=== PATIENT | female | born 1945 | race Caucasian/White ===

== ENCOUNTER 2018-07-20 08:00 | Outpatient (RCR) | payer MEDICARE, BC, SELFPAY ==
--- NOTE | 2018-07-05 10:06 | PTTR_ITS ---
DATE: 07/05/18 SUBJECTIVE: Nguyen returns to the clinic today after her vacation. She states that for whatever reason, she's been feeling really good. She's anxious to resume PT. Compliant with HEP: x Yes No OBJECTIVE: * x Neuro Re-education - (60601 x2): Patient is able to transfer scooter to low mat with min A x 1, primarily for stabilization of the scooter. She was instructed in seated and supine exercises, as noted on flowsheet. She requires min A for sit<->stand, and min A to sustain standing with UE support to rollator x 2 minutes. She was able to add standing march, with CG and significant compensatory movement patterns. During supine exercises, she requires continuous cues for breathing. Full program can be found noted on flowsheet. * Direct treatment time: 30 minutes Total treatment time: additional time spent with Aurora Clement PTA
--- NOTE | 2018-07-05 10:10 | PTTR_ITS ---
DATE: 07/05/18 OBJECTIVE: Co-treatment with Nguyen Aragon DPT. Please see her note for specifics. * X Neuro Re-education - (35594 x2): Pt instructed in her neuromuscular re- education program focusing on seated balance and trunk stabilization activities while incorporating LE strengthening. She does requires min/mod A with LE strengthening and cues for appropriate muscle activation and breathing techniques. She requires min A in seated position while performing reaching activities and reverse crunches. See flow sheet for specifics. CGA for transfer back to her motorized wheelchair. Direct treatment time: 30 minutes Total treatment time: 30 minutes Aurora Clement, CARDBOARD CUTTER
--- NOTE | 2018-07-07 09:00 | PTTR_ITS ---
DATE: 07/07/18 SUBJECTIVE: Nguyen states she was not terribly sore after her last session. She feels that her exercises are making a big difference and she is gaining strength. Neuro Re-education - (42463 x2): Session consisted of neuromuscular re-ed program, the patient completed both close chain and open chain strengthening. She was able to perform 8 steps with rollator walking and Min A of 1, although as poorly control return to the low marc with poor safety awareness and very abrupt transfer. Perform transfer training with patient encouraged to improve UE support to the low marc. She demonstrates excellent understanding and carry over with this, with improved control for descent. Also attempted transition into quadruped position, the patient requires Mod A for attempt. She is able to partially complete and is assisted back to supine position. Full program can be found noted on flow sheet. Direct treatment time: 30 mins Total treatment time: 30 mins with additional time spent with PT Aurora Clement (see her note for specifics) SS/dl
--- NOTE | 2018-07-08 07:59 | PTTR_ITS ---
DATE: 07/07/18 OBJECTIVE: This was a co tx with primary therapist Nguyen Aragon please see her note for specifics. * X Neuro Re-education - (64859 x2): Pt instructed in a neuro re-ed program as noted on her flow sheet consisting of core stabilization activities and general strengthening. Pt requiring max (A) in long sit position to avoid falling backwards. She does some reverse crunches in this position again with max (A). She performs some seated balance activities with legs over the edge of the table including reaching and trunk rotation. See flow sheet for all activities performed. Direct treatment time: 25 minutes Total treatment time: 25 minutes
--- NOTE | 2018-07-11 09:00 | PTTR_ITS ---
DATE: 07/11/18 SUBJECTIVE: Nguyen states that she feels as though her mobility is improving. She does think that it is easier to transfer. She has also begun practicing her static standing at home, stating she is able to stand for 50 seconds over the weekend. Neuro Re-education - (27043 x2): Today's session consisted of neuromuscular re-ed, began with transfer training with patient able to complete sit to stand for 5 reps with use of single Airex pad on low mat. She requires continuous cues for hand placement and avoidance of poorly controlled descent. Also requires assistance for stabilizing rollator walker. She is able to stand x2 mins, statically with CG and continuing encouragement. She completes various activities on the low mat with AA completion of SLR and long arc quads, and also received manual stretching to bilateral hamstrings. She is able to progress with her bridging today where she had been requiring significant external support to avoid hip external rotation. She is able to independently stabilize today, although with reduction in excursion. Direct treatment time: 30 mins Total treatment time: 30 mins with additional time spent with Aurora Clement PTA (see her note for specifics) SS/dl
--- NOTE | 2018-07-11 10:55 | PTTR_ITS ---
DATE: 07/11/18 OBJECTIVE: Co-treatment with Nguyen Aragon DPT. Please see her note for specifics. * X Neuro Re-education - (54222 x2): Continuation of her neuromuscular re- education program as note on her flow sheet. Complete core stabilization activities and glut stabilization with minimal support at the LE's. She does requires min A with rolling to the right from supine position. Also perform seated core stabilization including trunk rotation and reaching. She requires mod A with trunk rotation while encourage appropriate posturing. See flow sheet for all activities performed. Pt is quite fatigued after today's session and requires min A to return to her motorized wheel chair. She also asks for assistance into the car although pt and her caregiver are able to do this independently. Direct treatment time: 30 minutes Total treatment time: 30 minutes Aurora Clement, PYTHON ARCHITECT
--- NOTE | 2018-07-14 09:00 | PTTR_ITS ---
DATE: 07/14/18 SUBJECTIVE: Nguyen notes being quite fatigued today. She had a long trip down to [place] yesterday and she feels that this made her quite tired. She notes being a little sore through her arms after last session. X Neuro Re-education - (89392 x3): Patient is instructed in a neuro re-ed program as noted on flow sheet. WE begin with some standing balance activities where patient requires significant UE support to the walker and Min A throughout. She does have difficulty with sit to stand today x4 reps with Min A. She was also instructed in some seated and supine core stabilization exercises. In seated, she requires Min A or one UE to the plinth for stabilization. Patient can independently roll through the L and requires Min A with rolling to the R. She does note feeling quite nauseous when moving from position to position on the table. We defer any ambulation today due to fatigue level. She does also require Mod A to get back to her wheelchair today. (see flow sheet for all exercises performed) Direct treatment time: 45 mins Total treatment time: 45 mins LB/dl
--- NOTE | 2018-07-20 08:57 | PTTR_ITS ---
DATE: 07/20/18 SUBJECTIVE: Nguyen states that she's feeling well today. She has a busy few weeks coming up and will be out of town off and on. States that she is going to try to get into PT as regularly as possible during that time. She's been practicing her standing at home, typically tolerating 50-120 seconds. Compliant with HEP: x Yes No OBJECTIVE: * x Neuro Re-education - (35787 x2): Patient was instructed in an NRE program, with both open and closed chain strengthening. She received manual stretching to bilat LEs to hamstrings and hip adductors, tolerating only 15 degrees of abduction bilaterally. She required mod A with isometric hip exercises, and continues to require mod A to the LEs for bed mobility and transfers. Full program can be found noted on flow sheet. Direct treatment time: 30 mintues Total treatment time: additional time spent with Aurora Clement PTA
--- NOTE | 2018-07-20 10:22 | PTTR_ITS ---
DATE: 07/20/18 OBJECTIVE: Co-treatment with Nguyen Aragon DPT. Please see her note for specifics. * X Neuro Re-education - (15624 x2): Pt completes her neuromuscular re- education program as noted on her flow sheet consisting of supine and sitting trunk stabilization activities and glut strengthening. In hooklying she requires mod A at the LE's to maintain appropriate positioning while performing isometrics at the hips. In seated requires Min A while perform trunk rotation and reverse crunches. See flow sheet for all activities performed. She requires Mod A to transfer back to her motorized scooter. Direct treatment time: 30 minutes Total treatment time: 30 minutes Aurora Clement, ADMINISTRATIVE PERSONAL ASSISTANT
== END 2018-07-22 23:59 | disposition home or self-care (01) ==
LOC: PT 08:00
PROVIDERS: PCP Emergency Medicine; Referring Provider Emergency Medicine; Visit Provider Emergency Medicine
DX: R26.81 Unsteadiness on feet (principal); R29.6 Repeated falls; G35 Multiple sclerosis
CPT/HCPCS: 97112

== ENCOUNTER 2018-07-30 07:50 | Inpatient (IN) | payer MEDICARE, BC, SELFPAY ==
[2018-07-30] VITALS (64 sets, daily range): BP systolic 88–138; BP diastolic 28–101; PULSE 69–117; RESP 16–31; TEMP 37–39; O2SAT 89–98
--- NOTE | 2018-07-30 08:07 | DI.RAD_ITS ---
SYMPTOM/DIAGNOSIS: WEAKNESS, R/O PNEUMONIA PORTABLE CHEST: Comparison is made with 05 May 2016. The heart size is normal. The lungs are suboptimally inflated. There is mild respiratory motion. There are some linear increased densities consistent with atelectasis. IMPRESSION: Limited exam. No gross evidence of an acute abnormality.
[2018-07-30] MEDS: Normal Saline 250 ML IV (08:30)
[2018-07-30 08:57] LABS: Lactate-non-spesis 2.6 mmol/L (0.6-1.4)
--- NOTE | 2018-07-30 08:57 | DI.VRAD_ITS ---
EXAM: XR Chest, 1 View EXAM DATE/TIME: 07/30/2018 8:08 AM CLINICAL HISTORY: 73 years old, female; Signs and symptoms; Other: Weakness; Patient HX: Weakness, R/O pneumonia TECHNIQUE: XR of the chest, 1 view. COMPARISON: CR - CHEST 2 VIEWS PA,LAT 05/05/2016 2:38 PM FINDINGS: Limitations: Overlying EKG wires Lungs: No focal consolidation. Low lung volumes Discoid atelectasis in the right base. Pleural space: Unremarkable. No pleural effusion. No pneumothorax. Heart/Mediastinum: Unremarkable. No cardiomegaly. Bones/joints: Osseous structures are stable IMPRESSION: No focal consolidation. Dictated and Authenticated by: Josh Blandon MD. Ordering:SINDHU BANG MD
[2018-07-30 08:59] LABS: Abs Immature Grans 0.06 k/cumm (0.0-0.09); Absolute Basophil Count 0.02 k/cumm (0.0-0.2); Absolute Lymphocyte Count 0.58 k/cumm (1.2-3.4); Absolute Neutrophil Count 15.72 k/cumm (1.2-6.7); Basophils % 0.1; Eosinophils % 0.6; HCT 39.9 % (36.0-46.0); HGB 13.2 g/dL (12.0-15.5); Immature Grans % 0.4; Lymphocytes % 3.4; Mean Corp. HGB Concentration 33.1 g/dL (32.0-36.0); Mean Corpuscular Hemoglobin 29.7 pg (27.0-33.0); Mean Corpuscular Volume 89.9 fL (80-95); Mean Platelet Volume 9.6 fL (8.0-11.0); Monocytes % 3.3; Neutrophils % 92.2; Platelet Count 304 x1000/uL (130-400); RBC 4.44 m/cumm (4.00-5.20); RBC Distribution Width 14.1 % (11.7-14.6); White Blood Cell Count 17.05 k/cumm (4.4-10.8)
[2018-07-30 09:02] LABS: Bilirubin Negative (Negative); Blood Trace-intact (Negative); Clarity Cloudy; Glucose Negative (Negative); Ketones Trace mg/dL (Negative); Leukocyte Esterase Small (Negative); Nitrite Negative (Negative); Specific Gravity 1.015 (1.005-1.025); Urobilinogen 0.2 EU/dL (Up TO 0.2); pH 7.5 (5-8)
[2018-07-30 09:03] LABS: Absolute Monocyte Count 0.56 k/cumm (0.11-0.7)
[2018-07-30 09:15] LABS: C & S Indicated? Yes
--- NOTE | 2018-07-30 09:26 | ED.GENADUL_ITS ---
Discharge Plan Disposition Patient Disposition: [facility] INPATIENT Condition: Improving Discharge Details Chief Complaint: Fever Clinical Impression: Sepsis, Acute hypokalemia, Acute UTI, Community acquired pneumonia Primary Care Provider: Дмитрий Hyatt ED Provider: Roman Harris Home Meds and New Rx's Prescriptions: No Action cyanocobalamin (vitamin B-12) [Vitamin B-12] 1,000 MCG tablet 1,000 mcg PO DAILY RF: 0 Ca cmb no.1-vit [id number] [Vitamin D3 (calcium cit-phos)] 1 EACH tablet 1 ea PO DAILY RF: 0 nystatin 60 GM powder Topical BID Qty: 60 RF: 12 potassium chloride [K-Tab] 10 MEQ tablet extended release 10 meq PO BID Qty: 10 RF: 4 mirabegron [Myrbetriq] 50 MG tablet extended release 24 hr 50 mg PO DAILY Qty: 90 RF: 4 hydrochlorothiazide 25 MG tablet 0.5 tab PO DAILY Qty: 90 RF: 4 cephalexin 500 MG capsule 500 mg PO TID Qty: 30 RF: 0 nitrofurantoin monohyd/m-cryst [Macrobid] 100 mg capsule 100 mg PO BID Qty: 14 RF: 0 nitrofurantoin monohyd/m-cryst [Macrobid] 100 mg capsule 100 mg PO BID Qty: 14 RF: 0 iodine [Kelp (iodine)] 150 MCG tablet 150 mcg PO DAILY RF: 0 loperamide [Anti-Diarrhea] 2 MG tablet 2 mg PO PRN PRNRF: 0 Medical Decision Making [facility] Narrative Medical decision making narrative: This is a very pleasant 73-year-old female with a past medical history of urosepsis, who presents today for evaluation of weakness, questionable altered mental status at home, but relatively normal baseline here, as well as urinary incontinace. Physical exam demonstrates no significant abdominal or flank tenderness. She is incontinent of urine. No evidence of sacral decubitus ulcer. Patient does appear to be awake alert and oriented to person place and other generalized questions. The patient does demonstrate weakness of her lower extremities however sensation is intact, and she does demonstrate spontaneous movement of these lower extremities no signs of trauma on exam. Laboratory workup demonstrates a notable very elevated white count at 17, a lactate of 2.6, mild left shift. I am concerned for urosepsis. We are still awaiting urinalysis results at this time, however chest x-ray is negative for any signs of focal pneumonia. With a history of urosepsis, notable urinary incontinence, and foul-smelling urine I will start the patient on cefepime. I feel she certainly is suffering from infectious etiology at this point. She shows no signs of nuchal rigidity, neck pain or headache and so I doubt meningitis as this would be inconsistent with her current clinical picture. To me she denies any cough, shortness of breath and she shows no signs of hypoxemia significant tachypnea. With a negative chest x-ray feel that pneumonia is less likely. We will gently rehydrate the patient with 1 L of normal saline, get a repeat lactate, and admit the patient for further IV antibiotics management. X-ray read per virtual radiology no focal consolidation. EKG 8:08 AM Rate 116, WA 132, sinus tachycardia, QRS 90, no ST elevations or depressions. Questionable Q-wave in lead III and aVF. Diffuse low voltage. 10 a.m. The patient does demonstrate notable hypokalemia, we will correct this with 20 mEq IV potassium as well as 40 mEq oral potassium. Upon my review of the chest x-ray and concern for questionable mild focal pneumonia in the right mid lung [place]. I will add azithromycin for potential community-acquired pneumonia. Urinalysis has returned and appears very benign. It may be multifactorial components as to the cause/etiology of her sepsis. 10:17 AM I discussed the case with Dr. perla, he agrees with the assessment and plan. I have extensively reviewed the treatment plan and discharge instructions with the patient. I have addressed all patient concerns at this time. The patient was made aware of what symptoms to monitor for that would warrant a return to the emergency department. Discussed the plan with the patient, they demonstrate verbal understanding and agreement with our assessment and plan at this time. Lab Data Lab Results 07/30/18 07/30/18 07/30/18 Range/Units 08:50 08:50 08:55 WBC 17.05 H (4.4-10.8) k/cumm RBC 4.44 (4.00-5.20) m/cumm Hgb 13.2 (12.0-15.5) g/dL Hct 39.9 (36.0-46.0) % MCV 89.9 (80-95) fL MCH 29.7 (27.0-33.0) pg MCHC 33.1 (32.0-36.0) g/dL RDW 14.1 (11.7-14.6) % Plt Count 304 (130-400) x1000/uL MPV 9.6 (8.0-11.0) fL Immature Gran % 0.4 Neutrophils % 92.2 Lymphocytes % 3.4 Monocytes % 3.3 Eosinophils % 0.6 Basophils % 0.1 Absolute Neutrophils 15.72 H (1.2-6.7) k/cumm Absolute Lymphocytes 0.58 L (1.2-3.4) k/cumm Absolute Monocytes 0.56 (0.11-0.7) k/cumm Absolute Eosinophils 0.10 (0.0-0.7) k/cumm Absolute Basophils 0.02 (0.0-0.2) k/cumm Lactate 2.6 H (0.6-1.4) mmol/L Urine Color Yellow (Yellow) Urine Clarity Cloudy Urine pH 7.5 (5-8) Ur Specific Union 1.015 (1.005-1.025) Urine Protein Negative (Negative) mg/dL Urine Ketones Trace H (Negative) mg/dL Urine Blood Trace-intact H (Negative) Urine Nitrite Negative (Negative) Urine Bilirubin Negative (Negative) Urine Urobilinogen 0.2 (Up TO 0.2) EU/dL Ur Leukocyte Esterase Small H (Negative) Urine RBC Not Applicable Urine WBC Not Applicable Ur Epithelial Cells Not Applicable Urine Crystals Not Applicable Urine Bacteria (Negative) HPF Urine Mucus Not Applicable Ur Culture Indicated? Yes Urine Glucose Negative (Negative) mg/dL HPI - General Adult General Date/Time Provider Initiated Documentation: 07/30/18 07:55 . HPI Narrative: This is a 73-year-old female with past medical history of hypertension, MS, urinary incontinence, tubal ligation, and previous urinary tract infections and urosepsis. She presents today for fatigue, and suspected UTI. The patient has been having symptoms of mild urinary incontinence and fatigue for the last 24-48 hours. Family states that this is usually how she gets whenever she is about to have a UTI. Family called her primary care provider Dr. Hyatt yesterday, who called in nitrofurantoin for the patient. She had one dose yesterday, but none today. Throughout the night the patient became more fatigued, including this morning, has had some weakness in her lower extremities which family states that is classic for her when she becomes sick. The patient denies any vomiting, diarrhea, chest pain, shortness of breath, numbness, tingling, weakness. She has no other complaints at this time. Related Data Home Medications Medication Instructions Recorded Confirmed Ca cmb no.1-vit [id number] 1 ea PO DAILY 04/11/13 03/31/18 [Vitamin D3 (calcium cit-phos)] cyanocobalamin (vitamin B-12) 1,000 mcg PO DAILY 04/11/13 03/31/18 [Vitamin B-12] iodine [Kelp (iodine)] 150 mcg PO DAILY 12/12/15 03/31/18 loperamide [Anti-Diarrhea] 2 mg PO PRN PRN 12/13/15 03/31/18 Previous Rx's Medication Instructions Recorded nitrofurantoin 100 mg PO BID #14 cap 07/29/18 monohydrate/macrocrystals 100 mg capsule nitrofurantoin 100 mg PO BID #14 cap 07/29/18 monohydrate/macrocrystals 100 mg capsule Allergies Allergy/AdvReac Type Severity Reaction Status Date / Time oxybutynin AdvReac Intermediate severe dry Unverified 06/16/18 11:33 mouth AMPRAH AdvReac Intermediate MADE HER Uncoded 03/31/18 06:54 MS WORSE Review of Systems Review of Systems 10 point review of systems was performed, pertinent positives and negatives are noted in the history of present illness. PFSH Family History Mother Neoplasm Father No problems noted. Sister No problems noted. Grandfather Heart disease Grandfather Heart disease Grandmother Heart disease Grandmother Diabetes Son Cerebrovascular accident Daughter Substance abuse Medical History HTN (hypertension) MS (multiple sclerosis) Urinary incontinence with continuous leakage Social History Smoking/Tobacco Use Status: Current-Occasional Surgical History Extraction of cataract (12/17/15) Extraction of cataract (12/31/15) Ligation of fallopian tube Exam Narrative Exam Narrative: 1.Const: Well-nourished, Well-developed, appearing stated age 2.Eyes: PERRL, no conjunctival injection, and symmetrical lids. 3.ENT: Atraumatic external nose and ears. Moist MM. Neck: Symmetric, trachea midline, No thyromegaly. 4.CVS: +S1/S2, No murmurs or gallops. Peripheral pulses 2+ and equal in all extremities. Brisk capillary refill in all extremities. 5.RESP: Unlabored respiratory effort. Clear to auscultation bilaterally. No wheezes rales or rhonchi 6.GI: Soft, Nontender/Nondistended, No hepatosplenomegaly. No guarding or rebound. No significant flank tenderness on percussion. 7.MSK: Normocephalic/Atraumatic, Extremities w/o deformity or ttp No cyanosis or clubbing, normal range of motion all extremities. Upper extremities demonstrate 5 out of 5 strength. Lower extremities demonstrate 3 out of 5 strength. Normal sensation. No pain with movement. No pain on logroll. Dorsalis pedis +2 bilaterally. Capillary refill brisk no midline spinal tenderness for thoracic lumbar sacral spine appear. 8.Skin: Warm, Dry. No rashes or lesions. No evidence of sacral decubitus ulcer. 9.Neuro: sustainable products marketing manager II-XII grossly intact. Sensation grossly intact. 10.Psych: (AAO) x3. Appropriate mood and affect. Patient does know where she is , her name, and birthdate, however she is unsure if it is 2015 or [birth year]. Genitourinary: Exam was performed with female medical staff at bedside. Patient is notably incontinent of urine Course Lab/Test Results Lab/Test Results: Laboratory Tests 07/30/18 07/30/18 07/30/18 08:50 08:50 08:55 WBC 17.05 H RBC 4.44 Hgb 13.2 Hct 39.9 MCV 89.9 MCH 29.7 MCHC 33.1 RDW 14.1 Plt Count 304 MPV 9.6 Immature Gran % 0.4 Neutrophils % 92.2 Lymphocytes % 3.4 Monocytes % 3.3 Eosinophils % 0.6 Basophils % 0.1 Absolute Neutrophils 15.72 H Absolute Lymphocytes 0.58 L Absolute Monocytes 0.56 Absolute Eosinophils 0.10 Absolute Basophils 0.02 Lactate 2.6 H Urine Color Yellow Urine Clarity Cloudy Urine pH 7.5 Ur Specific Union 1.015 Urine Protein Negative Urine Ketones Trace H Urine Blood Trace-intact H Urine Nitrite Negative Urine Bilirubin Negative Urine Urobilinogen 0.2 Ur Leukocyte Esterase Small H Urine RBC Not Applicable Urine WBC Not Applicable Ur Epithelial Cells Not Applicable Urine Crystals Not Applicable Urine Bacteria Urine Mucus Not Applicable Ur Culture Indicated? Yes Urine Glucose Negative
[2018-07-30 09:28] LABS: ALT 35 U/L (12-78); AST 30 U/L (15-37); Albumin 3.5 g/dL (3.4-5.0); Alkaline Phosphatase 121 U/L (46-116); Anion Gap 11.4 mmol/L (3-11); BUN 22 mg/dL (7-18); Bilirubin, Direct 0.18 mg/dL (0.00-0.20); Bilirubin, Total 0.7 mg/dL (0.2-1.0); CO2 24.6 mmol/L (21.0-32.0); CREATININE 1.11 mg/dL (0.55-1.02); Calcium 8.9 mg/dL (8.5-10.1); Chloride 106 mmol/L (98-107); Estimated GFR 48.46 (mL/min/1.73m2); Glucose 141 mg/dL (70-100); Magnesium 1.8 mg/dL (1.8-2.4); Sodium 142 mmol/L (136-145); Total Protein 7.2 g/dL (6.4-8.2)
[2018-07-30 09:30] LABS: Potassium 2.9 mmol/L (3.5-5.1); Troponin I < 0.02 ng/mL (0.00-0.06)
[2018-07-30] MEDS: CEFEPIME 2 GM in Normal Saline 100 ML IVPB (10:01)
[2018-07-30] MEDS: POTASSIUM CHLORIDE 20 MEQ/100 ML BAG 50 MEQ IVPB (10:09)
[2018-07-30 10:10] LABS: Lactate-non-spesis 1.8 mmol/L (0.6-1.4)
[2018-07-30] MEDS: Potassium Chloride 20 MEQ TABCR 40 MEQ PO ×2 (10:10→17:38)
[2018-07-30] MEDS: Normal Saline 1,000 ML 100 ML IV (10:15)
[2018-07-30 11:21] LABS: PTT Activated 23.9 sec (21.0-31.4); Prothrombin Time 9.9 sec (9.3-10.8)
[2018-07-30] MEDS: AZITHROMYCIN 500 MG in Normal Saline 250 ML 250 MG IVPB (11:59)
[2018-07-30] MEDS: Normal Saline Flush 10 ML SYR IVP (12:00)
[2018-07-30] MEDS: Acetaminophen 325 MG TAB 650 MG PO (12:19)
[2018-07-30] MEDS: Enoxaparin 40 MG/0.4 ML SYR SC (14:38)
[2018-07-30] MEDS: IMIPENEM/CILASTATIN 1,000 MG in Normal Saline 250 ML 250 MG IVPB ×2 (14:39→22:00)
--- NOTE | 2018-07-30 14:48 | HPE_ITS ---
Assessment and Plan (1) Sepsis: Current visit: Yes Status: Acute Sepsis based on Fever, Leukocytosis, altered mental status, tachycardia, hypotension, and an elevated Lactate with a suspected urinary source. Also with noted urinary symptoms at home. Initiate broad spectrum antimicrobial therapy that includes ESBL and MRSA coverage - Currently initiating on Imipenem and Vancomycin. Prior culture data reviewed and with pansensitive E.coli in 2018, pansensitive Citrobacter previously, as well as an E.Coli with intermediate sensitivity to Gent, Nitrofurantoi, and tobramycin in 2014. Patient will be admitted into the ICU. IVF resuscitation with low threshold for pressor support. Blood and Urinary cultures obtained and pending. Monitor symptoms closely. (2) UTI (urinary tract infection): Current visit: Yes Status: Acute Treatment as above. Await culture results. (3) Hypokalemia: Current visit: Yes Status: Acute Replete now. Has received 40 PO and 20 IV potassium while in the emergency room - will schedule for additional 40 later this evening. (4) Hypertension: Current visit: Yes Status: Chronic Hold HCTZ in setting of hypotension. (5) DVT prophylaxis: Current visit: Yes Status: Acute SC Lovenox. 73-year-old woman with a PMHx significant for MS with a neurogenic bladder and chronic urinary incontinence, who presented to [facility] emergency room with complaints of fatigue and urinary symptoms over the last 1-2 days. The patient had complained of some mildly worsening urinary incontinence and fatigue for the last 24-48 hours, and family stated that this is typical for when she is about to have a UTI. Mrs. Ricks' family called her primary care provider Dr. Hyatt yesterday, who called in a prescriptio for nitrofurantoin for the patient. She had one dose yesterday, but none today. Throughout the night the patient became more fatigued, including this morning, has had some weakness in her lower extremities which family states that is classic for her when she becomes sick. Of note Mrs. Lemon has a past medical history of urosepsis. Work-up in the emergency department included labs that showed an elevated white count at 17, a lactate of 2.6, mild left shift on differential. Her urinalysis showed small LE, but a microscopic WBC count was not performed as there were too many bacteria in the field for accurate assessment. Her urine was also noted to be malodorous. Her CXR was interpreted as negative for pneumonia. She was also noted to be febrile and tachycardic. Following her admission to [facility] the patient was also noted to have a change in mental status with slight confusion, as well as development of mild hypotension. Review of Systems Review of Systems Unable to obtain accurate ROS due to onset of confusion PFSH Family History Mother Neoplasm Father No problems noted. Sister No problems noted. Grandfather Heart disease Grandfather Heart disease Grandmother Heart disease Grandmother Diabetes Son Cerebrovascular accident Daughter Substance abuse Medical History Chronic fatigue (Acute) Hypokalemia (Acute) Neurogenic bladder (Acute) Recurrent falls (Acute) Tobacco abuse (Acute) HTN (hypertension) MS (multiple sclerosis) Urinary incontinence with continuous leakage Social History Smoking/Tobacco Use Status: Current every day Surgical History Extraction of cataract (12/17/15) Extraction of cataract (12/31/15) Ligation of fallopian tube Meds Home Medications Medication Instructions Recorded Confirmed Type Ca cmb no.1-vit [id number]-CX-B12 1 ea PO DAILY 04/11/13 07/30/18 History [Vitamin D3 (calcium cit-phos)] cyanocobalamin (vitamin B-12) 1,000 mcg PO DAILY 04/11/13 07/30/18 History [Vitamin B-12] iodine [Kelp (iodine)] 150 mcg PO DAILY 12/12/15 07/30/18 History loperamide [Anti-Diarrhea] 2 mg PO PRN PRN 12/13/15 07/30/18 History nystatin 0 TOPICAL BID #60 gm 12/19/15 12/31/15 Clinic potassium chloride [K-Tab] 10 meq PO BID #10 tab-cap 09/08/16 07/30/18 Clinic mirabegron [Myrbetriq] 50 mg PO DAILY #90 tab-cap 08/27/17 07/30/18 Clinic hydrochlorothiazide 0.5 tab PO DAILY #90 tab 06/03/18 07/30/18 Clinic Allergies Allergy/AdvReac Type Severity Reaction Status Date / Time oxybutynin AdvReac Intermediate severe dry Unverified 07/30/18 10:28 mouth AMPRAH AdvReac Intermediate MADE HER Uncoded 07/30/18 10:28 MS WORSE Exam Const General: cooperative and ill appearing Orientation: alert and awake Limitations: altered mental status Neck Neck: supple Resp Effort & Inspection: normal respiratory effort and able to speak in complete sentences Auscultation: clear to auscultation bilaterally Cardio Rate: tachycardic Heart Sounds: S1 normal, S2 normal, no gallops, no murmurs and no rubs GI Palpation: soft, not firm, no guarding and nontender Auscultation: normal bowel sounds Extrem General: no edema Psych Appearance: grossly normal Affect: normal affect Other: Appears confused Results Labs : 07/30/18 08:50 07/30/18 08:50 Abnormal lab results 07/30/18 07/30/18 07/30/18 Range/Units 08:50 08:50 08:50 WBC 17.05 H (4.4-10.8) k/cumm Absolute Neutrophils 15.72 H (1.2-6.7) k/cumm Absolute Lymphocytes 0.58 L (1.2-3.4) k/cumm Potassium 2.9 L* (3.5-5.1) mmol/L Anion Gap 11.4 H (3-11) mmol/L BUN 22 H (7-18) mg/dL Creatinine 1.11 H (0.55-1.02) mg/dL Glucose 141 H (70-100) mg/dL Lactate 2.6 H (0.6-1.4) mmol/L Alkaline Phosphatase 121 H (46-116) U/L Urine Ketones (Negative) mg/dL Urine Blood (Negative) Ur Leukocyte Esterase (Negative) 07/30/18 07/30/18 Range/Units 08:55 10:05 WBC (4.4-10.8) k/cumm Absolute Neutrophils (1.2-6.7) k/cumm Absolute Lymphocytes (1.2-3.4) k/cumm Potassium (3.5-5.1) mmol/L Anion Gap (3-11) mmol/L BUN (7-18) mg/dL Creatinine (0.55-1.02) mg/dL Glucose (70-100) mg/dL Lactate 1.8 H (0.6-1.4) mmol/L Alkaline Phosphatase (46-116) U/L Urine Ketones Trace H (Negative) mg/dL Urine Blood Trace-intact H (Negative) Ur Leukocyte Esterase Small H (Negative) Diabetes panel 07/30/18 Range/Units 08:50 Sodium 142 (136-145) mmol/L Potassium 2.9 L* (3.5-5.1) mmol/L Chloride 106 (98-107) mmol/L Carbon Dioxide 24.6 (21.0-32.0) mmol/L BUN 22 H (7-18) mg/dL Creatinine 1.11 H (0.55-1.02) mg/dL Glucose 141 H (70-100) mg/dL Calcium 8.9 (8.5-10.1) mg/dL AST 30 (15-37) U/L ALT 35 (12-78) U/L Alkaline Phosphatase 121 H (46-116) U/L Total Protein 7.2 (6.4-8.2) g/dL Albumin 3.5 (3.4-5.0) g/dL Calcium panel 07/30/18 Range/Units 08:50 Calcium 8.9 (8.5-10.1) mg/dL Albumin 3.5 (3.4-5.0) g/dL Pituitary panel 07/30/18 Range/Units 08:50 Sodium 142 (136-145) mmol/L Potassium 2.9 L* (3.5-5.1) mmol/L Chloride 106 (98-107) mmol/L Carbon Dioxide 24.6 (21.0-32.0) mmol/L BUN 22 H (7-18) mg/dL Creatinine 1.11 H (0.55-1.02) mg/dL Glucose 141 H (70-100) mg/dL Calcium 8.9 (8.5-10.1) mg/dL Adrenal panel 07/30/18 Range/Units 08:50 Sodium 142 (136-145) mmol/L Potassium 2.9 L* (3.5-5.1) mmol/L Chloride 106 (98-107) mmol/L Carbon Dioxide 24.6 (21.0-32.0) mmol/L BUN 22 H (7-18) mg/dL Creatinine 1.11 H (0.55-1.02) mg/dL Glucose 141 H (70-100) mg/dL Calcium 8.9 (8.5-10.1) mg/dL Total Bilirubin 0.7 (0.2-1.0) mg/dL AST 30 (15-37) U/L ALT 35 (12-78) U/L Alkaline Phosphatase 121 H (46-116) U/L Total Protein 7.2 (6.4-8.2) g/dL Albumin 3.5 (3.4-5.0) g/dL Laboratory Tests 07/30/18 07/30/18 07/30/18 08:50 08:50 08:50 WBC 17.05 H RBC 4.44 Hgb 13.2 Hct 39.9 MCV 89.9 MCH 29.7 MCHC 33.1 RDW 14.1 Plt Count 304 MPV 9.6 Immature Gran % 0.4 Neutrophils % 92.2 Lymphocytes % 3.4 Monocytes % 3.3 Eosinophils % 0.6 Basophils % 0.1 Absolute Neutrophils 15.72 H Absolute Lymphocytes 0.58 L Absolute Monocytes 0.56 Absolute Eosinophils 0.10 Absolute Basophils 0.02 PT INR APTT Sodium 142 Potassium 2.9 L* Chloride 106 Carbon Dioxide 24.6 Anion Gap 11.4 H BUN 22 H Creatinine 1.11 H Estimated GFR/1.73 m2 48.46 Glucose 141 H Lactate 2.6 H Calcium 8.9 Magnesium 1.8 Total Bilirubin 0.7 Conjugated Bilirubin 0.18 AST 30 ALT 35 Alkaline Phosphatase 121 H Troponin I < 0.02 Total Protein 7.2 Albumin 3.5 Urine Color Urine Clarity Urine pH Ur Specific Spring Urine Protein Urine Ketones Urine Blood Urine Nitrite Urine Bilirubin Urine Urobilinogen Ur Leukocyte Esterase Urine RBC Urine WBC Ur Epithelial Cells Urine Crystals Urine Bacteria Urine Mucus Ur Culture Indicated? Urine Glucose 07/30/18 07/30/18 07/30/18 08:50 08:55 10:05 WBC RBC Hgb Hct MCV MCH MCHC RDW Plt Count MPV Immature Gran % Neutrophils % Lymphocytes % Monocytes % Eosinophils % Basophils % Absolute Neutrophils Absolute Lymphocytes Absolute Monocytes Absolute Eosinophils Absolute Basophils PT 9.9 INR 1.0 APTT 23.9 Sodium Potassium Chloride Carbon Dioxide Anion Gap BUN Creatinine Estimated GFR/1.73 m2 Glucose Lactate 1.8 H Calcium Magnesium Total Bilirubin Conjugated Bilirubin AST ALT Alkaline Phosphatase Troponin I Total Protein Albumin Urine Color Yellow Urine Clarity Cloudy Urine pH 7.5 Ur Specific Spring 1.015 Urine Protein Negative Urine Ketones Trace H Urine Blood Trace-intact H Urine Nitrite Negative Urine Bilirubin Negative Urine Urobilinogen 0.2 Ur Leukocyte Esterase Small H Urine RBC Not Applicable Urine WBC Not Applicable Ur Epithelial Cells Not Applicable Urine Crystals Not Applicable Urine Bacteria Urine Mucus Not Applicable Ur Culture Indicated? Yes Urine Glucose Negative
--- NOTE | 2018-07-30 15:51 | DI.US_ITS ---
SYMPTOM/DIAGNOSIS: UROSEPSIS RENAL ULTRASOUND: Comparison is made with 31 Dec 2017. The kidneys are normal in size and show normal parenchymal thickness and echogenicity. There are bilateral scattered echogenic foci which could represent nonobstructing calcifications vs vascular calcifications. There is no evidence of hydronephrosis. No mass is identified. A Jha catheter is seen in the bladder. There is mild bladder wall thickening but no focal abnormality. The left ureteral jet was obscured by the Jha catheter. The right ureteral jet is visualized. IMPRESSION: No evidence of hydronephrosis or perinephric collection. Question of vascular calcification vs artifacts vs nonobstructing parenchymal calcifications.
[2018-07-30] MEDS: VANCOMYCIN 750 MG in Normal Saline 250 ML 250 MG IV (16:08)
[2018-07-30] MEDS: Normal Saline 1,000 ML 125 ML IV (16:24)
--- NOTE | 2018-07-30 16:47 | DI.VRAD_ITS ---
EXAM: US Retroperitoneal Limited, Renal CLINICAL HISTORY: 73 years old, female; Condition or disease; Other: Urosepsis TECHNIQUE: Real-time ultrasound of the retroperitoneum (limited) with image documentation. COMPARISON: US - RENAL ULTRASOUND(P) 12/31/2017 1:25 PM FINDINGS: Right kidney: Small bilateral echogenic foci in the kidneys may represent small nonobstructive calculi versus vascular calcifications. Right kidney 9.7 cm Left kidney: Left kidney 10.1 cm. Small bilateral echogenic foci in the kidneys may represent small nonobstructive calculi versus vascular calcifications Bladder: Right ureteral jet identified. Left ureteral jet is obscured by Jha. Jha catheter in the bladder IMPRESSION: 1. Small bilateral echogenic foci in the kidneys may represent small nonobstructive calculi versus vascular calcifications. 2. Right ureteral jet identified. 3. Left ureteral jet is obscured by Jha. Dictated and Authenticated by: Josh Blandon MD. Ordering:JESUS FUNK MD
[2018-07-30 18:40] LABS: Lactate-non-spesis 2.1 mmol/L (0.6-1.4)
[2018-07-30] MEDS: Acetaminophen 325 MG TAB PO (20:08)
[2018-07-31] VITALS (45 sets, daily range): BP systolic 90–155; BP diastolic 43–101; PULSE 75–100; RESP 14–26; TEMP 36.1–37.6; O2SAT 92–100
[2018-07-31] MEDS: Normal Saline 1,000 ML 125 ML IV (01:59)
[2018-07-31] MEDS: VANCOMYCIN 750 MG in Normal Saline 250 ML 250 MG IV ×2 (04:07→15:54)
[2018-07-31] MEDS: IMIPENEM/CILASTATIN 1,000 MG in Normal Saline 250 ML 250 MG IVPB (06:11)
[2018-07-31 07:08] LABS: Abs Immature Grans 0.03 k/cumm (0.0-0.09); Absolute Basophil Count 0.02 k/cumm (0.0-0.2); Absolute Eosinophil Count 0.51 k/cumm (0.0-0.7); Absolute Lymphocyte Count 1.27 k/cumm (1.2-3.4); Absolute Monocyte Count 0.75 k/cumm (0.11-0.7); Basophils % 0.2; Eosinophils % 4.1; HCT 31.1 % (36.0-46.0); HGB 9.9 g/dL (12.0-15.5); Immature Grans % 0.2; Lymphocytes % 10.2; Mean Corp. HGB Concentration 31.8 g/dL (32.0-36.0); Mean Corpuscular Hemoglobin 28.8 pg (27.0-33.0); Mean Corpuscular Volume 90.4 fL (80-95); Mean Platelet Volume 9.9 fL (8.0-11.0); Neutrophils % 79.3; Platelet Count 246 x1000/uL (130-400); RBC 3.44 m/cumm (4.00-5.20); RBC Distribution Width 14.4 % (11.7-14.6); White Blood Cell Count 12.49 k/cumm (4.4-10.8)
[2018-07-31 07:28] LABS: Anion Gap 11.4 mmol/L (3-11); BUN 14 mg/dL (7-18); CO2 20.6 mmol/L (21.0-32.0); CREATININE 1.03 mg/dL (0.55-1.02); Calcium 6.8 mg/dL (8.5-10.1); Chloride 116 mmol/L (98-107); Estimated GFR 52.82 (mL/min/1.73m2); Glucose 95 mg/dL (70-100); Potassium 3.4 mmol/L (3.5-5.1); Sodium 148 mmol/L (136-145)
[2018-07-31 08:10] LABS: Lactate-non-spesis 1.5 mmol/L (0.6-1.4)
--- NOTE | 2018-07-31 09:32 | PT.INIE ---
PT Notes Date: 2017 Referring Provider: Héctor Beaver MD Diagnosis: Chronic MS with acute illness Precautions: Falls Patient Profile/Admitting Diagnosis: Patient is a 73 year old female admitted due to fatigue and worsening incontinence. S/p diagnosis of sepsis, leukocytosis, tachycardia and hypotension admitted to the ICU via ED. PMHX: Multiple sclerosis, neurogenic bladder, recurrent urinary tract infections, cataracts, hypertension, bilateral lower extremities edema, Vit-B12 deficiency, chronic fatigue, tubal ligation and anxiety. Social History/Home Situation: lives at home, . Baseline mobility: ambulation with a walker household distances occasionally and utilizes an electric/ motorized wheelchair/scooter for main ambulation at this time. She has been working with outpatient PT services on her leg strength and mobility. She notes that she was able to stand for 2 minutes at her last outpatient PT appt. That is the most that she has stood in quite some time. She reports she continues to keep the strength in her arms regularly by lifting weights. She notes that she tends to let the legs go. She however is very happy with the progress she has been making in outpatient PT. Equipment owned/DME: walker, and electric wheelchair, scooter, ramp, walk in shower SUBJECTIVE: Pt. was up seated in bedside chair, alert and oriented noting how much better she was feeling already. She just finished her breakfast. OBJECTIVE General Observation: IV line on right arm, Jha catheter, and telemetry, and O2 via nasal canula 2 liters. Mental Status: A&O to location and situation Pain: none reported ROM: RUE: AROM WNL L UE AROM WNL R LE: AAROM Hip flexion 120*, knee flexion 100*, DF 0* LLE AAROM hip flexion 120*, knee flexion 100*, DF 0* STRENGTH: R UE 5/5 throughout L UE 5/5 throughout R LE 3/5 hip flexion, 3/5 quad, 3/5 DF/PF LLE 3/5 hip flexion, 3/5 quad, 3/5 DF/PF BED MOBILITY/TRANSFERS: Supine-sit: ModAx1 HOB 40*- assist to move legs to edge of bed, assist of bed pad to move hips to edge of bed Sit-stand: MinAx1 - pt unable to fully extend hips and knees in standing, stands with flexed posture. Able to stand for very short period of time before she feels her legs start to give out. Verbal cueing to reach back for chair with hands prior to sitting down. Stand-sit: MinAx1 Bed-chair: ModAx1 stand pivot transfer to bed chair GAIT: MaxAx1 FWW, unable to ambulate, stood for less than 30 seconds prior to her legs giving out. BALANCE: Static sitting: fair Dynamic Sitting: fair Static Standing: poor Dynamic Standing: poor SPECIAL TESTS: [facility] Am-Pac 6 Clicks raw score of 9, standardized score of 30.55 with CMS score of 81.38%. modifier: CM INFORMED CONSENT/EDUCATION: PT is instructed in the purpose of PT consult and plan of care and in agreement with plan. ASSESSMENT: Patient is a 73 year old female admitted due to increasing fatigue and incontinence secondary to acute illness, chronic MS. She presents with strength and range deficits in bilateral lower extremities, and impaired gait. She demonstrated poor balance while standing and fair balance while sitting where she tend to lean forward or backward. Pt. requires skilled physical therapy to address strength deficits, increase range of motion in bilateral lower extremities, balance and gait training with the use of walker, and to address transfers safety. She will be discharged to home after regaining strength in the lower extremities. Patient is assessed as: Moderate 53669 complexity, based on the following: History: decreased mobility in patient with a long history of M.S. with history of extensive Home Health services Examination: See above for functional limitations and impairments. Presentation: Evolving due to the progressive nature of her Neurological disease Decision-Making: Moderate complexity GOALS Goals x1 week 1.Supine-sit MinAx1 HOB 0* 2.Sit-Supine MinAx1 3.Sit-Stand MinAx1 with FWW 4.Stand-sit MinAx1 5.Bed-chair MinAx1 with FWW 6.Chair-bed MinAx1 with FWW 7.Gait MinAx1 with walker, household distances 9.I with home exercise program 10.Balance: good sitting balance, and fair standing balance PLAN OF CARE/TREATMENT PLAN: 1-2x/day, 7 days/ week x1 Plan of care has been reviewed with the [employer] providing the service under Physical therapy direction. Initiate PT services for strengthening, ROM, transfers, gait, balance, and safety training. DISCHARGE RECOMMENDATIONS D/C to home with the use of FWW and electric wheelchair. TREATMENT TIME/MINUTES/CODES 20 min IE 9:10 G-codes: Mobility: walking and moving around: Present status: [id number] CM Projected Goal G8979 CM SYLVESTER Kunz Intake Vital Signs 07/30/18 08:00 07/30/18 08:00 07/30/18 08:09 07/30/18 08:10 07/30/18 08:16 07/30/18 08:20 07/30/18 08:30 07/30/18 08:31 07/30/18 08:40 07/30/18 08:48 07/30/18 08:50 07/30/18 09:00 07/30/18 09:01 07/30/18 09:10 07/30/18 09:16 07/30/18 09:20 07/30/18 09:30 07/30/18 09:31 07/30/18 09:40 07/30/18 09:50 07/30/18 09:54 07/30/18 10:00 07/30/18 10:01 07/30/18 10:10 07/30/18 10:16 07/30/18 10:20 07/30/18 10:30 07/30/18 10:31 07/30/18 10:33 07/30/18 10:40 07/30/18 10:46 Height 5 ft 3 in 5 ft 3 in Weight 61.8 kg 61.8 kg BP 129/67 129/67 107/73 131/66 112/52 L 125/56 L 93/73 L 101/39 L 116/70 114/74 116/82 99/42 L Blood Pressure Location Lt brachial Position Respiration 20 18 16 20 19 16 16 20 27 H 20 17 22 25 H 31 H 29 H 25 H 20 16 24 26 H 24 22 24 22 23 24 26 H 20 19 Pulse 113 H 113 H 112 H 111 H 107 H 106 H 69 99 H 102 H 95 H 107 H 105 H Temp 37.4 C 37 C Temp Source Temporal Artery Scan Temporal Artery Scan Pulse Oximetry (%) 94 L 93 L 93 L 92 L 92 L 93 L 92 L 93 L 92 L 92 L 91 L 89 L 91 L 91 L 93 L 93 L 92 L Oxygen Flow Rate 0 07/30/18 10:50 07/30/18 11:00 07/30/18 11:01 07/30/18 11:20 07/30/18 11:45 07/30/18 11:45 07/30/18 12:06 07/30/18 12:19 07/30/18 13:04 07/30/18 13:14 07/30/18 13:46 07/30/18 14:01 07/30/18 14:09 07/30/18 14:16 07/30/18 14:31 07/30/18 14:45 07/30/18 15:00 07/30/18 15:16 07/30/18 15:19 07/30/18 15:30 07/30/18 15:45 07/30/18 16:00 07/30/18 16:17 07/30/18 16:30 07/30/18 16:43 07/30/18 17:00 07/30/18 18:00 07/30/18 18:30 07/30/18 19:01 07/30/18 20:01 07/30/18 20:40 07/30/18 21:01 5 ft 3 in 61.8 kg 62 kg 118/60 118/60 105/57 L 105/57 L 138/75 94/54 L 93/63 L 113/44 L 93/63 L 100/51 L 102/62 107/46 L 113/51 L 88/67 L 101/70 109/65 119/101 H 116/46 L 108/32 L 99/48 L 94/53 L 96/57 L 112/65 110/93 H 92/28 L Supine 28 H 25 H 27 H 27 H 20 20 20 22 21 22 25 H 19 18 19 19 27 H 19 22 21 20 24 20 22 19 22 24 29 H 20 106 H 106 H 108 H 108 H 110 H 117 H 108 H 105 H 109 H 103 H 102 H 105 H 99 H 98 H 99 H 94 H 108 H 96 H 101 H 97 H 102 H 99 H 115 H 113 H 37 C 38.9 C H 38.9 C H 39 C H 39 C H 39 C H 39 C H 37.4 C 38.8 C H 38 C H Tympanic Tympanic Tympanic Temporal Artery Scan Temporal Artery Scan 92 L 92 L 92 L 94 L 94 L 92 L 93 L 93 L 94 L 95 97 95 97 96 94 L 96 97 98 96 94 L 94 L 93 L 93 L 0 0 0 0 0 07/30/18 21:08 07/30/18 22:39 07/30/18 23:01 07/31/18 00:00 07/31/18 00:25 07/31/18 01:00 07/31/18 02:09 07/31/18 04:00 07/31/18 04:40 07/31/18 04:41 07/31/18 05:00 07/31/18 05:23 07/31/18 06:01 07/31/18 07:01 07/31/18 09:48 56.2 kg 122/46 L 111/66 111/69 115/52 L 95/70 L 100/78 100/78 117/58 L 120/52 L 130/63 111/43 L Supine 20 24 20 15 19 22 16 21 20 17 19 105 H 97 H 92 H 90 95 H 89 86 84 91 H 90 75 38 C H 37.6 C H 37.0 C Temporal Artery Scan Temporal Artery Scan 90 L 94 L 92 L 95 93 L 95 97 97 98 94 L 97 98 2 2
[2018-07-31] MEDS: Cyanocobalamin 500 MCG TAB 1000 MCG PO (09:42)
[2018-07-31] MEDS: Potassium Chloride 20 MEQ TABCR 40 MEQ PO (09:42)
[2018-07-31] MEDS: Mirabegron 50 MG TABCR PO (09:42)
[2018-07-31] MEDS: Magnesium Oxide 400 MG TAB PO (09:42)
--- NOTE | 2018-07-31 09:43 | IN_ITS ---
PT Notes Date: 2017 Referring Provider: Héctor Beaver MD Diagnosis: Chronic MS with acute illness Precautions: Falls Patient Profile/Admitting Diagnosis: Patient is a 73 year old female admitted due to fatigue and worsening incontinence. S/p diagnosis of sepsis, leukocytosis , tachycardia and hypotension admitted to the ICU via ED. PMHX: Multiple sclerosis, neurogenic bladder, recurrent urinary tract infections , cataracts, hypertension, bilateral lower extremities edema, Vit-B12 deficiency , chronic fatigue, tubal ligation and anxiety. Social History/Home Situation: lives at home, . Baseline mobility: ambulation with a walker household distances occasionally and utilizes an electric/ motorized wheelchair/scooter for main ambulation at this time. She has been working with outpatient PT services on her leg strength and mobility. She notes that she was able to stand for 2 minutes at her last outpatient PT appt. That is the most that she has stood in quite some time. She reports she continues to keep the strength in her arms regularly by lifting weights. She notes that she tends to let the legs go. She however is very happy with the progress she has been making in outpatient PT. Equipment owned/DME: walker, and electric wheelchair, scooter, ramp, walk in shower SUBJECTIVE: Pt. was up seated in bedside chair, alert and oriented noting how much better she was feeling already. She just finished her breakfast. OBJECTIVE General Observation: IV line on right arm, Jha catheter, and telemetry, and O2 via nasal canula 2 liters. Mental Status: A&O to location and situation Pain: none reported ROM: RUE: AROM WNL L UE AROM WNL R LE: AAROM Hip flexion 120*, knee flexion 100*, DF 0* LLE AAROM hip flexion 120*, knee flexion 100*, DF 0* STRENGTH: R UE 5/5 throughout L UE 5/5 throughout R LE 3/5 hip flexion, 3/5 quad, 3/5 DF/PF LLE 3/5 hip flexion, 3/5 quad, 3/5 DF/PF BED MOBILITY/TRANSFERS: Supine-sit: ModAx1 HOB 40*- assist to move legs to edge of bed, assist of bed pad to move hips to edge of bed Sit-stand: MinAx1 - pt unable to fully extend hips and knees in standing, stands with flexed posture. Able to stand for very short period of time before she feels her legs start to give out. Verbal cueing to reach back for chair with hands prior to sitting down. Stand-sit: MinAx1 Bed-chair: ModAx1 stand pivot transfer to bed chair GAIT: MaxAx1 FWW, unable to ambulate, stood for less than 30 seconds prior to her legs giving out. BALANCE: Static sitting: fair Dynamic Sitting: fair Static Standing: poor Dynamic Standing: poor SPECIAL TESTS: [facility] Am-Pac 6 Clicks raw score of 9, standardized score of 30.55 with CMS score of 81.38%. modifier: CM INFORMED CONSENT/EDUCATION: PT is instructed in the purpose of PT consult and plan of care and in agreement with plan. ASSESSMENT: Patient is a 73 year old female admitted due to increasing fatigue and incontinence secondary to acute illness, chronic MS. She presents with strength and range deficits in bilateral lower extremities, and impaired gait. She demonstrated poor balance while standing and fair balance while sitting where she tend to lean forward or backward. Pt. requires skilled physical therapy to address strength deficits, increase range of motion in bilateral lower extremities, balance and gait training with the use of walker, and to address transfers safety. She will be discharged to home after regaining strength in the lower extremities. Patient is assessed as: Moderate 12297 complexity, based on the following: History: decreased mobility in patient with a long history of M.S. with history of extensive Home Health services Examination: See above for functional limitations and impairments. Presentation: Evolving due to the progressive nature of her Neurological disease Decision-Making: Moderate complexity GOALS Goals x1 week 1.Supine-sit MinAx1 HOB 0* 2.Sit-Supine MinAx1 3.Sit-Stand MinAx1 with FWW 4.Stand-sit MinAx1 5.Bed-chair MinAx1 with FWW 6.Chair-bed MinAx1 with FWW 7.Gait MinAx1 with walker, household distances 9.I with home exercise program 10.Balance: good sitting balance, and fair standing balance PLAN OF CARE/TREATMENT PLAN: 1-2x/day, 7 days/ week x1 Plan of care has been reviewed with the MONOTYPIST providing the service under Physical therapy direction. Initiate PT services for strengthening, ROM, transfers, gait, balance, and safety training. DISCHARGE RECOMMENDATIONS D/C to home with the use of FWW and electric wheelchair. TREATMENT TIME/MINUTES/CODES 20 min IE 9:10 G-codes: Mobility: walking and moving around: Present status: [id number] CM Projected Goal G8979 CM SYLVESTER Kunz Intake Vital Signs 3 l l l l 07/30/18 08:00 l l 07/30/18 08:00 l l 07/30/18 08:09 l l 07/30/18 08:10 l l 07/30/18 08:16 l l 07/30/18 08:20 l l 07/30/18 08:30 l l 07/30/18 08:31 l l 07/30/18 08:40 l l 07/30/18 08:48 l l 07/30/18 08:50 l l 07/30/18 09:00 l l 07/30/18 09:01 l l 07/30/18 09:10 l l 07/30/18 09:16 l l 07/30/18 09:20 l l 07/30/18 09:30 l l 07/30/18 09:31 l l 07/30/18 09:40 l l 07/30/18 09:50 l l 07/30/18 09:54 l l 07/30/18 10:00 l l 07/30/18 10:01 l l 07/30/18 10:10 l l 07/30/18 10:16 l l 07/30/18 10:20 l l 07/30/18 10:30 l l 07/30/18 10:31 l l 07/30/18 10:33 l l 07/30/18 10:40 l l 07/30/18 10:46 l l 07/30/18 10:50 l l 07/30/18 11:00 l l 07/30/18 11:01 l l 07/30/18 11:20 l l 07/30/18 11:45 l l 07/30/18 11:45 l l 07/30/18 12:06 l l 07/30/18 12:19 l l 07/30/18 13:04 l l 07/30/18 13:14 l l 07/30/18 13:46 l l 07/30/18 14:01 l l 07/30/18 14:09 l l 07/30/18 14:16 l l 07/30/18 14:31 l l 07/30/18 14:45 l l 07/30/18 15:00 l l 07/30/18 15:16 l l 07/30/18 15:19 l l 07/30/18 15:30 l l 07/30/18 15:45 l l 07/30/18 16:00 l l 07/30/18 16:17 l l 07/30/18 16:30 l l 07/30/18 16:43 l l 07/30/18 17:00 l l 07/30/18 18:00 l l 07/30/18 18:30 l l 07/30/18 19:01 l l 07/30/18 20:01 l l 07/30/18 20:40 l l 07/30/18 21:01 l l 07/30/18 21:08 l l 07/30/18 22:39 l l 07/30/18 23:01 l l 07/31/18 00:00 l l 07/31/18 00:25 l l 07/31/18 01:00 l l 07/31/18 02:09 l l 07/31/18 04:00 l l 07/31/18 04:40 l l 07/31/18 04:41 l l 07/31/18 05:00 l l 07/31/18 05:23 l l 07/31/18 06:01 l l 07/31/18 07:01 l l 07/31/18 09:48 l l Height 5 ft 3 in 5 ft 3 in 5 ft 3 in l l Weight 61.8 kg 61.8 kg 61.8 kg 62 kg 56.2 kg l l BP 129/67 129/67 107/73 131/66 112/52 L 125/56 L 93/73 L 101/39 L 116/70 114/74 116/ 82 99/42 L 118/60 118/60 105/57 L 105/57 L 138/75 94/54 L 93/63 L 113/44 L 93/63 L 100/51 L 102/62 107/46 L 113/ 51 L 88/67 L 101/70 109/65 119/101 H 116/46 L 108/32 L 99/48 L 94/53 L 96/57 L 112/65 110/93 H 92/28 L 122/46 L 111/66 111/69 115/52 L 95/70 L 100/78 100/78 117/58 L 120/52 L 130/63 111/43 L l l Blood Pressure Location Lt brachial l l Position Supine Supine l l Respiration 20 18 16 20 19 16 16 20 27 H 20 17 22 25 H 31 H 29 H 25 H 20 16 24 26 H 24 22 24 22 23 24 26 H 20 19 28 H 25 H 27 H 27 H 20 20 20 22 21 22 25 H 19 18 19 19 27 H 19 22 21 20 24 20 22 19 22 24 29 H 20 20 24 20 15 19 22 16 21 20 17 19 l l Pulse 113 H 113 H 112 H 111 H 107 H 106 H 69 99 H 102 H 95 H 107 H 105 H 106 H 106 H 108 H 108 H 110 H 117 H 108 H 105 H 109 H 103 H 102 H 105 H 99 H 98 H 99 H 94 H 108 H 96 H 101 H 97 H 102 H 99 H 115 H 113 H 105 H 97 H 92 H 90 95 H 89 86 84 91 H 90 75 l l Temp 37.4 C 37 C 37 C 38.9 C H 38.9 C H 39 C H 39 C H 39 C H 39 C H 37.4 C 38.8 C H 38 C H 38 C H 37.6 C H 37.0 C l l Temp Source Temporal Artery Scan Temporal Artery Scan Tympanic Tympanic Tympanic Temporal Artery Scan Temporal Artery Scan Temporal Artery Scan Temporal Artery Scan l l Pulse Oximetry (%) 94 L 93 L 93 L 92 L 92 L 93 L 92 L 93 L 92 L 92 L 91 L 89 L 91 L 91 L 93 L 93 L 92 L 92 L 92 L 92 L 94 L 94 L 92 L 93 L 93 L 94 L 95 97 95 97 96 94 L 96 97 98 96 94 L 94 L 93 L 93 L 90 L 94 L 92 L 95 93 L 95 97 97 98 94 L 97 98 l l Oxygen Flow Rate 0 0 0 0 0 0 2 2
--- NOTE | 2018-07-31 10:25 | PHARADMIT ---
Addendum entered by Sharri White 08/01/18 16:15: Pharmacy Note Subjective improving per morning report Objective HR-98 other VS okay weight-64.8(up) Cl-112(down) Assessment vanco and Primaxin changed to ceftriaxone urine culture sensitivities came back one time doses of furosemide, potassium and magnesium given Plan continue to watch VS, labs and for med changes Original Note: Admission Pharmacy Clinical Review Sepsis (UTI) Code Status Full Code Current Weight Wgt- 56.2 kg Renally Cleared and Narrow Therapeutic Index Meds CrCl~ 41.4mL/min Meds-OK QTc Value / Action Taken Program na BP Control, Fever BP- 111/43 Tmax- 38C Electrolytes reviewed Na- 148 K+3.4 Mag-1.8 DVT Prophylaxis Lovenox-40mg Opiate Usage / Scheduled Bowel Regimen Ordered No Yes Plt/SCr for Heparin / Enoxaparin Plts- 246 SCr-1.03 INR for Warfarin inr-1.1 H/H stable, WBC/Bands H&H- 9.9/31.1 WBC- 12.49 Antibiotic appropriateness VANCOMYCIN, Primaxin (adjusted dose) Cultures and Sensitivities Urine-e.coli, Blood-pending Surgical ABX d/c within 24 hr na DM control / Insulin Dosing BG-95 Heart Failure (Check EF%) (CORRY's, B-Block, Diuretics) NONE IV to PO Switch no Home Meds Reviewed Yes Home Meds Not Ordered HCTZ, MacroBID, Calcium/Vit-d, Comments Nicky (Kelp-Iodine)
--- NOTE | 2018-07-31 10:42 | PDOC.CMIN ---
- If Service Date Differs Date of service: 07/31/18 Time of Service: 10:42 Care Management Initial Assess REASON FOR HOSPITALIZATION:: UroSepsis PAST MEDICAL HISTORY/PAST SURGICAL HISTORY:: Multiple sclerosis, Cataracts, Tobacco addiction, Hypertension, Chronic bilateral lower extremity edema, B12 deficiency, H/O bilateral tubal ligation, Chronic fatique, chronic uti and incontinance PREVIOUS FUNCTIONAL STATUS/SOCIAL/FAMILY SUPPORTS:: Pt resides with her Mukesh in [place], [place] in her own home. 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 She had two adopted children both have . She has several grandchildren. She states she has two women that help her at home when her spouse is out of the house. Pt states that her transports her to all appointments as she no longer drives. Pt still does the cooking at home, and states that she enjoys it. She enjoys making cactus gardens which she gives to people when they are ill. CURRENT FUNCTIONAL STATUS:: Nguyen is up to the bedside chair during CM assessment. She is slightly confused at times however is able to answer questions. throughout the conversation she states she wants to go home and be with her dog. She states I am much better. CM reviewed the reason for admission and expectaions including treatement while she is inpatient. She states she started to become symptomatic of bladder infection last . She did try to contact who she states is her urologist. She was unable to contact she states sometimes it is difficult to get in touch with him through the office. We did talk about MS and neurogenic bladder she states that she often leaks urine when she moves and that she knows she is not emptying her bladder most of the time. ADVANCE DIRECTIVES:: None on file Has patient been provided with information about the portal?: Yes Did the patient sign up for the portal?: No (Refused) CODE STATUS:: Full Code INSURANCE COVERAGE / FINANCIAL ISSUES:: Medicare, Blue Cross Blue Shield CURRENT HOME/COMMUNITY SERVICES/EQUIPMENT:: Currently Pt has no services, she does state that she has a scooter, a walker, and a cane at home. PRIMARY CARE PHYSICIAN:: Dr. Hyatt POTENTIAL DISCHARGE NEEDS:: F/U appointment with PCP PATIENT/FAMILY EDUCATION NEEDS:: Discharge education, limitations, medications and follow up plan of care. ANTICIPATED BARRIERS TO DISCHARGE:: none identified TRANSPORTATION:: Via private car with spouse PLAN:: Nguyen is being cared for in the ICU she is receiving IV antibiotics. She will have a PT consult. She will be discharged home with no addtional services when medically ready per provider. CM to continue to provide support to Pt, family and care team ongoing discharge planning.
--- NOTE | 2018-07-31 11:19 | INITIAL_ITS ---
- If Service Date Differs Date of service: 07/31/18 Time of Service: 10:42 Care Management Initial Assess REASON FOR HOSPITALIZATION:: UroSepsis PAST MEDICAL HISTORY/PAST SURGICAL HISTORY:: Multiple sclerosis, Cataracts, Tobacco addiction, Hypertension, Chronic bilateral lower extremity edema, B12 deficiency, H/O bilateral tubal ligation, Chronic fatique, chronic uti and incontinance PREVIOUS FUNCTIONAL STATUS/SOCIAL/FAMILY SUPPORTS:: Pt resides with her Mukesh in [place], [place] in her own home. 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 She had two adopted children both have . She has several grandchildren. She states she has two women that help her at home when her spouse is out of the house. Pt states that her transports her to all appointments as she no longer drives. Pt still does the cooking at home, and states that she enjoys it. She enjoys making cactus gardens which she gives to people when they are ill. CURRENT FUNCTIONAL STATUS:: Nguyen is up to the bedside chair during CM assessment. She is slightly confused at times however is able to answer questions. throughout the conversation she states she wants to go home and be with her dog. She states I am much better. CM reviewed the reason for admission and expectaions including treatement while she is inpatient. She states she started to become symptomatic of bladder infection last . She did try to contact who she states is her urologist. She was unable to contact she states sometimes it is difficult to get in touch with him through the office. We did talk about MS and neurogenic bladder she states that she often leaks urine when she moves and that she knows she is not emptying her bladder most of the time. ADVANCE DIRECTIVES:: None on file Has patient been provided with information about the portal?: Yes Did the patient sign up for the portal?: No (Refused) CODE STATUS:: Full Code INSURANCE COVERAGE / FINANCIAL ISSUES:: Medicare, Blue Cross Blue Shield CURRENT HOME/COMMUNITY SERVICES/EQUIPMENT:: Currently Pt has no services, she does state that she has a scooter, a walker, and a cane at home. PRIMARY CARE PHYSICIAN:: Dr. Hyatt POTENTIAL DISCHARGE NEEDS:: F/U appointment with PCP PATIENT/FAMILY EDUCATION NEEDS:: Discharge education, limitations, medications and follow up plan of care. ANTICIPATED BARRIERS TO DISCHARGE:: none identified TRANSPORTATION:: Via private car with spouse PLAN:: Nguyen is being cared for in the ICU she is receiving IV antibiotics. She will have a PT consult. She will be discharged home with no addtional services when medically ready per provider. CM to continue to provide support to Pt, family and care team ongoing discharge planning.
[2018-07-31] MEDS: Normal Saline 1,000 ML 75 ML IV (11:45)
--- NOTE | 2018-07-31 12:29 | W.PM.PROGNOT ---
Date of service: 07/31/18 Time of Service: 12:31 Assessment and Plan (1) Sepsis: Current visit: Yes Status: Acute Sepsis based on Fever, Leukocytosis, altered mental status, tachycardia, hypotension, and an elevated Lactate with a suspected urinary source. Also with noted urinary symptoms at home. Initiate broad spectrum antimicrobial therapy that includes ESBL and MRSA coverage - Currently initiating on Imipenem and Vancomycin. Prior culture data reviewed and with pansensitive E.coli in 2018, pansensitive Citrobacter previously, as well as an E.Coli with intermediate sensitivity to Gent, Nitrofurantoi, and tobramycin in 2014. Patient will be admitted into the ICU. IVF resuscitation with low threshold for pressor support. Blood and Urinary cultures obtained and pending. Monitor symptoms closely. (2) UTI (urinary tract infection): Current visit: Yes Status: Acute Treatment as above. Await culture results. (3) Hypokalemia: Current visit: Yes Status: Acute Replete now. Has received 40 PO and 20 IV potassium while in the emergency room - will schedule for additional 40 later this evening. (4) Hypertension: Current visit: Yes Status: Chronic Hold HCTZ in setting of hypotension. (5) DVT prophylaxis: Current visit: Yes Status: Acute SC Lovenox. Subjective Interval history since last seen: 73-year-old woman with a PMHx significant for MS with a neurogenic bladder and chronic urinary incontinence, as well as a history of recurrent UTI's, admitted from [facility] emergency room with a diagnosis of sepsis with likely urinary source. Mrs. Ricks had complained of fatigue and urinary symptoms over 1-2 days preceding her admission. She noted mildly worsening urinary incontinence and fatigue, and family stated that this is typical for when she is about to have a UTI. Mrs. Ricks' family called her primary care provider Dr. Hyatt the day prior to her visit to the ED, and was called in a prescription for nitrofurantoin. She had one dose yesterday, but none on the day of presentation. Throughout the night the patient became more fatigued, including this morning, and had some weakness in her lower extremities which family states that is classic for her when she becomes sick. She was also noted to be confused Of note Mrs. Lemon has a past medical history of urosepsis. Work-up in the emergency department included labs that showed an elevated white count at 17, a lactate of 2.6, mild left shift on differential. Her urinalysis showed small LE, but a microscopic WBC count was not performed as there were too many bacteria in the field for accurate assessment. Her urine was also noted to be malodorous. Her CXR was interpreted as negative for pneumonia. She was also noted to be febrile and tachycardic. Following her admission to [facility] the patient was also noted to have a change in mental status with slight confusion, as well as development of mild hypotension. Exam Const General: cooperative and ill appearing Orientation: alert and awake Limitations: altered mental status Neck Neck: supple Resp Effort & Inspection: normal respiratory effort and able to speak in complete sentences Auscultation: clear to auscultation bilaterally Cardio Rate: tachycardic Heart Sounds: S1 normal, S2 normal, no gallops, no murmurs and no rubs GI Palpation: soft, not firm, no guarding and nontender Auscultation: normal bowel sounds Extrem General: no edema Psych Appearance: grossly normal Affect: normal affect Objective Objective Clinical Data: Abnormal lab results 07/30/18 07/31/18 07/31/18 Range/Units 18:25 06:25 06:25 WBC 12.49 H (4.4-10.8) k/cumm RBC 3.44 L (4.00-5.20) m/cumm Hgb 9.9 L D (12.0-15.5) g/dL Hct 31.1 L D (36.0-46.0) % MCHC 31.8 L (32.0-36.0) g/dL Absolute Neutrophils 9.90 H (1.2-6.7) k/cumm Absolute Monocytes 0.75 H (0.11-0.7) k/cumm Sodium 148 H (136-145) mmol/L Potassium 3.4 L (3.5-5.1) mmol/L Chloride 116 H (98-107) mmol/L Carbon Dioxide 20.6 L (21.0-32.0) mmol/L Anion Gap 11.4 H (3-11) mmol/L Creatinine 1.03 H (0.55-1.02) mg/dL Lactate 2.1 H (0.6-1.4) mmol/L Calcium 6.8 L (8.5-10.1) mg/dL 07/31/18 Range/Units 08:00 WBC (4.4-10.8) k/cumm RBC (4.00-5.20) m/cumm Hgb (12.0-15.5) g/dL Hct (36.0-46.0) % MCHC (32.0-36.0) g/dL Absolute Neutrophils (1.2-6.7) k/cumm Absolute Monocytes (0.11-0.7) k/cumm Sodium (136-145) mmol/L Potassium (3.5-5.1) mmol/L Chloride (98-107) mmol/L Carbon Dioxide (21.0-32.0) mmol/L Anion Gap (3-11) mmol/L Creatinine (0.55-1.02) mg/dL Lactate 1.5 H (0.6-1.4) mmol/L Calcium (8.5-10.1) mg/dL Vital Signs Temp 36.1 C L 07/31/18 12:04 Pulse 81 07/31/18 11:01 Resp 18 07/31/18 11:01 BP 111/43 L 07/31/18 11:01 Pulse Ox 95 07/31/18 12:04 Intake & Output 07/30/18 07/31/18 07/31/18 23:59 11:59 23:59 Intake Total 1440 / 1440 5243.667 / 5243.667 Output Total 550 / 550 200 / 200 Balance 890 / 890 5043.667 / 5043.667 Weight 62 kg 56.2 kg Intake: IV 1440 / 1440 4713.667 / 4713.667 Oral 530 / 530 Output: Urine 550 / 550 200 / 200 Other: Urine Color Light Alysia Dark Alysia Urine Appearance Sediment Sediment Urine Odor Foul Comment Jha placed at change of shift, draining yellow urine with sediment present. Jha with strong odor. Jha with strong odor. Stool Occult Blood Negative Stool Size Moderate Stool Characteristics Hard Mucoid Brown Voiding Methods Diaper Incontinent Laboratory Results WBC 12.49 k/cumm (4.4-10.8) H 07/31/18 06:25 RBC 3.44 m/cumm (4.00-5.20) L 07/31/18 06:25 Hgb 9.9 g/dL (12.0-15.5) L D 07/31/18 06:25 Hct 31.1 % (36.0-46.0) L D 07/31/18 06:25 MCV 90.4 fL (80-95) 07/31/18 06:25 MCH 28.8 pg (27.0-33.0) 07/31/18 06:25 MCHC 31.8 g/dL (32.0-36.0) L 07/31/18 06:25 RDW 14.4 % (11.7-14.6) 07/31/18 06:25 Plt Count 246 x1000/uL (130-400) 07/31/18 06:25 MPV 9.9 fL (8.0-11.0) 07/31/18 06:25 Immature Gran % 0.2 07/31/18 06:25 Neutrophils % 79.3 07/31/18 06:25 Lymphocytes % 10.2 07/31/18 06:25 Monocytes % 6.0 07/31/18 06:25 Eosinophils % 4.1 07/31/18 06:25 Basophils % 0.2 07/31/18 06:25 Absolute Neutrophils 9.90 k/cumm (1.2-6.7) H 07/31/18 06:25 Absolute Lymphocytes 1.27 k/cumm (1.2-3.4) 07/31/18 06:25 Absolute Monocytes 0.75 k/cumm (0.11-0.7) H 07/31/18 06:25 Absolute Eosinophils 0.51 k/cumm (0.0-0.7) 07/31/18 06:25 Absolute Basophils 0.02 k/cumm (0.0-0.2) 07/31/18 06:25 PT 9.9 sec (9.3-10.8) 07/30/18 08:50 INR 1.0 (1.0-3.5) 07/30/18 08:50 APTT 23.9 sec (21.0-31.4) 07/30/18 08:50 Sodium 148 mmol/L (136-145) H 07/31/18 06:25 Potassium 3.4 mmol/L (3.5-5.1) L 07/31/18 06:25 Chloride 116 mmol/L (98-107) H 07/31/18 06:25 Carbon Dioxide 20.6 mmol/L (21.0-32.0) L 07/31/18 06:25 Anion Gap 11.4 mmol/L (3-11) H 07/31/18 06:25 BUN 14 mg/dL (7-18) D 07/31/18 06:25 Creatinine 1.03 mg/dL (0.55-1.02) H 07/31/18 06:25 Estimated GFR/1.73 m2 52.82 (mL/min/1.73m2) 07/31/18 06:25 Glucose 95 mg/dL (70-100) 07/31/18 06:25 Lactate 1.5 mmol/L (0.6-1.4) H 07/31/18 08:00 Calcium 6.8 mg/dL (8.5-10.1) L 07/31/18 06:25 Magnesium 1.8 mg/dL (1.8-2.4) 07/30/18 08:50 Total Bilirubin 0.7 mg/dL (0.2-1.0) 07/30/18 08:50 Conjugated Bilirubin 0.18 mg/dL (0.00-0.20) 07/30/18 08:50 AST 30 U/L (15-37) 07/30/18 08:50 ALT 35 U/L (12-78) 07/30/18 08:50 Alkaline Phosphatase 121 U/L (46-116) H 07/30/18 08:50 Troponin I < 0.02 ng/mL (0.00-0.06) 07/30/18 08:50 Total Protein 7.2 g/dL (6.4-8.2) 07/30/18 08:50 Albumin 3.5 g/dL (3.4-5.0) 07/30/18 08:50 Urine Color Yellow (Yellow) 07/30/18 08:55 Urine Clarity Cloudy 07/30/18 08:55 Urine pH 7.5 (5-8) 07/30/18 08:55 Ur Specific [place] 1.015 (1.005-1.025) 07/30/18 08:55 Urine Protein Negative mg/dL (Negative) 07/30/18 08:55 Urine Ketones Trace mg/dL (Negative) H 07/30/18 08:55 Urine Blood Trace-intact (Negative) H 07/30/18 08:55 Urine Nitrite Negative (Negative) 07/30/18 08:55 Urine Bilirubin Negative (Negative) 07/30/18 08:55 Urine Urobilinogen 0.2 EU/dL (Up TO 0.2) 07/30/18 08:55 Ur Leukocyte Esterase Small (Negative) H 07/30/18 08:55 Urine RBC Not Applicable 07/30/18 08:55 Urine WBC Not Applicable 07/30/18 08:55 Ur Epithelial Cells Not Applicable 07/30/18 08:55 Urine Crystals Not Applicable 07/30/18 08:55 Urine Bacteria HPF (Negative) 07/30/18 08:55 Urine Mucus Not Applicable 07/30/18 08:55 Ur Culture Indicated? Yes 07/30/18 08:55 Urine Glucose Negative mg/dL (Negative) 07/30/18 08:55
--- NOTE | 2018-07-31 13:23 | W.PM.PROGNOT ---
Date of service: 07/31/18 Time of Service: 13:23 Assessment and Plan (1) Sepsis: Current visit: Yes Status: Acute Sepsis based on Fever, Leukocytosis, altered mental status, tachycardia, hypotension, and an elevated Lactate with a suspected urinary source. Also with noted urinary symptoms at home. Continue broad spectrum antimicrobial therapy that includes ESBL and MRSA coverage - Currently on day #2 of Imipenem and Vancomycin. Prior culture data reviewed and with pansensitive E.coli in 2018, pansensitive Citrobacter previously, as well as an E.Coli with intermediate sensitivity to Gent, Nitrofurantoi, and tobramycin in 2014. Current blood cultures with no growth X24 hours. Urine Culture with >100,000 of E. Coli. (2) UTI (urinary tract infection): Current visit: Yes Status: Acute Treatment as above. Await culture results. (3) Hypokalemia: Current visit: Yes Status: Acute Replete now. Continue to monitor (4) Hypertension: Current visit: Yes Status: Chronic Hold HCTZ in setting of hypotension. May be a candidate for other antihypertensive regimen in the future given hypokalemia. (5) DVT prophylaxis: Current visit: Yes Status: Acute SC Lovenox. Subjective Interval history since last seen: 73-year-old woman with a PMHx significant for MS with a neurogenic bladder and chronic urinary incontinence, as well as a history of recurrent UTI's, admitted from [facility] emergency room with a diagnosis of sepsis with likely urinary source. Mrs. Ricks had complained of fatigue and urinary symptoms over 1-2 days preceding her admission. She noted mildly worsening urinary incontinence and fatigue, and family stated that this is typical for when she is about to have a UTI. Mrs. Ricks' family called her primary care provider Dr. Hyatt the day prior to her visit to the ED, and was called in a prescription for nitrofurantoin. She had one dose yesterday, but none on the day of presentation. Throughout the night the patient became more fatigued, including this morning, and had some weakness in her lower extremities which family states that is classic for her when she becomes sick. She was also noted to be confused Of note Mrs. Lemon has a past medical history of urosepsis. Work-up in the emergency department included labs that showed an elevated white count at 17, a lactate of 2.6, mild left shift on differential. Her urinalysis showed small LE, but a microscopic WBC count was not performed as there were too many bacteria in the field for accurate assessment. Her urine was also noted to be malodorous. Her CXR was interpreted as negative for pneumonia. She was also noted to be febrile and tachycardic. [facility] the patient was also noted to have a change in mental status with slight confusion, as well as development of mild hypotension. This morning the patient appears less confused. Although febrile last night her fever curve appears improved. Her blood pressure, elevated lactate, and leukocytosis have also improved. No overnight events reported. Exam Const General: cooperative Orientation: alert and awake Limitations: altered mental status (Vastly improved but not yet at baseline) Neck Neck: supple Resp Effort & Inspection: normal respiratory effort and able to speak in complete sentences Auscultation: clear to auscultation bilaterally Cardio Rate: tachycardic Heart Sounds: S1 normal, S2 normal, no gallops, no murmurs and no rubs GI Palpation: soft, not firm, no guarding and nontender Auscultation: normal bowel sounds Extrem General: no edema Psych Appearance: grossly normal Affect: normal affect Objective Objective Clinical Data: Abnormal lab results 07/30/18 07/31/18 07/31/18 Range/Units 18:25 06:25 06:25 WBC 12.49 H (4.4-10.8) k/cumm RBC 3.44 L (4.00-5.20) m/cumm Hgb 9.9 L D (12.0-15.5) g/dL Hct 31.1 L D (36.0-46.0) % MCHC 31.8 L (32.0-36.0) g/dL Absolute Neutrophils 9.90 H (1.2-6.7) k/cumm Absolute Monocytes 0.75 H (0.11-0.7) k/cumm Sodium 148 H (136-145) mmol/L Potassium 3.4 L (3.5-5.1) mmol/L Chloride 116 H (98-107) mmol/L Carbon Dioxide 20.6 L (21.0-32.0) mmol/L Anion Gap 11.4 H (3-11) mmol/L Creatinine 1.03 H (0.55-1.02) mg/dL Lactate 2.1 H (0.6-1.4) mmol/L Calcium 6.8 L (8.5-10.1) mg/dL 07/31/18 Range/Units 08:00 WBC (4.4-10.8) k/cumm RBC (4.00-5.20) m/cumm Hgb (12.0-15.5) g/dL Hct (36.0-46.0) % MCHC (32.0-36.0) g/dL Absolute Neutrophils (1.2-6.7) k/cumm Absolute Monocytes (0.11-0.7) k/cumm Sodium (136-145) mmol/L Potassium (3.5-5.1) mmol/L Chloride (98-107) mmol/L Carbon Dioxide (21.0-32.0) mmol/L Anion Gap (3-11) mmol/L Creatinine (0.55-1.02) mg/dL Lactate 1.5 H (0.6-1.4) mmol/L Calcium (8.5-10.1) mg/dL Vital Signs Temp 36.1 C L 07/31/18 12:04 Pulse 88 07/31/18 13:08 Resp 17 07/31/18 13:08 BP 122/54 L 07/31/18 13:08 Pulse Ox 95 07/31/18 12:04 Intake & Output 07/30/18 07/31/18 07/31/18 23:59 11:59 23:59 Intake Total 1440 / 1440 5243.667 / 5243.667 Output Total 550 / 550 200 / 200 Balance 890 / 890 5043.667 / 5043.667 Weight 62 kg 56.2 kg Intake: IV 1440 / 1440 4713.667 / 4713.667 Oral 530 / 530 Output: Urine 550 / 550 200 / 200 Other: Urine Color Light Alysia Dark Alysia Urine Appearance Sediment Sediment Urine Odor Foul Comment Jha placed at change of shift, draining yellow urine with sediment present. Jha with strong odor. Jha with strong odor. Stool Occult Blood Negative Negative Stool Size Moderate Moderate Stool Characteristics Hard Hard Mucoid Brown Brown Voiding Methods Diaper Incontinent Laboratory Results WBC 12.49 k/cumm (4.4-10.8) H 07/31/18 06:25 RBC 3.44 m/cumm (4.00-5.20) L 07/31/18 06:25 Hgb 9.9 g/dL (12.0-15.5) L D 07/31/18 06:25 Hct 31.1 % (36.0-46.0) L D 07/31/18 06:25 MCV 90.4 fL (80-95) 07/31/18 06:25 MCH 28.8 pg (27.0-33.0) 07/31/18 06:25 MCHC 31.8 g/dL (32.0-36.0) L 07/31/18 06:25 RDW 14.4 % (11.7-14.6) 07/31/18 06:25 Plt Count 246 x1000/uL (130-400) 07/31/18 06:25 MPV 9.9 fL (8.0-11.0) 07/31/18 06:25 Immature Gran % 0.2 07/31/18 06:25 Neutrophils % 79.3 07/31/18 06:25 Lymphocytes % 10.2 07/31/18 06:25 Monocytes % 6.0 07/31/18 06:25 Eosinophils % 4.1 07/31/18 06:25 Basophils % 0.2 07/31/18 06:25 Absolute Neutrophils 9.90 k/cumm (1.2-6.7) H 07/31/18 06:25 Absolute Lymphocytes 1.27 k/cumm (1.2-3.4) 07/31/18 06:25 Absolute Monocytes 0.75 k/cumm (0.11-0.7) H 07/31/18 06:25 Absolute Eosinophils 0.51 k/cumm (0.0-0.7) 07/31/18 06:25 Absolute Basophils 0.02 k/cumm (0.0-0.2) 07/31/18 06:25 PT 9.9 sec (9.3-10.8) 07/30/18 08:50 INR 1.0 (1.0-3.5) 07/30/18 08:50 APTT 23.9 sec (21.0-31.4) 07/30/18 08:50 Sodium 148 mmol/L (136-145) H 07/31/18 06:25 Potassium 3.4 mmol/L (3.5-5.1) L 07/31/18 06:25 Chloride 116 mmol/L (98-107) H 07/31/18 06:25 Carbon Dioxide 20.6 mmol/L (21.0-32.0) L 07/31/18 06:25 Anion Gap 11.4 mmol/L (3-11) H 07/31/18 06:25 BUN 14 mg/dL (7-18) D 07/31/18 06:25 Creatinine 1.03 mg/dL (0.55-1.02) H 07/31/18 06:25 Estimated GFR/1.73 m2 52.82 (mL/min/1.73m2) 07/31/18 06:25 Glucose 95 mg/dL (70-100) 07/31/18 06:25 Lactate 1.5 mmol/L (0.6-1.4) H 07/31/18 08:00 Calcium 6.8 mg/dL (8.5-10.1) L 07/31/18 06:25 Magnesium 1.8 mg/dL (1.8-2.4) 07/30/18 08:50 Total Bilirubin 0.7 mg/dL (0.2-1.0) 07/30/18 08:50 Conjugated Bilirubin 0.18 mg/dL (0.00-0.20) 07/30/18 08:50 AST 30 U/L (15-37) 07/30/18 08:50 ALT 35 U/L (12-78) 07/30/18 08:50 Alkaline Phosphatase 121 U/L (46-116) H 07/30/18 08:50 Troponin I < 0.02 ng/mL (0.00-0.06) 07/30/18 08:50 Total Protein 7.2 g/dL (6.4-8.2) 07/30/18 08:50 Albumin 3.5 g/dL (3.4-5.0) 07/30/18 08:50 Urine Color Yellow (Yellow) 07/30/18 08:55 Urine Clarity Cloudy 07/30/18 08:55 Urine pH 7.5 (5-8) 07/30/18 08:55 Ur Specific [place] 1.015 (1.005-1.025) 07/30/18 08:55 Urine Protein Negative mg/dL (Negative) 07/30/18 08:55 Urine Ketones Trace mg/dL (Negative) H 07/30/18 08:55 Urine Blood Trace-intact (Negative) H 07/30/18 08:55 Urine Nitrite Negative (Negative) 07/30/18 08:55 Urine Bilirubin Negative (Negative) 07/30/18 08:55 Urine Urobilinogen 0.2 EU/dL (Up TO 0.2) 07/30/18 08:55 Ur Leukocyte Esterase Small (Negative) H 07/30/18 08:55 Urine RBC Not Applicable 07/30/18 08:55 Urine WBC Not Applicable 07/30/18 08:55 Ur Epithelial Cells Not Applicable 07/30/18 08:55 Urine Crystals Not Applicable 07/30/18 08:55 Urine Bacteria HPF (Negative) 07/30/18 08:55 Urine Mucus Not Applicable 07/30/18 08:55 Ur Culture Indicated? Yes 07/30/18 08:55 Urine Glucose Negative mg/dL (Negative) 07/30/18 08:55
[2018-07-31] MEDS: IMIPENEM/CILASTATIN 500 MG in Normal Saline 100 ML 200 MG IVPB ×2 (14:35→21:42)
[2018-07-31] MEDS: Enoxaparin 40 MG/0.4 ML SYR SC (14:35)
[2018-07-31] MEDS: Potassium Chloride 20 MEQ TABCR PO (15:54)
[2018-08-01] VITALS (38 sets, daily range): BP systolic 109–139; BP diastolic 44–90; PULSE 77–98; RESP 12–30; TEMP 36.4–37; O2SAT 91–100
[2018-08-01] MEDS: VANCOMYCIN 750 MG in Normal Saline 250 ML 250 MG IV (04:47)
[2018-08-01] MEDS: IMIPENEM/CILASTATIN 500 MG in Normal Saline 100 ML 200 MG IVPB (06:16)
[2018-08-01 07:31] LABS: Anion Gap 11.4 mmol/L (3-11); BUN 12 mg/dL (7-18); CO2 19.6 mmol/L (21.0-32.0); CREATININE 0.78 mg/dL (0.55-1.02); Calcium 7.1 mg/dL (8.5-10.1); Chloride 112 mmol/L (98-107); Glucose 85 mg/dL (70-100); Potassium 3.6 mmol/L (3.5-5.1); Sodium 143 mmol/L (136-145)
[2018-08-01 07:39] LABS: Abs Immature Grans 0.02 k/cumm (0.0-0.09); Absolute Basophil Count 0.02 k/cumm (0.0-0.2); Absolute Eosinophil Count 0.55 k/cumm (0.0-0.7); Absolute Monocyte Count 0.52 k/cumm (0.11-0.7); Absolute Neutrophil Count 5.43 k/cumm (1.2-6.7); Basophils % 0.3; HCT 32.8 % (36.0-46.0); HGB 10.4 g/dL (12.0-15.5); Immature Grans % 0.3; Lymphocytes % 16.6; Mean Corp. HGB Concentration 31.7 g/dL (32.0-36.0); Mean Corpuscular Hemoglobin 28.7 pg (27.0-33.0); Mean Corpuscular Volume 90.4 fL (80-95); Mean Platelet Volume 10.3 fL (8.0-11.0); Monocytes % 6.6; Neutrophils % 69.2; Platelet Count 250 x1000/uL (130-400); RBC 3.63 m/cumm (4.00-5.20); RBC Distribution Width 14.4 % (11.7-14.6); White Blood Cell Count 7.84 k/cumm (4.4-10.8)
[2018-08-01] MEDS: Magnesium Oxide 400 MG TAB PO ×2 (09:10→09:18)
[2018-08-01] MEDS: Potassium Chloride 20 MEQ TABCR 40 MEQ PO ×2 (09:11→09:19)
[2018-08-01] MEDS: Mirabegron 50 MG TABCR PO (09:11)
[2018-08-01] MEDS: Cyanocobalamin 500 MCG TAB 1000 MCG PO (09:11)
[2018-08-01] MEDS: Nystatin POWDER 60 GM JAR TP ×2 (10:30→20:17)
--- NOTE | 2018-08-01 11:06 | PT.INTREAT ---
PT Notes Inpatient Physical Therapy Treatment Note PRECAUTIONS: Fall Precuations SUBJECTIVE: Pt lying in bed, states at home she usually stands with a walker and transfers to her electric scooter. She states she doesn't walk any distance at home and mostly performs transfers only with her husbands assistance. States she usually wears sandals for shoes but she doesn't have them here now. States she has been told she should get a right foot brace but she doesn't want to get one. OBJECTIVE: General observation: telemetry, 3 liters 02 NC, jacobs catheter PAIN: no c/o pain BED MOBILITY/TRANSFERS Supine-sit: HOB 35 degrees, Khanh to assist hips to edge of bed, pt able to assist with bed rail and get upper body to sitting position Sit-stand: MaxAx1 with FWW. Pt unable to get to full standing position with FWW, left LE with tremors, unable to get left foot flat on the floor or heel to the ground, Pt with flexed hips and knees, flexed posture, unable to get to full standing position. STEDY lift brought into room, pt able to pull on bar to standing position with use of STEDY with CGA Stand-sit: SBA Bed-wheelchair: max A via STEDY lift GAIT Assistive Device: unable to stand with FWW, able to stand with STEDY lift Weight bearing: as tolerated. Pt with difficulty getting right heel to floor Assist: CGA with use of STEDY Distance: Bed-wheelchair in STEDY. Pt performed standing duration in STEDY lift for 2min focusing on posture, improving knee and hip extension, loading R LE for gastroc stretch R heel. Pt positioned up in wheelchair at end of session THEREX: seated bilateral long arc quad, hip flexion ASSESSMENT: Pt with increased weakness compared to baseline mobiity, not yet able to perform transfers with FWW, requiring STEDY lift. Pt would benefit from continued strengthening and transfer training. PLAN: Progress transfers Progress strengthening TREATMENT CODE/TIME: 24min TAx1 TP x1 11:05 Aminah Sanchez PT Intake Vital Signs 07/30/18 08:00 07/30/18 08:00 07/30/18 08:09 07/30/18 08:10 07/30/18 08:16 07/30/18 08:20 07/30/18 08:30 07/30/18 08:31 07/30/18 08:40 07/30/18 08:48 07/30/18 08:50 07/30/18 09:00 07/30/18 09:01 07/30/18 09:10 07/30/18 09:16 07/30/18 09:20 07/30/18 09:30 07/30/18 09:31 07/30/18 09:40 07/30/18 09:50 07/30/18 09:54 07/30/18 10:00 07/30/18 10:01 07/30/18 10:10 07/30/18 10:16 07/30/18 10:20 07/30/18 10:30 07/30/18 10:31 07/30/18 10:33 07/30/18 10:40 07/30/18 10:46 Height 5 ft 3 in 5 ft 3 in Weight 61.8 kg 61.8 kg BP 129/67 129/67 107/73 131/66 112/52 L 125/56 L 93/73 L 101/39 L 116/70 114/74 116/82 99/42 L Blood Pressure Location Lt brachial Position Respiration 20 18 16 20 19 16 16 20 27 H 20 17 22 25 H 31 H 29 H 25 H 20 16 24 26 H 24 22 24 22 23 24 26 H 20 19 Pulse 113 H 113 H 112 H 111 H 107 H 106 H 69 99 H 102 H 95 H 107 H 105 H Temp 37.4 C 37 C Temp Source Temporal Artery Scan Temporal Artery Scan Pulse Oximetry (%) 94 L 93 L 93 L 92 L 92 L 93 L 92 L 93 L 92 L 92 L 91 L 89 L 91 L 91 L 93 L 93 L 92 L Oxygen Flow Rate 0 07/30/18 10:50 07/30/18 11:00 07/30/18 11:01 07/30/18 11:20 07/30/18 11:45 07/30/18 11:45 07/30/18 12:06 07/30/18 12:19 07/30/18 13:04 07/30/18 13:14 07/30/18 13:46 07/30/18 14:01 07/30/18 14:09 07/30/18 14:16 07/30/18 14:31 07/30/18 14:45 07/30/18 15:00 07/30/18 15:16 07/30/18 15:19 07/30/18 15:30 07/30/18 15:45 07/30/18 16:00 07/30/18 16:17 07/30/18 16:30 07/30/18 16:43 07/30/18 17:00 07/30/18 18:00 07/30/18 18:30 07/30/18 19:01 07/30/18 20:01 07/30/18 20:40 07/30/18 21:01 5 ft 3 in 61.8 kg 62 kg 118/60 118/60 105/57 L 105/57 L 138/75 94/54 L 93/63 L 113/44 L 93/63 L 100/51 L 102/62 107/46 L 113/51 L 88/67 L 101/70 109/65 119/101 H 116/46 L 108/32 L 99/48 L 94/53 L 96/57 L 112/65 110/93 H 92/28 L Supine 28 H 25 H 27 H 27 H 20 20 20 22 21 22 25 H 19 18 19 19 27 H 19 22 21 20 24 20 22 19 22 24 29 H 20 106 H 106 H 108 H 108 H 110 H 117 H 108 H 105 H 109 H 103 H 102 H 105 H 99 H 98 H 99 H 94 H 108 H 96 H 101 H 97 H 102 H 99 H 115 H 113 H 37 C 38.9 C H 38.9 C H 39 C H 39 C H 39 C H 39 C H 37.4 C 38.8 C H 38 C H Tympanic Tympanic Tympanic Temporal Artery Scan Temporal Artery Scan 92 L 92 L 92 L 94 L 94 L 92 L 93 L 93 L 94 L 95 97 95 97 96 94 L 96 97 98 96 94 L 94 L 93 L 93 L 0 0 0 0 0 07/30/18 21:08 07/30/18 22:39 07/30/18 23:01 07/31/18 00:00 07/31/18 00:25 07/31/18 01:00 07/31/18 02:09 07/31/18 04:00 07/31/18 04:40 07/31/18 04:41 07/31/18 05:00 07/31/18 05:23 07/31/18 06:01 07/31/18 07:01 07/31/18 08:15 07/31/18 09:45 07/31/18 09:48 07/31/18 10:00 07/31/18 11:01 07/31/18 12:04 07/31/18 13:08 07/31/18 14:01 07/31/18 14:02 07/31/18 14:30 07/31/18 15:00 07/31/18 15:01 07/31/18 15:30 07/31/18 15:30 07/31/18 16:00 07/31/18 16:01 07/31/18 16:30 07/31/18 17:00 56.2 kg 122/46 L 111/66 111/69 115/52 L 95/70 L 100/78 100/78 117/58 L 120/52 L 130/63 111/43 L 110/59 L 111/43 L 122/54 L 131/62 117/56 L 117/56 L 117/97 H Supine Supine 20 24 20 15 19 22 16 21 20 17 19 24 18 17 21 17 24 18 16 21 16 20 19 14 18 105 H 97 H 92 H 90 95 H 89 86 84 91 H 90 75 90 81 88 85 84 89 91 H 38 C H 37.6 C H 37.0 C 37.0 C 36.1 C L 36.3 C L Temporal Artery Scan Temporal Artery Scan Temporal Artery Scan Temporal Artery Scan Tympanic 90 L 94 L 92 L 95 93 L 95 97 97 98 94 L 97 95 96 98 99 95 100 99 99 100 2 2 2 2 2 2.5 07/31/18 17:30 07/31/18 18:00 07/31/18 18:30 07/31/18 18:47 07/31/18 19:00 07/31/18 19:01 07/31/18 19:30 07/31/18 20:00 07/31/18 20:00 07/31/18 20:30 07/31/18 21:00 07/31/18 21:01 07/31/18 21:30 07/31/18 22:00 07/31/18 22:03 07/31/18 22:30 07/31/18 23:00 07/31/18 23:03 07/31/18 23:30 08/01/18 00:00 08/01/18 00:00 08/01/18 00:01 08/01/18 00:30 08/01/18 01:00 08/01/18 01:01 08/01/18 01:30 08/01/18 02:00 08/01/18 02:01 08/01/18 02:30 08/01/18 03:00 08/01/18 03:01 08/01/18 03:30 155/67 H 143/64 H 143/64 H 123/101 H 90/74 L 116/50 L 116/50 L 120/48 L 109/90 130/64 122/57 L Sitting Supine 18 21 25 H 21 20 17 16 15 19 21 16 21 15 17 15 26 H 25 H 20 22 15 17 13 18 24 18 15 16 16 14 15 12 16 90 89 91 H 90 89 92 H 90 79 88 87 83 36.8 C 36.4 C L Tympanic Tympanic 97 100 2.5 2.5 08/01/18 04:00 08/01/18 04:01 08/01/18 04:30 08/01/18 04:56 08/01/18 04:56 08/01/18 05:00 08/01/18 05:00 08/01/18 05:30 08/01/18 06:00 08/01/18 06:01 08/01/18 06:30 08/01/18 07:00 08/01/18 07:01 08/01/18 07:30 08/01/18 08:00 08/01/18 08:01 08/01/18 08:30 08/01/18 08:55 08/01/18 08:55 08/01/18 09:00 08/01/18 09:30 64.8 kg 125/58 L 129/46 L 129/46 L 116/44 L 114/55 L 124/60 119/52 L 119/52 L Supine Supine 13 12 16 16 21 18 30 H 25 H 26 H 23 17 22 14 14 15 18 18 19 18 16 79 90 87 86 89 78 89 88 37 C 36.8 C Temporal Artery Scan Temporal Artery Scan 97 96 96 97 2 2
--- NOTE | 2018-08-01 11:17 | PTTR_ITS ---
PT Notes Inpatient Physical Therapy Treatment Note PRECAUTIONS: Fall Precuations SUBJECTIVE: Pt lying in bed, states at home she usually stands with a walker and transfers to her electric scooter. She states she doesn't walk any distance at home and mostly performs transfers only with her husbands assistance. States she usually wears sandals for shoes but she doesn't have them here now. States she has been told she should get a right foot brace but she doesn't want to get one. OBJECTIVE: General observation: telemetry, 3 liters 02 NC, jacobs catheter PAIN: no c/o pain BED MOBILITY/TRANSFERS Supine-sit: HOB 35 degrees, Khanh to assist hips to edge of bed, pt able to assist with bed rail and get upper body to sitting position Sit-stand: MaxAx1 with FWW. Pt unable to get to full standing position with FWW , left LE with tremors, unable to get left foot flat on the floor or heel to the ground, Pt with flexed hips and knees, flexed posture, unable to get to full standing position. STEDY lift brought into room, pt able to pull on bar to standing position with use of STEDY with CGA Stand-sit: SBA Bed-wheelchair: max A via STEDY lift GAIT Assistive Device: unable to stand with FWW, able to stand with STEDY lift Weight bearing: as tolerated. Pt with difficulty getting right heel to floor Assist: CGA with use of STEDY Distance: Bed-wheelchair in STEDY. Pt performed standing duration in STEDY lift for 2min focusing on posture, improving knee and hip extension, loading R LE for gastroc stretch R heel. Pt positioned up in wheelchair at end of session THEREX: seated bilateral long arc quad, hip flexion ASSESSMENT: Pt with increased weakness compared to baseline mobiity, not yet able to perform transfers with FWW, requiring STEDY lift. Pt would benefit from continued strengthening and transfer training. PLAN: Progress transfers Progress strengthening TREATMENT CODE/TIME: 24min TAx1 TP x1 11:05 Aminah Sanchez PT Intake Vital Signs 3 l l l l 07/30/18 08:00 l l 07/30/18 08:00 l l 07/30/18 08:09 l l 07/30/18 08:10 l l 07/30/18 08:16 l l 07/30/18 08:20 l l 07/30/18 08:30 l l 07/30/18 08:31 l l 07/30/18 08:40 l l 07/30/18 08:48 l l 07/30/18 08:50 l l 07/30/18 09:00 l l 07/30/18 09:01 l l 07/30/18 09:10 l l 07/30/18 09:16 l l 07/30/18 09:20 l l 07/30/18 09:30 l l 07/30/18 09:31 l l 07/30/18 09:40 l l 07/30/18 09:50 l l 07/30/18 09:54 l l 07/30/18 10:00 l l 07/30/18 10:01 l l 07/30/18 10:10 l l 07/30/18 10:16 l l 07/30/18 10:20 l l 07/30/18 10:30 l l 07/30/18 10:31 l l 07/30/18 10:33 l l 07/30/18 10:40 l l 07/30/18 10:46 l l 07/30/18 10:50 l l 07/30/18 11:00 l l 07/30/18 11:01 l l 07/30/18 11:20 l l 07/30/18 11:45 l l 07/30/18 11:45 l l 07/30/18 12:06 l l 07/30/18 12:19 l l 07/30/18 13:04 l l 07/30/18 13:14 l l 07/30/18 13:46 l l 07/30/18 14:01 l l 07/30/18 14:09 l l 07/30/18 14:16 l l 07/30/18 14:31 l l 07/30/18 14:45 l l 07/30/18 15:00 l l 07/30/18 15:16 l l 07/30/18 15:19 l l 07/30/18 15:30 l l 07/30/18 15:45 l l 07/30/18 16:00 l l 07/30/18 16:17 l l 07/30/18 16:30 l l 07/30/18 16:43 l l 07/30/18 17:00 l l 07/30/18 18:00 l l 07/30/18 18:30 l l 07/30/18 19:01 l l 07/30/18 20:01 l l 07/30/18 20:40 l l 07/30/18 21:01 l l 07/30/18 21:08 l l 07/30/18 22:39 l l 07/30/18 23:01 l l 07/31/18 00:00 l l 07/31/18 00:25 l l 07/31/18 01:00 l l 07/31/18 02:09 l l 07/31/18 04:00 l l 07/31/18 04:40 l l 07/31/18 04:41 l l 07/31/18 05:00 l l 07/31/18 05:23 l l 07/31/18 06:01 l l 07/31/18 07:01 l l 07/31/18 08:15 l l 07/31/18 09:45 l l 07/31/18 09:48 l l 07/31/18 10:00 l l 07/31/18 11:01 l l 07/31/18 12:04 l l 07/31/18 13:08 l l 07/31/18 14:01 l l 07/31/18 14:02 l l 07/31/18 14:30 l l 07/31/18 15:00 l l 07/31/18 15:01 l l 07/31/18 15:30 l l 07/31/18 15:30 l l 07/31/18 16:00 l l 07/31/18 16:01 l l 07/31/18 16:30 l l 07/31/18 17:00 l l 07/31/18 17:30 l l 07/31/18 18:00 l l 07/31/18 18:30 l l 07/31/18 18:47 l l 07/31/18 19:00 l l 07/31/18 19:01 l l 07/31/18 19:30 l l 07/31/18 20:00 l l 07/31/18 20:00 l l 07/31/18 20:30 l l 07/31/18 21:00 l l 07/31/18 21:01 l l 07/31/18 21:30 l l 07/31/18 22:00 l l 07/31/18 22:03 l l 07/31/18 22:30 l l 07/31/18 23:00 l l 07/31/18 23:03 l l 07/31/18 23:30 l l 08/01/18 00:00 l l 08/01/18 00:00 l l 08/01/18 00:01 l l 08/01/18 00:30 l l 08/01/18 01:00 l l 08/01/18 01:01 l l 08/01/18 01:30 l l 08/01/18 02:00 l l 08/01/18 02:01 l l 08/01/18 02:30 l l 08/01/18 03:00 l l 08/01/18 03:01 l l 08/01/18 03:30 l l 08/01/18 04:00 l l 08/01/18 04:01 l l 08/01/18 04:30 l l 08/01/18 04:56 l l 08/01/18 04:56 l l 08/01/18 05:00 l l 08/01/18 05:00 l l 08/01/18 05:30 l l 08/01/18 06:00 l l 08/01/18 06:01 l l 08/01/18 06:30 l l 08/01/18 07:00 l l 08/01/18 07:01 l l 08/01/18 07:30 l l 08/01/18 08:00 l l 08/01/18 08:01 l l 08/01/18 08:30 l l 08/01/18 08:55 l l 08/01/18 08:55 l l 08/01/18 09:00 l l 08/01/18 09:30 l l Height 5 ft 3 in 5 ft 3 in 5 ft 3 in l l Weight 61.8 kg 61.8 kg 61.8 kg 62 kg 56.2 kg 64.8 kg l l BP 129/67 129/67 107/73 131/66 112/52 L 125/56 L 93/73 L 101/39 L 116/70 114/74 116/ 82 99/42 L 118/60 118/60 105/57 L 105/57 L 138/75 94/54 L 93/63 L 113/44 L 93/63 L 100/51 L 102/62 107/46 L 113/ 51 L 88/67 L 101/70 109/65 119/101 H 116/46 L 108/32 L 99/48 L 94/53 L 96/57 L 112/65 110/93 H 92/28 L 122/46 L 111/66 111/69 115/52 L 95/70 L 100/78 100/78 117/58 L 120/52 L 130/63 111/43 L 110/59 L 111/43 L 122/54 L 131/62 117/56 L 117/56 L 117/97 H 155/67 H 143/64 H 143/64 H 123/101 H 90/74 L 116/50 L 116/50 L 120/48 L 109/90 130/64 122/57 L 125/58 L 129/46 L 129/46 L 116/44 L 114/55 L 124/60 119/52 L 119/52 L l l Blood Pressure Location Lt brachial l l Position Supine Supine Supine Sitting Supine Supine Supine l l Respiration 20 18 16 20 19 16 16 20 27 H 20 17 22 25 H 31 H 29 H 25 H 20 16 24 26 H 24 22 24 22 23 24 26 H 20 19 28 H 25 H 27 H 27 H 20 20 20 22 21 22 25 H 19 18 19 19 27 H 19 22 21 20 24 20 22 19 22 24 29 H 20 20 24 20 15 19 22 16 21 20 17 19 24 18 17 21 17 24 18 16 21 16 20 19 14 18 18 21 25 H 21 20 17 16 15 19 21 16 21 15 17 15 26 H 25 H 20 22 15 17 13 18 24 18 15 16 16 14 15 12 16 13 12 16 16 21 18 30 H 25 H 26 H 23 17 22 14 14 15 18 18 19 18 16 l l Pulse 113 H 113 H 112 H 111 H 107 H 106 H 69 99 H 102 H 95 H 107 H 105 H 106 H 106 H 108 H 108 H 110 H 117 H 108 H 105 H 109 H 103 H 102 H 105 H 99 H 98 H 99 H 94 H 108 H 96 H 101 H 97 H 102 H 99 H 115 H 113 H 105 H 97 H 92 H 90 95 H 89 86 84 91 H 90 75 90 81 88 85 84 89 91 H 90 89 91 H 90 89 92 H 90 79 88 87 83 79 90 87 86 89 78 89 88 l l Temp 37.4 C 37 C 37 C 38.9 C H 38.9 C H 39 C H 39 C H 39 C H 39 C H 37.4 C 38.8 C H 38 C H 38 C H 37.6 C H 37.0 C 37.0 C 36.1 C L 36.3 C L 36.8 C 36.4 C L 37 C 36.8 C l l Temp Source Temporal Artery Scan Temporal Artery Scan Tympanic Tympanic Tympanic Temporal Artery Scan Temporal Artery Scan Temporal Artery Scan Temporal Artery Scan Temporal Artery Scan Temporal Artery Scan Tympanic Tympanic Tympanic Temporal Artery Scan Temporal Artery Scan l l Pulse Oximetry (%) 94 L 93 L 93 L 92 L 92 L 93 L 92 L 93 L 92 L 92 L 91 L 89 L 91 L 91 L 93 L 93 L 92 L 92 L 92 L 92 L 94 L 94 L 92 L 93 L 93 L 94 L 95 97 95 97 96 94 L 96 97 98 96 94 L 94 L 93 L 93 L 90 L 94 L 92 L 95 93 L 95 97 97 98 94 L 97 95 96 98 99 95 100 99 99 100 97 100 97 96 96 97 l l Oxygen Flow Rate 0 0 0 0 0 0 2 2 2 2 2 2.5 2.5 2.5 2 2
--- NOTE | 2018-08-01 11:24 | PGE_ITS ---
Assessment and Plan (1) Sepsis: Current visit: Yes Status: Acute Sepsis based on Fever, Leukocytosis, altered mental status, tachycardia, hypotension, and an elevated Lactate with a suspected urinary source. Also with noted urinary symptoms at home. Initially maintained on broad spectrum antimicrobial therapy for ESBL and MRSA coverage with Imipenem and Vancomycin, now changed to Ceftriaxone with cultures showing pansensitive E.Coli. Total Antibiotic day #3 today. Current blood cultures with no growth X48 hours. Patient's condition has stabilized. Transfer to [facility] today. (2) UTI (urinary tract infection): Current visit: Yes Status: Acute Pansensitive E.Coli. Treatment as above. (3) Hypokalemia: Current visit: Yes Status: Acute Replete now. Continue to monitor (4) Hypertension: Current visit: Yes Status: Chronic Hold HCTZ in setting of hypotension. May be a candidate for other antihypertensive regimen in the future given hypokalemia. (5) DVT prophylaxis: Current visit: Yes Status: Acute SC Lovenox. Subjective Interval history since last seen: 73-year-old woman with a PMHx significant for MS with a neurogenic bladder and chronic urinary incontinence, as well as a history of recurrent UTI's, admitted from [facility] emergency room with a diagnosis of sepsis with a likely urinary source. Mrs. Ricks had complained of fatigue and urinary symptoms over 1-2 days preceding her admission. She noted mildly worsening urinary incontinence and fatigue, and family stated that this is typical for when she is about to have a UTI. Mrs. Ricks' family called her primary care provider Dr. Hyatt the day prior to her visit to the ED, and was called in a prescription for nitrofurantoin. She had one dose yesterday, but none on the day of presentation. Throughout the night the patient became more fatigued, including this morning, and had some weakness in her lower extremities which family states that is classic for her when she becomes sick. She was also noted to be confused Of note Mrs. Lemon has a past medical history of urosepsis. Work-up in the emergency department included labs that showed an elevated white count at 17, a lactate of 2.6, and mild left shift on differential. Her urinalysis showed small LE, but a microscopic WBC count was not performed as there were too many bacteria in the field for accurate assessment. Her urine was also noted to be malodorous. Her CXR was interpreted as negative for pneumonia. She was also noted to be febrile and tachycardic. Following her admission to [facility] the patient was also noted to have a change in mental status with slight confusion, as well as development of mild hypotension. This morning the patient appears less confused and likely back to her normal mental status. She is also now afebrile. Her urine culture shows a che- sensitive E.Coli. Her blood pressure has normalized, elevated lactate improved, and leukocytosis resolved. No overnight events reported. Exam Const General: cooperative and ill appearing Orientation: alert, awake and oriented x3 Neck Neck: supple Resp Effort & Inspection: normal respiratory effort and able to speak in complete sentences Auscultation: crackles (Bibasilar crackles continued) Cardio Rate: tachycardic Heart Sounds: S1 normal, S2 normal, no gallops, no murmurs and no rubs GI Palpation: soft, not firm, no guarding and nontender Auscultation: normal bowel sounds Extrem General: edema (2+ b/l LE edema, reportedly chronic) Psych Appearance: grossly normal Affect: normal affect Objective Objective Clinical Data: Abnormal lab results 08/01/18 08/01/18 Range/Units 06:15 06:15 RBC 3.63 L (4.00-5.20) m/cumm Hgb 10.4 L (12.0-15.5) g/dL Hct 32.8 L (36.0-46.0) % MCHC 31.7 L (32.0-36.0) g/dL Chloride 112 H (98-107) mmol/L Carbon Dioxide 19.6 L (21.0-32.0) mmol/L Anion Gap 11.4 H (3-11) mmol/L Calcium 7.1 L (8.5-10.1) mg/dL Vital Signs Temp 36.8 C 08/01/18 08:55 Pulse 89 08/01/18 08:55 Resp 16 08/01/18 09:30 BP 119/52 L 08/01/18 08:55 Pulse Ox 97 08/01/18 08:55 Intake & Output 07/31/18 07/31/18 08/01/18 11:59 23:59 11:59 Intake Total 5243.667 / 5243.667 802.5 / 802.5 670 / 670 Output Total 200 / 200 900 / 900 650 / 650 Balance 5043.667 / 5043.667 -97.5 / -97.5 Weight 56.2 kg 64.8 kg Intake: IV 4713.667 / 4713.667 562.5 / 562.5 430 / 430 Oral 530 / 530 240 / 240 240 / 240 Output: Urine 200 / 200 900 / 900 650 / 650 Other: Urine Color Dark April Light April Pale Urine Appearance Sediment Sediment Cloudy Comment Jacobs with strong odor. jacobs to gravity with medium april urine with sediment in it. no odor Jacobs present and urine is Very malodorous. Stool Occult Blood Negative Negative Stool Size Moderate Moderate Stool Characteristics Hard Hard Mucoid Brown Brown Laboratory Results WBC 7.84 k/cumm (4.4-10.8) D 08/01/18 06:15 RBC 3.63 m/cumm (4.00-5.20) L 08/01/18 06:15 Hgb 10.4 g/dL (12.0-15.5) L 08/01/18 06:15 Hct 32.8 % (36.0-46.0) L 08/01/18 06:15 MCV 90.4 fL (80-95) 08/01/18 06:15 MCH 28.7 pg (27.0-33.0) 08/01/18 06:15 MCHC 31.7 g/dL (32.0-36.0) L 08/01/18 06:15 RDW 14.4 % (11.7-14.6) 08/01/18 06:15 Plt Count 250 x1000/uL (130-400) 08/01/18 06:15 MPV 10.3 fL (8.0-11.0) 08/01/18 06:15 Immature Gran % 0.3 08/01/18 06:15 Neutrophils % 69.2 08/01/18 06:15 Lymphocytes % 16.6 08/01/18 06:15 Monocytes % 6.6 08/01/18 06:15 Eosinophils % 7.0 08/01/18 06:15 Basophils % 0.3 08/01/18 06:15 Absolute Neutrophils 5.43 k/cumm (1.2-6.7) 08/01/18 06:15 Absolute Lymphocytes 1.30 k/cumm (1.2-3.4) 08/01/18 06:15 Absolute Monocytes 0.52 k/cumm (0.11-0.7) 08/01/18 06:15 Absolute Eosinophils 0.55 k/cumm (0.0-0.7) 08/01/18 06:15 Absolute Basophils 0.02 k/cumm (0.0-0.2) 08/01/18 06:15 PT 9.9 sec (9.3-10.8) 07/30/18 08:50 INR 1.0 (1.0-3.5) 07/30/18 08:50 APTT 23.9 sec (21.0-31.4) 07/30/18 08:50 Sodium 143 mmol/L (136-145) 08/01/18 06:15 Potassium 3.6 mmol/L (3.5-5.1) 08/01/18 06:15 Chloride 112 mmol/L (98-107) H 08/01/18 06:15 Carbon Dioxide 19.6 mmol/L (21.0-32.0) L 08/01/18 06:15 Anion Gap 11.4 mmol/L (3-11) H 08/01/18 06:15 BUN 12 mg/dL (7-18) 08/01/18 06:15 Creatinine 0.78 mg/dL (0.55-1.02) 08/01/18 06:15 Estimated GFR/1.73 m2 >= 60.00 (mL/min/1.73m2) 08/01/18 06:15 Glucose 85 mg/dL (70-100) 08/01/18 06:15 Lactate 1.5 mmol/L (0.6-1.4) H 07/31/18 08:00 Calcium 7.1 mg/dL (8.5-10.1) L 08/01/18 06:15 Magnesium 1.8 mg/dL (1.8-2.4) 07/30/18 08:50 Total Bilirubin 0.7 mg/dL (0.2-1.0) 07/30/18 08:50 Conjugated Bilirubin 0.18 mg/dL (0.00-0.20) 07/30/18 08:50 AST 30 U/L (15-37) 07/30/18 08:50 ALT 35 U/L (12-78) 07/30/18 08:50 Alkaline Phosphatase 121 U/L (46-116) H 07/30/18 08:50 Troponin I < 0.02 ng/mL (0.00-0.06) 07/30/18 08:50 Total Protein 7.2 g/dL (6.4-8.2) 07/30/18 08:50 Albumin 3.5 g/dL (3.4-5.0) 07/30/18 08:50 Urine Color Yellow (Yellow) 07/30/18 08:55 Urine Clarity Cloudy 07/30/18 08:55 Urine pH 7.5 (5-8) 07/30/18 08:55 Ur Specific [place] 1.015 (1.005-1.025) 07/30/18 08:55 Urine Protein Negative mg/dL (Negative) 07/30/18 08:55 Urine Ketones Trace mg/dL (Negative) H 07/30/18 08:55 Urine Blood Trace-intact (Negative) H 07/30/18 08:55 Urine Nitrite Negative (Negative) 07/30/18 08:55 Urine Bilirubin Negative (Negative) 07/30/18 08:55 Urine Urobilinogen 0.2 EU/dL (Up TO 0.2) 07/30/18 08:55 Ur Leukocyte Esterase Small (Negative) H 07/30/18 08:55 Urine RBC Not Applicable 07/30/18 08:55 Urine WBC Not Applicable 07/30/18 08:55 Ur Epithelial Cells Not Applicable 07/30/18 08:55 Urine Crystals Not Applicable 07/30/18 08:55 Urine Bacteria HPF (Negative) 07/30/18 08:55 Urine Mucus Not Applicable 07/30/18 08:55 Ur Culture Indicated? Yes 07/30/18 08:55 Urine Glucose Negative mg/dL (Negative) 07/30/18 08:55
[2018-08-01] MEDS: Furosemide 20 MG/2 ML VIAL IVP (12:04)
[2018-08-01] MEDS: Normal Saline 500 ML 30 ML IV (12:05)
[2018-08-01] MEDS: Normal Saline Flush 10 ML SYR IVP (12:05)
--- NOTE | 2018-08-01 12:27 | NUR.NOTE ---
Nursing Note: 1145 Pt transferred via wheelchair from ICU room 219 to MS room 210. Stedy lift used per PT recommendation to transfer Pt to recliner.
--- NOTE | 2018-08-01 12:48 | PDOC.CMPRO ---
- If Service Date Differs Date of service: 08/01/18 Time of Service: 12:48 Care Management Progress Note S/O: Pt presented at interdisciplinary rounds. Nguyen has recently moved from the ICU to the MS floor where she is continuing to receive IV antibiotics. Nguyen is engaged in conversation and reports that she enjoys having visitors and talking. Nguyen reports that she has no pain and is feeling much better than when she arrived at the hospital. A: 73 year old female admitted with sepsis. P: Nguyen will discharge home when medically ready per MD. Anticipate pt will discharge with no services and follow up with her PCP. Nguyen will transport via private vehicle with her , Mukesh. CM will continue to provide support to patient, family and care team regarding discharge planning and disposition.
[2018-08-01] MEDS: Enoxaparin 40 MG/0.4 ML SYR SC (13:09)
--- NOTE | 2018-08-01 14:26 | PT.INTREAT ---
PT Notes Inpatient Physical Therapy Treatment Note PRECAUTIONS: Fall SUBJECTIVE: Viviana states that she has been working on lower extremity strengthening, including standing and weight shifting at home. She feels her participation in outpatient PT has helped her significantly since she started. OBJECTIVE: PAIN: No complaints of pain BED MOBILITY/TRANSFERS Sit-stand: Mod A with STEDY (performed ?2) Stand-sit: Mod A with STEDY (performed ?2) GAIT: Unable THEREX: Patient completed static standing 2x2 minutes with SBA. Patient also completed weight-shifting to left and right ?1 minute as well as LAQ and mini squats ?5 each. ASSESSMENT: Patient tolerated session with complaints of increased fatigue. Patient was able to tolerate an increased time with static standing in STEDY lift. Patient would benefit from continued lower extremity strengthening as well as transfer training for improved mobility and endurance. PLAN: Continue with PT's POC TREATMENT CODE/TIME: 25 minutes; TA?2 Intake Vital Signs 07/30/18 08:00 07/30/18 08:00 07/30/18 08:09 07/30/18 08:10 07/30/18 08:16 07/30/18 08:20 07/30/18 08:30 07/30/18 08:31 07/30/18 08:40 07/30/18 08:48 07/30/18 08:50 07/30/18 09:00 07/30/18 09:01 07/30/18 09:10 07/30/18 09:16 07/30/18 09:20 07/30/18 09:30 07/30/18 09:31 07/30/18 09:40 07/30/18 09:50 07/30/18 09:54 07/30/18 10:00 07/30/18 10:01 07/30/18 10:10 07/30/18 10:16 07/30/18 10:20 07/30/18 10:30 07/30/18 10:31 07/30/18 10:33 07/30/18 10:40 07/30/18 10:46 Height 5 ft 3 in 5 ft 3 in Weight 61.8 kg 61.8 kg BP 129/67 129/67 107/73 131/66 112/52 L 125/56 L 93/73 L 101/39 L 116/70 114/74 116/82 99/42 L Blood Pressure Location Lt brachial Position Respiration 20 18 16 20 19 16 16 20 27 H 20 17 22 25 H 31 H 29 H 25 H 20 16 24 26 H 24 22 24 22 23 24 26 H 20 19 Pulse 113 H 113 H 112 H 111 H 107 H 106 H 69 99 H 102 H 95 H 107 H 105 H Temp 37.4 C 37 C Temp Source Temporal Artery Scan Temporal Artery Scan Pulse Oximetry (%) 94 L 93 L 93 L 92 L 92 L 93 L 92 L 93 L 92 L 92 L 91 L 89 L 91 L 91 L 93 L 93 L 92 L Oxygen Flow Rate 0 07/30/18 10:50 07/30/18 11:00 07/30/18 11:01 07/30/18 11:20 07/30/18 11:45 07/30/18 11:45 07/30/18 12:06 07/30/18 12:19 07/30/18 13:04 07/30/18 13:14 07/30/18 13:46 07/30/18 14:01 07/30/18 14:09 07/30/18 14:16 07/30/18 14:31 07/30/18 14:45 07/30/18 15:00 07/30/18 15:16 07/30/18 15:19 07/30/18 15:30 07/30/18 15:45 07/30/18 16:00 07/30/18 16:17 07/30/18 16:30 07/30/18 16:43 07/30/18 17:00 07/30/18 18:00 07/30/18 18:30 07/30/18 19:01 07/30/18 20:01 07/30/18 20:40 07/30/18 21:01 5 ft 3 in 61.8 kg 62 kg 118/60 118/60 105/57 L 105/57 L 138/75 94/54 L 93/63 L 113/44 L 93/63 L 100/51 L 102/62 107/46 L 113/51 L 88/67 L 101/70 109/65 119/101 H 116/46 L 108/32 L 99/48 L 94/53 L 96/57 L 112/65 110/93 H 92/28 L Supine 28 H 25 H 27 H 27 H 20 20 20 22 21 22 25 H 19 18 19 19 27 H 19 22 21 20 24 20 22 19 22 24 29 H 20 106 H 106 H 108 H 108 H 110 H 117 H 108 H 105 H 109 H 103 H 102 H 105 H 99 H 98 H 99 H 94 H 108 H 96 H 101 H 97 H 102 H 99 H 115 H 113 H 37 C 38.9 C H 38.9 C H 39 C H 39 C H 39 C H 39 C H 37.4 C 38.8 C H 38 C H Tympanic Tympanic Tympanic Temporal Artery Scan Temporal Artery Scan 92 L 92 L 92 L 94 L 94 L 92 L 93 L 93 L 94 L 95 97 95 97 96 94 L 96 97 98 96 94 L 94 L 93 L 93 L 0 0 0 0 0 07/30/18 21:08 07/30/18 22:39 07/30/18 23:01 07/31/18 00:00 07/31/18 00:25 07/31/18 01:00 07/31/18 02:09 07/31/18 04:00 07/31/18 04:40 07/31/18 04:41 07/31/18 05:00 07/31/18 05:23 07/31/18 06:01 07/31/18 07:01 07/31/18 08:15 07/31/18 09:45 07/31/18 09:48 07/31/18 10:00 07/31/18 11:01 07/31/18 12:04 07/31/18 13:08 07/31/18 14:01 07/31/18 14:02 07/31/18 14:30 07/31/18 15:00 07/31/18 15:01 07/31/18 15:30 07/31/18 15:30 07/31/18 16:00 07/31/18 16:01 07/31/18 16:30 07/31/18 17:00 56.2 kg 122/46 L 111/66 111/69 115/52 L 95/70 L 100/78 100/78 117/58 L 120/52 L 130/63 111/43 L 110/59 L 111/43 L 122/54 L 131/62 117/56 L 117/56 L 117/97 H Supine Supine 20 24 20 15 19 22 16 21 20 17 19 24 18 17 21 17 24 18 16 21 16 20 19 14 18 105 H 97 H 92 H 90 95 H 89 86 84 91 H 90 75 90 81 88 85 84 89 91 H 38 C H 37.6 C H 37.0 C 37.0 C 36.1 C L 36.3 C L Temporal Artery Scan Temporal Artery Scan Temporal Artery Scan Temporal Artery Scan Tympanic 90 L 94 L 92 L 95 93 L 95 97 97 98 94 L 97 95 96 98 99 95 100 99 99 100 2 2 2 2 2 2.5 07/31/18 17:30 07/31/18 18:00 07/31/18 18:30 07/31/18 18:47 07/31/18 19:00 07/31/18 19:01 07/31/18 19:30 07/31/18 20:00 07/31/18 20:00 07/31/18 20:30 07/31/18 21:00 07/31/18 21:01 07/31/18 21:30 07/31/18 22:00 07/31/18 22:03 07/31/18 22:30 07/31/18 23:00 07/31/18 23:03 07/31/18 23:30 08/01/18 00:00 08/01/18 00:00 08/01/18 00:01 08/01/18 00:30 08/01/18 01:00 08/01/18 01:01 08/01/18 01:30 08/01/18 02:00 08/01/18 02:01 08/01/18 02:30 08/01/18 03:00 08/01/18 03:01 08/01/18 03:30 155/67 H 143/64 H 143/64 H 123/101 H 90/74 L 116/50 L 116/50 L 120/48 L 109/90 130/64 122/57 L Sitting Supine 18 21 25 H 21 20 17 16 15 19 21 16 21 15 17 15 26 H 25 H 20 22 15 17 13 18 24 18 15 16 16 14 15 12 16 90 89 91 H 90 89 92 H 90 79 88 87 83 36.8 C 36.4 C L Tympanic Tympanic 97 100 2.5 2.5 08/01/18 04:00 08/01/18 04:01 08/01/18 04:30 08/01/18 04:56 08/01/18 04:56 08/01/18 05:00 08/01/18 05:00 08/01/18 05:30 08/01/18 06:00 08/01/18 06:01 08/01/18 06:30 08/01/18 07:00 08/01/18 07:00 08/01/18 07:01 08/01/18 07:30 08/01/18 08:00 08/01/18 08:01 08/01/18 08:30 08/01/18 08:55 08/01/18 08:55 08/01/18 09:00 08/01/18 09:30 08/01/18 10:00 08/01/18 10:30 08/01/18 11:00 08/01/18 12:05 64.8 kg 125/58 L 129/46 L 129/46 L 116/44 L 114/55 L 124/60 119/52 L 119/52 L 139/81 Supine Supine 13 12 16 16 21 18 30 H 25 H 26 H 23 17 22 14 14 15 18 18 19 18 16 22 20 19 18 79 90 87 86 89 78 89 88 98 H 37 C 36.8 C 36.6 C Temporal Artery Scan Temporal Artery Scan Temporal Artery Scan 97 96 96 96 97 99 2 2 2 2
--- NOTE | 2018-08-01 14:34 | PTTR_ITS ---
PT Notes Inpatient Physical Therapy Treatment Note PRECAUTIONS: Fall SUBJECTIVE: Viviana states that she has been working on lower extremity strengthening, including standing and weight shifting at home. She feels her participation in outpatient PT has helped her significantly since she started. OBJECTIVE: PAIN: No complaints of pain BED MOBILITY/TRANSFERS Sit-stand: Mod A with STEDY (performed ?2) Stand-sit: Mod A with STEDY (performed ?2) GAIT: Unable THEREX: Patient completed static standing 2x2 minutes with SBA. Patient also completed weight-shifting to left and right ?1 minute as well as LAQ and mini squats ?5 each. ASSESSMENT: Patient tolerated session with complaints of increased fatigue. Patient was able to tolerate an increased time with static standing in STEDY lift. Patient would benefit from continued lower extremity strengthening as well as transfer training for improved mobility and endurance. PLAN: Continue with PT's POC TREATMENT CODE/TIME: 25 minutes; TA?2 Intake Vital Signs 3 l l l l 07/30/18 08:00 l l 07/30/18 08:00 l l 07/30/18 08:09 l l 07/30/18 08:10 l l 07/30/18 08:16 l l 07/30/18 08:20 l l 07/30/18 08:30 l l 07/30/18 08:31 l l 07/30/18 08:40 l l 07/30/18 08:48 l l 07/30/18 08:50 l l 07/30/18 09:00 l l 07/30/18 09:01 l l 07/30/18 09:10 l l 07/30/18 09:16 l l 07/30/18 09:20 l l 07/30/18 09:30 l l 07/30/18 09:31 l l 07/30/18 09:40 l l 07/30/18 09:50 l l 07/30/18 09:54 l l 07/30/18 10:00 l l 07/30/18 10:01 l l 07/30/18 10:10 l l 07/30/18 10:16 l l 07/30/18 10:20 l l 07/30/18 10:30 l l 07/30/18 10:31 l l 07/30/18 10:33 l l 07/30/18 10:40 l l 07/30/18 10:46 l l 07/30/18 10:50 l l 07/30/18 11:00 l l 07/30/18 11:01 l l 07/30/18 11:20 l l 07/30/18 11:45 l l 07/30/18 11:45 l l 07/30/18 12:06 l l 07/30/18 12:19 l l 07/30/18 13:04 l l 07/30/18 13:14 l l 07/30/18 13:46 l l 07/30/18 14:01 l l 07/30/18 14:09 l l 07/30/18 14:16 l l 07/30/18 14:31 l l 07/30/18 14:45 l l 07/30/18 15:00 l l 07/30/18 15:16 l l 07/30/18 15:19 l l 07/30/18 15:30 l l 07/30/18 15:45 l l 07/30/18 16:00 l l 07/30/18 16:17 l l 07/30/18 16:30 l l 07/30/18 16:43 l l 07/30/18 17:00 l l 07/30/18 18:00 l l 07/30/18 18:30 l l 07/30/18 19:01 l l 07/30/18 20:01 l l 07/30/18 20:40 l l 07/30/18 21:01 l l 07/30/18 21:08 l l 07/30/18 22:39 l l 07/30/18 23:01 l l 07/31/18 00:00 l l 07/31/18 00:25 l l 07/31/18 01:00 l l 07/31/18 02:09 l l 07/31/18 04:00 l l 07/31/18 04:40 l l 07/31/18 04:41 l l 07/31/18 05:00 l l 07/31/18 05:23 l l 07/31/18 06:01 l l 07/31/18 07:01 l l 07/31/18 08:15 l l 07/31/18 09:45 l l 07/31/18 09:48 l l 07/31/18 10:00 l l 07/31/18 11:01 l l 07/31/18 12:04 l l 07/31/18 13:08 l l 07/31/18 14:01 l l 07/31/18 14:02 l l 07/31/18 14:30 l l 07/31/18 15:00 l l 07/31/18 15:01 l l 07/31/18 15:30 l l 07/31/18 15:30 l l 07/31/18 16:00 l l 07/31/18 16:01 l l 07/31/18 16:30 l l 07/31/18 17:00 l l 07/31/18 17:30 l l 07/31/18 18:00 l l 07/31/18 18:30 l l 07/31/18 18:47 l l 07/31/18 19:00 l l 07/31/18 19:01 l l 07/31/18 19:30 l l 07/31/18 20:00 l l 07/31/18 20:00 l l 07/31/18 20:30 l l 07/31/18 21:00 l l 07/31/18 21:01 l l 07/31/18 21:30 l l 07/31/18 22:00 l l 07/31/18 22:03 l l 07/31/18 22:30 l l 07/31/18 23:00 l l 07/31/18 23:03 l l 07/31/18 23:30 l l 08/01/18 00:00 l l 08/01/18 00:00 l l 08/01/18 00:01 l l 08/01/18 00:30 l l 08/01/18 01:00 l l 08/01/18 01:01 l l 08/01/18 01:30 l l 08/01/18 02:00 l l 08/01/18 02:01 l l 08/01/18 02:30 l l 08/01/18 03:00 l l 08/01/18 03:01 l l 08/01/18 03:30 l l 08/01/18 04:00 l l 08/01/18 04:01 l l 08/01/18 04:30 l l 08/01/18 04:56 l l 08/01/18 04:56 l l 08/01/18 05:00 l l 08/01/18 05:00 l l 08/01/18 05:30 l l 08/01/18 06:00 l l 08/01/18 06:01 l l 08/01/18 06:30 l l 08/01/18 07:00 l l 08/01/18 07:00 l l 08/01/18 07:01 l l 08/01/18 07:30 l l 08/01/18 08:00 l l 08/01/18 08:01 l l 08/01/18 08:30 l l 08/01/18 08:55 l l 08/01/18 08:55 l l 08/01/18 09:00 l l 08/01/18 09:30 l l 08/01/18 10:00 l l 08/01/18 10:30 l l 08/01/18 11:00 l l 08/01/18 12:05 l l Height 5 ft 3 in 5 ft 3 in 5 ft 3 in l l Weight 61.8 kg 61.8 kg 61.8 kg 62 kg 56.2 kg 64.8 kg l l BP 129/67 129/67 107/73 131/66 112/52 L 125/56 L 93/73 L 101/39 L 116/70 114/74 116/ 82 99/42 L 118/60 118/60 105/57 L 105/57 L 138/75 94/54 L 93/63 L 113/44 L 93/63 L 100/51 L 102/62 107/46 L 113/ 51 L 88/67 L 101/70 109/65 119/101 H 116/46 L 108/32 L 99/48 L 94/53 L 96/57 L 112/65 110/93 H 92/28 L 122/46 L 111/66 111/69 115/52 L 95/70 L 100/78 100/78 117/58 L 120/52 L 130/63 111/43 L 110/59 L 111/43 L 122/54 L 131/62 117/56 L 117/56 L 117/97 H 155/67 H 143/64 H 143/64 H 123/101 H 90/74 L 116/50 L 116/50 L 120/48 L 109/90 130/64 122/57 L 125/58 L 129/46 L 129/46 L 116/44 L 114/55 L 124/60 119/52 L 119/52 L 139/81 l l Blood Pressure Location Lt brachial l l Position Supine Supine Supine Sitting Supine Supine Supine l l Respiration 20 18 16 20 19 16 16 20 27 H 20 17 22 25 H 31 H 29 H 25 H 20 16 24 26 H 24 22 24 22 23 24 26 H 20 19 28 H 25 H 27 H 27 H 20 20 20 22 21 22 25 H 19 18 19 19 27 H 19 22 21 20 24 20 22 19 22 24 29 H 20 20 24 20 15 19 22 16 21 20 17 19 24 18 17 21 17 24 18 16 21 16 20 19 14 18 18 21 25 H 21 20 17 16 15 19 21 16 21 15 17 15 26 H 25 H 20 22 15 17 13 18 24 18 15 16 16 14 15 12 16 13 12 16 16 21 18 30 H 25 H 26 H 23 17 22 14 14 15 18 18 19 18 16 22 20 19 18 l l Pulse 113 H 113 H 112 H 111 H 107 H 106 H 69 99 H 102 H 95 H 107 H 105 H 106 H 106 H 108 H 108 H 110 H 117 H 108 H 105 H 109 H 103 H 102 H 105 H 99 H 98 H 99 H 94 H 108 H 96 H 101 H 97 H 102 H 99 H 115 H 113 H 105 H 97 H 92 H 90 95 H 89 86 84 91 H 90 75 90 81 88 85 84 89 91 H 90 89 91 H 90 89 92 H 90 79 88 87 83 79 90 87 86 89 78 89 88 98 H l l Temp 37.4 C 37 C 37 C 38.9 C H 38.9 C H 39 C H 39 C H 39 C H 39 C H 37.4 C 38.8 C H 38 C H 38 C H 37.6 C H 37.0 C 37.0 C 36.1 C L 36.3 C L 36.8 C 36.4 C L 37 C 36.8 C 36.6 C l l Temp Source Temporal Artery Scan Temporal Artery Scan Tympanic Tympanic Tympanic Temporal Artery Scan Temporal Artery Scan Temporal Artery Scan Temporal Artery Scan Temporal Artery Scan Temporal Artery Scan Tympanic Tympanic Tympanic Temporal Artery Scan Temporal Artery Scan Temporal Artery Scan l l Pulse Oximetry (%) 94 L 93 L 93 L 92 L 92 L 93 L 92 L 93 L 92 L 92 L 91 L 89 L 91 L 91 L 93 L 93 L 92 L 92 L 92 L 92 L 94 L 94 L 92 L 93 L 93 L 94 L 95 97 95 97 96 94 L 96 97 98 96 94 L 94 L 93 L 93 L 90 L 94 L 92 L 95 93 L 95 97 97 98 94 L 97 95 96 98 99 95 100 99 99 100 97 100 97 96 96 96 97 99 l l Oxygen Flow Rate 0 0 0 0 0 0 2 2 2 2 2 2.5 2.5 2.5 2 2 2 2
--- NOTE | 2018-08-01 15:15 | CHAPLAIN ---
I was visiting Nguyen just prior to her moving from the ICU to Med/Surg. 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 Her MS symptoms limit some of what she can do physically. Nguyen considers her time outside in nature, like going to sikh.
[2018-08-02 00:32] VITALS: BP 126/74; PULSE 96; RESP 16; TEMP 37.2; O2SAT 95
[2018-08-02 07:32] LABS: Abs Immature Grans 0.02 k/cumm (0.0-0.09); Absolute Basophil Count 0.03 k/cumm (0.0-0.2); Absolute Eosinophil Count 0.59 k/cumm (0.0-0.7); Absolute Lymphocyte Count 1.87 k/cumm (1.2-3.4); Absolute Monocyte Count 0.64 k/cumm (0.11-0.7); Absolute Neutrophil Count 3.91 k/cumm (1.2-6.7); Basophils % 0.4; Eosinophils % 8.4; HCT 33.9 % (36.0-46.0); HGB 11.1 g/dL (12.0-15.5); Immature Grans % 0.3; Lymphocytes % 26.5; Mean Corp. HGB Concentration 32.7 g/dL (32.0-36.0); Mean Corpuscular Hemoglobin 29.1 pg (27.0-33.0); Mean Platelet Volume 9.4 fL (8.0-11.0); Monocytes % 9.1; Neutrophils % 55.3; Platelet Count 304 x1000/uL (130-400); RBC 3.81 m/cumm (4.00-5.20); RBC Distribution Width 14.3 % (11.7-14.6); White Blood Cell Count 7.06 k/cumm (4.4-10.8)
[2018-08-02 07:48] LABS: Anion Gap 7.2 mmol/L (3-11); BUN 15 mg/dL (7-18); CO2 23.8 mmol/L (21.0-32.0); CREATININE 0.88 mg/dL (0.55-1.02); Calcium 8.1 mg/dL (8.5-10.1); Chloride 111 mmol/L (98-107); Glucose 105 mg/dL (70-100); Potassium 4.1 mmol/L (3.5-5.1); Sodium 142 mmol/L (136-145)
[2018-08-02 08:10] VITALS: BP 146/77; PULSE 85; RESP 20; TEMP 36.3; O2SAT 94
[2018-08-02] MEDS: Normal Saline Flush 10 ML SYR IVP ×2 (08:36→12:01)
--- NOTE | 2018-08-02 08:36 | PT.INTREAT ---
PT Notes Inpatient Physical Therapy Treatment Note PRECAUTIONS: Fall SUBJECTIVE: Viviana reports that she did not sleep well last night. She is excited to participate in PT, and is hopeful that she will be discharged home today. OBJECTIVE: PAIN: No complaints of pain. BED MOBILITY/TRANSFERS Sit-stand: Mod A, Min A with STEDY (performed 1x each) Stand-sit: Mod A with STEDY (performed x2) GAIT: Unable THEREX: Patient completed a lower extremity strengthening program in both seated and standing positions, as per flow sheet. Patient tolerated the addition of hip abduction in the seated position well, without complaint of fatigue. Patient tolerated a slight progression in her program today, modifications made to reps are noted on flow sheet. ASSESSMENT: Patient tolerated session well without complaints of fatigue or pain. Patient was able to tolerate a slight progression in her ther ex program today. Patient would benefit from continued strengthening and transfer training to improve duration with standing activities. PLAN: Continue with PT's POC TREATMENT CODE/TIME: 25 minutes; TA/TP Intake Vital Signs 07/30/18 08:00 07/30/18 08:00 07/30/18 08:09 07/30/18 08:10 07/30/18 08:16 07/30/18 08:20 07/30/18 08:30 07/30/18 08:31 07/30/18 08:40 07/30/18 08:48 07/30/18 08:50 07/30/18 09:00 07/30/18 09:01 07/30/18 09:10 07/30/18 09:16 07/30/18 09:20 07/30/18 09:30 07/30/18 09:31 07/30/18 09:40 07/30/18 09:50 07/30/18 09:54 07/30/18 10:00 07/30/18 10:01 07/30/18 10:10 07/30/18 10:16 07/30/18 10:20 07/30/18 10:30 07/30/18 10:31 07/30/18 10:33 07/30/18 10:40 07/30/18 10:46 Height 5 ft 3 in 5 ft 3 in Weight 61.8 kg 61.8 kg BP 129/67 129/67 107/73 131/66 112/52 L 125/56 L 93/73 L 101/39 L 116/70 114/74 116/82 99/42 L Blood Pressure Location Lt brachial Position Respiration 20 18 16 20 19 16 16 20 27 H 20 17 22 25 H 31 H 29 H 25 H 20 16 24 26 H 24 22 24 22 23 24 26 H 20 19 Pulse 113 H 113 H 112 H 111 H 107 H 106 H 69 99 H 102 H 95 H 107 H 105 H Temp 37.4 C 37 C Temp Source Temporal Artery Scan Temporal Artery Scan Pulse Oximetry (%) 94 L 93 L 93 L 92 L 92 L 93 L 92 L 93 L 92 L 92 L 91 L 89 L 91 L 91 L 93 L 93 L 92 L Oxygen Flow Rate 0 07/30/18 10:50 07/30/18 11:00 07/30/18 11:01 07/30/18 11:20 07/30/18 11:45 07/30/18 11:45 07/30/18 12:06 07/30/18 12:19 07/30/18 13:04 07/30/18 13:14 07/30/18 13:46 07/30/18 14:01 07/30/18 14:09 07/30/18 14:16 07/30/18 14:31 07/30/18 14:45 07/30/18 15:00 07/30/18 15:16 07/30/18 15:19 07/30/18 15:30 07/30/18 15:45 07/30/18 16:00 07/30/18 16:17 07/30/18 16:30 07/30/18 16:43 07/30/18 17:00 07/30/18 18:00 07/30/18 18:30 07/30/18 19:01 07/30/18 20:01 07/30/18 20:40 07/30/18 21:01 5 ft 3 in 61.8 kg 62 kg 118/60 118/60 105/57 L 105/57 L 138/75 94/54 L 93/63 L 113/44 L 93/63 L 100/51 L 102/62 107/46 L 113/51 L 88/67 L 101/70 109/65 119/101 H 116/46 L 108/32 L 99/48 L 94/53 L 96/57 L 112/65 110/93 H 92/28 L Supine 28 H 25 H 27 H 27 H 20 20 20 22 21 22 25 H 19 18 19 19 27 H 19 22 21 20 24 20 22 19 22 24 29 H 20 106 H 106 H 108 H 108 H 110 H 117 H 108 H 105 H 109 H 103 H 102 H 105 H 99 H 98 H 99 H 94 H 108 H 96 H 101 H 97 H 102 H 99 H 115 H 113 H 37 C 38.9 C H 38.9 C H 39 C H 39 C H 39 C H 39 C H 37.4 C 38.8 C H 38 C H Tympanic Tympanic Tympanic Temporal Artery Scan Temporal Artery Scan 92 L 92 L 92 L 94 L 94 L 92 L 93 L 93 L 94 L 95 97 95 97 96 94 L 96 97 98 96 94 L 94 L 93 L 93 L 0 0 0 0 0 07/30/18 21:08 07/30/18 22:39 07/30/18 23:01 07/31/18 00:00 07/31/18 00:25 07/31/18 01:00 07/31/18 02:09 07/31/18 04:00 07/31/18 04:40 07/31/18 04:41 07/31/18 05:00 07/31/18 05:23 07/31/18 06:01 07/31/18 07:01 07/31/18 08:15 07/31/18 09:45 07/31/18 09:48 07/31/18 10:00 07/31/18 11:01 07/31/18 12:04 07/31/18 13:08 07/31/18 14:01 07/31/18 14:02 07/31/18 14:30 07/31/18 15:00 07/31/18 15:01 07/31/18 15:30 07/31/18 15:30 07/31/18 16:00 07/31/18 16:01 07/31/18 16:30 07/31/18 17:00 56.2 kg 122/46 L 111/66 111/69 115/52 L 95/70 L 100/78 100/78 117/58 L 120/52 L 130/63 111/43 L 110/59 L 111/43 L 122/54 L 131/62 117/56 L 117/56 L 117/97 H Supine Supine 20 24 20 15 19 22 16 21 20 17 19 24 18 17 21 17 24 18 16 21 16 20 19 14 18 105 H 97 H 92 H 90 95 H 89 86 84 91 H 90 75 90 81 88 85 84 89 91 H 38 C H 37.6 C H 37.0 C 37.0 C 36.1 C L 36.3 C L Temporal Artery Scan Temporal Artery Scan Temporal Artery Scan Temporal Artery Scan Tympanic 90 L 94 L 92 L 95 93 L 95 97 97 98 94 L 97 95 96 98 99 95 100 99 99 100 2 2 2 2 2 2.5 07/31/18 17:30 07/31/18 18:00 07/31/18 18:30 07/31/18 18:47 07/31/18 19:00 07/31/18 19:01 07/31/18 19:30 07/31/18 20:00 07/31/18 20:00 07/31/18 20:30 07/31/18 21:00 07/31/18 21:01 07/31/18 21:30 07/31/18 22:00 07/31/18 22:03 07/31/18 22:30 07/31/18 23:00 07/31/18 23:03 07/31/18 23:30 08/01/18 00:00 08/01/18 00:00 08/01/18 00:01 08/01/18 00:30 08/01/18 01:00 08/01/18 01:01 08/01/18 01:30 08/01/18 02:00 08/01/18 02:01 08/01/18 02:30 08/01/18 03:00 08/01/18 03:01 08/01/18 03:30 155/67 H 143/64 H 143/64 H 123/101 H 90/74 L 116/50 L 116/50 L 120/48 L 109/90 130/64 122/57 L Sitting Supine 18 21 25 H 21 20 17 16 15 19 21 16 21 15 17 15 26 H 25 H 20 22 15 17 13 18 24 18 15 16 16 14 15 12 16 90 89 91 H 90 89 92 H 90 79 88 87 83 36.8 C 36.4 C L Tympanic Tympanic 97 100 2.5 2.5 08/01/18 04:00 08/01/18 04:01 08/01/18 04:30 08/01/18 04:56 08/01/18 04:56 08/01/18 05:00 08/01/18 05:00 08/01/18 05:30 08/01/18 06:00 08/01/18 06:01 08/01/18 06:30 08/01/18 07:00 08/01/18 07:00 08/01/18 07:01 08/01/18 07:30 08/01/18 08:00 08/01/18 08:01 08/01/18 08:30 08/01/18 08:55 08/01/18 08:55 08/01/18 09:00 08/01/18 09:30 08/01/18 10:00 08/01/18 10:30 08/01/18 11:00 08/01/18 12:05 08/01/18 16:28 08/01/18 16:30 08/01/18 16:37 08/01/18 17:36 08/02/18 00:32 08/02/18 08:09 64.8 kg 62.9 kg 125/58 L 129/46 L 129/46 L 116/44 L 114/55 L 124/60 119/52 L 119/52 L 139/81 111/58 L 126/74 Supine Supine 13 12 16 16 21 18 30 H 25 H 26 H 23 17 22 14 14 15 18 18 19 18 16 22 20 19 18 18 16 79 90 87 86 89 78 89 88 98 H 77 96 H 37 C 36.8 C 36.6 C 36.9 C 37.2 C Temporal Artery Scan Temporal Artery Scan Temporal Artery Scan Tympanic Tympanic 97 96 96 96 97 99 91 L 99 94 L 96 95 2 2 2 2 2 2 1 0 0 08/02/18 08:10 146/77 H 20 85 36.3 C L Skin 94 L 0
[2018-08-02] MEDS: Cyanocobalamin 500 MCG TAB 1000 MCG PO (08:37)
[2018-08-02] MEDS: Mirabegron 50 MG TABCR PO (08:37)
--- NOTE | 2018-08-02 08:43 | PTTR_ITS ---
PT Notes Inpatient Physical Therapy Treatment Note PRECAUTIONS: Fall SUBJECTIVE: Viviana reports that she did not sleep well last night. She is excited to participate in PT, and is hopeful that she will be discharged home today. OBJECTIVE: PAIN: No complaints of pain. BED MOBILITY/TRANSFERS Sit-stand: Mod A, Min A with STEDY (performed 1x each) Stand-sit: Mod A with STEDY (performed x2) GAIT: Unable THEREX: Patient completed a lower extremity strengthening program in both seated and standing positions, as per flow sheet. Patient tolerated the addition of hip abduction in the seated position well, without complaint of fatigue. Patient tolerated a slight progression in her program today, modifications made to reps are noted on flow sheet. ASSESSMENT: Patient tolerated session well without complaints of fatigue or pain. Patient was able to tolerate a slight progression in her ther ex program today. Patient would benefit from continued strengthening and transfer training to improve duration with standing activities. PLAN: Continue with PT's POC TREATMENT CODE/TIME: 25 minutes; TA/TP Intake Vital Signs 3 l l l l 07/30/18 08:00 l l 07/30/18 08:00 l l 07/30/18 08:09 l l 07/30/18 08:10 l l 07/30/18 08:16 l l 07/30/18 08:20 l l 07/30/18 08:30 l l 07/30/18 08:31 l l 07/30/18 08:40 l l 07/30/18 08:48 l l 07/30/18 08:50 l l 07/30/18 09:00 l l 07/30/18 09:01 l l 07/30/18 09:10 l l 07/30/18 09:16 l l 07/30/18 09:20 l l 07/30/18 09:30 l l 07/30/18 09:31 l l 07/30/18 09:40 l l 07/30/18 09:50 l l 07/30/18 09:54 l l 07/30/18 10:00 l l 07/30/18 10:01 l l 07/30/18 10:10 l l 07/30/18 10:16 l l 07/30/18 10:20 l l 07/30/18 10:30 l l 07/30/18 10:31 l l 07/30/18 10:33 l l 07/30/18 10:40 l l 07/30/18 10:46 l l 07/30/18 10:50 l l 07/30/18 11:00 l l 07/30/18 11:01 l l 07/30/18 11:20 l l 07/30/18 11:45 l l 07/30/18 11:45 l l 07/30/18 12:06 l l 07/30/18 12:19 l l 07/30/18 13:04 l l 07/30/18 13:14 l l 07/30/18 13:46 l l 07/30/18 14:01 l l 07/30/18 14:09 l l 07/30/18 14:16 l l 07/30/18 14:31 l l 07/30/18 14:45 l l 07/30/18 15:00 l l 07/30/18 15:16 l l 07/30/18 15:19 l l 07/30/18 15:30 l l 07/30/18 15:45 l l 07/30/18 16:00 l l 07/30/18 16:17 l l 07/30/18 16:30 l l 07/30/18 16:43 l l 07/30/18 17:00 l l 07/30/18 18:00 l l 07/30/18 18:30 l l 07/30/18 19:01 l l 07/30/18 20:01 l l 07/30/18 20:40 l l 07/30/18 21:01 l l 07/30/18 21:08 l l 07/30/18 22:39 l l 07/30/18 23:01 l l 07/31/18 00:00 l l 07/31/18 00:25 l l 07/31/18 01:00 l l 07/31/18 02:09 l l 07/31/18 04:00 l l 07/31/18 04:40 l l 07/31/18 04:41 l l 07/31/18 05:00 l l 07/31/18 05:23 l l 07/31/18 06:01 l l 07/31/18 07:01 l l 07/31/18 08:15 l l 07/31/18 09:45 l l 07/31/18 09:48 l l 07/31/18 10:00 l l 07/31/18 11:01 l l 07/31/18 12:04 l l 07/31/18 13:08 l l 07/31/18 14:01 l l 07/31/18 14:02 l l 07/31/18 14:30 l l 07/31/18 15:00 l l 07/31/18 15:01 l l 07/31/18 15:30 l l 07/31/18 15:30 l l 07/31/18 16:00 l l 07/31/18 16:01 l l 07/31/18 16:30 l l 07/31/18 17:00 l l 07/31/18 17:30 l l 07/31/18 18:00 l l 07/31/18 18:30 l l 07/31/18 18:47 l l 07/31/18 19:00 l l 07/31/18 19:01 l l 07/31/18 19:30 l l 07/31/18 20:00 l l 07/31/18 20:00 l l 07/31/18 20:30 l l 07/31/18 21:00 l l 07/31/18 21:01 l l 07/31/18 21:30 l l 07/31/18 22:00 l l 07/31/18 22:03 l l 07/31/18 22:30 l l 07/31/18 23:00 l l 07/31/18 23:03 l l 07/31/18 23:30 l l 08/01/18 00:00 l l 08/01/18 00:00 l l 08/01/18 00:01 l l 08/01/18 00:30 l l 08/01/18 01:00 l l 08/01/18 01:01 l l 08/01/18 01:30 l l 08/01/18 02:00 l l 08/01/18 02:01 l l 08/01/18 02:30 l l 08/01/18 03:00 l l 08/01/18 03:01 l l 08/01/18 03:30 l l 08/01/18 04:00 l l 08/01/18 04:01 l l 08/01/18 04:30 l l 08/01/18 04:56 l l 08/01/18 04:56 l l 08/01/18 05:00 l l 08/01/18 05:00 l l 08/01/18 05:30 l l 08/01/18 06:00 l l 08/01/18 06:01 l l 08/01/18 06:30 l l 08/01/18 07:00 l l 08/01/18 07:00 l l 08/01/18 07:01 l l 08/01/18 07:30 l l 08/01/18 08:00 l l 08/01/18 08:01 l l 08/01/18 08:30 l l 08/01/18 08:55 l l 08/01/18 08:55 l l 08/01/18 09:00 l l 08/01/18 09:30 l l 08/01/18 10:00 l l 08/01/18 10:30 l l 08/01/18 11:00 l l 08/01/18 12:05 l l 08/01/18 16:28 l l 08/01/18 16:30 l l 08/01/18 16:37 l l 08/01/18 17:36 l l 08/02/18 00:32 l l 08/02/18 08:09 l l 08/02/18 08:10 l l Height 5 ft 3 in 5 ft 3 in 5 ft 3 in l l Weight 61.8 kg 61.8 kg 61.8 kg 62 kg 56.2 kg 64.8 kg 62.9 kg l l BP 129/67 129/67 107/73 131/66 112/52 L 125/56 L 93/73 L 101/39 L 116/70 114/74 116/ 82 99/42 L 118/60 118/60 105/57 L 105/57 L 138/75 94/54 L 93/63 L 113/44 L 93/63 L 100/51 L 102/62 107/46 L 113/ 51 L 88/67 L 101/70 109/65 119/101 H 116/46 L 108/32 L 99/48 L 94/53 L 96/57 L 112/65 110/93 H 92/28 L 122/46 L 111/66 111/69 115/52 L 95/70 L 100/78 100/78 117/58 L 120/52 L 130/63 111/43 L 110/59 L 111/43 L 122/54 L 131/62 117/56 L 117/56 L 117/97 H 155/67 H 143/64 H 143/64 H 123/101 H 90/74 L 116/50 L 116/50 L 120/48 L 109/90 130/64 122/57 L 125/58 L 129/46 L 129/46 L 116/44 L 114/55 L 124/60 119/52 L 119/52 L 139/81 111/58 L 126/74 146/77 H l l Blood Pressure Location Lt brachial l l Position Supine Supine Supine Sitting Supine Supine Supine l l Respiration 20 18 16 20 19 16 16 20 27 H 20 17 22 25 H 31 H 29 H 25 H 20 16 24 26 H 24 22 24 22 23 24 26 H 20 19 28 H 25 H 27 H 27 H 20 20 20 22 21 22 25 H 19 18 19 19 27 H 19 22 21 20 24 20 22 19 22 24 29 H 20 20 24 20 15 19 22 16 21 20 17 19 24 18 17 21 17 24 18 16 21 16 20 19 14 18 18 21 25 H 21 20 17 16 15 19 21 16 21 15 17 15 26 H 25 H 20 22 15 17 13 18 24 18 15 16 16 14 15 12 16 13 12 16 16 21 18 30 H 25 H 26 H 23 17 22 14 14 15 18 18 19 18 16 22 20 19 18 18 16 20 l l Pulse 113 H 113 H 112 H 111 H 107 H 106 H 69 99 H 102 H 95 H 107 H 105 H 106 H 106 H 108 H 108 H 110 H 117 H 108 H 105 H 109 H 103 H 102 H 105 H 99 H 98 H 99 H 94 H 108 H 96 H 101 H 97 H 102 H 99 H 115 H 113 H 105 H 97 H 92 H 90 95 H 89 86 84 91 H 90 75 90 81 88 85 84 89 91 H 90 89 91 H 90 89 92 H 90 79 88 87 83 79 90 87 86 89 78 89 88 98 H 77 96 H 85 l l Temp 37.4 C 37 C 37 C 38.9 C H 38.9 C H 39 C H 39 C H 39 C H 39 C H 37.4 C 38.8 C H 38 C H 38 C H 37.6 C H 37.0 C 37.0 C 36.1 C L 36.3 C L 36.8 C 36.4 C L 37 C 36.8 C 36.6 C 36.9 C 37.2 C 36.3 C L l l Temp Source Temporal Artery Scan Temporal Artery Scan Tympanic Tympanic Tympanic Temporal Artery Scan Temporal Artery Scan Temporal Artery Scan Temporal Artery Scan Temporal Artery Scan Temporal Artery Scan Tympanic Tympanic Tympanic Temporal Artery Scan Temporal Artery Scan Temporal Artery Scan Tympanic Tympanic Skin l l Pulse Oximetry (%) 94 L 93 L 93 L 92 L 92 L 93 L 92 L 93 L 92 L 92 L 91 L 89 L 91 L 91 L 93 L 93 L 92 L 92 L 92 L 92 L 94 L 94 L 92 L 93 L 93 L 94 L 95 97 95 97 96 94 L 96 97 98 96 94 L 94 L 93 L 93 L 90 L 94 L 92 L 95 93 L 95 97 97 98 94 L 97 95 96 98 99 95 100 99 99 100 97 100 97 96 96 96 97 99 91 L 99 94 L 96 95 94 L l l Oxygen Flow Rate 0 0 0 0 0 0 2 2 2 2 2 2.5 2.5 2.5 2 2 2 2 2 2 1 0 0 0
[2018-08-02 08:55] VITALS: O2SAT 96
[2018-08-02] MEDS: Nystatin POWDER 60 GM JAR TP (10:26)
--- NOTE | 2018-08-02 12:16 | DSE_ITS ---
Date of service: 08/02/18 Time of Service: 12:15 DS: Diagnosis Discharge Diagnosis (1) Sepsis: Status: Acute (2) UTI (urinary tract infection): Status: Acute (3) Hypokalemia: Status: Acute (4) Hypertension: Status: Chronic (5) DVT prophylaxis: Status: Acute Discharge Plan Disposition Patient Disposition: HOME W/HOME HEALTH SERVICE Condition: Improving Discharge Details Chief Complaint: Fever Clinical Impression: Sepsis, Acute hypokalemia, Acute UTI, Community acquired pneumonia Reason For Visit: SEPSIS Admit Date/Time: 07/30/18 17:26 Admit Provider: Héctor Beaver Attending Provider: Дмитрий Hyatt Primary Care Provider: Дмитрий Hyatt ED Provider: [facility] Course Hospital Course: Mrs. Ricks is a 73-year-old woman with a PMHx significant for MS with a neurogenic bladder and chronic urinary incontinence, who presented to [facility] emergency room on 07/30/18 with complaints of fatigue and urinary symptoms over the prior 1-2 days. The patient had complained of some mildly worsening urinary incontinence and fatigue for 24-48 hours prior to her presentation, and family stated that this is typical for when she has a UTI. Mrs. Ricks' family her provider the day prior to her presentation, who called in a prescription for nitrofurantoin for the patient. She had one dose that day, but none on the day of admission. The following night the patient became more fatigued and was experiencing some weakness in her lower extremities which family stated is classic for her when she becomes sick. Of note, she has a history of urosepsis. Work-up in the emergency department included labs that showed an elevated white count at 17, a lactate of 2.6, mild left shift on differential. Her urinalysis showed small Leukocyte Esterase, but a microscopic WBC count was not performed as there were too many bacteria in the field for accurate assessment. Her urine was also noted to be malodorous. Her CXR was interpreted as negative for pneumonia. She was also noted to be febrile and tachycardic. Following her admission to [facility] the patient was also noted to have a change in mental status with slight confusion, as well as development of mild hypotension. She was given the diagnosis of sepsis based on fever, Leukocytosis, altered mental status, tachycardia, hypotension, and an elevated Lactate with a suspected urinary source. She was admitted initially to the ICU. She was started on broad spectrum antibiotics including Imipenem and Vancomycin to ensure coverage for ESBL and MRSA. She was noted to have hypokalemia and was given potassium supplementation with correction. Her condition stabilized and she was moved to the med/surg floor. Her urine cultures grew Escherichia Coli and Enterococcus species. Blood cultures yielded no growth at 72 hours. She was transitioned to IV Ceftriaxone. By the day of discharge, she reports feeling much better, she admits that she is mildly weak and functioning mildly below her baseline. She reports that this is what happens when she is hospitalized. Physical Therapy recommended a short rehab stay prior to returning home, however , she and her both refuse rehab placement. However, she does agree to home PT/OT until she is strong enough to return to her usual out patient physical therapy. She continues to have a jacobs catheter in place at discharge. There was a discussion with Dr. Mei, who follows her as an outpatient, about keeping the jacobs in place versus intermittent straight catheterizations at home. Dr. Mei recommends leaving the jacobs in place until the UTI is cleared. She will go home with the jacobs catheter in place and continue oral antibiotics based on culture sensitivities. She will follow up in Dr. Mei's office in one week. The office will call the patient at home if this is not scheduled at the time of discharge. She was noted to be hypertensive and with hypokalemia on admission. Her HCTZ will remain on hold until she follows up with her PCP as her current blood pressures are reasonable without it. We will have home health nursing follow her blood pressures and assist with jacobs catheter care upon discharge home. She will have BMP drawn in 3 days to reassess her potassium. Home Meds and New Rx's Prescriptions: New cyanocobalamin (vitamin B-12) [Vitamin B-12] 500 mcg Tablet 1,000 mcg PO DAILY Qty: 0 RF: 0 loperamide 2 mg Capsule 2 mg PO PRN PRN (Reason: DIARRHEA) Qty: 0 RF: 0 mirabegron [Myrbetriq] 50 mg Tablet Extended Release 24 Hr 50 mg PO DAILY Qty: 0 RF: 0 nystatin 100,000 unit/gram Powder Topical BID Qty: 0 RF: 0 amoxicillin 875 mg tablet 875 mg PO BID Qty: 14 RF: 0 No Action cyanocobalamin (vitamin B-12) [Vitamin B-12] 1,000 MCG tablet 1,000 mcg PO DAILY RF: 0 Ca cmb no.1-vit [id number] [Vitamin D3 (calcium cit-phos)] 1 EACH tablet 1 ea PO DAILY RF: 0 nystatin 60 GM powder Topical BID Qty: 60 RF: 12 potassium chloride [K-Tab] 10 MEQ tablet extended release 10 meq PO BID Qty: 10 RF: 4 mirabegron [Myrbetriq] 50 MG tablet extended release 24 hr 50 mg PO DAILY Qty: 90 RF: 4 hydrochlorothiazide 25 MG tablet 0.5 tab PO DAILY Qty: 90 RF: 4 nitrofurantoin monohyd/m-cryst [Macrobid] 100 mg capsule 100 mg PO BID Qty: 14 RF: 0 nitrofurantoin monohyd/m-cryst [Macrobid] 100 mg capsule 100 mg PO BID Qty: 14 RF: 0 iodine [Kelp (iodine)] 150 MCG tablet 150 mcg PO DAILY RF: 0 loperamide [Anti-Diarrhea] 2 MG tablet 2 mg PO PRN PRNRF: 0 Discharge Instructions Instructions: Sepsis (GEN), Jacobs Catheter Placement and Care (DC) Additional Instructions: Take your antibiotics until they are gone. Home health will draw your blood in 3 days to reassess your potassium level. If you do not hear from Dr. Mei' office by tomorrow, please call [phone] to set up a follow up appointment for next week. Stand Alone Forms: Nursing Discharge Form Referrals: Дмитрий Hyatt DO [Primary Care Provider] - 08/09/18 11:20 am Activity:: Activity as Tolerated Equipment/Supplies:: No Equipment Needed Diet:: as tolerated Discharge Orders Discharge Orders: Discharge Order (Routine); Ordered 08/02/18 Ordered By: Padma Guillaume Other Ambulatory Orders: Basic Metabolic Panel (Routine) Timeframe: 3 Days Facility: [facility] - Location: Laboratory Ordered By: Padma Guillaume DS: Data Vitals/I&O Vitals and I&O: Vital Signs Temp 36.3 C L 08/02/18 08:10 Pulse 85 08/02/18 08:10 Resp 20 08/02/18 08:10 BP 146/77 H 08/02/18 08:10 Pulse Ox 96 08/02/18 08:55 Intake & Output 08/01/18 08/02/18 08/02/18 23:59 11:59 23:59 Intake Total 295 / 295 130 / 130 0 / 0 Output Total 1979 500 / 500 Balance -1685 / -1685 -370 / -370 0 / 0 Weight 62.9 kg Intake: IV 75 / 75 10 / 10 0 / 0 Oral 220 / 220 120 / 120 Output: Urine 1979 500 / 500 Other: Urine Color Yellow Urine Appearance Clear Sediment Stool Size Moderate Stool Characteristics Hard Labs on day of discharge: Labs from last 24 hours 08/02/18 08/02/18 07:20 07:20 WBC 7.06 RBC 3.81 L Hgb 11.1 L Hct 33.9 L MCV 89.0 MCH 29.1 MCHC 32.7 RDW 14.3 Plt Count 304 MPV 9.4 Immature Gran % 0.3 Neutrophils % 55.3 Lymphocytes % 26.5 Monocytes % 9.1 Eosinophils % 8.4 Basophils % 0.4 Absolute Neutrophils 3.91 Absolute Lymphocytes 1.87 Absolute Monocytes 0.64 Absolute Eosinophils 0.59 Absolute Basophils 0.03 Sodium 142 Potassium 4.1 Chloride 111 H Carbon Dioxide 23.8 Anion Gap 7.2 BUN 15 Creatinine 0.88 Estimated GFR/1.73 m2 >= 60.00 Glucose 105 H Calcium 8.1 L Preliminary micro results at discharge 07/30/18 08:50 Blood Culture - Preliminary Blood NO GROWTH 72 HOURS 07/30/18 08:20 Blood Culture - Preliminary Blood NO GROWTH 72 HOURS
--- NOTE | 2018-08-02 12:48 | PDOC.CMDIS ---
- If Service Date Differs Date of service: 08/02/18 Time of Service: 12:48 LACE Index Scoring Tool - Questions: Length of Stay (in days): 4 - 6 Acuity (Admit via E.D.?): Yes E.D. Visits: 2 - Answers: Total Score: 9 Risk of Readmission: Low Risk Care Management Discharge Reason for Hospitalization: UroSepsis Discharge Plan: Nguyen will discharge home when medically ready per MD. Anticipate pt will discharge with new home health nursing, PT and OT services and follow up with her PCP. Nguyen will transport via private vehicle with her , James. Patient/Family Education Needs: Discharge education, any limitations, and follow up plan of care. Ask Me Three discussion. Services Needed at Discharge: Home Health Care Services, Occupational Therapy, Physical Therapy
--- NOTE | 2018-08-02 13:06 | HHF2F_ITS ---
<Padma Guillaume NP - Last Filed: 08/02/18 13:06> 1. Encounter Date and Reason I certify that NORMAN CAMERON was seen by Padma Guillaume on 08/02/18 and that I had a [id number] encounter with this patient that meets the physician face to face encounter requirements. 2. Clinical Findings Supporting Skilled Need and Homebound Status I certify that home health services are medically necessary, include either intermittent senior living and/or physical/speech therapy, and that this patient is homebound in that absences from the home require considerable and taxing effort and are infrequent or of short duration, or are attributable to the need to receive medical care. [X] (a) Attached documentation from encounter provides clinical findings supporting skilled need and homebound status (including what assistance patient requires to leave the home). The encounter with the patient was in whole, or in part, for the following medical condition, which is the primary reason for home health care: SEPSIS, UTI, MS Assisted: Needed to monitor medical conditions, ensure medication compliance, assist with jacobs care. Physical Therapy: Needed to restore strength and endurance after acute hospitalization. OT: Needed to assess ability to preform ADL/IADLs and make recommendations as needed. Speech Therapy: Homebound: Unable to leave home without assistance. 3. Certification and Authentication I certify that I composed the above information based on my clinical judgement relating to this patient's medical condition and, if applicable, clinical findings communicated to me by the NPP or inpatient physician who performed the Home Health Referral. All further orders will be obtained through ____Dr. Hyatt ( Community Based Physician - PCP)
--- NOTE | 2018-08-03 08:11 | PT.INDS ---
PT Notes Inpatient Physical Therapy Discharge Summary Date: 08/03/18 for 08/02/18 Dates of Service: 07/31/18-08/02/18 SUBJECTIVE:NT OBJECTIVE: 07/31/18-08/02/18 BED MOBILITY/TRANSFERS: Supine-sit minAx1 Sit-supine minAx1 Sit-stand modAx1 with STEDY lift Stand-sit modAx1-2 Bed-Chair maxA with STEDY lift Chair-bed maxA with STEDY lift GAIT: unable BALANCE: Static sitting: normal Dynamic sitting: normal Static standing: poor Dynamic standing: poor ASSESSMENT: Pt was seen for 4 PT visits. Pt made little progress with therapy intervention during time of treatment due to weakness, she required a STEDY lift for safe transfer to/from chair and min-modA of one person for bed mobility. PT recommended senior care care facility for rehab to improve strength and function prior to return to home setting, pt was discharged to home in 's care. As a result home PT/OT were recommended. Pt is not at her baseline level of functional mobility and would still benefit from skilled care. GOALS Goals x1 week 1.Supine-sit MinAx1 HOB 0* 2.Sit-Supine MinAx1 3.Sit-Stand MinAx1 with FWW 4.Stand-sit MinAx1 5.Bed-chair MinAx1 with FWW 6.Chair-bed MinAx1 with FWW 7.Gait MinAx1 with walker, household distances 9.I with home exercise program 10.Balance: good sitting balance, and fair standing balance Pt did not meet therapy goals due to weakness, continued PT recommended DISCHARGE PLAN/RECOMMENDATIONS: Pt was discharged to home setting, home PT/OT recommended in that case G Codes in the area mobility of walking and moving around: projected status GP [id number]. Discharge status (if discharging) GP [id number] Aminah Sanchez PT.
--- NOTE | 2018-08-03 08:17 | INDS_ITS ---
PT Notes Inpatient Physical Therapy Discharge Summary Date: 08/03/18 for 08/02/18 Dates of Service: 07/31/18-08/02/18 SUBJECTIVE:NT OBJECTIVE: 07/31/18-08/02/18 BED MOBILITY/TRANSFERS: Supine-sit minAx1 Sit-supine minAx1 Sit-stand modAx1 with STEDY lift Stand-sit modAx1-2 Bed-Chair maxA with STEDY lift Chair-bed maxA with STEDY lift GAIT: unable BALANCE: Static sitting: normal Dynamic sitting: normal Static standing: poor Dynamic standing: poor ASSESSMENT: Pt was seen for 4 PT visits. Pt made little progress with therapy intervention during time of treatment due to weakness, she required a STEDY lift for safe transfer to/from chair and min-modA of one person for bed mobility. PT recommended intermediate care facility for rehab to improve strength and function prior to return to home setting, pt was discharged to home in 's care. As a result home PT/OT were recommended. Pt is not at her baseline level of functional mobility and would still benefit from skilled care. GOALS Goals x1 week 1.Supine-sit MinAx1 HOB 0* 2.Sit-Supine MinAx1 3.Sit-Stand MinAx1 with FWW 4.Stand-sit MinAx1 5.Bed-chair MinAx1 with FWW 6.Chair-bed MinAx1 with FWW 7.Gait MinAx1 with walker, household distances 9.I with home exercise program 10.Balance: good sitting balance, and fair standing balance Pt did not meet therapy goals due to weakness, continued PT recommended DISCHARGE PLAN/RECOMMENDATIONS: Pt was discharged to home setting, home PT/OT recommended in that case G Codes in the area mobility of walking and moving around: projected status GP [id number]. Discharge status (if discharging) GP [id number] Aminah Sanchez PT.
--- NOTE | 2018-08-04 10:03 | PTTR_ITS ---
Date of service: 08/01/18 Time of Service: 11:05 PT Notes Inpatient Physical Therapy Treatment Note PRECAUTIONS: Fall Precuations SUBJECTIVE: Pt lying in bed, states at home she usually stands with a walker and transfers to her electric scooter. She states she doesn't walk any distance at home and mostly performs transfers only with her husbands assistance. States she usually wears sandals for shoes but she doesn't have them here now. States she has been told she should get a right foot brace but she doesn't want to get one. OBJECTIVE: General observation: telemetry, 3 liters 02 NC, jacobs catheter PAIN: no c/o pain BED MOBILITY/TRANSFERS Supine-sit: HOB 35 degrees, Khanh to assist hips to edge of bed, pt able to assist with bed rail and get upper body to sitting position Sit-stand: MaxAx1 with FWW. Pt unable to get to full standing position with FWW , left LE with tremors, unable to get left foot flat on the floor or heel to the ground, Pt with flexed hips and knees, flexed posture, unable to get to full standing position. STEDY lift brought into room, pt able to pull on bar to standing position with use of STEDY with CGA Stand-sit: SBA Bed-wheelchair: max A via STEDY lift GAIT Assistive Device: unable to stand with FWW, able to stand with STEDY lift Weight bearing: as tolerated. Pt with difficulty getting right heel to floor Assist: CGA with use of STEDY Distance: Bed-wheelchair in STEDY. Pt performed standing duration in STEDY lift for 2min focusing on posture, improving knee and hip extension, loading R LE for gastroc stretch R heel. Pt positioned up in wheelchair at end of session THEREX: seated bilateral long arc quad, hip flexion ASSESSMENT: Pt with increased weakness compared to baseline mobiity, not yet able to perform transfers with FWW, requiring STEDY lift. Pt would benefit from continued strengthening and transfer training. PLAN: Progress transfers Progress strengthening TREATMENT CODE/TIME: 24min TAx1 TP x1 11:05 Aminah Sanchez PT
--- NOTE | 2018-08-04 10:14 | PT.INTREAT ---
Date of service: 08/01/18 Time of Service: 14:26 PT Notes Inpatient Physical Therapy Treatment Note PRECAUTIONS: Fall SUBJECTIVE: Viviana states that she has been working on lower extremity strengthening, including standing and weight shifting at home. She feels her participation in outpatient PT has helped her significantly since she started. OBJECTIVE: PAIN: No complaints of pain BED MOBILITY/TRANSFERS Sit-stand: Mod A with STEDY (performed ?2) Stand-sit: Mod A with STEDY (performed ?2) GAIT: Unable THEREX: Patient completed static standing 2x2 minutes with SBA. Patient also completed weight-shifting to left and right ?1 minute as well as LAQ and mini squats ?5 each. ASSESSMENT: Patient tolerated session with complaints of increased fatigue. Patient was able to tolerate an increased time with static standing in STEDY lift. Patient would benefit from continued lower extremity strengthening as well as transfer training for improved mobility and endurance. PLAN: Continue with PT's POC TREATMENT CODE/TIME: 25 minutes; TA?2
--- NOTE | 2018-08-04 10:26 | PT.INTREAT ---
Date of service: 08/02/18 PT Notes Inpatient Physical Therapy Treatment Note PRECAUTIONS: Fall SUBJECTIVE: Viviana reports that she did not sleep well last night. She is excited to participate in PT, and is hopeful that she will be discharged home today. OBJECTIVE: PAIN: No complaints of pain. BED MOBILITY/TRANSFERS Sit-stand: Mod A, Min A with STEDY (performed 1x each) Stand-sit: Mod A with STEDY (performed x2) GAIT: Unable THEREX: Patient completed a lower extremity strengthening program in both seated and standing positions, as per flow sheet. Patient tolerated the addition of hip abduction in the seated position well, without complaint of fatigue. Patient tolerated a slight progression in her program today, modifications made to reps are noted on flow sheet. ASSESSMENT: Patient tolerated session well without complaints of fatigue or pain. Patient was able to tolerate a slight progression in her ther ex program today. Patient would benefit from continued strengthening and transfer training to improve duration with standing activities. PLAN: Continue with PT's POC TREATMENT CODE/TIME: 25 minutes; TA/TP
--- NOTE | 2018-08-04 13:49 | PT.INIE ---
Date of service: 07/31/18 Time of Service: 09:30 PT Notes Date: 2017 Referring Provider: Héctor Beaver MD Diagnosis: Chronic MS with acute illness Precautions: Falls Patient Profile/Admitting Diagnosis: Patient is a 73 year old female admitted due to fatigue and worsening incontinence. S/p diagnosis of sepsis, leukocytosis, tachycardia and hypotension admitted to the ICU via ED. PMHX: Multiple sclerosis, neurogenic bladder, recurrent urinary tract infections, cataracts, hypertension, bilateral lower extremities edema, Vit-B12 deficiency, chronic fatigue, tubal ligation and anxiety. Social History/Home Situation: lives at home, . Baseline mobility: ambulation with a walker household distances occasionally and utilizes an electric/ motorized wheelchair/scooter for main ambulation at this time. She has been working with outpatient PT services on her leg strength and mobility. She notes that she was able to stand for 2 minutes at her last outpatient PT appt. That is the most that she has stood in quite some time. She reports she continues to keep the strength in her arms regularly by lifting weights. She notes that she tends to let the legs go. She however is very happy with the progress she has been making in outpatient PT. Equipment owned/DME: walker, and electric wheelchair, scooter, ramp, walk in shower SUBJECTIVE: Pt. was up seated in bedside chair, alert and oriented noting how much better she was feeling already. She just finished her breakfast. OBJECTIVE General Observation: IV line on right arm, Jha catheter, and telemetry, and O2 via nasal canula 2 liters. Mental Status: A&O to location and situation Pain: none reported ROM: RUE: AROM WNL L UE AROM WNL R LE: AAROM Hip flexion 120*, knee flexion 100*, DF 0* LLE AAROM hip flexion 120*, knee flexion 100*, DF 0* STRENGTH: R UE 5/5 throughout L UE 5/5 throughout R LE 3/5 hip flexion, 3/5 quad, 3/5 DF/PF LLE 3/5 hip flexion, 3/5 quad, 3/5 DF/PF BED MOBILITY/TRANSFERS: Supine-sit: ModAx1 HOB 40*- assist to move legs to edge of bed, assist of bed pad to move hips to edge of bed Sit-stand: MinAx1 - pt unable to fully extend hips and knees in standing, stands with flexed posture. Able to stand for very short period of time before she feels her legs start to give out. Verbal cueing to reach back for chair with hands prior to sitting down. Stand-sit: MinAx1 Bed-chair: ModAx1 stand pivot transfer to bed chair GAIT: MaxAx1 FWW, unable to ambulate, stood for less than 30 seconds prior to her legs giving out. BALANCE: Static sitting: fair Dynamic Sitting: fair Static Standing: poor Dynamic Standing: poor SPECIAL TESTS: [facility] Am-Pac 6 Clicks raw score of 9, standardized score of 30.55 with CMS score of 81.38%. modifier: CM INFORMED CONSENT/EDUCATION: PT is instructed in the purpose of PT consult and plan of care and in agreement with plan. ASSESSMENT: Patient is a 73 year old female admitted due to increasing fatigue and incontinence secondary to acute illness, chronic MS. She presents with strength and range deficits in bilateral lower extremities, and impaired gait. She demonstrated poor balance while standing and fair balance while sitting where she tend to lean forward or backward. Pt. requires skilled physical therapy to address strength deficits, increase range of motion in bilateral lower extremities, balance and gait training with the use of walker, and to address transfers safety. She will be discharged to home after regaining strength in the lower extremities. Patient is assessed as: Moderate 80684 complexity, based on the following: History: decreased mobility in patient with a long history of M.S. with history of extensive Home Health services Examination: See above for functional limitations and impairments. Presentation: Evolving due to the progressive nature of her Neurological disease Decision-Making: Moderate complexity GOALS Goals x1 week 1.Supine-sit MinAx1 HOB 0* 2.Sit-Supine MinAx1 3.Sit-Stand MinAx1 with FWW 4.Stand-sit MinAx1 5.Bed-chair MinAx1 with FWW 6.Chair-bed MinAx1 with FWW 7.Gait MinAx1 with walker, household distances 9.I with home exercise program 10.Balance: good sitting balance, and fair standing balance PLAN OF CARE/TREATMENT PLAN: 1-2x/day, 7 days/ week x1 Plan of care has been reviewed with the OCCUPATIONAL THERAPIST AIDE providing the service under Physical therapy direction. Initiate PT services for strengthening, ROM, transfers, gait, balance, and safety training. DISCHARGE RECOMMENDATIONS D/C to home with the use of FWW and electric wheelchair. TREATMENT TIME/MINUTES/CODES 20 min IE 9:10 G-codes: Mobility: walking and moving around: Present status: [id number] CM Projected Goal [id number] CM Padma Owen, MPT
== END 2018-08-02 16:05 | disposition home health service (06) | DRG 872 ==
LOC: ER 10:55 → LBO 11:14 → MS 13:33 → ICU 13:38 → MS 08-01 09:50 → LBO 08-04 18:00 → ER 08-04 18:00 → ICU 08-11 14:34 → MS 08-11 14:34
PROVIDERS: Physician Assistant; Admitting Provider Internal Medicine; Emergency Provider Student in an Organized Health Care Education/Training Program; PCP Emergency Medicine; Visit Provider Family Medicine
DX: A41.9 Sepsis, unspecified organism (principal); N39.0 Urinary tract infection, site not specified; E87.6 Hypokalemia; I10 Essential (primary) hypertension; G35 Multiple sclerosis; B96.20 Unspecified Escherichia coli [E. coli] as the cause of diseases classified elsewhere; B95.2 Enterococcus as the cause of diseases classified elsewhere; R53.1 Weakness; N31.9 Neuromuscular dysfunction of bladder, unspecified; N39.498 Other specified urinary incontinence; Z91.81 History of falling
CPT/HCPCS: 36410; 36415; 51701; 76770; 80048; 80053; 80076; 87040; 87077; 93005; 96361; 96365; 96368; 97110; 97162; 97530; 99223; 99232; 99239; 99285; J1650; 71045; 80202; 81003; 81015; 83605; 83735; 84484; 85025; 85610; 85730; 87086; 87186; 93010; G0378; J0456; J0696; J0743; J1941; J3480; J3490

== ENCOUNTER 2018-08-05 11:37 | Outpatient (REF) | payer MEDICARE, BC, SELFPAY ==
[2018-08-05 12:15] LABS: Potassium 4.6 mmol/L (3.5-5.1)
== END 2018-08-05 11:57 ==
LOC: LBN 11:37
PROVIDERS: PCP Emergency Medicine; Visit Provider Emergency Medicine
DX: E87.6 Hypokalemia (principal)
CPT/HCPCS: 84132

== ENCOUNTER → 2018-08-12 10:19 | Outpatient (BNVA) | payer MEDICARE, BC, SELFPAY | PROVIDERS: PCP Emergency Medicine; Visit Provider Urology | DX: N31.9 Neuromuscular dysfunction of bladder, unspecified (principal); Z87.440 Personal history of urinary (tract) infections; I10 Essential (primary) hypertension | CPT/HCPCS: 99213 ==

== ENCOUNTER 2018-08-25 20:00 | Outpatient (REF) | payer MEDICARE, BC, SELFPAY | END 2018-08-25 20:20 | LOC: LBN 20:00 | PROVIDERS: PCP Emergency Medicine; Visit Provider Urology | DX: N39.0 Urinary tract infection, site not specified (principal); Z87.440 Personal history of urinary (tract) infections | CPT/HCPCS: 87077; 87086 ==

== ENCOUNTER 2018-08-26 14:16 | Observation (INO) | payer MEDICARE, BC, SELFPAY ==
[2018-08-26] VITALS (36 sets, daily range): BP systolic 96–123; BP diastolic 38–70; PULSE 97–117; RESP 14–30; TEMP 36.6–38.3; O2SAT 92–98
[2018-08-26] MEDS: Normal Saline 500 ML 1000 ML IV (14:30)
--- NOTE | 2018-08-26 14:30 | DI.CT_ITS ---
SYMPTOMS/DIAGNOSIS: DIZZY CT BRAIN: Noncontrast. Comparison 10/10/15. There is cerebral atrophy and small vessel ischemic disease consistent with the patient's age. The ventricles are intact. The basilar cisterns are patent. No acute intracranial infarct, hemorrhage, midline shift or mass effect is identified. There is mild mucosal thickening and small mucous retention cyst in the maxillary sinuses bilaterally. The remaining visualized paranasal sinuses are clear. The mastoid air cells are well pneumatized. The calvarium is intact. IMPRESSION: No acute intracranial process. The findings were discussed with the emergency department on the date of the examination.
--- NOTE | 2018-08-26 14:44 | DI.RAD_ITS ---
SYMPTOMS/DIAGNOSIS: RT CRACKLES PORTABLE AP CHEST: Comparison 07/30/18. The heart size and pulmonary vasculature are stable and within normal limits. There are increased lung markings in the right base. This may represent atelectasis or pneumonia. The lungs are otherwise clear. No gross effusions or pneumothoraces are identified. There is unchanged elevation of the right hemidiaphragm. IMPRESSION: Right basilar infiltrate. This may represent atelectasis or pneumonia.
[2018-08-26 14:53] LABS: Abs Immature Grans 0.06 k/cumm (0.0-0.09); Absolute Basophil Count 0.03 k/cumm (0.0-0.2); Absolute Eosinophil Count 0.24 k/cumm (0.0-0.7); Absolute Lymphocyte Count 0.42 k/cumm (1.2-3.4); Absolute Monocyte Count 0.59 k/cumm (0.11-0.7); Basophils % 0.2; Eosinophils % 1.4; HGB 12.6 g/dL (12.0-15.5); Immature Grans % 0.4; Lymphocytes % 2.5; Mean Corp. HGB Concentration 32.3 g/dL (32.0-36.0); Mean Corpuscular Volume 89.9 fL (80-95); Mean Platelet Volume 10.2 fL (8.0-11.0); Monocytes % 3.5; Platelet Count 311 x1000/uL (130-400); RBC 4.34 m/cumm (4.00-5.20); RBC Distribution Width 14.4 % (11.7-14.6); White Blood Cell Count 16.99 k/cumm (4.4-10.8)
[2018-08-26 14:55] LABS: Absolute Neutrophil Count 15.63 k/cumm (1.2-6.7)
[2018-08-26 14:59] LABS: Bilirubin Negative (Negative); Blood Small (Negative); Clarity Sl Cloudy; Glucose Negative (Negative); Ketones 40 mg/dL (Negative); Leukocyte Esterase Moderate (Negative); Nitrite Positive (Negative); Urobilinogen 0.2 EU/dL (Up TO 0.2); pH 7.5 (5-8)
[2018-08-26 15:07] LABS: ALT 146 U/L (12-78); AST 115 U/L (15-37); Albumin 3.4 g/dL (3.4-5.0); Alkaline Phosphatase 138 U/L (46-116); BUN 25 mg/dL (7-18); Bilirubin, Total 1.1 mg/dL (0.2-1.0); Calcium 8.7 mg/dL (8.5-10.1); Chloride 105 mmol/L (98-107); Estimated GFR 40.38 (mL/min/1.73m2); Glucose 152 mg/dL (70-100); Potassium 3.4 mmol/L (3.5-5.1); Sodium 141 mmol/L (136-145)
[2018-08-26 15:09] LABS: Troponin I < 0.02 ng/mL (0.00-0.06)
[2018-08-26 15:12] LABS: Bacteria Many HPF (Negative); C & S Indicated? Yes; Casts Negative LPF (Negative); Crystals Negative HPF (Negative); Epithelial Cells Rare HPF (Negative); Mucus Negative (Negative); RBC >50 (0-2); WBC >50 HPF (0-5)
--- NOTE | 2018-08-26 17:45 | W.ED.GENAD ---
Discharge Plan Disposition Patient Disposition: [facility] INPATIENT Condition: Stable Discharge Details Chief Complaint: Urinary Clinical Impression: UTI (urinary tract infection), Recurrent urinary tract infection, Weakness, Acute dehydration Reason For Visit: UTI Admit Date/Time: 08/26/18 19:17 Admit Provider: Mukesh Hightower Attending Provider: Mukesh Hightower Primary Care Provider: Дмитрий Hyatt ED Provider: Roman Harris Discharge Data Discharge Date/Time-TO BE ENTERED AT DEPARTURE: 08/26/18 19:28 Medical Decision Making This is a 73-year-old female with a past medical history of MS, recurrent urinary tract infections, chronic weakness of her lower extremities who presented today for evaluation of UTI. She was recently admitted here at the hospital for urinary tract infection. Upon discharge Dr. Mei gave her a prescription for Macrobid to take if she again developed symptoms of UTI. Relatively 36 hours ago the patient began developing symptoms of a urinary tract infection, they took her urine to the lab, it was noted to be positive, and they started taking the Macrobid. The patient is taking 1-2 doses, however since then she has noticed some increased weakness, mild nausea, and fatigue. She also noticed some mild back pain, however she states that she did do a physical therapy event yesterday, and all that activity often causes her some back pain and soreness. Physical exam demonstrates mild crackles in the right lung upton, as well as notable chronic weakness in the left lower extremity secondary to her MS, as well as right lower extremity weakness. The patient states that this is secondary to her MS but slightly worse than normal. No other significant abnormalities on exam. Upper extremity neurologic exam demonstrates no significant deficits. Family who is at bedside states that she appears to be at her neurologic baseline with her MS. Laboratory workup was performed and demonstrated an elevated white count at 17, mild left shift, electrolytes are normal, creatinine is slightly elevated at 1.3. Troponin, EKG is normal. Urinalysis demonstrates evidence of a moderate urinary tract infection, CT scan of the head was performed and per radiology demonstrates no acute intracranial process. Patient did appear clinically dry on initial exam with mild tachycardia, she was rehydrated with 1-2 L of normal saline. Chest x-ray did show evidence of: IMPRESSION: Right basilar infiltrate. This may represent atelectasis or pneumonia. I do feel that the patient's laboratory abnormalities significant for signs of infection are most consistent with her moderate urinary tract infection. Chest x-ray does show questionable infiltrate versus atelectasis in the right lung upton. Patient is not hypoxic, and shows no signs of tachypnea. I feel this is less likely to be the cause of her infectious etiologies. We did attempt to get the patient up immobilizer to her wheelchair, however the patient had severe fatigue, who is at bedside did not feel that he would be able to take care of her at home. With the patient's evidence of moderate UTI, questionable pneumonia, and notable weakness most likely secondary to her MS in conjunction with the infection dehydration I feel that she would be best suited for inpatient admission. Patient has been started on Rocephin. Azithromycin has been given for potential atypical source for low likelihood chest x-ray findings of potential pneumonia, however with no tachypnea, or hypoxemia I do not feel that the patient necessarily needs or would benefit from vancomycin or Zosyn at this time. I discussed the x-ray findings, and the patient's clinical scenario with Dr. Hightower, and he agrees to hold off on additional respiratory antibiotics and treat the UTI at this time. Patient will be admitted to the floor for further medical management. I have extensively reviewed the treatment plan with the patient. I have addressed all patient concerns at this time. I have also discussed the plan with the admitting physician and they agree with the current assessment and plan and have agreed to assume responsibility for the patient. All parties demonstrate verbal understanding and agreement with our assessment and plan at this time. HPI General Date/Time Provider Initiated Documentation: 08/26/18 14:30. HPI Narrative: This is a 73-year-old female with a past medical history of MS, hypertension, neurogenic bladder, urinary incontinence, as well as recent hospital admission for urinary tract infect. She presents today with her for complaint of fatigue, questionable confusion, and recurrent UTI. Patient states that last night she had some nausea, and uneasiness with ambulation. She had sent urine yesterday to Dr. Mei's office, there was certainly concern for urinary tract infection on the urinalysis, and she was started on a bed which had been given to them previously if she ever developed return of symptoms suggestive of a urinary tract infection. She has only taken her first dose of Macrobid at this time. In addition to this patient does admit to a mild cough, however she denies any chest pain, productivity of her cough, fever or chills. She does state that she had rehab workout within the last 48 hours and has not done that for quite some time. After this she noted significant back pain and feelings of fatigue. She does have chronic severe weakness of her left lower extremity secondary to her MS, as well as some right lower extremity weakness, but currently she states that her right lower extremity slightly weaker than normal but has no pain numbness or tingling. She denies any falls or traumas. She denies any significant abdominal, flank, or chest pain. She denies any other complaints at this time. At the patient's normal baseline she is able to move it from her walker or bedside to her scooter, however both EMS the patient and he has been states that she has been unable to do this secondary to worsening weakness and fatigue over the last 12 hours. Denies any other complaints at this time. Related Data Home Medications Medication Instructions Recorded Confirmed Ca cmb no.1-vit [id number] 1 ea PO DAILY 04/11/13 08/09/18 [Vitamin D3 (calcium cit-phos)] cyanocobalamin (vitamin B-12) 1,000 mcg PO DAILY 04/11/13 08/09/18 [Vitamin B-12] iodine [Kelp (iodine)] 150 mcg PO DAILY 12/12/15 08/09/18 hydrochlorothiazide 0.5 tab PO DAILY #90 tab 06/03/18 08/26/18 amoxicillin 875 mg PO BID #14 tab 08/02/18 08/09/18 loperamide 2 mg PO PRN PRN #0 cap 08/02/18 08/09/18 mirabegron [Myrbetriq] 50 mg PO DAILY #0 tab 08/02/18 08/26/18 nystatin 0 g TOPICAL BID #0 g 08/02/18 08/26/18 nitrofurantoin 100 mg PO BID #14 cap 08/12/18 08/26/18 monohydrate/macrocrystals 100 mg capsule potassium chloride ER 10 mEq 10 meq PO DAILY #90 tab-cap 08/12/18 08/26/18 tablet,extended release Previous Rx's Medication Instructions Recorded hydrochlorothiazide 0.5 tab PO DAILY #90 tab 06/03/18 amoxicillin 875 mg PO BID #14 tab 08/02/18 loperamide 2 mg PO PRN PRN #0 cap 08/02/18 mirabegron [Myrbetriq] 50 mg PO DAILY #0 tab 08/02/18 nystatin 0 g TOPICAL BID #0 g 08/02/18 nitrofurantoin 100 mg PO BID #14 cap 08/12/18 monohydrate/macrocrystals 100 mg capsule potassium chloride ER 10 mEq 10 meq PO DAILY #90 tab-cap 08/12/18 tablet,extended release Allergies Allergy/AdvReac Type Severity Reaction Status Date / Time oxybutynin AdvReac Intermediate severe dry Verified 08/09/18 11:30 mouth AMPRAH AdvReac Intermediate MADE HER Uncoded 07/30/18 10:28 MS WORSE General Stated Complaint: Urinary JAVIER: 3 Review of Systems Review of Systems All systems reviewed & are unremarkable except as noted in HPI and below PFSH Family History Mother Neoplasm Father No problems noted. Sister No problems noted. 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 3.ENT: Atraumatic external nose and ears. Notably dry MM. Neck: Symmetric, trachea midline, No thyromegaly. There is no evidence of raccoon eyes, ghotra sign, CSF rhinorrhea, mastoid tenderness, cranial crepitus, hemotympanum, exophthalmos, or hyphema. Patient demonstrates intact dentition with no signs of tooth avulsion or fracture, no signs of jaw deformity, no evidence of a LeFort's fracture, with an intact palate, nose and orbital region. There is no evidence of a nasal septal hematoma. No proptosis. Jaw closes symmetrically. Airway is clear. 4.CVS: +S1/S2, No murmurs or gallops. Peripheral pulses 2+ and equal in all extremities. Brisk capillary refill in all extremities. 5.RESP: Unlabored respiratory effort. Mild crackles in right lower lung field, no wheezes or rhonchi 6.GI: Soft, Nontender/Nondistended, No hepatosplenomegaly. No guarding or rebound. 7.MSK: Normocephalic/Atraumatic, Extremities w/o deformity or ttp No cyanosis or clubbing, patient demonstrates normal movements of her upper extremities with no signs of dysdiadochokinesia or dysmetria. Normal sensation and normal strength patient's lower extremities demonstrate +1 strength bilaterally. She is able to flex and extend of her feet, with relatively normal plantar and dorsiflexion strength. Patient states that the weakness is normal for her left lower extremity, slightly worse than normal for her right lower extremity. Sensation does appear intact no tenderness over the cervical thoracic or lumbar spine. No signs of significant trauma to the back or chest. 8.Skin: Warm, Dry. No rashes or lesions. 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 Sensation grossly intact, please see musculoskeletal for remainder of neurologic exam. 10.Psych: (AAO) x3. Appropriate mood and affect Course Vital Signs Temperature 36.6 C 08/26/18 14:11 Pulse 100 H 08/26/18 14:11 Respiratory Rate 16 08/26/18 14:11 Blood Pressure 117/59 L 08/26/18 14:11 Pulse Oximetry 96 08/26/18 14:11 Temperature 36.6 C 08/26/18 14:11 Temperature Source Skin 08/26/18 14:11 Pulse 100 H 08/26/18 14:11 Respiratory Rate 16 08/26/18 14:11 Respiratory Effort 08/26/18 14:16 Blood Pressure 117/59 L 08/26/18 14:11 Blood Pressure Position Sitting 08/26/18 14:11 Pulse Oximetry 96 08/26/18 14:11 Oxygen Delivery Method Room Air 08/26/18 14:11 Oxygen Flow Rate 0 08/26/18 14:11 Lab/Test Results Lab/Test Results: 08/26/18 14:39 Urine - Reflex from Ua Urine Culture - Pending Laboratory Tests Range/Units 08/26/18 08/26/18 08/26/18 14:15 14:15 14:39 WBC (4.4-10.8) k/cumm 16.99 H RBC (4.00-5.20) m/cumm 4.34 Hgb (12.0-15.5) g/dL 12.6 Hct (36.0-46.0) % 39.0 MCV (80-95) fL 89.9 MCH (27.0-33.0) pg 29.0 MCHC (32.0-36.0) g/dL 32.3 RDW (11.7-14.6) % 14.4 Plt Count (130-400) x1000/uL 311 MPV (8.0-11.0) fL 10.2 Immature Gran % 0.4 Neutrophils % 92.0 Lymphocytes % 2.5 Monocytes % 3.5 Eosinophils % 1.4 Basophils % 0.2 Absolute Neutrophils (1.2-6.7) k/cumm 15.63 H Absolute Lymphocytes (1.2-3.4) k/cumm 0.42 L Absolute Monocytes (0.11-0.7) k/cumm 0.59 Absolute Eosinophils (0.0-0.7) k/cumm 0.24 Absolute Basophils (0.0-0.2) k/cumm 0.03 Sodium (136-145) mmol/L 141 Potassium (3.5-5.1) mmol/L 3.4 L Chloride (98-107) mmol/L 105 Carbon Dioxide (21.0-32.0) mmol/L 23.0 Anion Gap (3-11) mmol/L 13.0 H BUN (7-18) mg/dL 25 H Creatinine (0.55-1.02) mg/dL 1.30 H Estimated GFR/1.73 m2 (mL/min/1.73m2) 40.38 Glucose (70-100) mg/dL 152 H Calcium (8.5-10.1) mg/dL 8.7 Total Bilirubin (0.2-1.0) mg/dL 1.1 H AST (15-37) U/L 115 H ALT (12-78) U/L 146 H Alkaline Phosphatase (46-116) U/L 138 H Troponin I (0.00-0.06) ng/mL < 0.02 Total Protein (6.4-8.2) g/dL 7.0 Albumin (3.4-5.0) g/dL 3.4 Urine Color (Yellow) Yellow Urine Clarity Sl cloudy Urine pH (5-8) 7.5 Ur Specific Pimento (1.005-1.025) 1.020 Urine Protein (Negative) mg/dL 100 H Urine Ketones (Negative) mg/dL 40 H Urine Blood (Negative) Small H Urine Nitrite (Negative) Positive H Urine Bilirubin (Negative) Negative Urine Urobilinogen (Up TO 0.2) EU/dL 0.2 Ur Leukocyte Esterase (Negative) Moderate H Urine RBC (0-2) >50 H Urine WBC (0-5) HPF >50 Ur Epithelial Cells (Negative) HPF Rare Urine Crystals (Negative) HPF Negative Urine Bacteria (Negative) HPF Many Urine Casts (Negative) LPF Negative Urine Mucus (Negative) Negative Ur Culture Indicated? Yes Urine Glucose (Negative) mg/dL Negative
--- NOTE | 2018-08-26 17:49 | ED.GENADUL_ITS ---
Discharge Plan Disposition Patient Disposition: [facility] INPATIENT Condition: Stable Discharge Details Chief Complaint: Urinary Clinical Impression: UTI (urinary tract infection), Recurrent urinary tract infection, Weakness, Acute dehydration Reason For Visit: UTI Admit Date/Time: 08/26/18 19:17 Admit Provider: Mukesh Hightower Attending Provider: Mukesh Hightower Primary Care Provider: Дмитрий Hyatt ED Provider: Roman Harris Discharge Data Discharge Date/Time-TO BE ENTERED AT DEPARTURE: 08/26/18 19:28 Medical Decision Making This is a 73-year-old female with a past medical history of MS, recurrent urinary tract infections, chronic weakness of her lower extremities who presented today for evaluation of UTI. She was recently admitted here at the hospital for urinary tract infection. Upon discharge Dr. Mei gave her a prescription for Macrobid to take if she again developed symptoms of UTI. Relatively 36 hours ago the patient began developing symptoms of a urinary tract infection, they took her urine to the lab, it was noted to be positive, and they started taking the Macrobid. The patient is taking 1-2 doses, however since then she has noticed some increased weakness, mild nausea, and fatigue. She also noticed some mild back pain, however she states that she did do a physical therapy event yesterday, and all that activity often causes her some back pain and soreness. Physical exam demonstrates mild crackles in the right lung [place], as well as notable chronic weakness in the left lower extremity secondary to her MS, as well as right lower extremity weakness. The patient states that this is secondary to her MS but slightly worse than normal. No other significant abnormalities on exam. Upper extremity neurologic exam demonstrates no significant deficits. Family who is at bedside states that she appears to be at her neurologic baseline with her MS. Laboratory workup was performed and demonstrated an elevated white count at 17, mild left shift, electrolytes are normal, creatinine is slightly elevated at 1.3. Troponin, EKG is normal. Urinalysis demonstrates evidence of a moderate urinary tract infection, CT scan of the head was performed and per radiology demonstrates no acute intracranial process. Patient did appear clinically dry on initial exam with mild tachycardia, she was rehydrated with 1-2 L of normal saline. Chest x- ray did show evidence of: IMPRESSION: Right basilar infiltrate. This may represent atelectasis or pneumonia. I do feel that the patient's laboratory abnormalities significant for signs of infection are most consistent with her moderate urinary tract infection. Chest x-ray does show questionable infiltrate versus atelectasis in the right lung [place]. Patient is not hypoxic , and shows no signs of tachypnea. I feel this is less likely to be the cause of her infectious etiologies. We did attempt to get the patient up immobilizer to her wheelchair, however the patient had severe fatigue, who is at bedside did not feel that he would be able to take care of her at home. With the patient's evidence of moderate UTI, questionable pneumonia, and notable weakness most likely secondary to her MS in conjunction with the infection dehydration I feel that she would be best suited for inpatient admission. Patient has been started on Rocephin. Azithromycin has been given for potential atypical source for low likelihood chest x-ray findings of potential pneumonia, however with no tachypnea, or hypoxemia I do not feel that the patient necessarily needs or would benefit from vancomycin or Zosyn at this time. I discussed the x-ray findings, and the patient's clinical scenario with Dr. Hightower, and he agrees to hold off on additional respiratory antibiotics and treat the UTI at this time. Patient will be admitted to the floor for further medical management. I have extensively reviewed the treatment plan with the patient. I have addressed all patient concerns at this time. I have also discussed the plan with the admitting physician and they agree with the current assessment and plan and have agreed to assume responsibility for the patient. All parties demonstrate verbal understanding and agreement with our assessment and plan at this time. HPI General Date/Time Provider Initiated Documentation: 08/26/18 14:30 . HPI Narrative: This is a 73-year-old female with a past medical history of MS, hypertension, neurogenic bladder, urinary incontinence, as well as recent hospital admission for urinary tract infect. She presents today with her for complaint of fatigue, questionable confusion, and recurrent UTI. Patient states that last night she had some nausea, and uneasiness with ambulation. She had sent urine yesterday to Dr. Mei's office, there was certainly concern for urinary tract infection on the urinalysis, and she was started on a bed which had been given to them previously if she ever developed return of symptoms suggestive of a urinary tract infection. She has only taken her first dose of Macrobid at this time. In addition to this patient does admit to a mild cough, however she denies any chest pain, productivity of her cough, fever or chills. She does state that she had rehab workout within the last 48 hours and has not done that for quite some time. After this she noted significant back pain and feelings of fatigue. She does have chronic severe weakness of her left lower extremity secondary to her MS, as well as some right lower extremity weakness, but currently she states that her right lower extremity slightly weaker than normal but has no pain numbness or tingling. She denies any falls or traumas. She denies any significant abdominal, flank, or chest pain. She denies any other complaints at this time. At the patient's normal baseline she is able to move it from her walker or bedside to her scooter , however both EMS the patient and he has been states that she has been unable to do this secondary to worsening weakness and fatigue over the last 12 hours. Denies any other complaints at this time. Related Data Home Medications Medication Instructions Recorded Confirmed Ca cmb no.1-vit T0-G2-AC-B12 1 ea PO DAILY 04/11/13 08/09/18 [Vitamin D3 (calcium cit-phos)] cyanocobalamin (vitamin B-12) 1,000 mcg PO DAILY 04/11/13 08/09/18 [Vitamin B-12] iodine [Kelp (iodine)] 150 mcg PO DAILY 12/12/15 08/09/18 hydrochlorothiazide 0.5 tab PO DAILY #90 tab 06/03/18 08/26/18 amoxicillin 875 mg PO BID #14 tab 08/02/18 08/09/18 loperamide 2 mg PO PRN PRN #0 cap 08/02/18 08/09/18 mirabegron [Myrbetriq] 50 mg PO DAILY #0 tab 08/02/18 08/26/18 nystatin 0 g TOPICAL BID #0 g 08/02/18 08/26/18 nitrofurantoin 100 mg PO BID #14 cap 08/12/18 08/26/18 monohydrate/macrocrystals 100 mg capsule potassium chloride ER 10 mEq 10 meq PO DAILY #90 tab-cap 08/12/18 08/26/18 tablet,extended release Previous Rx's Medication Instructions Recorded hydrochlorothiazide 0.5 tab PO DAILY #90 tab 06/03/18 amoxicillin 875 mg PO BID #14 tab 08/02/18 loperamide 2 mg PO PRN PRN #0 cap 08/02/18 mirabegron [Myrbetriq] 50 mg PO DAILY #0 tab 08/02/18 nystatin 0 g TOPICAL BID #0 g 08/02/18 nitrofurantoin 100 mg PO BID #14 cap 08/12/18 monohydrate/macrocrystals 100 mg capsule potassium chloride ER 10 mEq 10 meq PO DAILY #90 tab-cap 08/12/18 tablet,extended release Allergies Allergy/AdvReac Type Severity Reaction Status Date / Time oxybutynin AdvReac Intermediate severe dry Verified 08/09/18 11:30 mouth AMPRAH AdvReac Intermediate MADE HER Uncoded 07/30/18 10:28 MS WORSE General Stated Complaint: Urinary JAVIER: 3 Review of Systems Review of Systems All systems reviewed & are unremarkable except as noted in HPI and below PFSH Family History Mother Neoplasm Father No problems noted. Sister No problems noted. 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 3.ENT: Atraumatic external nose and ears. Notably dry MM. Neck: Symmetric, trachea midline, No thyromegaly. There is no evidence of raccoon eyes, ghotra sign, CSF rhinorrhea, mastoid tenderness, cranial crepitus, hemotympanum, exophthalmos, or hyphema. Patient demonstrates intact dentition with no signs of tooth avulsion or fracture, no signs of jaw deformity, no evidence of a LeFort's fracture, with an intact palate, nose and orbital region. There is no evidence of a nasal septal hematoma. No proptosis. Jaw closes symmetrically. Airway is clear. 4.CVS: +S1/S2, No murmurs or gallops. Peripheral pulses 2+ and equal in all extremities. Brisk capillary refill in all extremities. 5.RESP: Unlabored respiratory effort. Mild crackles in right lower lung field, no wheezes or rhonchi 6.GI: Soft, Nontender/Nondistended, No hepatosplenomegaly. No guarding or rebound. 7.MSK: Normocephalic/Atraumatic, Extremities w/o deformity or ttp No cyanosis or clubbing, patient demonstrates normal movements of her upper extremities with no signs of dysdiadochokinesia or dysmetria. Normal sensation and normal strength patient's lower extremities demonstrate +1 strength bilaterally. She is able to flex and extend of her feet, with relatively normal plantar and dorsiflexion strength. Patient states that the weakness is normal for her left lower extremity, slightly worse than normal for her right lower extremity. Sensation does appear intact no tenderness over the cervical thoracic or lumbar spine. No signs of significant trauma to the back or chest. 8.Skin: Warm, Dry. No rashes or lesions. 9.Neuro: traffic rate clerk II-XII grossly intact. Sensation grossly intact, please see musculoskeletal for remainder of neurologic exam. 10.Psych: (AAO) x3. Appropriate mood and affect Course Vital Signs Temperature 36.6 C 08/26/18 14:11 Pulse 100 H 08/26/18 14:11 Respiratory Rate 16 08/26/18 14:11 Blood Pressure 117/59 L 08/26/18 14:11 Pulse Oximetry 96 08/26/18 14:11 Temperature 36.6 C 08/26/18 14:11 Temperature Source Skin 08/26/18 14:11 Pulse 100 H 08/26/18 14:11 Respiratory Rate 16 08/26/18 14:11 Respiratory Effort 08/26/18 14:16 Blood Pressure 117/59 L 08/26/18 14:11 Blood Pressure Position Sitting 08/26/18 14:11 Pulse Oximetry 96 08/26/18 14:11 Oxygen Delivery Method Room Air 08/26/18 14:11 Oxygen Flow Rate 0 08/26/18 14:11 Lab/Test Results Lab/Test Results: 08/26/18 14:39 Urine - Reflex from Ua Urine Culture - Pending Laboratory Tests Range/Units 08/26/18 08/26/18 08/26/18 14:15 14:15 14:39 WBC (4.4-10.8) k/cumm 16.99 H RBC (4.00-5.20) m/cumm 4.34 Hgb (12.0-15.5) g/dL 12.6 Hct (36.0-46.0) % 39.0 MCV (80-95) fL 89.9 MCH (27.0-33.0) pg 29.0 MCHC (32.0-36.0) g/dL 32.3 RDW (11.7-14.6) % 14.4 Plt Count (130-400) x1000/uL 311 MPV (8.0-11.0) fL 10.2 Immature Gran % 0.4 Neutrophils % 92.0 Lymphocytes % 2.5 Monocytes % 3.5 Eosinophils % 1.4 Basophils % 0.2 Absolute Neutrophils (1.2-6.7) k/cumm 15.63 H Absolute Lymphocytes (1.2-3.4) k/cumm 0.42 L Absolute Monocytes (0.11-0.7) k/cumm 0.59 Absolute Eosinophils (0.0-0.7) k/cumm 0.24 Absolute Basophils (0.0-0.2) k/cumm 0.03 Sodium (136-145) mmol/L 141 Potassium (3.5-5.1) mmol/L 3.4 L Chloride (98-107) mmol/L 105 Carbon Dioxide (21.0-32.0) mmol/L 23.0 Anion Gap (3-11) mmol/L 13.0 H BUN (7-18) mg/dL 25 H Creatinine (0.55-1.02) mg/dL 1.30 H Estimated GFR/1.73 m2 (mL/min/1.73m2) 40.38 Glucose (70-100) mg/dL 152 H Calcium (8.5-10.1) mg/dL 8.7 Total Bilirubin (0.2-1.0) mg/dL 1.1 H AST (15-37) U/L 115 H ALT (12-78) U/L 146 H Alkaline Phosphatase (46-116) U/L 138 H Troponin I (0.00-0.06) ng/mL < 0.02 Total Protein (6.4-8.2) g/dL 7.0 Albumin (3.4-5.0) g/dL 3.4 Urine Color (Yellow) Yellow Urine Clarity Sl cloudy Urine pH (5-8) 7.5 Ur Specific [place] (1.005-1.025) 1.020 Urine Protein (Negative) mg/dL 100 H Urine Ketones (Negative) mg/dL 40 H Urine Blood (Negative) Small H Urine Nitrite (Negative) Positive H Urine Bilirubin (Negative) Negative Urine Urobilinogen (Up TO 0.2) EU/dL 0.2 Ur Leukocyte Esterase (Negative) Moderate H Urine RBC (0-2) >50 H Urine WBC (0-5) HPF >50 Ur Epithelial Cells (Negative) HPF Rare Urine Crystals (Negative) HPF Negative Urine Bacteria (Negative) HPF Many Urine Casts (Negative) LPF Negative Urine Mucus (Negative) Negative Ur Culture Indicated? Yes Urine Glucose (Negative) mg/dL Negative
[2018-08-26] MEDS: Normal Saline 1,000 ML 1000 ML IV (17:54)
[2018-08-26] MEDS: AZITHROMYCIN 500 MG in Normal Saline 250 ML 250 MG IVPB (18:32)
--- NOTE | 2018-08-26 18:38 | W.PM.HP.N ---
Date of service: 08/26/18 Time of Service: 18:38 Assessment and Plan (1) UTI (urinary tract infection): Current visit: Yes Status: Acute UTI, with attendant weakness and confusion. The chest x-ray report is noted but clinically this does not at all look like a respiratory issue but in any case the Rocephin will cover both sites. We will continue Rocephin and IV fluids pending urine culture. Note that today's culture was obtained after it sounds like 1 or 2 doses of Macrobid but will wait await results regardless. The culture from yesterday may give us further information Otherwise will hold off on any home medications until can clarify what she is in fact on at present.. Minimal hypokalemia noted, will add some potassium to her IV History of Present Illness Chief Complaint: Weakness Narrative: Patient is a 73-year-old female with history of MS and frequent UTIs.. She has had, per emergency room several days of increasing urinary incontinence and dysuria. She submitted a urine sample and started taking Macrobid per prior instructions from her urologist. She came to the emergency room tonight with increasing weakness. In the emergency room leukocytosis and pyuria were noted. Urine culture was submitted and she was given a dose of Rocephin note that there was also a question on chest x-ray of atelectasis versus pneumonitis and she was additionally given a dose of Rocephin strike last Zithromax she was admitted for further evaluation and management. Past medical history MS hypertension recurrent UTIs DVT prophylaxis. Allergies to oxybutynin [place] and a and PRAH. Medication: All unconfirmed at present Review of Systems Review of Systems All systems reviewed & are unremarkable except as noted in HPI and below PFSH Family History Mother Neoplasm Father No problems noted. Sister No problems noted. 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[facility] [employer] [employer] [place] pets and animals: Yes pets and animals: dog(s) Smoking/Tobacco Use Status: Current-Occasional second hand exposure: No substance use type: does not use joseline/muslim: Scientologist special joseline needs: No Surgical History Extraction of cataract (12/17/15) Extraction of cataract (12/31/15) Ligation of fallopian tube Meds Home Medications Medication Instructions Recorded Confirmed Type Ca cmb no.1-vit Y2-R8-WP-B12 1 ea PO DAILY 04/11/13 08/09/18 History [Vitamin D3 (calcium cit-phos)] cyanocobalamin (vitamin B-12) 1,000 mcg PO DAILY 04/11/13 08/09/18 History [Vitamin B-12] iodine [Kelp (iodine)] 150 mcg PO DAILY 12/12/15 08/09/18 History hydrochlorothiazide 0.5 tab PO DAILY #90 tab 06/03/18 08/26/18 Rx amoxicillin 875 mg PO BID #14 tab 08/02/18 08/09/18 Rx loperamide 2 mg PO PRN PRN #0 cap 08/02/18 08/09/18 Rx mirabegron [Myrbetriq] 50 mg PO DAILY #0 tab 08/02/18 08/26/18 Rx nystatin 0 g TOPICAL BID #0 g 08/02/18 08/26/18 Rx nitrofurantoin 100 mg PO BID #14 cap 08/12/18 08/26/18 Rx monohydrate/macrocrystals 100 mg capsule potassium chloride ER 10 mEq 10 meq PO DAILY #90 tab-cap 08/12/18 08/26/18 Rx tablet,extended release Allergies Allergy/AdvReac Type Severity Reaction Status Date / Time oxybutynin AdvReac Intermediate severe dry Verified 08/09/18 11:30 mouth AMPRAH AdvReac Intermediate MADE HER Uncoded 07/30/18 10:28 MS WORSE Exam Narrative Exam Narrative: Temp 36.8 blood pressure 113/63 pulse 110 and regular respirations 25. HEENT shows no signs of head trauma neck supple lungs fine bibasilar rales. Heart is distant but regular rate and there is no CVA tenderness abdomen is soft and nontender pelvic and rectal exams are deferred. Extremities 1+ pedal edema neurological patient is oriented x2. Upper extremities are 4/5 lower extremities 2/5 Results Labs : 08/26/18 14:15 08/26/18 14:15 Laboratory Results - last 24 hr 08/26/18 08/26/18 08/26/18 14:15 14:15 14:39 WBC 16.99 H RBC 4.34 Hgb 12.6 Hct 39.0 MCV 89.9 MCH 29.0 MCHC 32.3 RDW 14.4 Plt Count 311 MPV 10.2 Immature Gran % 0.4 Neutrophils % 92.0 Lymphocytes % 2.5 Monocytes % 3.5 Eosinophils % 1.4 Basophils % 0.2 Absolute Neutrophils 15.63 H Absolute Lymphocytes 0.42 L Absolute Monocytes 0.59 Absolute Eosinophils 0.24 Absolute Basophils 0.03 Sodium 141 Potassium 3.4 L Chloride 105 Carbon Dioxide 23.0 Anion Gap 13.0 H BUN 25 H Creatinine 1.30 H Estimated GFR/1.73 m2 40.38 Glucose 152 H Calcium 8.7 Total Bilirubin 1.1 H AST 115 H ALT 146 H Alkaline Phosphatase 138 H Troponin I < 0.02 Total Protein 7.0 Albumin 3.4 Urine Color Yellow Urine Clarity Sl cloudy Urine pH 7.5 Ur Specific [place] 1.020 Urine Protein 100 H Urine Ketones 40 H Urine Blood Small H Urine Nitrite Positive H Urine Bilirubin Negative Urine Urobilinogen 0.2 Ur Leukocyte Esterase Moderate H Urine RBC >50 H Urine WBC >50 Ur Epithelial Cells Rare Urine Crystals Negative Urine Bacteria Many Urine Casts Negative Urine Mucus Negative Ur Culture Indicated? Yes Urine Glucose Negative
--- NOTE | 2018-08-26 19:06 | PGE_ITS ---
Subjective Interval history since last seen: Addendum: Spoke with . Confirms present meds as Myrbetriq, HCTZ and KCL. Will resume Myrbetriq, hold HCTZ and KCL while getting IVF. Also reviewed advanced directives, confirms Full Code. Objective Objective Clinical Data: Abnormal lab results 08/26/18 08/26/18 08/26/18 Range/Units 14:15 14:15 14:39 WBC 16.99 H (4.4-10.8) k/cumm Absolute Neutrophils 15.63 H (1.2-6.7) k/cumm Absolute Lymphocytes 0.42 L (1.2-3.4) k/cumm Potassium 3.4 L (3.5-5.1) mmol/L Anion Gap 13.0 H (3-11) mmol/L BUN 25 H (7-18) mg/dL Creatinine 1.30 H (0.55-1.02) mg/dL Glucose 152 H (70-100) mg/dL Total Bilirubin 1.1 H (0.2-1.0) mg/dL AST 115 H (15-37) U/L ALT 146 H (12-78) U/L Alkaline Phosphatase 138 H (46-116) U/L Urine Protein 100 H (Negative) mg/dL Urine Ketones 40 H (Negative) mg/dL Urine Blood Small H (Negative) Urine Nitrite Positive H (Negative) Ur Leukocyte Esterase Moderate H (Negative) Urine RBC >50 H (0-2) Vital Signs Temperature 36.8 C 08/26/18 17:58 Temperature Source Skin 08/26/18 17:58 Pulse 117 H 08/26/18 18:46 Pulse 115 H 08/26/18 18:50 Respiratory Rate 21 08/26/18 18:50 Respiratory Effort 08/26/18 14:16 Blood Pressure 96/57 L 08/26/18 18:46 Blood Pressure Mean 64 08/26/18 18:46 Blood Pressure Position Sitting 08/26/18 14:11 Pulse Oximetry 94 L 08/26/18 18:50 Oxygen Delivery Method Room Air 08/26/18 14:11 Oxygen Flow Rate 0 08/26/18 14:11 Intake & Output 08/25/18 08/26/18 08/26/18 23:59 11:59 23:59 Intake Total 550 / 550 Balance 550 / 550 Weight 66.7 kg Intake: IV 550 / 550 Laboratory Results WBC 16.99 k/cumm (4.4-10.8) H 08/26/18 14:15 RBC 4.34 m/cumm (4.00-5.20) 08/26/18 14:15 Hgb 12.6 g/dL (12.0-15.5) 08/26/18 14:15 Hct 39.0 % (36.0-46.0) 08/26/18 14:15 MCV 89.9 fL (80-95) 08/26/18 14:15 MCH 29.0 pg (27.0-33.0) 08/26/18 14:15 MCHC 32.3 g/dL (32.0-36.0) 08/26/18 14:15 RDW 14.4 % (11.7-14.6) 08/26/18 14:15 Plt Count 311 x1000/uL (130-400) 08/26/18 14:15 MPV 10.2 fL (8.0-11.0) 08/26/18 14:15 Immature Gran % 0.4 08/26/18 14:15 Neutrophils % 92.0 08/26/18 14:15 Lymphocytes % 2.5 08/26/18 14:15 Monocytes % 3.5 08/26/18 14:15 Eosinophils % 1.4 08/26/18 14:15 Basophils % 0.2 08/26/18 14:15 Absolute Neutrophils 15.63 k/cumm (1.2-6.7) H 08/26/18 14:15 Absolute Lymphocytes 0.42 k/cumm (1.2-3.4) L 08/26/18 14:15 Absolute Monocytes 0.59 k/cumm (0.11-0.7) 08/26/18 14:15 Absolute Eosinophils 0.24 k/cumm (0.0-0.7) 08/26/18 14:15 Absolute Basophils 0.03 k/cumm (0.0-0.2) 08/26/18 14:15 Sodium 141 mmol/L (136-145) 08/26/18 14:15 Potassium 3.4 mmol/L (3.5-5.1) L 08/26/18 14:15 Chloride 105 mmol/L (98-107) 08/26/18 14:15 Carbon Dioxide 23.0 mmol/L (21.0-32.0) 08/26/18 14:15 Anion Gap 13.0 mmol/L (3-11) H 08/26/18 14:15 BUN 25 mg/dL (7-18) H 08/26/18 14:15 Creatinine 1.30 mg/dL (0.55-1.02) H 08/26/18 14:15 Estimated GFR/1.73 m2 40.38 (mL/min/1.73m2) 08/26/18 14:15 Glucose 152 mg/dL (70-100) H 08/26/18 14:15 Calcium 8.7 mg/dL (8.5-10.1) 08/26/18 14:15 Total Bilirubin 1.1 mg/dL (0.2-1.0) H 08/26/18 14:15 AST 115 U/L (15-37) H 08/26/18 14:15 ALT 146 U/L (12-78) H 08/26/18 14:15 Alkaline Phosphatase 138 U/L (46-116) H 08/26/18 14:15 Troponin I < 0.02 ng/mL (0.00-0.06) 08/26/18 14:15 Total Protein 7.0 g/dL (6.4-8.2) 08/26/18 14:15 Albumin 3.4 g/dL (3.4-5.0) 08/26/18 14:15 Urine Color Yellow (Yellow) 08/26/18 14:39 Urine Clarity Sl cloudy 08/26/18 14:39 Urine pH 7.5 (5-8) 08/26/18 14:39 Ur Specific [place] 1.020 (1.005-1.025) 08/26/18 14:39 Urine Protein 100 mg/dL (Negative) H 08/26/18 14:39 Urine Ketones 40 mg/dL (Negative) H 08/26/18 14:39 Urine Blood Small (Negative) H 08/26/18 14:39 Urine Nitrite Positive (Negative) H 08/26/18 14:39 Urine Bilirubin Negative (Negative) 08/26/18 14:39 Urine Urobilinogen 0.2 EU/dL (Up TO 0.2) 08/26/18 14:39 Ur Leukocyte Esterase Moderate (Negative) H 08/26/18 14:39 Urine RBC >50 (0-2) H 08/26/18 14:39 Urine WBC >50 HPF (0-5) 08/26/18 14:39 Ur Epithelial Cells Rare HPF (Negative) 08/26/18 14:39 Urine Crystals Negative HPF (Negative) 08/26/18 14:39 Urine Bacteria Many HPF (Negative) 08/26/18 14:39 Urine Casts Negative LPF (Negative) 08/26/18 14:39 Urine Mucus Negative (Negative) 08/26/18 14:39 Ur Culture Indicated? Yes 08/26/18 14:39 Urine Glucose Negative mg/dL (Negative) 08/26/18 14:39
[2018-08-26] MEDS: POTASSIUM CHLORIDE/0.9% NACL 1,000 ML 75 MEQ IV (22:08)
[2018-08-26] MEDS: Acetaminophen 325 MG TAB 650 MG PO (23:46)
--- NOTE | 2018-08-27 00:25 | NUR.NOTE ---
Nursing Note: Pt received via stretcher from ER, fully awake but confused.Unable to give info or answer on admission questionnaires. Assessment performed, skin intact but with small red abrasion on right knee, no discharge noted. Both groins and abdominal folds with reddened and excoriated areas. , Wears brief, incontinent of urine. Needs maximum assist on the care, unable to stand. Has +2 pitting edema on lower extremities, pedal pulses present. Oral fluids offered, needs more motivation.Call lights within reach.
[2018-08-27 02:27] VITALS: TEMP 36.4
[2018-08-27 03:45] VITALS: BP 108/58; PULSE 99; RESP 18; TEMP 36.6; O2SAT 95
[2018-08-27 08:21] VITALS: BP 100/65; PULSE 89; RESP 20; TEMP 36; O2SAT 97
[2018-08-27] MEDS: Mirabegron 50 MG TABCR PO (09:00)
--- NOTE | 2018-08-27 10:24 | PT.INIE ---
Date of service: 08/27/18 Time of Service: 09:30 PT Notes Inpatient Physical Therapy Evaluation Date: 08/27/18 Referring Doctor: Carla Nicole PT Orders: PT CONSULT: strenthening Precautions: Fall precautions Patient Profile/Admitting Diagnosis: Pt is a 73yr old female admitted with urinary tract infection, weakness and confusion PMHX: type II multiple sclerosis at age 15yrs, frequent falls, neurogenic bladder, urinary incontinence and urgency, cataracts, hypertension, bilateral lower extremity edema, B12 deficiency, bilateral tubal ligation, chronic fatigue Social History/Home Situation: Lives with in house. Baseline mobility is CGA-Khanh transfers with 4WW to electric scooter, uses scooter as primary mode of transportation, assists with ADLS Equipment owned/DME: 4WW, commode, grab bars in shower with hand held wand SUBJECTIVE: Pt lying in bed, agreeable to PT consult. States she is having weakness and diffuculty standing and is wanting to use the STEDY lift to transfer back to chair. OBJECTIVE General Observation: IV L UE Mental Status: A& O x3 Pain: no c/o pain BED MOBILITY/TRANSFERS: Supine-sit: HOB 40 degrees, minAx1 Sit-stand: modAx1 with STEDY lift Bed-chair: maxAx1 with STEDY lift Stand-sit: MinAx1 GAIT: Unable to gait train with FWW or 4WW due to LE weakness and decreased standing balance. Able to director labor standards STEDY lift for 2 -2min duration sessions focusing on trunk and postural control. Pt transferred to chair and left up in chair in room. BALANCE: Static sitting: normal Dynamic Sitting: normal Static Standing: fair Dynamic Standing: poor SPECIAL TESTS: [facility] AM-PAC 6 clicks raw score 11, standardized score 33.86, CMS 72.57% and modifier CL INFORMED CONSENT/EDUCATION: Pt instructed in purpose of PT Consult and plan of care and in agreement with plan. ASSESSMENT: Pt is a 73 yr old female admitted with weakness and urinary tract infection in setting of type II multiple sclerosis at age 15yrs, frequent falls, neurogenic bladder, urinary incontinence and urgency. Pt presents with the following impairment level findings: decreased strength in bilateral upper and lower extremities, decreased strength and mobility with bed transfers, standing transfers, decreased static and dynamic standing balance putting her at risk for falls, inability to perform gait or transfers with 4WW this morning requriing STEDY lift for transfers to chair and commode. Pt will benefit from skilled therapy intervention for strengthening and progressive mobility training. GOALS Goals x1 week 1.Supine-sit: HOB 30 degrees, CGA 2.Sit-Supine: HOB flat, MinAx1 3.Sit-Stand: maxAx1 with 4WW 4.Stand-sit: modAx1 5.Bed-chair: max Ax1 with 4WW 6.Chair-bed: max Ax1 with 4WW 7.Gait: maxAx1 with 4WW 3 ft to chair PLAN OF CARE/TREATMENT PLAN: 1-2x/day, 7 days/ week x 1week Plan of care has been reviewed with the CLASSIFICATIONS OFFICER CC/CM providing the service under Physical therapy direction. Initiate physical therapy for strengthening, bed mobility, transfers, gait, sitting and standing balance training, range of motion, use of assistive devices DISCHARGE RECOMMENDATIONS home with hsuband, has all DME, recommend resume outpatient phyiscal therapy at [facility] in [facility] TREATMENT TIME/MINUTES/CODES 25 IE 0930 G Codes in the area mobility of walking and moving around: current status [id number] CL; projected status GP [id number]. Discharge status (if discharging) GP [id number] CL based on [facility] Scores Aminah Sanchez PT
--- NOTE | 2018-08-27 10:42 | IN_ITS ---
Date of service: 08/27/18 Time of Service: 09:30 PT Notes Inpatient Physical Therapy Evaluation Date: 08/27/18 Referring Doctor: Carla Nicole PT Orders: PT CONSULT: strenthening Precautions: Fall precautions Patient Profile/Admitting Diagnosis: Pt is a 73yr old female admitted with urinary tract infection, weakness and confusion PMHX: type II multiple sclerosis at age 15yrs, frequent falls, neurogenic bladder, urinary incontinence and urgency, cataracts, hypertension, bilateral lower extremity edema, B12 deficiency, bilateral tubal ligation, chronic fatigue Social History/Home Situation: Lives with in house. Baseline mobility is CGA-Khanh transfers with 4WW to electric scooter, uses scooter as primary mode of transportation, assists with ADLS Equipment owned/DME: 4WW, commode, grab bars in shower with hand held wand SUBJECTIVE: Pt lying in bed, agreeable to PT consult. States she is having weakness and diffuculty standing and is wanting to use the STEDY lift to transfer back to chair. OBJECTIVE General Observation: IV L UE Mental Status: A& O x3 Pain: no c/o pain BED MOBILITY/TRANSFERS: Supine-sit: HOB 40 degrees, minAx1 Sit-stand: modAx1 with STEDY lift Bed-chair: maxAx1 with STEDY lift Stand-sit: MinAx1 GAIT: Unable to gait train with FWW or 4WW due to LE weakness and decreased standing balance. Able to filler shredder machine STEDY lift for 2 -2min duration sessions focusing on trunk and postural control. Pt transferred to chair and left up in chair in room. BALANCE: Static sitting: normal Dynamic Sitting: normal Static Standing: fair Dynamic Standing: poor SPECIAL TESTS: [facility] AM-PAC 6 clicks raw score 11, standardized score 33.86, CMS 72.57% and modifier CL INFORMED CONSENT/EDUCATION: Pt instructed in purpose of PT Consult and plan of care and in agreement with plan. ASSESSMENT: Pt is a 73 yr old female admitted with weakness and urinary tract infection in setting of type II multiple sclerosis at age 15yrs, frequent falls , neurogenic bladder, urinary incontinence and urgency. Pt presents with the following impairment level findings: decreased strength in bilateral upper and lower extremities, decreased strength and mobility with bed transfers, standing transfers, decreased static and dynamic standing balance putting her at risk for falls, inability to perform gait or transfers with 4WW this morning requriing STEDY lift for transfers to chair and commode. Pt will benefit from skilled therapy intervention for strengthening and progressive mobility training. GOALS Goals x1 week 1.Supine-sit: HOB 30 degrees, CGA 2.Sit-Supine: HOB flat, MinAx1 3.Sit-Stand: maxAx1 with 4WW 4.Stand-sit: modAx1 5.Bed-chair: max Ax1 with 4WW 6.Chair-bed: max Ax1 with 4WW 7.Gait: maxAx1 with 4WW 3 ft to chair PLAN OF CARE/TREATMENT PLAN: 1-2x/day, 7 days/ week x 1week Plan of care has been reviewed with the CHAIRMAN & CHIEF EXECUTIVE OFFICER providing the service under Physical therapy direction. Initiate physical therapy for strengthening, bed mobility, transfers, gait, sitting and standing balance training, range of motion, use of assistive devices DISCHARGE RECOMMENDATIONS home with hsuband, has all DME, recommend resume outpatient phyiscal therapy at [facility] in [facility] TREATMENT TIME/MINUTES/CODES 25 IE 0930 G Codes in the area mobility of walking and moving around: current status [id number] CL; projected status GP [id number]. Discharge status (if discharging) GP [id number] CL based on [facility] Scores Aminah Sanchez PT
[2018-08-27] MEDS: POTASSIUM CHLORIDE/0.9% NACL 1,000 ML 75 MEQ IV (11:06)
--- NOTE | 2018-08-27 11:09 | PHARADMIT ---
Admission Pharmacy Clinical Review UTI Code Status Full Code Current Weight Wgt- 61.8 kg Renally Cleared and Narrow Therapeutic Index Meds CrCl~ 32.8 mL/min Meds-OK QTc Value / Action Taken NA BP Control, Fever BP-100/65 Tmax-38.3C Electrolytes reviewed Na-141 K+3.4 DVT Prophylaxis None Opiate Usage / Scheduled Bowel Regimen Ordered NONE Plt/SCr for Heparin / Enoxaparin Plys-311 SCr-1.30 INR for Warfarin NA H/H stable, WBC/Bands H&H- 12.6/39.0 WBC-16.99 Antibiotic appropriateness Rocephin Cultures and Sensitivities Urine-Proteus Mirabilis Surgical ABX d/c within 24 hr na DM control / Insulin Dosing BG-152 Heart Failure (Check EF%) (CORRY's, B-Block, Diuretics) none IV to PO Switch No Home Meds Reviewed Yes Home Meds Not Ordered HCTZ, Calcium+, Loperamide, B-12, Kelp MacroBid Comments
[2018-08-27 12:00] VITALS: BP 102/75; PULSE 87; RESP 20; TEMP 36.2; O2SAT 98
[2018-08-27 15:25] VITALS: BP 144/79; PULSE 92; RESP 20; TEMP 36.8; O2SAT 96
--- NOTE | 2018-08-27 15:26 | W.PM.PROGNOT ---
Assessment and Plan (1) UTI (urinary tract infection): Current visit: Yes Status: Acute Urine C&S w/ proteus mirabilis. Read discussion above. Will ensure the patient is not retaining urine - obtaining bladder scans/PVR's today. (2) Proteus mirabilis infection: Current visit: Yes Status: Acute Continue empiric rocephin. Await sensitivities. Suspect the patient will be safe to go home tomorrow on oral antibiotics. (3) Neurogenic bladder: Current visit: Yes Status: Acute Voiding trial overnight. Continue myrbetrique. (4) Edema of both lower extremities: Current visit: Yes Status: Chronic Obtain venous dopplers of BLE's. (5) Multiple sclerosis: Current visit: Yes Status: Chronic PT consulted. Will need to follow up as outpatient. Subjective Interval history since last seen: The patient states she would really like to go home because she cannot sleep at the hospital. Melatonin does help her sleep. She is feeling a lot better. She knows that she has a problem with urinary retention and has had a catheter in her bladder in the past. She denies any dizziness, chest pain, shortness of breath, nausea, vomiting. She states that her legs are always swollen and she does not recall ever having a venous doppler done. Exam Narrative Exam Narrative: General: Very pleasant elderly female, comfortable in the HEENT: Movements intact, moist mucous membranes, no JVD Cardiovascular: Regularly regular rhythm, no murmurs, rubs, or gallops Lungs: Clear to auscultation bowel Gastrointestinal: Abdomen soft, nontender, nondistended Extremities: 2+ bilateral lower extremity pitting edema, no clubbing or cyanosis Objective Objective Clinical Data: Vital Signs Temperature 36.2 C L 08/27/18 12:00 Temperature Source Tympanic 08/27/18 12:00 Pulse 87 08/27/18 12:00 Pulse Rhythm Regular 08/27/18 09:00 Pulse 115 H 08/26/18 18:50 Respiratory Rate 20 08/27/18 12:00 Respiratory Effort Non-Labored 08/27/18 09:00 Respiratory Depth Normal 08/27/18 09:00 Respiratory Pattern Normal 08/27/18 09:00 Blood Pressure 102/75 08/27/18 12:00 Blood Pressure Mean 64 08/26/18 18:46 Blood Pressure Position Sitting 08/26/18 14:11 Pulse Oximetry 98 08/27/18 12:00 Oxygen Delivery Method Room Air 08/27/18 12:00 Oxygen Flow Rate 0 08/27/18 12:00 Pain Level 0 08/27/18 03:45 Comment 08/27/18 08:21 Intake & Output 08/26/18 08/27/18 08/27/18 23:59 11:59 23:59 Intake Total 1550 / 1550 1582.5 / 1582.5 240 / 240 Balance 1550 / 1550 1582.5 / 1582.5 240 / 240 Weight 61.3 kg 61.8 kg Intake: IV 1550 / 1550 972.5 / 972.5 Oral 610 / 610 240 / 240 Other: Urine Color Yellow Straw Urine Appearance Clear Clear Urine Odor Strong Comment pt has been continent and incontinent to urine this shift Voiding Methods Diaper Bedside Commode Incontinent Laboratory Results WBC 16.99 k/cumm (4.4-10.8) H 08/26/18 14:15 RBC 4.34 m/cumm (4.00-5.20) 08/26/18 14:15 Hgb 12.6 g/dL (12.0-15.5) 08/26/18 14:15 Hct 39.0 % (36.0-46.0) 08/26/18 14:15 MCV 89.9 fL (80-95) 08/26/18 14:15 MCH 29.0 pg (27.0-33.0) 08/26/18 14:15 MCHC 32.3 g/dL (32.0-36.0) 08/26/18 14:15 RDW 14.4 % (11.7-14.6) 08/26/18 14:15 Plt Count 311 x1000/uL (130-400) 08/26/18 14:15 MPV 10.2 fL (8.0-11.0) 08/26/18 14:15 Immature Gran % 0.4 08/26/18 14:15 Neutrophils % 92.0 08/26/18 14:15 Lymphocytes % 2.5 08/26/18 14:15 Monocytes % 3.5 08/26/18 14:15 Eosinophils % 1.4 08/26/18 14:15 Basophils % 0.2 08/26/18 14:15 Absolute Neutrophils 15.63 k/cumm (1.2-6.7) H 08/26/18 14:15 Absolute Lymphocytes 0.42 k/cumm (1.2-3.4) L 08/26/18 14:15 Absolute Monocytes 0.59 k/cumm (0.11-0.7) 08/26/18 14:15 Absolute Eosinophils 0.24 k/cumm (0.0-0.7) 08/26/18 14:15 Absolute Basophils 0.03 k/cumm (0.0-0.2) 08/26/18 14:15 Sodium 141 mmol/L (136-145) 08/26/18 14:15 Potassium 3.4 mmol/L (3.5-5.1) L 08/26/18 14:15 Chloride 105 mmol/L (98-107) 08/26/18 14:15 Carbon Dioxide 23.0 mmol/L (21.0-32.0) 08/26/18 14:15 Anion Gap 13.0 mmol/L (3-11) H 08/26/18 14:15 BUN 25 mg/dL (7-18) H 08/26/18 14:15 Creatinine 1.30 mg/dL (0.55-1.02) H 08/26/18 14:15 Estimated GFR/1.73 m2 40.38 (mL/min/1.73m2) 08/26/18 14:15 Glucose 152 mg/dL (70-100) H 08/26/18 14:15 Calcium 8.7 mg/dL (8.5-10.1) 08/26/18 14:15 Total Bilirubin 1.1 mg/dL (0.2-1.0) H 08/26/18 14:15 AST 115 U/L (15-37) H 08/26/18 14:15 ALT 146 U/L (12-78) H 08/26/18 14:15 Alkaline Phosphatase 138 U/L (46-116) H 08/26/18 14:15 Troponin I < 0.02 ng/mL (0.00-0.06) 08/26/18 14:15 Total Protein 7.0 g/dL (6.4-8.2) 08/26/18 14:15 Albumin 3.4 g/dL (3.4-5.0) 08/26/18 14:15 Urine Color Yellow (Yellow) 08/26/18 14:39 Urine Clarity Sl cloudy 08/26/18 14:39 Urine pH 7.5 (5-8) 08/26/18 14:39 Ur Specific [place] 1.020 (1.005-1.025) 08/26/18 14:39 Urine Protein 100 mg/dL (Negative) H 08/26/18 14:39 Urine Ketones 40 mg/dL (Negative) H 08/26/18 14:39 Urine Blood Small (Negative) H 08/26/18 14:39 Urine Nitrite Positive (Negative) H 08/26/18 14:39 Urine Bilirubin Negative (Negative) 08/26/18 14:39 Urine Urobilinogen 0.2 EU/dL (Up TO 0.2) 08/26/18 14:39 Ur Leukocyte Esterase Moderate (Negative) H 08/26/18 14:39 Urine RBC >50 (0-2) H 08/26/18 14:39 Urine WBC >50 HPF (0-5) 08/26/18 14:39 Ur Epithelial Cells Rare HPF (Negative) 08/26/18 14:39 Urine Crystals Negative HPF (Negative) 08/26/18 14:39 Urine Bacteria Many HPF (Negative) 08/26/18 14:39 Urine Casts Negative LPF (Negative) 08/26/18 14:39 Urine Mucus Negative (Negative) 08/26/18 14:39 Ur Culture Indicated? Yes 08/26/18 14:39 Urine Glucose Negative mg/dL (Negative) 08/26/18 14:39 Urine C&S: proteus mirabilis (sensitivities pending)
--- NOTE | 2018-08-27 16:17 | DI.US_ITS ---
SYMPTOM/DIAGNOSIS: BILAT LOWER EXTREMITY EDEMA, ? DVT BILATERAL LOWER EXTREMITY ULTRASOUND: The deep veins of the lower extremities were evaluated sonographically. The deep veins of the right lower extremity show normal compression, augmentation and color flow. No evidence of a deep venous thrombus is seen. The visualized portions of the greater saphenous vein on the right are unremarkable. They show normal compression and blood flow. There is mild edema seen in the soft tissues of the right calf. No popliteal cyst is seen. In the left lower extremity, the deep veins show normal compression, augmentation and color flow. No evidence of a deep venous thrombus is identified. The greater saphenous vein on the left shows normal compression and blood flow. There is mild edema seen in the subcutaneous tissues of the left lower extremity. No popliteal cyst is seen. IMPRESSION: No evidence of a deep venous thrombus in either lower extremity.
--- NOTE | 2018-08-27 17:28 | DI.VRAD_ITS ---
EXAM: US Duplex Bilateral Lower Extremity Veins CLINICAL HISTORY: 73 years old, female; Signs and symptoms; Swelling of limb; Lower extremity, bilateral TECHNIQUE: Real-time duplex ultrasound scan of the bilateral lower extremity veins integrating B-mode two-dimensional vascular structure, Doppler spectral analysis, color flow Doppler imaging and compression. COMPARISON: No relevant prior studies available. FINDINGS: Right deep veins: Unremarkable. No DVT in the right common femoral, femoral, proximal deep femoral or popliteal veins. The veins demonstrate normal color flow, are normally compressible, with normal phasic flow and/or augmentation response. Right superficial veins: Unremarkable. No thrombus in the visualized right great saphenous vein. Left deep veins: Unremarkable. No DVT in the left common femoral, femoral, proximal deep femoral or popliteal veins. The veins demonstrate normal color flow, are normally compressible, with normal phasic flow and/or augmentation response. Left superficial veins: Unremarkable. No thrombus in the visualized left great saphenous vein. Soft tissues: Mild subcutaneous edema within the right proximal calf. Subcutaneous edema within the left proximal calf. No popliteal cyst. IMPRESSION: No deep venous thrombosis. Dictated and Authenticated by: Galo Mcgee MD. Ordering:AUGUSTO JOHN MD
--- NOTE | 2018-08-27 18:11 | PDOC.CMIN ---
Care Management Initial Assess REASON FOR HOSPITALIZATION:: UTI PAST MEDICAL HISTORY/PAST SURGICAL HISTORY:: Medical: Chronic Fatigue, hypokalemia, neurogenic bladder, recurrent falls, tobacco abuse, HTN, MS, Urinary incontinence. Surgical: Cataract extraction bilateral, ligation of fallopian tubes. 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 Lives with her , Mukesh, at their home in [place]. CURRENT FUNCTIONAL STATUS:: Sitting up in bed watching TV ADVANCE DIRECTIVES:: None on file Has patient been provided with information about the portal?: No Did the patient sign up for the portal?: No CODE STATUS:: Full Code INSURANCE COVERAGE / FINANCIAL ISSUES:: /BS. Medicare CURRENT HOME/COMMUNITY SERVICES/EQUIPMENT:: None PRIMARY CARE PHYSICIAN:: Sharita medical: Abel Hyatt MD POTENTIAL DISCHARGE NEEDS:: None PATIENT/FAMILY EDUCATION NEEDS:: Discharge insructions ANTICIPATED BARRIERS TO DISCHARGE:: None TRANSPORTATION:: PLAN:: Return home when medically clared for discharge.
[2018-08-27 19:30] VITALS: BP 112/73; PULSE 105; RESP 19; TEMP 37; O2SAT 98
[2018-08-27] MEDS: Melatonin 3 MG TAB 6 MG PO (22:31)
--- NOTE | 2018-08-27 23:20 | NUR.NOTE ---
Addendum entered by Giovanni Thomas 08/28/18 15:35: 3200 was a typing error, actual amount was 300 cc of urine removed Original Note: The patient has requested that all bedrails be up, to her she feels safer this wasy, I verbally confirmed this with her. Patient was bladder scanned after she was foyun d to be grossly incontinent of urine. PVR was 421. It was explained to the patient that with this much of a residual she would be straight cathed. Supplies were gathered, and a peer nurse helped, procedure was explained to the patient, and she agreed to have this done. When patient was being readied, it was noted that she had another moderate incident of incontinence patient was prepped, and procedure was done using sterile technique we were successful on first attempt, removing 3200 cc of dark april strong smelling urine. Patient was cleaned and a dry brief applied, she was made comfortable, and was left with call moralez in reach. Nursing Note:
[2018-08-28 03:25] VITALS: BP 107/65; PULSE 97; RESP 18; TEMP 36.9; O2SAT 94
[2018-08-28 07:10] LABS: Abs Immature Grans 0.02 k/cumm (0.0-0.09); Absolute Basophil Count 0.03 k/cumm (0.0-0.2); Absolute Eosinophil Count 1.07 k/cumm (0.0-0.7); Absolute Lymphocyte Count 1.65 k/cumm (1.2-3.4); Absolute Monocyte Count 0.57 k/cumm (0.11-0.7); Absolute Neutrophil Count 5.86 k/cumm (1.2-6.7); Basophils % 0.3; Eosinophils % 11.6; HGB 10.3 g/dL (12.0-15.5); Immature Grans % 0.2; Lymphocytes % 17.9; Mean Corp. HGB Concentration 32.2 g/dL (32.0-36.0); Mean Corpuscular Volume 90.1 fL (80-95); Mean Platelet Volume 9.9 fL (8.0-11.0); Monocytes % 6.2; Neutrophils % 63.8; Platelet Count 267 x1000/uL (130-400); RBC 3.55 m/cumm (4.00-5.20); RBC Distribution Width 14.7 % (11.7-14.6)
[2018-08-28 07:14] LABS: BUN 19 mg/dL (7-18); CREATININE 0.84 mg/dL (0.55-1.02); Calcium 8.1 mg/dL (8.5-10.1); Chloride 112 mmol/L (98-107); Glucose 99 mg/dL (70-100); Potassium 3.3 mmol/L (3.5-5.1); Sodium 143 mmol/L (136-145)
[2018-08-28] MEDS: Mirabegron 50 MG TABCR PO (07:33)
[2018-08-28 07:45] VITALS: BP 110/54; PULSE 90; RESP 17; TEMP 36.8; O2SAT 94
--- NOTE | 2018-08-28 11:21 | PT.INNT ---
Date of service: 08/28/18 Time of Service: 11:21 PT Notes PHYSICAL THERAPY NOTE 08/28/18 Several attempts to see patient for therapy this morning, pt busy with nursing. Up in chair via STEDY lift. Pt may discharge to home today, recommend resume outpatient PT services. Aminah Sanchez PT
[2018-08-28 11:25] VITALS: BP 139/77; PULSE 83; RESP 18; TEMP 36.7; O2SAT 99
--- NOTE | 2018-08-28 12:28 | DSE_ITS ---
Date of service: 08/28/18 Time of Service: 12:23 DS: Diagnosis Discharge Diagnosis (1) UTI (urinary tract infection): Status: Acute (2) Proteus mirabilis infection: Status: Acute (3) Neurogenic bladder: Status: Acute (4) Edema of both lower extremities: Status: Chronic (5) Multiple sclerosis: Status: Chronic Discharge Plan Disposition Patient Disposition: HOME Condition: Stable Discharge Details Chief Complaint: Urinary Reason For Visit: UTI Admit Date/Time: 08/26/18 19:17 Admit Provider: Mukesh Hightower Attending Provider: Mukesh Hightower Primary Care Provider: Дмитрий Hyatt ED Provider: Roman Harris Hospital Course Hospital Course: Ms Ricks was admitted to [facility] for a UTI that had failed outpatient therapy with nitrofurantoin. Here, she was initiated on rocephin. Her urine culture grew Proteus (resistant to nitrofurantoin, otherwise pansensitive). She is symptomatically much improved with rocephin therapy, but will require 5 more days of oral antibiotics (ceftin). She was found to be retaining urine - an old problem, due to known neurogenic bladder in setting of MS. A jacobs catheter was placed prior to discharge, teaching provided. It is expected that she will follow up with her urologist within 1-2 weeks to have a voiding trial and/or self-catheterization teaching. Finally, patient's bilateral lower extremity edema was investigated with a venous doppler to rule out DVT - the study was negative. On day of discharge, patient's vital signs were stable. On exam, she was back to her baseline, had a benign cardiac and pulmonary exam. Her edema was at her baseline. She had exercised with physical therapy and was found to be stable to return home. Home Meds and New Rx's Prescriptions: New cefuroxime axetil 250 mg tablet 250 mg PO Q12H 10 Days Qty: 10 RF: 0 Continue cyanocobalamin (vitamin B-12) [Vitamin B-12] 1,000 MCG tablet 1,000 mcg PO DAILY RF: 0 Ca cmb no.1-vit Y1-G4-HP-B12 [Vitamin D3 (calcium cit-phos)] 1 EACH tablet 1 ea PO DAILY RF: 0 hydrochlorothiazide 25 MG tablet 0.5 tab PO DAILY Qty: 90 RF: 4 potassium chloride [K-Tab] 10 mEq tablet extended release 10 meq PO DAILY Qty: 90 RF: 3 iodine [Kelp (iodine)] 150 MCG tablet 150 mcg PO DAILY RF: 0 loperamide 2 mg Capsule 2 mg PO PRN PRN (Reason: DIARRHEA) Qty: 0 RF: 0 mirabegron [Myrbetriq] 50 mg Tablet Extended Release 24 Hr 50 mg PO DAILY Qty: 0 RF: 0 nystatin 100,000 unit/gram Powder Topical BID Qty: 0 RF: 0 Discontinued nitrofurantoin monohyd/m-cryst [Macrobid] 100 mg capsule 100 mg PO BID Qty: 14 RF: 0 amoxicillin 875 mg tablet 875 mg PO BID Qty: 14 RF: 0 Discharge Instructions Instructions: Cefuroxime (By mouth), Urinary Tract Infection in Women (DC), Jacobs Catheter Placement and Care (DC), Chronic Urinary Retention in Women (GEN) Additional Instructions: Eat yogurt twice a day while on antibiotics. Finish your antibiotics as prescribed. Return to the hospital with any fever, bleeding, chest pain, or shortness of breath. Follow up with Dr Mei within 1-2 weeks. Referrals: Дмитрий Hyatt DO [Primary Care Provider] - (1-2 weeks) Meño Mei MD [ [facility] STAFF PHYSICIAN] - (1-2 weeks) Activity:: Activity as Tolerated Equipment/Supplies:: Jacobs Catheter and supplies Diet:: Normal Diet Discharge Orders Discharge Orders: Discharge Order (Routine); Ordered 08/28/18 Ordered By: Carla Nicole DS: Summary Status at Discharge Overall status at discharge: patient is back to baseline Time Spent with Patient Greater than 30 minutes DS: Data Vitals/I&O Vitals and I&O: Vital Signs Temperature 36.8 C 08/28/18 07:45 Temperature Source Tympanic 08/28/18 07:45 Pulse 90 08/28/18 07:45 Pulse Rhythm Regular 08/28/18 03:25 Pulse 115 H 08/26/18 18:50 Respiratory Rate 17 08/28/18 07:45 Respiratory Effort 08/28/18 03:25 Respiratory Depth Normal 08/28/18 03:25 Respiratory Pattern Normal 08/28/18 03:25 Blood Pressure 110/54 L 08/28/18 07:45 Blood Pressure Mean 64 08/26/18 18:46 Blood Pressure Position Sitting 08/26/18 14:11 Pulse Oximetry 94 L 08/28/18 07:45 Oxygen Delivery Method Room Air 08/28/18 07:45 Oxygen Flow Rate 0 08/28/18 07:45 Pain Level 0 08/28/18 07:45 Comment 08/27/18 08:21 Intake & Output 08/27/18 08/28/18 08/28/18 23:59 11:59 23:59 Intake Total 250 / 250 100 / 100 Output Total 421 / 421 100 / 100 Balance -171 / -171 0 / 0 Weight 61.1 kg Intake: IV Oral 240 / 240 100 / 100 Output: Urine 421 / 421 100 / 100 Other: Urine Color Yellow Yellow Straw Urine Appearance Clear Urine Odor Strong Comment pt has been continent and incontinent to urine this shift Pre void scan 318, Post void scan 323 Voiding Methods Bedside Commode Bedside Commode Completed studies during hospitalization [Text1]: Urine C&S: Proteus mirabilis ANTIBIOTIC ORG 1 Ampicillin S Ampicillin/Sulbactam S Cefazolin S Ceftazidime S Ceftriaxone S Ciprofloxacin S Gentamicin S Nitrofurantoin R Piperacillin/Tazobactam S Tobramycin S Trimethoprim/Sulfamethoxazole S US venous doppler BLE's: No deep venous thrombosis. Labs on day of discharge: Labs from last 24 hours 08/28/18 08/28/18 06:45 06:45 WBC 9.20 RBC 3.55 L Hgb 10.3 L D Hct 32.0 L MCV 90.1 MCH 29.0 MCHC 32.2 RDW 14.7 H Plt Count 267 MPV 9.9 Immature Gran % 0.2 Neutrophils % 63.8 Lymphocytes % 17.9 Monocytes % 6.2 Eosinophils % 11.6 Basophils % 0.3 Absolute Neutrophils 5.86 Absolute Lymphocytes 1.65 Absolute Monocytes 0.57 Absolute Eosinophils 1.07 H Absolute Basophils 0.03 Sodium 143 Potassium 3.3 L Chloride 112 H Carbon Dioxide 23.0 Anion Gap 8.0 BUN 19 H D Creatinine 0.84 Estimated GFR/1.73 m2 >= 60.00 Glucose 99 D Calcium 8.1 L
--- NOTE | 2018-08-28 19:20 | PDOC.CMDIS ---
LACE Index Scoring Tool - Questions: Length of Stay (in days): 2 Acuity (Admit via E.D.?): Yes E.D. Visits: 2 - Answers: Total Score: 7 Risk of Readmission: Low Risk Care Management Discharge Reason for Hospitalization: UTI Discharge Plan: Return home with jacobs catheter in place. to transport by car. Follow up with PCP and Dr. Mei.
--- NOTE | 2018-08-29 08:53 | PT.DS ---
Date of service: 08/29/18 Time of Service: 08:54 PT Notes Inpatient Physical Therapy Discharge Summary Date: 08/29/18 for 08/28/18 Dates of Service: 08/27/18 Pt was seen for PT eval only then discharged to home. See eval for recommendations. G Codes in the area mobility of walking and moving around; projected status GP [id number]. Discharge status (if discharging) GP [id number] Aminah Sanchez PT.
--- NOTE | 2018-08-29 08:56 | PTDS_ITS ---
Date of service: 08/29/18 Time of Service: 08:54 PT Notes Inpatient Physical Therapy Discharge Summary Date: 08/29/18 for 08/28/18 Dates of Service: 08/27/18 Pt was seen for PT eval only then discharged to home. See eval for recommendations. G Codes in the area mobility of walking and moving around; projected status GP [id number]. Discharge status (if discharging) GP [id number] Aminah Sanchez PT.
== END 2018-08-28 15:00 | disposition home or self-care (01) ==
LOC: ER 18:43 → MS 19:28
PROVIDERS: Admitting Provider General Practice; Emergency Provider Student in an Organized Health Care Education/Training Program; PCP Emergency Medicine; Visit Provider Internal Medicine
DX: N39.0 Urinary tract infection, site not specified (principal); B96.4 Proteus (mirabilis) (morganii) as the cause of diseases classified elsewhere; Z16.29 Resistance to other single specified antibiotic; N31.9 Neuromuscular dysfunction of bladder, unspecified; N39.498 Other specified urinary incontinence; R33.8 Other retention of urine; R60.0 Localized edema; G35 Multiple sclerosis; Z87.440 Personal history of urinary (tract) infections; I10 Essential (primary) hypertension; Z72.0 Tobacco use
CPT/HCPCS: 36415; 80048; 80053; 87077; 93005; 96361; 96365; 96367; 97163; 99222; 99232; 99239; 99285; NC; 70450; 71045; 81003; 81015; 84484; 85025; 87086; 87186; 93010; 93970; 99217; 99219; 99225; G0378; G8978; J0456; J0696

== ENCOUNTER 2018-08-31 08:30 | Outpatient (CLI) | payer MEDICARE, BC, SELFPAY | END 2018-08-31 08:50 | PROVIDERS: PCP Emergency Medicine; Visit Provider Nurse Practitioner Gerontology | DX: N39.0 Urinary tract infection, site not specified (principal); I10 Essential (primary) hypertension; G35 Multiple sclerosis; N31.9 Neuromuscular dysfunction of bladder, unspecified | CPT/HCPCS: 99213 ==

== ENCOUNTER 2018-09-26 18:00 | Outpatient (REF) | payer MEDICARE, BC, SELFPAY | END 2018-09-26 18:20 | LOC: LBN 18:00 | PROVIDERS: PCP Emergency Medicine; Visit Provider Urology | DX: N39.0 Urinary tract infection, site not specified (principal) | CPT/HCPCS: 87077; 87086; 87186 ==

== ENCOUNTER 2018-09-28 10:57 | Inpatient (IN) | payer MEDICARE, BC, SELFPAY ==
[2018-09-28] VITALS (7 sets, daily range): BP systolic 101–133; BP diastolic 43–80; PULSE 80–108; RESP 16–22; TEMP 36.7–37.7; O2SAT 93–100
--- NOTE | 2018-09-28 11:26 | DI.RAD_ITS ---
SYMPTOMS/DIAGNOSIS: WEAKNESS, FATIGUE, ? PNEUMONIA AP AND LATERAL CHEST: The lungs are suboptimally expanded. There is an ill-defined density likely lying in the right lower lobe posteriorly which would be consistent with an acute pneumonitis. The remainder of the lung is clear. No definite pleural effusion is seen. The heart is not enlarged. The hilar structures, mediastinum and tracheal air column are intact. SUMMARY: Findings consistent with a right lower lobe pneumonitis.
--- NOTE | 2018-09-28 11:28 | W.ED.GENAD ---
Discharge Plan Disposition Patient Disposition: [facility] INPATIENT Condition: Stable Discharge Details Chief Complaint: Urinary Clinical Impression: UTI (urinary tract infection), HCAP (healthcare-associated pneumonia), Generalized weakness, History of multiple sclerosis Reason For Visit: UTI AND HCAP Admit Date/Time: 09/28/18 16:12 Admit Provider: Carla Nicole Attending Provider: Carla Nicole Primary Care Provider: Дмитрий Hyatt ED Provider: Radha Ponce Discharge Data Discharge Date/Time-TO BE ENTERED AT DEPARTURE: 09/28/18 16:50 Medical Decision Making 73yo F w/ a h/o MS, neurogenic bladder and frequent UTIs who presents with profound weakness, fatigue and urinary incontinence for the past 3 days. Symptom presentation consistent with 2 previous episodes in the last 2 months with UTIs associated with her MS. Last treated with Macrobid, Rocephin and Ceftin 1 month ago when admitted for UTI. 3 doses of Macrobid since yesterday. Heart rate 108, BP 106/57. Temp 99. Patient appears lethargic but pleasant. Abdomen soft and nontender. Lungs clear to auscultation. She does have chronic upper and lower extremity weakness due to her MS but no obvious focal deficits. Will place an IV, labs, urinalysis, chest x-ray, EKG. Patient and expressed that they would rather patient be discharged home if possible. Discussed that if patient is profoundly weak and unable to walk, we can reassess after fluids. EKG notes a rate of 97, sinus, no acute ST elevation or depression. QRS 90. Urinalysis notes positive nitrite, large leukocyte esterase, 20-50 WBCs. As patient would like to go home, will treat with Rocephin with possible cephalosporins on home. Will discuss with Dr. Mei. [id number] --radiologist noted a right lower lobe pneumonia on chest x-ray. Patient admits to a chronic cough for the past few weeks. states she has been complaining of shortness of breath and productive for the past 2 nights. He states on last admission she had a noted pneumonia. Discussed that admission would likely be recommended if concerned about hospital-acquired pneumonia and/or UTI for IV antibiotics but she would rather go home. We will give a dose of Zosyn here. 0814 --discussed with Terri from urology -recommend Augmentin for urine upon discharge if pt still refusing to stay. 1550 --Terri came to see patient at bedside and convinced patient to stay. Patient still weak and she is now agreeable to stay for admission. Will admit for IV antibiotics, fluids and PT evaluation. 1605 --d/w Dr. Nicole - accepts pt for admission. Notified of antibiotics given. HPI General Mode of arrival: wheelchair. Date/Time Provider Initiated Documentation: 09/28/18 11:24. Limitations to Documentation: no limitations. Information obtained by: patient and family. HPI Narrative: Patient is a 73-year-old female who presents to the ED with a complaint of profound weakness and fatigue, urinary incontinence for the past 3 days. Patient has a history of MS, neurogenic bladder and frequent UTIs and states that when patient developed a urinary tract infection, it wipes her out and she is like a ragdoll. Patient was unable to get out of car on arrival to ED and required 3 people to get her into a wheelchair. Patient was admitted here 1 month ago for UTI and treated with Macrobid, which was then switched to a different antibiotic upon admission to the hospital but does not recall the name. states that Dr. Mei started patient on Macrobid yesterday which she took 2 doses yesterday and 1 dose today. Past medical history: Multiple sclerosis Related Data Home Medications Medication Instructions Recorded Confirmed Ca cmb no.1-vit [id number] 1 ea PO DAILY 04/11/13 08/31/18 [Vitamin D3 (calcium cit-phos)] cyanocobalamin (vitamin B-12) 1,000 mcg PO DAILY 04/11/13 08/31/18 [Vitamin B-12] iodine [Kelp (iodine)] 150 mcg PO DAILY 12/12/15 08/31/18 hydrochlorothiazide 0.5 tab PO DAILY #90 tab 06/03/18 09/28/18 loperamide 2 mg PO PRN PRN #0 cap 08/02/18 08/31/18 nystatin 0 g TOPICAL BID #0 g 08/02/18 08/31/18 potassium chloride ER 10 mEq 10 meq PO DAILY #90 tab-cap 08/12/18 09/28/18 tablet,extended release mirabegron ER 50 mg 50 mg PO DAILY #90 tab 09/23/18 09/28/18 tablet,extended release 24 hr cefuroxime axetil 250 mg PO BID #26 tab 09/29/18 potassium chloride [Klor-Con M20] 40 meq PO BID #4 tab 09/29/18 Previous Rx's Medication Instructions Recorded hydrochlorothiazide 0.5 tab PO DAILY #90 tab 06/03/18 loperamide 2 mg PO PRN PRN #0 cap 08/02/18 nystatin 0 g TOPICAL BID #0 g 08/02/18 potassium chloride ER 10 mEq 10 meq PO DAILY #90 tab-cap 08/12/18 tablet,extended release mirabegron ER 50 mg 50 mg PO DAILY #90 tab 09/23/18 tablet,extended release 24 hr cefuroxime axetil 250 mg PO BID #26 tab 09/29/18 potassium chloride [Klor-Con M20] 40 meq PO BID #4 tab 09/29/18 Allergies Allergy/AdvReac Type Severity Reaction Status Date / Time oxybutynin AdvReac Intermediate severe dry Verified 08/31/18 08:35 mouth AMPRAH AdvReac Intermediate MADE HER Uncoded 07/30/18 10:28 MS WORSE General Stated Complaint: Urinary JAVIER: 3 Review of Systems Review of Systems All systems reviewed & are unremarkable except as noted in HPI and below Constitutional Denies chills, Denies excessive sweating, Reports fatigue, Denies fever(s), Reports weakness and Denies weight loss Eyes Reports system reviewed and no additional complaints, except as docu and Denies blurry vision ENT Denies vertigo, Denies dizziness, Denies otalgia, Denies nasal congestion, Denies sore throat and Denies throat swelling Cardiovascular Denies chest pain, Denies syncope, Denies rapid heart rate and Denies dyspnea Respiratory Denies dyspnea Gastrointestinal Denies abdominal pain, Denies diarrhea and Denies vomiting Genitourinary Denies hematuria, Denies dysuria, Denies flank pain and Reports urinary incontinence Musculoskeletal Denies back pain and Denies joint swelling Integumentary/Breasts Denies lesions and Denies rash Neurologic Denies behavioral changes, Denies confusion, Denies vertigo, Denies dizziness, Denies syncope and Reports weakness Psychiatric Denies behavioral changes, Denies confusion and Denies depression Endocrine Denies excessive sweating and Reports fatigue Hematologic/Lymphatic Denies easy bruising and Denies lymphadenopathy Allergic/Immunologic Denies throat swelling [facility] Family History Mother Neoplasm Father No problems noted. Sister No problems noted. 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 [place] pets and animals: Yes pets and animals: dog(s) Smoking/Tobacco Use Status: Current-Occasional second hand exposure: No substance use type: does not use joseline/christian: Spiritism special joseline needs: No Surgical History Extraction of cataract (12/17/15) Extraction of cataract (12/31/15) Ligation of fallopian tube Exam Const General: cooperative, no acute distress and lethargic Orientation: alert, awake and oriented x3 HENMT Head: normal to inspection Ears: hearing grossly normal bilaterally and external ears normal General nose exam: external nose normal Face and sinus: normal facial exam Mouth: oral mucosae normal Throat: posterior oropharynx normal Eyes General: appearance normal, both eyes and all related structures Eyelids: eyelids normal Pupils: PERRL EOM: EOM intact bilaterally Neck Neck: normal visual inspection Lymphatic: no lymphadenopathy noted Chest Chest: normal inspection of the chest Resp Effort & Inspection: normal respiratory effort and able to speak in complete sentences Auscultation: clear to auscultation bilaterally Cardio Rate: regular rate Rhythm: regular rhythm GI Inspection: normal to inspection Palpation: soft, not firm, no guarding, no hepatosplenomegaly, no masses and nontender Auscultation: normal bowel sounds External Female Exam: external appearance normal Skin General skin exam: no rashes or lesions noted Neuro General: alert, awake, oriented x3 and moves all extremities (brace R leg) Cranial Nerves: CN's II-XI intact bilaterally Cognition: normal cognition Speech: speech normal Gait: normal gait Motor: muscle tone normal throughout and strength 5/5 throughout Sensory Exam: no sensory deficits noted Extrem Left lower extremity: lower leg (brace) Other: B/L DP/PT pulses intact Psych Appearance: grossly normal Mental Status: mental status grossly normal Speech and Movement: speech and movement normal Affect: normal affect Thought Process: normal Course 09/28/18 14:58 Blood Blood Culture - Pending 09/28/18 14:47 Blood Blood Culture - Pending 09/28/18 12:00 Urine - Cath Straight Urine Culture - Pending Laboratory Tests Range/Units 09/28/18 09/28/18 09/28/18 12:00 13:10 13:10 WBC (4.4-10.8) k/cumm 19.35 H RBC (4.00-5.20) m/cumm 4.56 Hgb (12.0-15.5) g/dL 13.5 Hct (36.0-46.0) % 40.9 MCV (80-95) fL 89.7 MCH (27.0-33.0) pg 29.6 MCHC (32.0-36.0) g/dL 33.0 RDW (11.7-14.6) % 14.8 H Plt Count (130-400) x1000/uL 352 MPV (8.0-11.0) fL 9.6 Immature Gran % 0.4 Neutrophils % 88.4 Lymphocytes % 6.6 Monocytes % 3.8 Eosinophils % 0.6 Basophils % 0.2 Absolute Neutrophils (1.2-6.7) k/cumm 17.11 H Absolute Lymphocytes (1.2-3.4) k/cumm 1.28 Absolute Monocytes (0.11-0.7) k/cumm 0.74 H Absolute Eosinophils (0.0-0.7) k/cumm 0.12 Absolute Basophils (0.0-0.2) k/cumm 0.04 Sodium (136-145) mmol/L 143 Potassium (3.5-5.1) mmol/L 4.2 Chloride (98-107) mmol/L 105 Carbon Dioxide (21.0-32.0) mmol/L 26.4 Anion Gap (3-11) mmol/L 11.6 H BUN (7-18) mg/dL 27 H Creatinine (0.55-1.02) mg/dL 1.35 H Estimated GFR/1.73 m2 (mL/min/1.73m2) 38.66 Glucose (70-100) mg/dL 143 H Lactate (0.6-1.4) mmol/L Calcium (8.5-10.1) mg/dL 9.6 Magnesium (1.8-2.4) mg/dL 2.2 Total Bilirubin (0.2-1.0) mg/dL 1.1 H AST (15-37) U/L 36 ALT (12-78) U/L 54 Alkaline Phosphatase (46-116) U/L 112 Troponin I (0.00-0.06) ng/mL < 0.02 Total Protein (6.4-8.2) g/dL 7.5 Albumin (3.4-5.0) g/dL 3.5 Urine Color (Yellow) Yellow Urine Clarity Cloudy Urine pH (5-8) 8.5 H Ur Specific [place] (1.005-1.025) 1.015 Urine Protein (Negative) mg/dL 100 H Urine Ketones (Negative) mg/dL 15 H Urine Blood (Negative) Trace-intact H Urine Nitrite (Negative) Positive H Urine Bilirubin (Negative) Negative Urine Urobilinogen (Up TO 0.2) EU/dL 0.2 Ur Leukocyte Esterase (Negative) Large H Urine RBC (0-2) 0-2 Urine WBC (0-5) HPF 20-50 Ur Epithelial Cells (Negative) HPF Negative Urine Crystals (Negative) HPF Negative Urine Bacteria (Negative) HPF Many Urine Casts (Negative) LPF Negative Urine Mucus (Negative) Negative Ur Culture Indicated? Yes Urine Glucose (Negative) mg/dL Negative Range/Units 09/28/18 14:47 WBC (4.4-10.8) k/cumm RBC (4.00-5.20) m/cumm Hgb (12.0-15.5) g/dL Hct (36.0-46.0) % MCV (80-95) fL MCH (27.0-33.0) pg MCHC (32.0-36.0) g/dL RDW (11.7-14.6) % Plt Count (130-400) x1000/uL MPV (8.0-11.0) fL Immature Gran % Neutrophils % Lymphocytes % Monocytes % Eosinophils % Basophils % Absolute Neutrophils (1.2-6.7) k/cumm Absolute Lymphocytes (1.2-3.4) k/cumm Absolute Monocytes (0.11-0.7) k/cumm Absolute Eosinophils (0.0-0.7) k/cumm Absolute Basophils (0.0-0.2) k/cumm Sodium (136-145) mmol/L Potassium (3.5-5.1) mmol/L Chloride (98-107) mmol/L Carbon Dioxide (21.0-32.0) mmol/L Anion Gap (3-11) mmol/L BUN (7-18) mg/dL Creatinine (0.55-1.02) mg/dL Estimated GFR/1.73 m2 (mL/min/1.73m2) Glucose (70-100) mg/dL Lactate (0.6-1.4) mmol/L 2.2 H Calcium (8.5-10.1) mg/dL Magnesium (1.8-2.4) mg/dL Total Bilirubin (0.2-1.0) mg/dL AST (15-37) U/L ALT (12-78) U/L Alkaline Phosphatase (46-116) U/L Troponin I (0.00-0.06) ng/mL Total Protein (6.4-8.2) g/dL Albumin (3.4-5.0) g/dL Urine Color (Yellow) Urine Clarity Urine pH (5-8) Ur Specific [place] (1.005-1.025) Urine Protein (Negative) mg/dL Urine Ketones (Negative) mg/dL Urine Blood (Negative) Urine Nitrite (Negative) Urine Bilirubin (Negative) Urine Urobilinogen (Up TO 0.2) EU/dL Ur Leukocyte Esterase (Negative) Urine RBC (0-2) Urine WBC (0-5) HPF Ur Epithelial Cells (Negative) HPF Urine Crystals (Negative) HPF Urine Bacteria (Negative) HPF Urine Casts (Negative) LPF Urine Mucus (Negative) Ur Culture Indicated? Urine Glucose (Negative) mg/dL Vital Signs Temperature 99.1 F 09/28/18 11:02 Pulse 108 H 09/28/18 11:02 Respiratory Rate 18 09/28/18 11:02 Blood Pressure 106/57 L 09/28/18 11:02 Pulse Oximetry 95 09/28/18 11:02 Temperature 99.1 F 09/28/18 11:02 Temperature Source Temporal Artery Scan 09/28/18 11:02 Pulse 108 H 09/28/18 11:02 Respiratory Rate 18 09/28/18 11:02 Respiratory Effort 09/28/18 11:06 Blood Pressure 106/57 L 09/28/18 11:02 Blood Pressure Position Sitting 09/28/18 11:02 Pulse Oximetry 95 09/28/18 11:02 Oxygen Delivery Method Room Air 09/28/18 11:02 Oxygen Flow Rate 0 09/28/18 11:02 Pain Level 0 09/28/18 11:02
[2018-09-28 12:14] LABS: Bilirubin Negative (Negative); Blood Trace-intact (Negative); Clarity Cloudy; Glucose Negative (Negative); Ketones 15 mg/dL (Negative); Leukocyte Esterase Large (Negative); Nitrite Positive (Negative); Specific Gravity 1.015 (1.005-1.025); Urobilinogen 0.2 EU/dL (Up TO 0.2); pH 8.5 (5-8)
[2018-09-28 12:23] LABS: Bacteria Many HPF (Negative); C & S Indicated? Yes; Casts Negative LPF (Negative); Crystals Negative HPF (Negative); Epithelial Cells Negative HPF (Negative); Mucus Negative (Negative); RBC 0-2 (0-2); WBC 20-50 HPF (0-5)
[2018-09-28 13:20] LABS: Abs Immature Grans 0.08 k/cumm (0.0-0.09); Absolute Basophil Count 0.04 k/cumm (0.0-0.2); Absolute Lymphocyte Count 1.28 k/cumm (1.2-3.4); Absolute Monocyte Count 0.74 k/cumm (0.11-0.7); Basophils % 0.2; Eosinophils % 0.6; HCT 40.9 % (36.0-46.0); HGB 13.5 g/dL (12.0-15.5); Immature Grans % 0.4; Lymphocytes % 6.6; Mean Corpuscular Hemoglobin 29.6 pg (27.0-33.0); Mean Corpuscular Volume 89.7 fL (80-95); Mean Platelet Volume 9.6 fL (8.0-11.0); Monocytes % 3.8; Neutrophils % 88.4; Platelet Count 352 x1000/uL (130-400); RBC 4.56 m/cumm (4.00-5.20); RBC Distribution Width 14.8 % (11.7-14.6); White Blood Cell Count 19.35 k/cumm (4.4-10.8)
[2018-09-28 13:22] LABS: Absolute Eosinophil Count 0.12 k/cumm (0.0-0.7); Absolute Neutrophil Count 17.11 k/cumm (1.2-6.7)
[2018-09-28 13:34] LABS: ALT 54 U/L (12-78); AST 36 U/L (15-37); Albumin 3.5 g/dL (3.4-5.0); Alkaline Phosphatase 112 U/L (46-116); Anion Gap 11.6 mmol/L (3-11); BUN 27 mg/dL (7-18); Bilirubin, Total 1.1 mg/dL (0.2-1.0); CO2 26.4 mmol/L (21.0-32.0); CREATININE 1.35 mg/dL (0.55-1.02); Calcium 9.6 mg/dL (8.5-10.1); Chloride 105 mmol/L (98-107); Estimated GFR 38.66 (mL/min/1.73m2); Glucose 143 mg/dL (70-100); Magnesium 2.2 mg/dL (1.8-2.4); Potassium 4.2 mmol/L (3.5-5.1); Sodium 143 mmol/L (136-145); Total Protein 7.5 g/dL (6.4-8.2)
[2018-09-28 13:35] LABS: Troponin I < 0.02 ng/mL (0.00-0.06)
[2018-09-28] MEDS: Normal Saline 250 ML 500 ML IV (14:19)
[2018-09-28] MEDS: Normal Saline Flush 10 ML SYR ×4 (14:20→22:49)
[2018-09-28 14:55] LABS: Lactate-non-spesis 2.2 mmol/L (0.6-1.4)
[2018-09-28] MEDS: PIPERACILLIN/TAZO 3.375 GM in Normal Saline 50 ML IVPB ×2 (15:46→22:46)
--- NOTE | 2018-09-28 17:35 | HPE_ITS ---
Date of service: 09/28/18 Time of Service: 17:24 Assessment and Plan (1) UTI (urinary tract infection): Current visit: Yes Status: Acute UA suspicious for infection. Culture is pending. Previous cultures have grown Proteus mirabilis. Will place jacobs catheter. Broad spectrum antibiotics for now, in the setting of possible pneumonia noted on x-ray. IV fluids. Reassess labs in the morning. Monitor culture results. (2) Pneumonia: Current visit: Yes Status: Acute HCAP vs aspiration vs atelectasis. With x-ray finding suggesting possible pneumonia. IV fluids and Broad spectrum antibiotics for now. She reports some difficulty swallowing, will order Speech Therapy evaluation. (3) DVT prophylaxis: Current visit: No Status: Acute Subcutaneous lovenox. (4) Discharge planning issues: Current visit: Yes Status: Acute She is a FULL CODE. (5) Multiple sclerosis: Current visit: Yes Status: Acute Will obtain PT consult in the setting of UTI and generalized weakness. History of Present Illness Chief Complaint: Weakness and urinary incontinence. Narrative: Nguyen Ricks is a 73 year old female with a past medical history significant for MS with neurogenic bladder, recurrent urinary tract infections, and hypertension who presented to the ED today with reports of worsening urinary incontinence over the last few days without dysuria or hematuria. She also notes increasing generalized weakness. Yesterday she was nauseated and vomited x2 last night. In the ED, she had a UA that was suspicious for infection. She also had a slightly elevated lactate at 2.2 and leukocytosis with a white blood cell count of greater than 19,000. Her BUN is elevated at 27 , creatinine is 1.35, anion gap 11.6. There was also a question of pneumonia in the emergency department as she had a chest x-ray which revealed an ill- defined density likely lying in the right lower lobe posteriorly which would be consistent with an acute pneumonitis. She denies any fevers or chills at home, she denies shortness of breath, coughing (other than her usual coughing in the morning, nonproductive), or wheezing, no chest pain/pressure, palpitations. No abdominal pain or nausea at this time. Her bowels are functioning normally, no diarrhea. She reports chronically having edema to bilateral lower extremities, which is at baseline. She admits to some difficulty swallowing at times. She is admitted to the Med/surg floor for further evaluation and management. Review of Systems Review of Systems All systems reviewed & are unremarkable except as noted in HPI and below Meds Home Medications Medication Instructions Recorded Confirmed Type Ca cmb no.1-vit [id number] 1 ea PO DAILY 04/11/13 08/31/18 History [Vitamin D3 (calcium cit-phos)] cyanocobalamin (vitamin B-12) 1,000 mcg PO DAILY 04/11/13 08/31/18 History [Vitamin B-12] iodine [Kelp (iodine)] 150 mcg PO DAILY 12/12/15 08/31/18 History hydrochlorothiazide 0.5 tab PO DAILY #90 tab 06/03/18 09/28/18 Rx loperamide 2 mg PO PRN PRN #0 cap 08/02/18 08/31/18 Rx nystatin 0 g TOPICAL BID #0 g 08/02/18 08/31/18 Rx potassium chloride ER 10 mEq 10 meq PO DAILY #90 tab-cap 08/12/18 09/28/18 Rx tablet,extended release mirabegron ER 50 mg 50 mg PO DAILY #90 tab 09/23/18 09/28/18 Rx tablet,extended release 24 hr nitrofurantoin monohyd/m-cryst 100 mg PO BID 09/28/18 09/28/18 History Allergies Allergy/AdvReac Type Severity Reaction Status Date / Time oxybutynin AdvReac Intermediate severe dry Verified 08/31/18 08:35 mouth AMPRAH AdvReac Intermediate MADE HER Uncoded 07/30/18 10:28 MS WORSE Exam Narrative Exam Narrative: General: Very pleasant elderly female, resting in bed , in no acute distress. HEENT: PERRL, EOMs intact, moist mucous membranes, tongue protrudes midline, palate rises symmetrically. Neuro: speech is clear and articulate, no focal deficits. Neck: Supple, no lymphadenopathy, no JVD Cardiovascular: Regularly rate and rhythm, normal S1 and S2, no murmurs, rubs, or gallops Lungs: Respirations even and unlabored, fine rales to bilateral bases, no wheezing or rhonchi. Gastrointestinal: Abdomen soft, nontender, nondistended, no masses appreciated, normoactive bowel sounds. Extremities: Pitting edema to bilateral lower extremities, +1 right, +2 left. She has a brace on left ankle, there is a healed wound on her right donaldson at the proximal end of the brace, no open area, no signs of infection. Pedal pulses are faint but palpable bilaterally. Results Labs : 09/29/18 06:40 09/29/18 06:40 Laboratory Results - last 24 hr 09/28/18 09/28/18 09/28/18 12:00 13:10 13:10 WBC 19.35 H RBC 4.56 Hgb 13.5 Hct 40.9 MCV 89.7 MCH 29.6 MCHC 33.0 RDW 14.8 H Plt Count 352 MPV 9.6 Immature Gran % 0.4 Neutrophils % 88.4 Lymphocytes % 6.6 Monocytes % 3.8 Eosinophils % 0.6 Basophils % 0.2 Absolute Neutrophils 17.11 H Absolute Lymphocytes 1.28 Absolute Monocytes 0.74 H Absolute Eosinophils 0.12 Absolute Basophils 0.04 Sodium 143 Potassium 4.2 Chloride 105 Carbon Dioxide 26.4 Anion Gap 11.6 H BUN 27 H Creatinine 1.35 H Estimated GFR/1.73 m2 38.66 Glucose 143 H Lactate Calcium 9.6 Magnesium 2.2 Total Bilirubin 1.1 H AST 36 ALT 54 Alkaline Phosphatase 112 Troponin I < 0.02 Total Protein 7.5 Albumin 3.5 Urine Color Yellow Urine Clarity Cloudy Urine pH 8.5 H Ur Specific [place] 1.015 Urine Protein 100 H Urine Ketones 15 H Urine Blood Trace-intact H Urine Nitrite Positive H Urine Bilirubin Negative Urine Urobilinogen 0.2 Ur Leukocyte Esterase Large H Urine RBC 0-2 Urine WBC 20-50 Ur Epithelial Cells Negative Urine Crystals Negative Urine Bacteria Many Urine Casts Negative Urine Mucus Negative Ur Culture Indicated? Yes Urine Glucose Negative 09/28/18 14:47 WBC RBC Hgb Hct MCV MCH MCHC RDW Plt Count MPV Immature Gran % Neutrophils % Lymphocytes % Monocytes % Eosinophils % Basophils % Absolute Neutrophils Absolute Lymphocytes Absolute Monocytes Absolute Eosinophils Absolute Basophils Sodium Potassium Chloride Carbon Dioxide Anion Gap BUN Creatinine Estimated GFR/1.73 m2 Glucose Lactate 2.2 H Calcium Magnesium Total Bilirubin AST ALT Alkaline Phosphatase Troponin I Total Protein Albumin Urine Color Urine Clarity Urine pH Ur Specific [place] Urine Protein Urine Ketones Urine Blood Urine Nitrite Urine Bilirubin Urine Urobilinogen Ur Leukocyte Esterase Urine RBC Urine WBC Ur Epithelial Cells Urine Crystals Urine Bacteria Urine Casts Urine Mucus Ur Culture Indicated? Urine Glucose Last Vital Signs Temp 36.7 C 09/28/18 16:36 Pulse 101 H 09/28/18 16:36 Resp 16 09/28/18 16:36 BP 110/54 L 09/28/18 16:36 Pulse Ox 96 09/28/18 16:36
[2018-09-28] MEDS: VANCOMYCIN 750 MG in Normal Saline 250 ML 250 MG IV (18:23)
[2018-09-28] MEDS: Enoxaparin 30 MG/0.3 ML SYR SC (19:36)
[2018-09-28] MEDS: SODIUM CHLORIDE 0.45% 1,000 ML 100 ML IV (19:37)
[2018-09-29 03:38] VITALS: BP 105/53; PULSE 87; RESP 19; TEMP 37.1; O2SAT 92
[2018-09-29] MEDS: PIPERACILLIN/TAZO 3.375 GM in Normal Saline 50 ML IVPB ×2 (04:10→10:40)
[2018-09-29] MEDS: SODIUM CHLORIDE 0.45% 1,000 ML 100 ML IV (06:04)
[2018-09-29 06:57] LABS: Abs Immature Grans 0.04 k/cumm (0.0-0.09); Absolute Basophil Count 0.04 k/cumm (0.0-0.2); Absolute Eosinophil Count 0.59 k/cumm (0.0-0.7); Absolute Lymphocyte Count 1.89 k/cumm (1.2-3.4); Basophils % 0.3; Eosinophils % 4.7; HCT 33.2 % (36.0-46.0); HGB 10.4 g/dL (12.0-15.5); Immature Grans % 0.3; Mean Corp. HGB Concentration 31.3 g/dL (32.0-36.0); Mean Corpuscular Hemoglobin 28.2 pg (27.0-33.0); Mean Platelet Volume 9.3 fL (8.0-11.0); Monocytes % 5.2; Neutrophils % 74.5; Platelet Count 285 x1000/uL (130-400); RBC 3.69 m/cumm (4.00-5.20); RBC Distribution Width 14.8 % (11.7-14.6); White Blood Cell Count 12.59 k/cumm (4.4-10.8)
[2018-09-29 06:58] LABS: Absolute Monocyte Count 0.65 k/cumm (0.11-0.7); Absolute Neutrophil Count 9.38 k/cumm (1.2-6.7)
[2018-09-29 07:05] LABS: Anion Gap 12.9 mmol/L (3-11); BUN 25 mg/dL (7-18); CO2 24.1 mmol/L (21.0-32.0); CREATININE 1.27 mg/dL (0.55-1.02); Calcium 7.9 mg/dL (8.5-10.1); Chloride 106 mmol/L (98-107); Estimated GFR 41.48 (mL/min/1.73m2); Glucose 99 mg/dL (70-100); Sodium 143 mmol/L (136-145)
[2018-09-29 07:14] LABS: Potassium 2.8 mmol/L (3.5-5.1)
[2018-09-29 07:23] VITALS: BP 125/84; PULSE 85; RESP 17; TEMP 36.5; O2SAT 98
--- NOTE | 2018-09-29 07:37 | PDOC.CMIN ---
- If Service Date Differs Date of service: 09/29/18 Time of Service: 07:37 Care Management Initial Assess REASON FOR HOSPITALIZATION:: UTI, HCAP. PAST MEDICAL HISTORY/PAST SURGICAL HISTORY:: Chronic fatigue, hypertension, recurrent UTI, hypokalemia, MS, neurogenic bladder, proteus mirabilis infection. Surgical hx: extraction of cataract, fallopian tube ligation. PREVIOUS FUNCTIONAL STATUS/SOCIAL/FAMILY SUPPORTS:: Nguyen resides in [place] with her , Mukesh. She enjoys working with plants, particularly [employer]. Her , Mukesh, is a multimedia manager clinical applications specialist. She had two adopted children, both of whom have , and has several grandchildren. She states she has two women that help her at home when Mukesh is out of the house. Nguyen is independent with her ADLs and uses a motorized scooter and walker at home and in the community. Nguyen relies on Mukesh and her caregiver/friends for transportation. CURRENT FUNCTIONAL STATUS:: Nguyen is sitting in her chair with her , Mukesh, at bedside when CM visits this morning. Nguyen is engaged in conversation, makes good eye contact, and is talkative. Nguyen is familiar to this CM as she has had two recent hospitalizaitions in July and August. Patient reports that all had been going well since her last hospitalization up until a few days ago. Nguyen reports that she had HH services following her last discharge but those had stopped. She continues to have outpatient PT two times a week through [facility]. Nguyen's WBCs remain elevated but have come down to 12.59. She continues to receive IV fluids and antibiotics. ADVANCE DIRECTIVES:: None on file at [facility]. CM discussed advanced directives with patient and her , Mukesh. Mukesh reports that Nguyen has them but they will need to be updated. CM offers to do this with her and Mukesh refuses, stating that he has his own forms at his legal office and will update them there. Has patient been provided with information about the portal?: Yes Did the patient sign up for the portal?: No CODE STATUS:: Full Code INSURANCE COVERAGE / FINANCIAL ISSUES:: Blue Cross Blue Shield, Medicare. CURRENT HOME/COMMUNITY SERVICES/EQUIPMENT:: No home or community services. Motorized scooter and walker for ambulation. PRIMARY CARE PHYSICIAN:: Дмитрий Hyatt MD. POTENTIAL DISCHARGE NEEDS:: Follow up appointment with PCP. PATIENT/FAMILY EDUCATION NEEDS:: Discharge education, any limitations, and follow up plan of care. Ask Me Three discussion. ANTICIPATED BARRIERS TO DISCHARGE:: No anticipated barriers to discharge. PLAN:: Nguyen will discharge home when medically ready per MD. Anticipate patient will discharge with no services and follow up with her PCP. CM will continue to offer support to patient and care team regarding discharge planning and disposition.
--- NOTE | 2018-09-29 07:42 | INITIAL_ITS ---
- If Service Date Differs Date of service: 09/29/18 Time of Service: 07:37 Care Management Initial Assess REASON FOR HOSPITALIZATION:: UTI, HCAP. PAST MEDICAL HISTORY/PAST SURGICAL HISTORY:: Chronic fatigue, hypertension, recurrent UTI, hypokalemia, MS, neurogenic bladder, proteus mirabilis infection. Surgical hx: extraction of cataract, fallopian tube ligation. PREVIOUS FUNCTIONAL STATUS/SOCIAL/FAMILY SUPPORTS:: Nguyen resides in [place] with her , Mukesh. She enjoys working with plants, particularly [employer]. Her , Mukesh, is a time clerk learning and development manager. She had two adopted children , both of whom have , and has several grandchildren. She states she has two women that help her at home when Mukesh is out of the house. Nguyen is independent with her ADLs and uses a motorized scooter and walker at home and in the community. Nguyen relies on Mukesh and her caregiver/friends for transportation. CURRENT FUNCTIONAL STATUS:: Nguyen is sitting in her chair with her , Mukesh , at bedside when CM visits this morning. Nguyen is engaged in conversation, makes good eye contact, and is talkative. Nguyen is familiar to this CM as she has had two recent hospitalizaitions in July and August. Patient reports that all had been going well since her last hospitalization up until a few days ago. Nguyen reports that she had HH services following her last discharge but those had stopped. She continues to have outpatient PT two times a week through [facility]. Nguyen's WBCs remain elevated but have come down to 12.59. She continues to receive IV fluids and antibiotics. ADVANCE DIRECTIVES:: None on file at [facility]. CM discussed advanced directives with patient and her , Mukesh. Mukesh reports that Nguyen has them but they will need to be updated. CM offers to do this with her and Mukesh refuses, stating that he has his own forms at his legal office and will update them there. Has patient been provided with information about the portal?: Yes Did the patient sign up for the portal?: No CODE STATUS:: Full Code INSURANCE COVERAGE / FINANCIAL ISSUES:: Blue Cross Blue Shield, Medicare. CURRENT HOME/COMMUNITY SERVICES/EQUIPMENT:: No home or community services. Motorized scooter and walker for ambulation. PRIMARY CARE PHYSICIAN:: Дмитрий Hyatt MD. POTENTIAL DISCHARGE NEEDS:: Follow up appointment with PCP. PATIENT/FAMILY EDUCATION NEEDS:: Discharge education, any limitations, and follow up plan of care. Ask Me Three discussion. ANTICIPATED BARRIERS TO DISCHARGE:: No anticipated barriers to discharge. PLAN:: Nguyen will discharge home when medically ready per MD. Anticipate patient will discharge with no services and follow up with her PCP. CM will continue to offer support to patient and care team regarding discharge planning and disposition.
[2018-09-29] MEDS: Potassium Chloride 20 MEQ TABCR 40 MEQ PO (08:07)
[2018-09-29] MEDS: POTASSIUM CHLORIDE 20 MEQ/100 ML BAG 50 MEQ IVPB (08:08)
[2018-09-29] MEDS: Normal Saline Flush 10 ML SYR IVP (10:41)
[2018-09-29] MEDS: Mirabegron 50 MG TABCR PO (10:43)
--- NOTE | 2018-09-29 10:48 | EVALE_ITS ---
Date of service: 09/29/18 Time of Service: 07:00 Speech Therapy Evaluation Note: REFERRING PROVIDER: Padma Guillaume NP BACKGROUND This is a 73-year-old right-handed female who, at home, was noted to show an increase in generalized weakness as well as in urinary incontinence. Additionally she had some nausea and vomiting. Consequently, she was brought to the ED. A chest x-ray was done, the results of which were consistent with a possible right lower lobe pneumonia. She also apparently reported occasional difficulty with swallowing. Therefore a swallow eval was requested. The patient is able to provide additional background information with regard to p.o. consistencies taken at home in the weeks prior to this admission. She states that she has been taking what, by description, are Thin liquids, a Regular consistency diet and whole pills in pur?e. Occasionally she also takes pills with a liquid wash. She denies having any difficulty swallowing at home other than with large pills. PMH is postive for the followin. Multi-year h/o Multiple Sclerosis 2. HTN 3. Recurrent UTIs OBJECTIVE Nursing reports the followin. Temp: 36.5 2. O2 sat: 98% on room air 3. Lung sounds CTA-B in the presence of an antibiotic 4. Pt is currently on a Puree diet, Thin liquids and whole pills in puree. 5. Pt tolerated whole pills in puree earlier this morning, with the large pill broken in half & given in puree. The patient is awake and sitting in her chair. When I enter the room she greets me with good direct eye contact, a smile and an intelligible verbal greeting. She does not remember me but says I look familiar. When I tell her my name, she immediately remembers me from many years ago in the community. She converses well, both asking and answering questions. She is A & O x 3 ( person, place, event but not time) and able to follow 3-step directions. Oral Sensorimotor Exam The patient has her own dentition on both upper and lower ridges. She is partially edentulous bilaterally on the lower ridge. She denies any dental discomfort, either at rest or when chewing. Oral sensation is within normal limits bilaterally for buccal, labial and lingual areas. Motorically, both smile and forehead wrinkles are symmetrical. Labial and buccal strength and coordination are wiithin normal limits bilaterally. No lingual deviation on protrusion is seen in a setting of good excursion. Lingual lateralization is within normal limits. However, lingual rapid alternating movements are moderately decreased. Lingual strength is also moderately decreased bilaterally. Mandibular lateralization is within normal limits bilaterally. Velopharyngeal elevation is strong and symmetrical. Volitional cough is strong , however, volitional throat-clear is mildly to moderately decreased. Estimated speech intelligibility to this mildly familiar listener in a setting of mild background noise is 100%. Vocal quality and vocal intensity are both within normal limits. Regarding swallowing the following is noted: 1. [place]-thick liquid: Good bolus control and posterior oral transit. Swallow is mildly audible but no yasemin signs and symptoms of aspiration or penetration are seen. Oral clearance is 100% and no oral escape noted. 2. Thin liquid: Results are the same as for [place]-thick liquid. These results are true for both single and consecutive swallows by both cup and straw. 3. Puree food: Good bolus control and linguopalatal bolus compression. Posterior oral transit appears to be WNL. No yasemin s/s aspiration/penetration are seen. Oral clearance is 100% and no oral escape is note. 4. Mechanically Altered food: Good mastication quality, bolus control and POT. No yasemin s/s aspiration/penetration are seen. Oral clearance is 100% and no oral escape is noted. 5. Dysphagia Advanced food: Results are the same as for M. A. 6. Regular consistency food: Increased mastication time with this increase in food density is appropriate, resulting in good mastication quality. Bolus control and POT are WNL. No yasemin s/s aspiration/penetration are seen. Oral clearance is 100% and no oral escape is noted. 7. Whole pills: Not able to be assessed at this visit but, as noted above, nursing reports good toleration in puree this morning. The patient is observed to be able to independently self-feed using her dominant RUE and regular utensils. IMPRESSION Mild pharyngeal dysphagia specific to whole pills by patient report. Pt appears to tolerate both Thin liquids and Regular consistency foods in a setting of long-standing MS and possible pneumonia. Given today's results I am not confident that, if she does have pneumonia, it is an aspiration pneumonia, unless there has been silent aspiration. RECOMMENDATIONS 1. Change to a Regular consistency diet. 2. Continue Thin liquids 3. Continue whole pills in puree with large pills cut in half in puree. 4. Independent self-feeding 5. No ST indicated at this time. Thank you for referring this patient.
--- NOTE | 2018-09-29 11:08 | OTIE_ITS ---
Occupational Therapy Notes Inpatient Occupational Therapy Evaluation Date: 09/29/18 Referring Doctor: Carla Nicole MD OT Orders: Eval and Treat Precautions: Fall precautions PATIENT PROFILE/ADMITTING DIAGNOSIS: Pt is a 73 year old female who was admitted to [facility] for pneumonia and seen for OT consult for evaluation and treatment. Past Medical History: Spastic neurogenic bladder, Multiple Sclerosis, UTI, essential hypertension, edema (B) LE, proteus mirabilia infection, hypertension , hypokalemia, DVT prophylaxis, sepsis. Social History/Home Situation: Pt reports that she lives in a private home with her and her dog. She reports that she has a ramp to enter her home. She has two floors in her home with a seated chiar lift for her to get to the second floor. She reports that her bathroom has a walk in shower which she uses her mobilized machine to get into the bathroom to her shower. Her previous level of function for ADL routine was that she is able to get dressed (I) on the side of her bed for UE dressing. She then transitions to her toilet where she performs her toileting routine and then puts on her LE dressing garments. She performs her teeth brushing routine sitting at the sink, which she reports she thinks she should be standing. She is able to cook the meals in her kitchen. She reports that her performs the grocery shopping only because he wants to and she doesn't drive. She also reports that anything she can't (I) perform her will (A) her with. Equipment owned/DME: Stair chair lift, mobilized scooter, grab bars, shower bench, hand held shower head, 4WW for transitioning up ramp. SUBJECTIVE: Pt sitting in chair when OT arrived. She reports that she is looking forward to services and is agreeable to OT session. OBJECTIVE: General Observation: Jha, (L) UE IV Mental Status: A&Ox4 Pain: no c/o pain. ROM: RUE AROM WNL L UE AROM WNL STRENGTH: RUE 5/5 throughout LUE 5/5 throughout BALANCE: Static sitting Normal Dynamic Sitting Normal SPECIAL TESTS: Daily Activity Limitations Standardized Measure [facility] AM -PAC ?6 clicks? Daily Activity Inpatient Short Form: Raw score: 23 Standardized score: 51.12 CMS score: 15.85 % CMS modifier: CI INFORMED CONSENT/EDUCATION: Pt instructed in purpose of OT Consult and plan of care. ASSESSMENT: Patient is a 73-year-old female referred to occupational therapy services with diagnosis of pneumonia in setting of Spastic neurogenic bladder, Multiple Sclerosis, UTI, essential hypertension, edema (B) LE, proteus mirabilia infection, hypertension, hypokalemia, DVT prophylaxis, sepsis. Pt reports that she feels she is at baseline for (I) in functional ADLs/IADLs. She reports that her can help her as needed. Pt does not require skilled OT services at this time. OT recommends that return home when medically cleared. AMPAC score 23, CMS score 15.86%. Patient is assessed as a Moderate 80409 complexity based on the following: History: See Above Examination: See Above Presentation: Evolving Decision Making: AMPAC score 23, CMS score 15.86% GOALS N/A PLAN OF CARE/TREATMENT PLAN: OT eval only. DISCHARGE RECOMMENDATIONS Home when medically cleared. Pt has all DME. TREATMENT TIME/MINUTES/CODES 20 min IE, 10:45 G Codes in the area of self- : washing oneself, toileting, dressing, eating and drinking, current status GO [id number] CI projected status GO [id number]. Discharge status GO [id number] Based on AMPAC score 23, CMS score 15.86%. Graciela Arciniega OTR/L
[2018-09-29] MEDS: VANCOMYCIN 750 MG in Normal Saline 250 ML 250 MG IV (11:31)
--- NOTE | 2018-09-29 11:31 | PT.INIE ---
Date of service: 09/29/18 Time of Service: 11:32 PT Notes Date: 09/29/18 Referring Doctor: Carla Nicole PT Orders: PT CONSULT: eval/treat Precautions: Fall precautions Patient Profile/Admitting Diagnosis: Pt is a 73yr old female admitted with urinary tract infection PMHX: type II multiple sclerosis at age 15yrs, frequent falls, neurogenic bladder, urinary incontinence and urgency, cataracts, hypertension, bilateral lower extremity edema, B12 deficiency, bilateral tubal ligation, chronic fatigue Social History/Home Situation: Lives with in house. Baseline mobility is CGA-Khanh transfers with 4WW to electric scooter, uses scooter as primary mode of transportation, assists with ADLS, Has been going to outpatient PT at [facility] and wants to resume there when discharged. Equipment owned/DME: 4WW, commode, grab bars in shower with hand held wand SUBJECTIVE: Pt lying in bed, agreeable to PT consult. States she has been working on walking with outpatient PT and wants to keep working on that. Pt states I want to go home today, I don't think I need to be here. OBJECTIVE General Observation: IV L UE Mental Status: A& O x3 Pain: no c/o pain BED MOBILITY/TRANSFERS: * max A to don bilateral sneakers over SAL stockings Sit-stand: attempted 3 sit to stand transfers with FWW, pt able to get to 3/4 standing position before losing balance posteriorly Sit-stand: CGA with use STEDY lift, pt able to get herself to standing position in STEDY Stand-sit: CGA, pt with difficulty performing slow descent due to quad weakness, cues to reach back to chair for improving control with sitting GAIT: Unable to gait train with FWW or 4WW due to LE weakness and decreased standing balance. 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 ASSESSMENT: Pt is a 73 yr old female admitted with urinary tract infection in setting of type II multiple sclerosis at age 15yrs, frequent falls, neurogenic bladder, urinary incontinence and urgency. Pt presents with the following impairment level findings: decreased strength in bilateral upper and lower extremities, decreased strength and mobility with bed transfers, standing transfers, decreased static and dynamic standing balance putting her at risk for falls, inability to perform gait or transfers with 4WW this morning requriing STEDY lift for transfers to chair. Pt will benefit from skilled therapy intervention for strengthening and progressive mobility training. She is at functional level where she can return to home with who cares for her and resume outpatient PT services at [facility] for continued gait training. GOALS Goals x1 week 1.Supine-sit: HOB 30 degrees, CGA 2.Sit-Supine: HOB flat, MinAx1 3.Sit-Stand: maxAx1 with 4WW 4.Stand-sit: modAx1 5.Bed-chair: max Ax1 with 4WW 6.Chair-bed: max Ax1 with 4WW 7.Gait: maxAx1 with 4WW 3 ft to chair PLAN OF CARE/TREATMENT PLAN: 1-2x/day, 7 days/ week x 1week Plan of care has been reviewed with the [employer] providing the service under Physical therapy direction. Initiate physical therapy for strengthening, bed mobility, transfers, gait, sitting and standing balance training, range of motion, use of assistive devices DISCHARGE RECOMMENDATIONS home with , has all DME, recommend resume outpatient phyiscal therapy at [facility] in [facility] TREATMENT TIME/MINUTES/CODES 25 IE 11:30 G Codes in the area mobility of walking and moving around: current status [id number] CL; projected status GP [id number]. Discharge status (if discharging) GP [id number] CL based on [facility] Scores Aminah Sanchez PT
--- NOTE | 2018-09-29 11:38 | IN_ITS ---
Date of service: 09/29/18 Time of Service: 11:32 PT Notes Date: 09/29/18 Referring Doctor: Carla Nicole PT Orders: PT CONSULT: eval/treat Precautions: Fall precautions Patient Profile/Admitting Diagnosis: Pt is a 73yr old female admitted with urinary tract infection PMHX: type II multiple sclerosis at age 15yrs, frequent falls, neurogenic bladder, urinary incontinence and urgency, cataracts, hypertension, bilateral lower extremity edema, B12 deficiency, bilateral tubal ligation, chronic fatigue Social History/Home Situation: Lives with in house. Baseline mobility is CGA-Khanh transfers with 4WW to electric scooter, uses scooter as primary mode of transportation, assists with ADLS, Has been going to outpatient PT at [facility] and wants to resume there when discharged. Equipment owned/DME: 4WW, commode, grab bars in shower with hand held wand SUBJECTIVE: Pt lying in bed, agreeable to PT consult. States she has been working on walking with outpatient PT and wants to keep working on that. Pt states I want to go home today, I don't think I need to be here. OBJECTIVE General Observation: IV L UE Mental Status: A& O x3 Pain: no c/o pain BED MOBILITY/TRANSFERS: * max A to don bilateral sneakers over SAL stockings Sit-stand: attempted 3 sit to stand transfers with FWW, pt able to get to 3/4 standing position before losing balance posteriorly Sit-stand: CGA with use STEDY lift, pt able to get herself to standing position in STEDY Stand-sit: CGA, pt with difficulty performing slow descent due to quad weakness , cues to reach back to chair for improving control with sitting GAIT: Unable to gait train with FWW or 4WW due to LE weakness and decreased standing balance. 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 ASSESSMENT: Pt is a 73 yr old female admitted with urinary tract infection in setting of type II multiple sclerosis at age 15yrs, frequent falls, neurogenic bladder, urinary incontinence and urgency. Pt presents with the following impairment level findings: decreased strength in bilateral upper and lower extremities, decreased strength and mobility with bed transfers, standing transfers, decreased static and dynamic standing balance putting her at risk for falls, inability to perform gait or transfers with 4WW this morning requriing STEDY lift for transfers to chair. Pt will benefit from skilled therapy intervention for strengthening and progressive mobility training. She is at functional level where she can return to home with who cares for her and resume outpatient PT services at [facility] for continued gait training. GOALS Goals x1 week 1.Supine-sit: HOB 30 degrees, CGA 2.Sit-Supine: HOB flat, MinAx1 3.Sit-Stand: maxAx1 with 4WW 4.Stand-sit: modAx1 5.Bed-chair: max Ax1 with 4WW 6.Chair-bed: max Ax1 with 4WW 7.Gait: maxAx1 with 4WW 3 ft to chair PLAN OF CARE/TREATMENT PLAN: 1-2x/day, 7 days/ week x 1week Plan of care has been reviewed with the PSYCHIATRIC THERAPIST providing the service under Physical therapy direction. Initiate physical therapy for strengthening, bed mobility, transfers, gait, sitting and standing balance training, range of motion, use of assistive devices DISCHARGE RECOMMENDATIONS home with , has all DME, recommend resume outpatient phyiscal therapy at [facility] in [facility] TREATMENT TIME/MINUTES/CODES 25 IE 11:30 G Codes in the area mobility of walking and moving around: current status [id number] CL; projected status GP [id number]. Discharge status (if discharging) GP [id number] CL based on [facility] Scores Aminah Sanchez PT
[2018-09-29 11:48] VITALS: BP 102/59; PULSE 79; RESP 18; TEMP 36.9; O2SAT 97
--- NOTE | 2018-09-29 12:06 | PHARADMIT ---
Admission Pharmacy Clinical Review UTI AND HCAP Code Status Full Code Current Weight 61.6 kg Renally Cleared and Narrow Therapeutic Index Meds crcl ~34ml/min QTc Value / Action Taken listed as 0 BP Control, Fever 125/84 afebrile Electrolytes reviewed K 2.8, Mag 2.0 KCL ordered DVT Prophylaxis enoxaparin Opiate Usage / Scheduled Bowel Regimen Ordered no/PRN Plt/SCr for Heparin / Enoxaparin 285/1.27 INR for Warfarin na H/H stable, WBC/Bands 10.4/33.2 wbc 12.59 Antibiotic appropriateness pip/tazo and vanco Cultures and Sensitivities BC pending, UC proteus mirabilis Surgical ABX d/c within 24 hr na DM control / Insulin Dosing na Heart Failure (Check EF%) (CORRY's, B-Block, Diuretics) na IV to PO Switch IV anb Home Meds Reviewed ok Home Meds Not Ordered Ca cmb no.1-vit [id number] [Vitamin D3 (calcium cit-phos)] cyanocobalamin (vitamin B-12) [Vitamin B-12] 1,000 mcg PO DAILY 04/11/13 iodine [Kelp (iodine)] 150 mcg PO DAILY 12/12/15 loperamide 2 mg PO PRN PRN #0 cap 08/02/18 [Rx Confirmed 08/31/18] nystatin 0 g TOPICAL BID #0 g 08/02/18 [Rx Confirmed 08/31/18] potassium chloride ER 10 mEq tablet,extended release 10 meq PO DAILY #90 nitrofurantoin monohyd/m-cryst 100 mg PO BID 09/28/18 Comments
--- NOTE | 2018-09-29 14:18 | DSE_ITS ---
Date of service: 09/29/18 Time of Service: 14:16 DS: Diagnosis Discharge Diagnosis (1) UTI (urinary tract infection): Status: Acute (2) Pneumonia: Status: Acute (3) Multiple sclerosis: Status: Acute Discharge Plan Disposition Patient Disposition: HOME Condition: Stable Discharge Details Reason For Visit: UTI AND HCAP Admit Date/Time: 09/28/18 16:12 Admit Provider: Carla Nicole Attending Provider: Carla Nicole Primary Care Provider: Дмитрий Hyatt [facility] Course Hospital Course: Nguyen Ricks is a 73 year old female with a past medical history significant for MS with neurogenic bladder, recurrent urinary tract infections, and hypertension who presented to the ED yesterday with reports of worsening urinary incontinence over the last few days without dysuria or hematuria. She also noted increasing generalized weakness. She was nauseated and vomited x2 the night prior to her presentation. In the ED, she had a UA that was suspicious for infection. She also had a slightly elevated lactate at 2.2 and leukocytosis with a white blood cell count of greater than 19,000. Her BUN is elevated at 27, creatinine is 1.35, anion gap 11.6. There was also a question of pneumonia in the emergency department as she had a chest x-ray which revealed an ill-defined density likely lying in the right lower lobe posteriorly which would be consistent with an acute pneumonitis. She was admitted to the med/surg floor and started on broad spectrum antibiotics. A jacobs catheter was placed. She improved over night. Her leukocytosis improved to 12.59, her creatinine improved to 1.27. She was noted to have hypokalemia, she was given potassium supplementation. Her urine culture grew Proteus (she has grown proteus on previous cultures). She was not hypoxic, her oxygen saturation was 98% on room air, she had no shortness of breath, no worsening cough, no wheezing, no other evidence of pneumonia. She was transitioned from broad antibiotics to oral Ceftin, which the proteus was sensitive to on previous urine culture from 09/27/18. She will need to complete a full 2 week course of antibiotics. She will also be discharged with additional potassium supplementation with repeat labs in 4 days. She has seen Dr[address] Mei, Urology, in the past. Her case was discussed with Sigifredo , his recommendations were to discharge her home with a jacobs catheter. He will see her in follow up in the clinic early next week for jacobs removal. Dr. Mei is in agreement with Cefuroxime for the treatment of her UTI. At the time of her admission she verbalized that she occasionally has difficulty swallowing. She was evaluated by speech therapy and dietary recommendations were made. She can resume a regular diet. She will resume outpatient PT and follow up with her PCP as scheduled. Home Meds and New Rx's Prescriptions: New cefuroxime axetil 250 mg Tablet 250 mg PO BID Qty: 26 RF: 0 potassium chloride [Klor-Con M20] 20 mEq Tablet,Er Particles/Crystals 40 meq PO BID Qty: 4 RF: 0 Continue mirabegron [Myrbetriq] 50 mg tablet extended release 24 hr 50 mg PO DAILY Qty: 90 RF: 3 cyanocobalamin (vitamin B-12) [Vitamin B-12] 1,000 MCG tablet 1,000 mcg PO DAILY RF: 0 Ca cmb no.1-vit [id number]-B12 [Vitamin D3 (calcium cit-phos)] 1 EACH tablet 1 ea PO DAILY RF: 0 hydrochlorothiazide 25 MG tablet 0.5 tab PO DAILY Qty: 90 RF: 4 potassium chloride [K-Tab] 10 mEq tablet extended release 10 meq PO DAILY Qty: 90 RF: 3 iodine [Kelp (iodine)] 150 MCG tablet 150 mcg PO DAILY RF: 0 loperamide 2 mg Capsule 2 mg PO PRN PRN (Reason: DIARRHEA) Qty: 0 RF: 0 nystatin 100,000 unit/gram Powder Topical BID Qty: 0 RF: 0 Discontinued nitrofurantoin monohyd/m-cryst 100 mg Capsule 100 mg PO BID RF: 0 Discharge Instructions Instructions: Urinary Tract Infection in Women (DC), Jacobs Catheter Placement and Care (DC) Additional Instructions: -Take the antibiotics until they are gone. -The jacobs catheter will stay in place until your follow up with Dr. Mei. -Your potassium was low, please take 40mg tonight and 40 mg tomorrow morning, then resume your usual dose the following day. -You will need to have labs drawn on Wednesday to reassess your Potassium. -Resume outpatient PT. -Follow up with Urology as scheduled. -Follow up with your PCP as scheduled. Take care! Stand Alone Forms: Nursing Discharge Form Referrals: UROLOGY,[facility] [OTHER] - 10/04/18 2:00 pm (With Terri.) Дмитрий Hyatt, [Primary Care Provider] - 10/05/18 11:20 am Activity:: Activity as Tolerated Equipment/Supplies:: No Equipment Needed Diet:: As Tolerated Discharge Orders Discharge Orders: Discharge Order (Routine); Ordered 09/29/18 Ordered By: Padma Guillaume Other Ambulatory Orders: Basic Metabolic Panel (Routine) Timeframe: 20181003 Location: Determined by Patient Ordered By: Padma Guillaume Exam Narrative Exam Narrative: General: Very pleasant elderly female, sitting up in the chair, in no acute distress. HEENT: PERRL, EOMs intact, moist mucous membranes, tongue protrudes midline, palate rises symmetrically. Neuro: speech is clear and articulate, no focal deficits. Neck: Supple, no lymphadenopathy, no JVD Cardiovascular: Regularly rate and rhythm, normal S1 and S2, no murmurs, rubs, or gallops Lungs: Respirations even and unlabored, fine rales to bilateral bases, no wheezing or rhonchi. Gastrointestinal: Abdomen soft, nontender, nondistended, no masses appreciated, normoactive bowel sounds. Extremities: Pitting edema to bilateral lower extremities, +1 right, +2 left. She has a brace on left ankle, there is a healed wound on her right donaldson at the proximal end of the brace, no open area, no signs of infection. Pedal pulses are faint but palpable bilaterally. DS: Data Vitals/I&O Vitals and I&O: Vital Signs Temperature 36.9 C 09/29/18 11:48 Temperature Source Tympanic 09/29/18 11:48 Pulse 79 09/29/18 11:48 Pulse Rhythm Regular 09/29/18 08:00 Respiratory Rate 18 09/29/18 11:48 Respiratory Effort Non-Labored 09/29/18 08:00 Respiratory Depth Normal 09/29/18 08:00 Respiratory Pattern Normal 09/29/18 08:00 Blood Pressure 102/59 L 09/29/18 11:48 Blood Pressure Position Sitting 09/28/18 11:02 Pulse Oximetry 97 09/29/18 11:48 Oxygen Delivery Method Room Air 09/29/18 11:48 Oxygen Flow Rate 0 09/29/18 11:48 Pain Level 0 09/29/18 11:48 Intake & Output 09/28/18 09/29/18 09/29/18 23:59 11:59 23:59 Intake Total 963.333 / 889.377 6735.000 / 1465.000 Output Total 650 / 650 Balance 963.333 / 963.333 815.000 / 815.000 Weight 65.771 kg 61.6 kg Intake: IV 963.333 / 425.293 4739.000 / 1105.000 Oral 360 / 360 Output: Urine 650 / 650 Other: Urine Color Pale Yellow Yellow Urine Appearance Clear Stool Size Moderate Moderate Stool Characteristics Formed Formed Hard Hard Completed studies during hospitalization [Text1]: 09/28/18: AP AND LATERAL CHEST: The lungs are suboptimally expanded. There is an ill-defined density likely lying in the right lower lobe posteriorly which would be consistent with an acute pneumonitis. The remainder of the lung is clear. No definite pleural effusion is seen. The heart is not enlarged. The hilar structures, mediastinum and tracheal air column are intact. SUMMARY: Findings consistent with a right lower lobe pneumonitis. Labs on day of discharge: Labs from last 24 hours 09/29/18 09/29/18 09/28/18 06:40 06:40 14:47 WBC 12.59 H D RBC 3.69 L Hgb 10.4 L D Hct 33.2 L MCV 90.0 MCH 28.2 MCHC 31.3 L RDW 14.8 H Plt Count 285 MPV 9.3 Immature Gran % 0.3 Neutrophils % 74.5 Lymphocytes % 15.0 Monocytes % 5.2 Eosinophils % 4.7 Basophils % 0.3 Absolute Neutrophils 9.38 H Absolute Lymphocytes 1.89 Absolute Monocytes 0.65 Absolute Eosinophils 0.59 Absolute Basophils 0.04 Sodium 143 Potassium 2.8 L* D Chloride 106 Carbon Dioxide 24.1 Anion Gap 12.9 H BUN 25 H Creatinine 1.27 H Estimated GFR/1.73 m2 41.48 Glucose 99 Lactate 2.2 H Calcium 7.9 L Magnesium 2.0 09/28/18 14:58 Blood Blood Culture - Pending 09/28/18 14:47 Blood Blood Culture - Pending Preliminary micro results at discharge 09/28/18 12:00 Urine Culture - Preliminary Urine - Cath Straight Proteus mirabilis 09/28/18 14:58 Blood Culture - Pending Blood 09/28/18 14:47 Blood Culture - Pending Blood
--- NOTE | 2018-09-29 14:30 | PDOC.CMDIS ---
- If Service Date Differs Date of service: 09/29/18 Time of Service: 14:30 LACE Index Scoring Tool - Questions: Length of Stay (in days): 2 Acuity (Admit via E.D.?): Yes E.D. Visits: 4 - Answers: Total Score: 9 Risk of Readmission: Low Risk Care Management Discharge Reason for Hospitalization: UTI, HCAP. Discharge Plan: Nguyen will discharge home when medically ready per MD. Anticipate patient will discharge with no services and follow up with her PCP. Nguyen will transport via private vehicle with her , Mukesh. will continue to offer support to patient, family, and care team regarding discharge planning and disposition. Patient/Family Education Needs: Discharge education, any limitations, and follow up plan of care. Ask Me Three discussion.
--- NOTE | 2018-09-29 15:26 | INDS_ITS ---
Date of service: 09/29/18 Time of Service: 15:25 PT Notes PHYSICAL THERAPY NOTE Date: 09/29/18 Dates of service: 09/29/18 Pt seen for PT Eval only then discharged to home setting. Discharge PT Services , pt did not meet goals due to discharge, outpatient PT Recommended. G Codes per JAVIER Sanchez PT
[2018-09-29 15:40] VITALS: BP 123/70; PULSE 86; RESP 20; TEMP 36.3; O2SAT 97
--- NOTE | 2018-09-29 15:53 | CHAPLAIN ---
Nguyen said she'd had several visitors this afternoon and was just getting back to bed to nap when I stopped in. She expects to be discharged later today. She was very pleasant, and grateful for the care she's received.
== END 2018-09-29 16:44 | disposition home or self-care (01) | DRG 689 ==
LOC: ER 16:32 → MS 16:51
PROVIDERS: Admitting Provider Internal Medicine; Emergency Provider Physician Assistant; PCP Emergency Medicine; Visit Provider Internal Medicine
DX: N39.0 Urinary tract infection, site not specified (principal); J18.9 Pneumonia, unspecified organism; G35 Multiple sclerosis; Y95 Nosocomial condition; B96.4 Proteus (mirabilis) (morganii) as the cause of diseases classified elsewhere; R13.11 Dysphagia, oral phase; N31.8 Other neuromuscular dysfunction of bladder; Z87.440 Personal history of urinary (tract) infections; E87.6 Hypokalemia; I10 Essential (primary) hypertension
CPT/HCPCS: 36415; 51701; 80048; 80053; 87040; 92610; 93005; 96361; 96365; 96366; 96375; 97163; 97166; 99222; 99239; 99285; G8996; 71046; 81003; 81015; 83605; 83735; 84484; 85025; 87086; 93010; G8978; J0696; J1650; J2543; J3480; J3490

== ENCOUNTER → 2018-10-03 08:54 | Outpatient (BNVA) | payer MEDICARE, BC, SELFPAY | PROVIDERS: PCP Emergency Medicine; Visit Provider Psychiatry & Neurology Neurology | DX: G35 Multiple sclerosis (principal); I10 Essential (primary) hypertension; Z87.440 Personal history of urinary (tract) infections | CPT/HCPCS: 36415; 80048; 99213 ==

== ENCOUNTER 2018-10-03 09:31 | Outpatient (CLI) | payer MEDICARE, BC, SELFPAY ==
[2018-10-03 13:11] LABS: Anion Gap 10.2 mmol/L (3-11); BUN 20 mg/dL (7-18); CO2 25.8 mmol/L (21.0-32.0); CREATININE 0.96 mg/dL (0.55-1.02); Calcium 9.2 mg/dL (8.5-10.1); Chloride 105 mmol/L (98-107); Estimated GFR 57.29 (mL/min/1.73m2); Glucose 91 mg/dL (70-100); Potassium 4.4 mmol/L (3.5-5.1); Sodium 141 mmol/L (136-145)
== END 2018-10-03 09:51 ==
PROVIDERS: Nurse Practitioner; PCP Emergency Medicine; Visit Provider Urology
DX: E87.6 Hypokalemia (principal)
CPT/HCPCS: 36415; 80048

== ENCOUNTER → 2018-10-05 08:27 | Outpatient (BNVA) | payer MEDICARE, BC, SELFPAY | PROVIDERS: PCP Emergency Medicine; Visit Provider Nurse Practitioner Gerontology | DX: N39.0 Urinary tract infection, site not specified (principal); G35 Multiple sclerosis | CPT/HCPCS: 99213 ==

== ENCOUNTER 2018-10-25 10:40 | Outpatient (REF) | payer MEDICARE, BC, SELFPAY | END 2018-10-25 11:00 | LOC: LBN 10:40 | PROVIDERS: PCP Emergency Medicine; Visit Provider Urology | DX: N39.0 Urinary tract infection, site not specified (principal) | CPT/HCPCS: 87077; 87086; 87186 ==

== ENCOUNTER 2018-11-02 12:36 | Outpatient (REF) | payer MEDICARE, BC, SELFPAY | END 2018-11-02 12:56 | LOC: LBN 12:36 | PROVIDERS: PCP Emergency Medicine; Visit Provider Urology | DX: N39.0 Urinary tract infection, site not specified (principal); N31.9 Neuromuscular dysfunction of bladder, unspecified | CPT/HCPCS: 87086 ==

== ENCOUNTER 2018-11-07 11:10 | Outpatient (REF) | payer MEDICARE, BC, SELFPAY | END 2018-11-07 11:30 | LOC: LBN 11:10 | PROVIDERS: PCP Emergency Medicine; Visit Provider Urology | DX: N39.0 Urinary tract infection, site not specified (principal); R32 Unspecified urinary incontinence | CPT/HCPCS: 87077; 87086; 87186 ==

== ENCOUNTER 2018-11-11 00:56 | Outpatient (CLI) | payer MEDICARE, BC, SELFPAY ==
--- NOTE | 2018-11-11 08:25 | DI.CT_ITS ---
SYMPTOM/DIAGNOSIS: RECURRENT PROTEUS UTI, R/O STRUVITE STONE. H/O RECURRENT UTI Z87.440 CT ABDOMEN AND PELVIS: The study was carried out without contrast enhancement. There are regions of apparent scarring and/or atelectasis involving the lung bases. The heart does not appear enlarged. There is no demonstrated pleural or pericardial effusion. The liver appears intact. The gallbladder is intact. There are no gallstones or ductal dilatation. The pancreas and spleen are unremarkable. No radiopaque renal or ureteral calculi or evidence of ureterectasis or hydronephrosis are demonstrated. The bladder appears intact. There is an apparent small calcified fibroid. The reproductive organs as demonstrated are otherwise unremarkable. There is no evidence of bowel obstruction. The appendix is normal. Scattered gas and fecal material is demonstrated throughout the proximal and mid colon. No localized bowel abnormality is seen. Considerable scattered calcific plaque in the aorta. There is no demonstrated aneurysm. The celiac and superior mesenteric arteries as visualized appear intact. Note is made of a tiny fat containing umbilical hernia. There is no evidence of free air or free fluid in the intraperitoneal space. There is a mild old superior end plate compression fracture of L-3. No acute bony abnormality is seen. However there are severe facet joint degenerative changes throughout the lumbar spine. 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 SUMMARY: No radiopaque ureteral calculus or evidence of nephrolithiasis is demonstrated. I could not be sure to entirely exclude a non opaque calculus in this patient. The examination reveals no findings to suggest cystitis. The bladder wall is smooth and of normal thickness. Incidental note is made on this examination of degenerative changes involving a rotoscoliotic lumbar spine and an old superior end plate compression fracture of L-3 Please see the above discussion.
== END 2018-11-11 01:16 ==
PROVIDERS: PCP Emergency Medicine; Visit Provider Urology
DX: N39.0 Urinary tract infection, site not specified (principal); Z87.440 Personal history of urinary (tract) infections
CPT/HCPCS: 74176

== ENCOUNTER → 2018-12-15 13:37 | Outpatient (BNVA) | payer MEDICARE, BC, SELFPAY | PROVIDERS: PCP Emergency Medicine; Visit Provider Urology | DX: N31.9 Neuromuscular dysfunction of bladder, unspecified (principal); G35 Multiple sclerosis; Z87.440 Personal history of urinary (tract) infections | CPT/HCPCS: 52000; 99212 ==

== ENCOUNTER 2018-12-19 09:25 | Outpatient (REF) | payer MEDICARE, BC, SELFPAY | END 2018-12-19 09:45 | LOC: LBN 09:25 | PROVIDERS: PCP Emergency Medicine; Visit Provider Emergency Medicine | DX: R30.0 Dysuria (principal) | CPT/HCPCS: 87077; 87086; 87186 ==

== ENCOUNTER 2018-12-29 12:15 | Outpatient (REF) | payer MEDICARE, BC, SELFPAY | END 2018-12-29 12:35 | LOC: LBN 12:15 | PROVIDERS: PCP Emergency Medicine; Visit Provider Urology | DX: N31.9 Neuromuscular dysfunction of bladder, unspecified (principal); N39.0 Urinary tract infection, site not specified; B96.4 Proteus (mirabilis) (morganii) as the cause of diseases classified elsewhere | CPT/HCPCS: 87086 ==

== ENCOUNTER 2019-01-12 16:33 | Outpatient (REF) | payer MEDICARE, BC, SELFPAY | END 2019-01-12 16:53 | LOC: LBN 16:33 | PROVIDERS: PCP Emergency Medicine; Visit Provider Urology | DX: N39.0 Urinary tract infection, site not specified (principal); N31.9 Neuromuscular dysfunction of bladder, unspecified | CPT/HCPCS: 87077; 87086; 87186 ==

== ENCOUNTER 2019-01-23 10:13 | Outpatient (REF) | payer MEDICARE, BC, SELFPAY | END 2019-01-23 10:33 | LOC: LBN 10:13 | PROVIDERS: PCP Emergency Medicine; Visit Provider Urology | DX: N31.9 Neuromuscular dysfunction of bladder, unspecified (principal); N39.0 Urinary tract infection, site not specified; Z87.440 Personal history of urinary (tract) infections | CPT/HCPCS: 87077; 87086; 87186 ==

== ENCOUNTER 2019-01-27 00:58 | Outpatient (RCR) | payer MEDICARE, BC, SELFPAY ==
[2019-01-27] MEDS: Normal Saline Flush 10 ML SYR IVP (09:19)
== END 2019-02-19 23:59 | disposition home or self-care (01) ==
LOC: INF 00:58
PROVIDERS: PCP Emergency Medicine; Visit Provider Nurse Practitioner Gerontology
DX: J18.9 Pneumonia, unspecified organism (principal)
CPT/HCPCS: 96365; J1580

== ENCOUNTER 2019-01-29 10:02 | Inpatient (IN) | payer MEDICARE, BC, SELFPAY ==
[2019-01-29] VITALS (46 sets, daily range): BP systolic 80–126; BP diastolic 41–98; PULSE 91–110; RESP 17–28; TEMP 36.6–37.8; O2SAT 89–97
--- NOTE | 2019-01-29 10:39 | W.ED.GENAD ---
Discharge Plan Disposition Patient Disposition: [facility] INPATIENT Condition: Improving Discharge Details Chief Complaint: Urinary Clinical Impression: Pneumonia, Generalized weakness Reason For Visit: GENERALIZED WEAKNESS, PNEUMONIA Admit Date/Time: 01/29/19 12:44 Admit Provider: Omari Ríos Attending Provider: Tim Nolan Primary Care Provider: Дмитрий Hyatt ED Provider: Tim Mccracken [facility] Course Hospital Course: Mrs. Ricks is a 73 y.o F with PMH of MS with neurogenic bladder and recurrent urinary tract infections who presented to the ED on 01/29/19 with increased confusion and generalized weakness. She had been treated recently by the Urology clinic for UTI with a cutlure that grew E-coli, 10-50,000 colonies. Her UA on admission was not suspicious for infection. However, she was found to be retaining urine (which is not a new finding for her). She was seen by Dr. Mei, Urology, who follows her chronically. He will follow up with her as an outpatient for urodynamic studies. He is aware that she has been retaining urine with bladder scans up to 600 ml. He did not want her to be discharged with a jacobs catheter and did not recommend straight catheterization as he will follow up with her as an outpatient and he wants her to be at her baseline for testing. She was also noted to have bilateral basilar infiltrates representing pneumonia vs atelectasis. She was initiated on antibiotics due to concern for pneumonia, however, she did not have an elevated WBC count, fever or symptoms of pneumonia. She will be discharged with an incentive spirometer, antibiotics have been discontinued. She has a history of MS, she had MRI Brain which noted Hyperintense white matter lesions on the FLAIR and T2 images, particularly in the periventricular region. Demyelinating processes such as MS or small vessel ischemic disease should be considered. There was concern that her altered mental status, generalized weakness and ambulatory dysfunction may be related to MS. She was seen by Dr. Rowley, neurology, who felt that her cognitive status had returned to baseline. Dr. Rowley did not suspect that the acute problems could be explained by activation of her MS. She recommends follow up in the Neurology clinic. Nguyen Ricks is discharged home in improved condition. She will follow up with her PCP. She will follow up with Dr. Mei for urodynamic studies. She will follow up with Neurology as scheduled. She should continue to use IS after discharge home. She will have follow up labs in 3 days to reassess her potassium and white blood count to ensure that it does not become elevated off of antibiotics. Discharge Instructions Instructions: Chronic Urinary Retention in Women (DC) Forms: Nursing Discharge Form Referrals: Дмитрий Hyatt DO [Primary Care Provider] - 02/08/19 3:40 pm Meño Mei MD [ [facility] STAFF PHYSICIAN] - 02/17/19 2:00 pm Ada Rowley MD [ [facility] STAFF PHYSICIAN] - 03/13/19 1:15 pm Discharge Data Discharge Date/Time-TO BE ENTERED AT DEPARTURE: 01/29/19 14:07 Medical Decision Making Patient presenting to the emergency department for chief complaint of feeling confused and generalized weakness. Patient states that this is ongoing since July with intermittent episodes of similar presentation. She states that this is been due to chronic urinary tract infections. Patient states that she called Dr. Mei's office on Wednesday and was placed up on an antibiotic but her symptoms are not improving. Patient does have history of MS. Patient denies any pain or discomfort, fever chills, cough, chest pain headache or focal neurological changes. Physical exam shows generalized weakness without focal neurological findings, clear lung sounds, normal cardiac exam, soft nontender abdomen with no CVA tenderness. Plan on checking labs and urinalysis and giving gentle hydration pending results. Review of labs show a leukocytosis, decreased renal function with increase of BUN, mildly elevated lactate at 2.0, and chest x-ray that shows opacities in bilateral bases with radiologist stating atelectasis versus pneumonia. Patient did state that she had subjective fevers but denies any significant cough. Urinalysis was reviewed and shows no current signs of UTI. Given that patient states confusion, generalized weakness, fevers, and radiological imaging suggestive of possible pneumonia I do feel that patient should be admitted for antibiotics. Patient started on Levaquin pending speaking with hospitalist. Patient admitted to hospitalist service and was in agreement of plan of care. Patient remained stable throughout emergency department stay. HPI General Mode of arrival: ambulatory. Date/Time Provider Initiated Documentation: 01/29/19 10:06. Limitations to Documentation: no limitations. Information obtained by: patient. History of Present Illness 73 year old F presents to the emergency department with the chief complaint of Generalized weakness, confusion, UTI, described as mild and similar to prior episodes, Patient started experiencing this month(s) and it has been intermittent. Medication improves symptom(s), (Antibiotics) Patient notes no other symptoms.. Patient did receive the following treatments prior to arrival, other (Antibiotic started on Wednesday) Related Data Home Medications Medication Instructions Recorded Confirmed Vitamin D3 (calcium cit-phos) 1 ea PO DAILY 04/11/13 02/08/19 cyanocobalamin (vitamin B-12) 1,000 mcg PO DAILY 04/11/13 02/08/19 [Vitamin B-12] Kelp (iodine) 150 mcg PO DAILY 12/12/15 02/08/19 loperamide 2 mg PO PRN PRN #0 cap 08/02/18 02/08/19 nystatin 0 g TOPICAL BID #0 g 08/02/18 02/08/19 potassium chloride ER 10 mEq 10 meq PO DAILY #90 tab-cap 08/12/18 02/08/19 tablet,extended release hydrochlorothiazide 25 mg tablet 12.5 mg PO DAILY #90 tab 12/06/18 02/08/19 mirabegron ER 50 mg 50 mg PO DAILY #90 tab 02/07/19 02/08/19 tablet,extended release 24 hr Previous Rx's Medication Instructions Recorded loperamide 2 mg PO PRN PRN #0 cap 08/02/18 nystatin 0 g TOPICAL BID #0 g 08/02/18 potassium chloride ER 10 mEq 10 meq PO DAILY #90 tab-cap 08/12/18 tablet,extended release hydrochlorothiazide 25 mg tablet 12.5 mg PO DAILY #90 tab 12/06/18 mirabegron ER 50 mg 50 mg PO DAILY #90 tab 02/07/19 tablet,extended release 24 hr Allergies Allergy/AdvReac Type Severity Reaction Status Date / Time oxybutynin AdvReac Intermediate severe dry Verified 02/08/19 15:47 mouth AMPRAH AdvReac Intermediate MADE HER Uncoded 01/29/19 11:19 MS WORSE General Stated Complaint: Urinary JAVIER: 3 Review of Systems Constitutional Denies body ache(s), Denies chills, Reports fever(s), Reports malaise and Reports weakness Cardiovascular Denies chest pain and Denies dyspnea Respiratory Denies cough and Denies dyspnea Gastrointestinal Denies abdominal pain, Denies nausea and Denies vomiting Genitourinary Reports as per HPI, Denies hematuria and Reports urinary urgency Neurologic Reports confusion and Reports weakness Psychiatric Reports confusion PFSH Medical History Multiple sclerosis (Chronic) 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) Multiple sclerosis (Chronic 04/10/13) History of recurrent UTI (urinary tract infection) (Chronic 06/19/16) Essential hypertension (Chronic) Neurogenic bladder (Chronic) Edema of both lower extremities (Chronic) UTI (urinary tract infection) (Chronic) Hypertension (Chronic) Chronic fatigue (Acute) Hypokalemia (Acute) Neurogenic bladder (Acute) Recurrent falls (Acute) Tobacco abuse (Acute) HTN (hypertension) MS (multiple sclerosis) Urinary incontinence with continuous leakage Surgical History Extraction of cataract (12/17/15) Extraction of cataract (12/31/15) Ligation of fallopian tube Family History Mother Neoplasm Father No problems noted. Sister No problems noted. Grandfather Heart disease Grandfather Heart disease Grandmother Heart disease Grandmother Diabetes Son Stroke Daughter Substance abuse Social History Smoking/Tobacco Use Status: Current-Occasional Second Hand Exposure: No Drug use: Never Substance use type: does not use Household members: spouse and other Details: 2 Housing: house Pets and animals: Yes Pets and animals: dog(s) What type of physical activity do you participate in: none Madelyn/Lutheran: [employer] madelyn needs: No Do you feel safe in your relationship?: Yes Exam Const General: cooperative and no acute distress Orientation: alert, awake, oriented to person, oriented to place and not oriented to time Resp Effort & Inspection: normal respiratory effort and able to speak in complete sentences Auscultation: crackles (fine) bilaterally at the base Cardio Rate: regular rate Rhythm: regular rhythm Heart Sounds: S1 normal and S2 normal GI Palpation: nontender Back/Spine/Pelvis Back: no CVA tenderness Neuro General: alert, awake, oriented Patient Orientation: Person and Place, moves all extremities and no focal motor deficits Motor: strength abnormal (Generalized weakness) Extrem General: normal capillary refill Course Vital Signs Temperature 37.5 C 01/29/19 10:11 Pulse 96 H 01/29/19 10:11 Respiratory Rate 20 01/29/19 10:11 Blood Pressure 113/49 L 01/29/19 10:11 Pulse Oximetry 95 01/29/19 10:11 Temperature 37.5 C 01/29/19 10:11 Temperature Source Oral 01/29/19 10:11 Pulse 96 H 01/29/19 10:11 Respiratory Rate 20 01/29/19 10:11 Respiratory Effort Non-Labored 01/29/19 10:11 Blood Pressure 113/49 L 01/29/19 10:11 Blood Pressure Position Supine 01/29/19 10:11 Pulse Oximetry 95 01/29/19 10:11 Oxygen Delivery Method Room Air 01/29/19 10:11 Oxygen Flow Rate 0 01/29/19 10:11 Pain Level 0 01/29/19 10:11
--- NOTE | 2019-01-29 10:44 | ED.GENADUL_ITS ---
Discharge Plan Disposition Patient Disposition: [facility] INPATIENT Condition: Improving Discharge Details Chief Complaint: Urinary Clinical Impression: Pneumonia, Generalized weakness Reason For Visit: GENERALIZED WEAKNESS, PNEUMONIA Admit Date/Time: 01/29/19 12:44 Admit Provider: Omari Ríos Attending Provider: Tim Nloan Primary Care Provider: Дмитрий Hyatt ED Provider: [facility] Hospital Course Hospital Course: Mrs. Ricks is a 73 y.o F with PMH of MS with neurogenic bladder and recurrent urinary tract infections who presented to the ED on 01/29/19 with increased confusion and generalized weakness. She had been treated recently by the Urology clinic for UTI with a cutlure that grew E-coli, 10-50,000 colonies. Her UA on admission was not suspicious for infection. However, she was found to be retaining urine (which is not a new finding for her). She was seen by Dr. Mei, Urology, who follows her chronically. He will follow up with her as an outpatient for urodynamic studies. He is aware that she has been retaining urine with bladder scans up to 600 ml. He did not want her to be discharged with a jacobs catheter and did not recommend straight catheterization as he will follow up with her as an outpatient and he wants her to be at her baseline for testing. She was also noted to have bilateral basilar infiltrates representing pneumonia vs atelectasis. She was initiated on antibiotics due to concern for pneumonia, however, she did not have an elevated WBC count, fever or symptoms of pneumonia. She will be discharged with an incentive spirometer, antibiotics have been discontinued. She has a history of MS, she had MRI Brain which noted Hyperintense white matter lesions on the FLAIR and T2 images, particularly in the periventricular region. Demyelinating processes such as MS or small vessel ischemic disease should be considered. There was concern that her altered mental status, generalized weakness and ambulatory dysfunction may be related to MS. She was seen by Dr. Rowley, neurology, who felt that her cognitive status had returned to baseline. Dr. Rowley did not suspect that the acute problems could be explained by activation of her MS. She recommends follow up in the Neurology clinic. Nguyen Ricks is discharged home in improved condition. She will follow up with her PCP. She will follow up with Dr. Mei for urodynamic studies. She will follow up with Neurology as scheduled. She should continue to use IS after discharge home. She will have follow up labs in 3 days to reassess her potassium and white blood count to ensure that it does not become elevated off of antibiotics. Discharge Instructions Instructions: Chronic Urinary Retention in Women (DC) Forms: Nursing Discharge Form Referrals: Дмитрий Hyatt DO [Primary Care Provider] - 02/08/19 3:40 pm Meño Mei MD [ [facility] STAFF PHYSICIAN] - 02/17/19 2:00 pm Ada Rowley MD [ [facility] STAFF PHYSICIAN] - 03/13/19 1:15 pm Discharge Data Discharge Date/Time-TO BE ENTERED AT DEPARTURE: 01/29/19 14:07 Medical Decision Making Patient presenting to the emergency department for chief complaint of feeling confused and generalized weakness. Patient states that this is ongoing since July with intermittent episodes of similar presentation. She states that this is been due to chronic urinary tract infections. Patient states that she called Dr. Mei's office on Wednesday and was placed up on an antibiotic but her symptoms are not improving. Patient does have history of MS. Patient denies any pain or discomfort, fever chills, cough, chest pain headache or focal neurological changes. Physical exam shows generalized weakness without focal neurological findings, clear lung sounds, normal cardiac exam, soft nontender abdomen with no CVA tenderness. Plan on checking labs and urinalysis and giving gentle hydration pending results. Review of labs show a leukocytosis, decreased renal function with increase of BUN, mildly elevated lactate at 2.0, and chest x-ray that shows opacities in bilateral bases with radiologist stating atelectasis versus pneumonia. Patient did state that she had subjective fevers but denies any significant cough. Urinalysis was reviewed and shows no current signs of UTI. Given that patient states confusion, generalized weakness, fevers, and radiological imaging suggestive of possible pneumonia I do feel that patient should be admitted for antibiotics. Patient started on Levaquin pending speaking with hospitalist. Patient admitted to hospitalist service and was in agreement of plan of care. Patient remained stable throughout emergency department stay. HPI General Mode of arrival: ambulatory . Date/Time Provider Initiated Documentation: 01/29/19 10:06 . Limitations to Documentation: no limitations . Information obtained by: patient . History of Present Illness 73 year old F presents to the emergency department with the chief complaint of Generalized weakness, confusion, UTI, described as mild and similar to prior episodes, Patient started experiencing this month(s) and it has been intermittent. Medication improves symptom(s), (Antibiotics) Patient notes no other symptoms.. Patient did receive the following treatments prior to arrival, other (Antibiotic started on Wednesday) Related Data Home Medications Medication Instructions Recorded Confirmed Vitamin D3 (calcium cit-phos) 1 ea PO DAILY 04/11/13 02/08/19 cyanocobalamin (vitamin B-12) 1,000 mcg PO DAILY 04/11/13 02/08/19 [Vitamin B-12] Kelp (iodine) 150 mcg PO DAILY 12/12/15 02/08/19 loperamide 2 mg PO PRN PRN #0 cap 08/02/18 02/08/19 nystatin 0 g TOPICAL BID #0 g 08/02/18 02/08/19 potassium chloride ER 10 mEq 10 meq PO DAILY #90 tab-cap 08/12/18 02/08/19 tablet,extended release hydrochlorothiazide 25 mg tablet 12.5 mg PO DAILY #90 tab 12/06/18 02/08/19 mirabegron ER 50 mg 50 mg PO DAILY #90 tab 02/07/19 02/08/19 tablet,extended release 24 hr Previous Rx's Medication Instructions Recorded loperamide 2 mg PO PRN PRN #0 cap 08/02/18 nystatin 0 g TOPICAL BID #0 g 08/02/18 potassium chloride ER 10 mEq 10 meq PO DAILY #90 tab-cap 08/12/18 tablet,extended release hydrochlorothiazide 25 mg tablet 12.5 mg PO DAILY #90 tab 12/06/18 mirabegron ER 50 mg 50 mg PO DAILY #90 tab 02/07/19 tablet,extended release 24 hr Allergies Allergy/AdvReac Type Severity Reaction Status Date / Time oxybutynin AdvReac Intermediate severe dry Verified 02/08/19 15:47 mouth AMPRAH AdvReac Intermediate MADE HER Uncoded 01/29/19 11:19 MS WORSE General Stated Complaint: Urinary JAVIER: 3 Review of Systems Constitutional Denies body ache(s), Denies chills, Reports fever(s), Reports malaise and Reports weakness Cardiovascular Denies chest pain and Denies dyspnea Respiratory Denies cough and Denies dyspnea Gastrointestinal Denies abdominal pain, Denies nausea and Denies vomiting Genitourinary Reports as per HPI, Denies hematuria and Reports urinary urgency Neurologic Reports confusion and Reports weakness Psychiatric Reports confusion PFSH Medical History Multiple sclerosis (Chronic) 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) Multiple sclerosis (Chronic 04/10/13) History of recurrent UTI (urinary tract infection) (Chronic 06/19/16) Essential hypertension (Chronic) Neurogenic bladder (Chronic) Edema of both lower extremities (Chronic) UTI (urinary tract infection) (Chronic) Hypertension (Chronic) Chronic fatigue (Acute) Hypokalemia (Acute) Neurogenic bladder (Acute) Recurrent falls (Acute) Tobacco abuse (Acute) HTN (hypertension) MS (multiple sclerosis) Urinary incontinence with continuous leakage Surgical History Extraction of cataract (12/17/15) Extraction of cataract (12/31/15) Ligation of fallopian tube Family History Mother Neoplasm Father No problems noted. Sister No problems noted. Grandfather Heart disease Grandfather Heart disease Grandmother Heart disease Grandmother Diabetes Son Stroke Daughter Substance abuse Social History Smoking/Tobacco Use Status: Current-Occasional Second Hand Exposure: No Drug use: Never Substance use type: does not use Household members: spouse and other Details: 2 Housing: house Pets and animals: Yes Pets and animals: dog(s) What type of physical activity do you participate in: none Madelyn/Buddhism: Mu-Ism Special madelyn needs: No Do you feel safe in your relationship?: Yes Exam Const General: cooperative and no acute distress Orientation: alert, awake, oriented to person, oriented to place and not oriented to time Resp Effort & Inspection: normal respiratory effort and able to speak in complete sentences Auscultation: crackles (fine) bilaterally at the base Cardio Rate: regular rate Rhythm: regular rhythm Heart Sounds: S1 normal and S2 normal GI Palpation: nontender Back/Spine/Pelvis Back: no CVA tenderness Neuro General: alert, awake, oriented Patient Orientation: Person and Place, moves all extremities and no focal motor deficits Motor: strength abnormal (Generalized weakness) Extrem General: normal capillary refill Course Vital Signs Temperature 37.5 C 01/29/19 10:11 Pulse 96 H 01/29/19 10:11 Respiratory Rate 20 01/29/19 10:11 Blood Pressure 113/49 L 01/29/19 10:11 Pulse Oximetry 95 01/29/19 10:11 Temperature 37.5 C 01/29/19 10:11 Temperature Source Oral 01/29/19 10:11 Pulse 96 H 01/29/19 10:11 Respiratory Rate 20 01/29/19 10:11 Respiratory Effort Non-Labored 01/29/19 10:11 Blood Pressure 113/49 L 01/29/19 10:11 Blood Pressure Position Supine 01/29/19 10:11 Pulse Oximetry 95 01/29/19 10:11 Oxygen Delivery Method Room Air 01/29/19 10:11 Oxygen Flow Rate 0 01/29/19 10:11 Pain Level 0 01/29/19 10:11
[2019-01-29 11:01] LABS: Abs Immature Grans 0.04 k/cumm (0.0-0.09); Absolute Basophil Count 0.05 k/cumm (0.0-0.2); Absolute Lymphocyte Count 1.11 k/cumm (1.2-3.4); Absolute Monocyte Count 0.82 k/cumm (0.11-0.7); Absolute Neutrophil Count 15.26 k/cumm (1.2-6.7); Basophils % 0.3; Eosinophils % 0.6; HCT 37.5 % (36.0-46.0); HGB 12.4 g/dL (12.0-15.5); Immature Grans % 0.2; Lymphocytes % 6.4; Mean Corp. HGB Concentration 33.1 g/dL (32.0-36.0); Mean Corpuscular Hemoglobin 29.4 pg (27.0-33.0); Mean Corpuscular Volume 88.9 fL (80-95); Mean Platelet Volume 9.3 fL (8.0-11.0); Monocytes % 4.7; Neutrophils % 87.8; Platelet Count 314 x1000/uL (130-400); RBC 4.22 m/cumm (4.00-5.20); RBC Distribution Width 14.4 % (11.7-14.6); White Blood Cell Count 17.38 k/cumm (4.4-10.8)
[2019-01-29] MEDS: Normal Saline 1,000 ML 150 ML IV (11:10)
[2019-01-29 11:12] LABS: ALT 24 U/L (12-78); AST 22 U/L (15-37); Albumin 3.3 g/dL (3.4-5.0); Alkaline Phosphatase 97 U/L (46-116); Anion Gap 8.1 mmol/L (3-11); BUN 19 mg/dL (7-18); Bilirubin, Total 0.9 mg/dL (0.2-1.0); CO2 28.9 mmol/L (21.0-32.0); CREATININE 1.16 mg/dL (0.55-1.02); Calcium 8.8 mg/dL (8.5-10.1); Chloride 104 mmol/L (98-107); Estimated GFR 46.05 (mL/min/1.73m2); Glucose 125 mg/dL (70-100); Potassium 3.5 mmol/L (3.5-5.1); Sodium 141 mmol/L (136-145); Total Protein 7.2 g/dL (6.4-8.2)
--- NOTE | 2019-01-29 11:12 | DI.RAD_ITS ---
SYMPTOM/DIAGNOSIS: CONFUSION FRONTAL AND LATERAL CHEST: Comparison is made with 09/28/18. Cardiac silhouette appears stable and within normal limits. Pulmonary vasculature is within normal limits. There are bilateral basilar infiltrates. There is blunting of the costophrenic angles bilaterally which may represent small pleural effusions. No pneumothorax is identified. Degenerative changes are seen in the spine. IMPRESSION: Bilateral basilar infiltrates which may represent atelectasis or pneumonia. Findings suggestive of small bilateral pleural effusions.
[2019-01-29 11:13] LABS: Bilirubin Negative (Negative); Blood Trace-lysed (Negative); Clarity Clear; Glucose Negative (Negative); Ketones 15 mg/dL (Negative); Leukocyte Esterase Negative (Negative); Nitrite Negative (Negative); Urobilinogen 0.2 EU/dL (Up TO 0.2); pH 5.5 (5-8)
[2019-01-29] MEDS: Normal Saline Flush 10 ML SYR IVP (11:17)
[2019-01-29 11:40] LABS: Bacteria Few HPF (Negative); C & S Indicated? No; Casts Negative LPF (Negative); Crystals Few Amorphous HPF (Negative); Epithelial Cells Many HPF (Negative); Mucus Moderate (Negative); WBC Negative HPF (0-5)
--- NOTE | 2019-01-29 12:13 | DI.VRAD_ITS ---
EXAM: XR Chest, 2 Views EXAM DATE/TIME: 01/29/2019 11:48 AM CLINICAL HISTORY: 73 years old, female; Signs and symptoms; Other: Confusion TECHNIQUE: XR of the chest, 2 views. COMPARISON: CR XR CHEST 2V PA LATERAL 09/28/2018 1:21 PM FINDINGS: Lungs: Opacities in both bases may represent atelectasis or pneumonia. Pleural space: There may be mild bilateral pleural effusions. Heart/Mediastinum: Cardiomegaly Bones/joints: Unremarkable. IMPRESSION: 1. Opacities in both bases may represent atelectasis or pneumonia. 2. There may be mild bilateral pleural effusions. Dictated and Authenticated by: Josh Blandon MD. Ordering:CHADD Dumont MD
[2019-01-29] MEDS: LEVOFLOXACIN 750 MG/150 ML BAG 100 MG IVPB (12:31)
--- NOTE | 2019-01-29 14:33 | HPE_ITS ---
Date of service: 01/29/19 Time of Service: 15:46 Assessment and Plan (1) CAP (community acquired pneumonia): Start date: 01/29/19 Start time: 14:32 Current visit: Yes Status: Acute Brought in by family for increasing confusion and weakness. Does have history of MS since age 16 not currently on treatment, in setting of leuk ocytosis and elevated lactate, cxr was ordered revealing opacities in both bases representing atelectasis or pneumoina. Given a dose of levaquin in ED. Started on rocephin with azithromycin for CAP and questionable UTI, see below. Albuterol ordered prn, denies cough, no SOB, fine crackles in bases. No steroids are needed at this time, mucinex prn. (2) UTI (urinary tract infection): Start date: 01/29/19 Start time: 14:40 Current visit: No Status: Acute 73 y.o F arrives today with confusion and weakness, intermittent since jul. Family was concerned that it was uti as she is prone to UTI given her neurogenic bladder from MS. She was started on macrobide on Wednesday, sx did not improve family brought her to emergency room and found to have elevated WBC at 17.38 with elevated lactate. U/A is not significant for UTI no leuks or nitrates, trace amount of blood. Unlikely source is urine. will continue antbx therapy rocephin and azithromycin for CAP, see above. Rocephin will cover UTI in the event this is actually an early UTI, however a c/s was done with Dr. Mei on 01/25 with less than 10,000 colonies. (3) Multiple sclerosis: Start date: 01/29/19 Start time: 14:55 Current visit: No Status: Acute Since age 16 not currently on medication (4) Spastic neurogenic bladder: Start date: 01/29/19 Start time: 14:58 Current visit: No Status: Acute From MS. Currently on myrbetriq will continue dose (5) Essential hypertension: Start date: 01/29/19 Start time: 15:27 Current visit: No Status: Acute Stable at this time, will continue home dose of hydrochlorothiazide it is 12.5 and monitor renal function. Slightly elevated creatinine, she has had elevated in the past as high as 1.35, will give ns@ 75 with (6) DVT prophylaxis: Start date: 01/29/19 Start time: 15:30 Current visit: No Status: Acute enoxaparin subcu daily (7) Edema of both lower extremities: Start date: 01/29/19 Start time: 15:31 Current visit: No Status: Chronic Left lower extremity with +3 pitting edema from toes to mid thigh, reflexes present and right lower extremity with +2 pitting edema from foot to knee reflexes present. Sensation difference in right be less than in left. pulses palable (8) Leukocytosis: Start date: 01/29/19 Start time: 15:41 Current visit: Yes Status: Acute Increased WBC in setting of possible infection. (9) Ambulatory dysfunction: Start date: 01/29/19 Start time: 15:41 Current visit: Yes Status: Acute Ambulatory only with pivoting and scooter, declining dysfunction in the place of MS. PT/OT consulted. (10) Encephalopathy acute: Start date: 01/29/19 Start time: 15:42 Current visit: Yes Status: Acute Intermittent confusion will have periods of being lucid and periods of confusion could be due to infectious process given leukocytosis and elevated lactate, or could be worsening MS. MRI scheduled for tomorrow. Neurology has been consulted, she follows up with Dr. Rowley History of Present Illness Chief Complaint: Encephalopathy, Weakness, CAP, Ambulatory Dysfunction Narrative: Mrs. Ricks is a 73 y.o F with PMH of MS brought to the [facility] emergency room today for increased confusion and weakness. Per her she has periods of confusion that are intermittent and she was unable to lift her self to a chair. She is ambulatory normally from chair to chair and chair to scooter. Over the last couple of days she has not been able to fully move herself and she has been sleeping more. So her family decided to bring her to the emergency department. Our service was asked to see her for admission. Mrs. Ricks has a PMH of MS, neurogenic bladder from MS, HTN, ambulatory dysfunc tion. She has a history of recurrent UTI as well and is seen by Dr. Mei for treatment. Over the last week her realized she was leaking more urine, she called Dr. Mei and was started on macrobid for UTI. Over the last several months she has been seen for recurrent UTI's by Dr. Mei and ID at [facility]. Recently she underwent a cystoscopy, and ID was contacted by Dr. Mei. She presents to the ED today with no sx of UTI. Urinalysis reveals no nitrates or leukocytes, trace amount of blood. Given she does have neurogenic bladder she will be on PVR every 6 hours with straight cath for greater than 300 as needed. Blood work did reveal leukocytosis at 17.38 and a lactate of 2.6, a CXR was ordered and did reveal opacities in both bases may represent atelectasis or pneumonia. There may be mild bilateral pleural effusions. She is afebrile, not tachypnec or SOB. No cough or congestion, lungs with fine crackles in bases. She was given levaquin in the ED and started on Rochephin and Azithromycin upon admission. IVF at 75 an hour given her BUN and Creatinine are elevated she has had an elevated creatinine in the past as high as 1.35. She is slightly confused at times oriented to self; and lucid other times.Given her confusion and MS, urinalysis that was negative for infection and as ymptomatic presentation of pneumonia with ongoing symptoms since jul an MRI was ordered for Wednesday and neurology consult. She is followed by Dr. Rowley. PT/OT for ambulatory dysfunction she does lift herself up from chair to chair and ride around on a scooter and recently has not been able to do this due to weakness. Her left leg is edetamous at +3 pitting and she states this is normal her right leg is +2 pitting and there is less sensation to right extremity. She does have HTN, which she take hydrochloithiazide for and it is held for MRI with contrast. Review of Systems Review of Systems All systems reviewed & are unremarkable except as noted in HPI and below [facility] Medical History Spastic neurogenic bladder (Acute 04/23/15) Multiple sclerosis (Acute 04/10/13) History of recurrent UTI (urinary tract infection) (Acute 06/19/16) Essential hypertension (Acute) Neurogenic bladder (Acute) Multiple sclerosis (Chronic) Edema of both lower extremities (Chronic) UTI (urinary tract infection) (Acute) Hypertension (Chronic) Chronic fatigue (Acute) Hypokalemia (Acute) Neurogenic bladder (Acute) Recurrent falls (Acute) Tobacco abuse (Acute) HTN (hypertension) MS (multiple sclerosis) Urinary incontinence with continuous leakage Surgical History Extraction of cataract (12/17/15) Extraction of cataract (12/31/15) Ligation of fallopian tube Family History Mother Neoplasm Father No problems noted. Sister No problems noted. 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[employer] pets and animals: Yes pets and animals: dog(s) what type of physical activity do you participate in: none Smoking and Tabacco status: Current-Occasional second hand exposure: No substance use type: does not use joseline/gnosticism: Baptism special joseline needs: No Meds Home Medications Medication Instructions Recorded Confirmed Type Vitamin D3 (calcium cit-phos) 1 ea PO DAILY 04/11/13 01/29/19 History cyanocobalamin (vitamin B-12) 1,000 mcg PO DAILY 04/11/13 01/29/19 History [Vitamin B-12] Kelp (iodine) 150 mcg PO DAILY 12/12/15 01/29/19 History loperamide 2 mg PO PRN PRN #0 cap 08/02/18 01/29/19 Rx nystatin 0 g TOPICAL BID #0 g 08/02/18 01/29/19 Rx potassium chloride ER 10 mEq 10 meq PO DAILY #90 tab-cap 08/12/18 01/29/19 Rx tablet,extended release mirabegron ER 50 mg 50 mg PO DAILY #90 tab 09/23/18 01/29/19 Rx tablet,extended release 24 hr hydrochlorothiazide 25 mg tablet 12.5 mg PO DAILY #90 tab 12/06/18 01/29/19 Rx nitrofurantoin 100 mg PO BID #20 cap 01/27/19 01/29/19 Rx monohydrate/macrocrystals 100 mg capsule Allergies Allergy/AdvReac Type Severity Reaction Status Date / Time oxybutynin AdvReac Intermediate severe dry Verified 01/29/19 11:19 mouth AMPRAH AdvReac Intermediate MADE HER Uncoded 01/29/19 11:19 MS WORSE Exam Const General: cooperative and no acute distress HENMT Head: normal to inspection Eyes General: appearance normal, both eyes and all related structures Neck Neck: normal visual inspection Lymphatic: no lymphadenopathy noted and no lymphedema noted Chest Chest: normal inspection of the chest Resp Effort & Inspection: normal respiratory effort and able to speak in complete sentences Auscultation: crackles (fine crackles to bases) bilaterally Cardio Jugular venous pressure: no JVD Rate: regular rate Rhythm: regular rhythm Heart Sounds: S1 normal and S2 normal GI Inspection: normal to inspection Palpation: soft and no hepatosplenomegaly Auscultation: normal bowel sounds Other: she does have bouts of diarrhea and takes imodium regularly Other: neurogenic bladder with leaking syndrome Skin General skin exam: no rashes or lesions noted Neuro General: alert, awake and oriented (confused intermittently) Patient Orientation: Person DTR's: Rt Biceps: 4+, Lt Biceps: 4+, Rt Patellar: 4+, Lt Patellar: 4+ and Lt Ankle: 4+ Pupils: Normal pupillary reactivity/response: right and left Extrem General: other Other: limited ROM to bilateral ankles and feet, +3 pitting edema from toes to thigh on left leg, + 2 pitting edema right leg from foot to knee Psych Appearance: grossly normal Results Labs : 01/29/19 10:55 01/29/19 10:55 Laboratory Results - last 24 hr 01/29/19 01/29/19 01/29/19 10:55 10:55 11:05 WBC 17.38 H RBC 4.22 Hgb 12.4 Hct 37.5 MCV 88.9 MCH 29.4 MCHC 33.1 RDW 14.4 Plt Count 314 MPV 9.3 Immature Gran % 0.2 Neutrophils % 87.8 Lymphocytes % 6.4 Monocytes % 4.7 Eosinophils % 0.6 Basophils % 0.3 Absolute Neutrophils 15.26 H Absolute Lymphocytes 1.11 L Absolute Monocytes 0.82 H Absolute Eosinophils 0.10 Absolute Basophils 0.05 Sodium 141 Potassium 3.5 Chloride 104 Carbon Dioxide 28.9 Anion Gap 8.1 BUN 19 H Creatinine 1.16 H Estimated GFR/1.73 m2 46.05 Glucose 125 H Lactate Calcium 8.8 Total Bilirubin 0.9 AST 22 ALT 24 Alkaline Phosphatase 97 Total Protein 7.2 Albumin 3.3 L Urine Color Yellow Urine Clarity Clear Urine pH 5.5 Ur Specific [place] 1.020 Urine Protein Negative Urine Ketones 15 H Urine Blood Trace-lysed H Urine Nitrite Negative Urine Bilirubin Negative Urine Urobilinogen 0.2 Ur Leukocyte Esterase Negative Urine RBC 3-5 H Urine WBC Negative Ur Epithelial Cells Many Urine Crystals Few amorphous Urine Bacteria Few Urine Casts Negative Urine Mucus Moderate Ur Culture Indicated? No Urine Glucose Negative 01/29/19 11:28 WBC RBC Hgb Hct MCV MCH MCHC RDW Plt Count MPV Immature Gran % Neutrophils % Lymphocytes % Monocytes % Eosinophils % Basophils % Absolute Neutrophils Absolute Lymphocytes Absolute Monocytes Absolute Eosinophils Absolute Basophils Sodium Potassium Chloride Carbon Dioxide Anion Gap BUN Creatinine Estimated GFR/1.73 m2 Glucose Lactate 2.0 H Calcium Total Bilirubin AST ALT Alkaline Phosphatase Total Protein Albumin Urine Color Urine Clarity Urine pH Ur Specific [place] Urine Protein Urine Ketones Urine Blood Urine Nitrite Urine Bilirubin Urine Urobilinogen Ur Leukocyte Esterase Urine RBC Urine WBC Ur Epithelial Cells Urine Crystals Urine Bacteria Urine Casts Urine Mucus Ur Culture Indicated? Urine Glucose Last Vital Signs Temp 36.6 C 01/29/19 14:01 Pulse 103 H 01/29/19 13:31 Resp 19 01/29/19 13:50 BP 106/70 01/29/19 13:31 Pulse Ox 95 01/29/19 13:50
[2019-01-29] MEDS: Enoxaparin 30 MG/0.3 ML SYR SC (16:31)
[2019-01-29] MEDS: Nystatin POWDER 15 GM JAR TP (20:05)
[2019-01-29] MEDS: Omeprazole 20 MG CAPCR PO (20:05)
[2019-01-29] MEDS: Normal Saline 1,000 ML 75 ML IV (20:46)
[2019-01-29 22:02] LABS: Lactate-non-spesis 1.8 mmol/l (0.6-1.4)
[2019-01-30 03:24] VITALS: BP 106/58; PULSE 99; RESP 18; TEMP 37.1; O2SAT 93
[2019-01-30 07:17] LABS: Abs Immature Grans 0.02 k/cumm (0.0-0.09); Absolute Basophil Count 0.03 k/cumm (0.0-0.2); Absolute Eosinophil Count 0.44 k/cumm (0.0-0.7); Absolute Lymphocyte Count 1.58 k/cumm (1.2-3.4); Absolute Monocyte Count 0.76 k/cumm (0.11-0.7); Absolute Neutrophil Count 7.39 k/cumm (1.2-6.7); Basophils % 0.3; Eosinophils % 4.3; HCT 34.8 % (36.0-46.0); HGB 11.3 g/dL (12.0-15.5); Immature Grans % 0.2; Lymphocytes % 15.5; Mean Corp. HGB Concentration 32.5 g/dL (32.0-36.0); Mean Corpuscular Volume 89.2 fL (80-95); Mean Platelet Volume 9.6 fL (8.0-11.0); Monocytes % 7.4; Neutrophils % 72.3; Platelet Count 266 x1000/uL (130-400); RBC Distribution Width 14.6 % (11.7-14.6); White Blood Cell Count 10.22 k/cumm (4.4-10.8)
[2019-01-30 07:33] LABS: Anion Gap 9.3 mmol/L (3-11); BUN 17 mg/dL (7-18); CO2 25.7 mmol/L (21.0-32.0); CREATININE 1.11 mg/dL (0.55-1.02); Calcium 8.4 mg/dL (8.5-10.1); Chloride 107 mmol/L (98-107); Estimated GFR 48.46 (mL/min/1.73m2); Glucose 88 mg/dL (70-100); Magnesium 1.8 mg/dL (1.8-2.4); Sodium 142 mmol/L (136-145)
[2019-01-30 07:35] VITALS: BP 146/75; PULSE 87; RESP 16; TEMP 37; O2SAT 94
[2019-01-30 07:40] LABS: Potassium 2.9 mmol/L (3.5-5.1)
[2019-01-30] MEDS: Nystatin POWDER 15 GM JAR TP ×2 (08:51→20:28)
[2019-01-30] MEDS: Omeprazole 20 MG CAPCR PO ×2 (08:52→20:28)
[2019-01-30] MEDS: Cyanocobalamin 500 MCG TAB 1000 MCG PO (08:52)
[2019-01-30] MEDS: Potassium Chloride 10 MEQ TABCR PO (08:52)
[2019-01-30] MEDS: Mirabegron 50 MG TABCR PO (08:52)
[2019-01-30] MEDS: Potassium Chloride 20 MEQ TABCR 40 MEQ PO (08:52)
--- NOTE | 2019-01-30 09:16 | INITIAL_ITS ---
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 Multiple sclerosis (Acute 04/10/13). History of recurrent UTI (urinary tract infection) (Acute 06/19/16). Essential hypertension (Acute). Neurogenic bladder (Acute). Multiple sclerosis (Chronic). Edema of both lower extremities (Chronic). UTI (urinary tract infection) (Acute). Hypertension (Chronic). Chronic fatigue (Acute). Hypokalemia (Acute). Neurogenic bladder (Acute). Recurrent falls (Acute). Tobacco abuse (Acute). HTN (hypertension). MS (multiple sclerosis). Urinary incontinence with continuous leakage. Extraction of cataract (12/17/15). Extraction of cataract (12/31/15). Ligation of fallopian tube PREVIOUS FUNCTIONAL STATUS/SOCIAL/FAMILY SUPPORTS:: Nguyen resides with her Mukesh in [facility]. Nguyen enjoys working with [employer] and has brought a few into the hospital recently. Nguyen has two women whom help her at home when she is alone. She is independent with her ADL's at home, and depends on her and friends for transport. CURRENT FUNCTIONAL STATUS:: Currently Nguyen is lying in bed, receptive to discussion. ADVANCE DIRECTIVES:: None on file Has patient been provided with information about the portal?: Yes Did the patient sign up for the portal?: No CODE STATUS:: Full Code INSURANCE COVERAGE / FINANCIAL ISSUES:: MCR, BCBS CURRENT HOME/COMMUNITY SERVICES/EQUIPMENT:: Currently Nguyen has no services. She has a motorized w/c and walker at home. PRIMARY CARE PHYSICIAN:: Dr. Hyatt POTENTIAL DISCHARGE NEEDS:: F/U appointment with PCP PATIENT/FAMILY EDUCATION NEEDS:: Review DC instructions, any limitations, and ongoing DC planning discussion. Discuss 'Ask Me Three' ANTICIPATED BARRIERS TO DISCHARGE:: None identified at this time. TRANSPORTATION:: Via private vehicle PLAN:: Nguyen will return home with no anticipated services once medically cleared. She will F/U with PCP and plan of care as prescribed. to transport when ready.
--- NOTE | 2019-01-30 09:46 | PT.INIE ---
Date of service: 01/30/19 Time of Service: 08:39 PT Notes Inpatient Physical Therapy Evaluation Date: 01/30/2019 Referring Doctor: Annmarie Menchaca NP PT Orders: PT CONSULT: Ambulatory dysfunction Precautions: Fall. Standard. Non-ambulatory. Patient Profile/Admitting Diagnosis: Orders were received for this 73-year-old female who presented to the ER on 01/29/19 chief complaints of confusion weakness and ambulatory dysfunction. She was diagnosed with community-acquired pneumonia and generalized weakness. Dr. Lopez ordered MRI on 01/30/2019 to rule out MS exacerbation/progression. 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) Multiple sclerosis (Acute 04/10/13) History of recurrent UTI (urinary tract infection) (Acute 06/19/16) Essential hypertension (Acute) Neurogenic bladder (Acute) Multiple sclerosis (Chronic) Edema of both lower extremities (Chronic) UTI (urinary tract infection) (Acute) Hypertension (Chronic) Chronic fatigue (Acute) Hypokalemia (Acute) Neurogenic bladder (Acute) Recurrent falls (Acute) Tobacco abuse (Acute) HTN (hypertension) MS (multiple sclerosis) Urinary incontinence with continuous leakage Surgical History Extraction of cataract (12/17/15) Extraction of cataract (12/31/15) Ligation of fallopian tube Social History/Home Situation: Patient lives with Mukesh and [place]. provides assistance with cooking and bathing. Prior to admission, patient has been able to do bed<>chair and chair<>motorized whellechair transfers independently using stand pivot technique and bilateral upper extremities for support. Patient states that once seated on motorized wheelchair, she can assist with cooking and kitchen tasks using both upper extremities. For bathing she had been able to stand up while holding onto grab bars onto grab bars and stand pivots onto the shower chair. is able to help with washing her back, otherwise she is able to do everything independently. Patient states that she is also able to dress upper body and lower prior to admission. Equipment Owned/DME: Motorized wheelchair, front wheeled walker, shower chair Subjective: Patient states that she had a good breakfast and is looking forward to lunch. She is agreeable to a PT consult today.. Objective: General Observation: Patient is seen resting in bed at the time of evaluation, HOB elevated 30 degrees. IV and left UE. Mental Status: Alert and oriented x3. Pain: Denies. ROM: Right Upper Extremity: WFL Left Upper Extremity: WFL Right Lower Extremity: Patient able to slide heel upward to about 45 degrees of knee flexion an in that position, she is able to resist minimally rolling of the knee outward and inward without any pain. She is unable to lift leg nor was she able to dorsiflex foot. She was able to move her toes on command. Left Lower Extremity: Patient was able to slide heel upward to about 20 with but with both hands helping, unable to tolerate any resistance. She is unable to lift leg nor was she able to dorsiflex foot. She was able to move her toes on command. Strength: Right Upper Extremity: WFL Left Upper Extremity: WFL Right Lower Extremity: Hip flexors 3-/5. Knee flexors 3-/5. Knee extensors 2-/5. Ankle dorsiflexors 1/5. Toe extensors 2-/5. Left Lower Extremity: Hip flexors 2-/5. Knee flexors 2-/5. Knee extensors 2-/5. Ankle dorsiflexors 1/5. Toe extensors 2-/5. Bed Mobility/Transfers: Rolling moderate assist Supine to sit max assist Sit to supine max assist Sit to stand dependent using Stedy machine Stand to sit dependent using Stedy machine Bed to chair dependent using Stedy machine Chair to bed dependent using Stedy machine Gait: Unable Balance: Static Sitting: Fair Dynamic Sitting: Fair Static Standing: Poor, requires Stedy machine Dynamic Standing: Poor, requires Stedy machine Special Tests: Patient was able to perform partial sit to stand x 8 reps while holding onto Stedymachine handle Mobility Limitations Standardized Measure [facility]-PAC 6 clicks Basic Mobility Inpatient Short Form: Raw Score: 8 CMS Score: 87% deficit Informed Consent/Education: Patient instructed in purpose of PT consult and plan of care. Assessment: Patient is a 73 year old female referred to physical therapy services with the diagnosis of community-acquired pneumonia and generalized. An order for an MRI of the brain is requested by neurologist to rule out MS exacerbation/progression. Patient presents with clinical signs and symptoms consistent with mobility decline, balance impairment, and weakness as demonstrated by the following impairment level findings: 1. Impaired active range of motion both lower extremities 2. Impaired strength to both lower extremities 3. Impaired balance in sitting and standing 4. Reduced activity tolerance Impairments are contributing to the following functional limitations: 1. Increase dependence with bed mobility 2. Reduced independence with transfer skills 3. Decreased safety of mobility ADL 4. Increase completion time mobility ADLs 5. Increase fall risk Patient is assessed as a Moderate 26130 complexity based on the following: History: Patient is a 73-year-old female presenting with impairments and functional limitations resulting from community-acquired pneumonia and generalized weakness. Comorbidities include multiple sclerosis with past medical history noted above. Examination: Functional limitations as noted above Presentation: Evolving Decision Making: Moderate complexity 9716 Goals: Goals X1 week 1. Supine-Sit modified independent 2. Sit-Supine modified independent 3. Sit-Stand modified independent 4. Stand-Sit modified independent 5. Bed-Chair modified independent using stand pivot technique 6. Chair-Bed modified independent using stand pivot technique 7. Independent with home exercise program 8. Balance good Plan of Care/Treatment Plan: 1-2x/day, 7 days/week x 1 week. Plan of care has been reviewed with the [facility] providing the service under Physical Therapy direction. Initiate Physical Therapy intervention for strengthening, bed mobility, transfers, gait, stairs, balance training, use of assistive device. DISCHARGE RECOMMENDATIONS: Return home with as previously. Patient may benefit from a short-term home health services once discharged in order to facilitate a smoother transition to home, evaluate home safety, and reduce fall risk. TREATMENT CODE/TIME: 98989, 27009 56 minutes beginning at 8:39 AM. Thank you for this referral. Teagan Jimenez, Pt, DPT, CLT [facility]
--- NOTE | 2019-01-30 10:39 | W.PM.PROGNOT ---
Date of Service Date of service: 01/30/19 Time of Service: 16:18 Assessment and Plan (1) CAP (community acquired pneumonia): Current visit: No Status: Acute Day 2 of azithromycin and rocephin, continue treatment. No cough, SOB, 94% on RA. Afebrile (2) UTI (urinary tract infection): Current visit: No Status: Acute Day 2 rocephin (3) Multiple sclerosis: Current visit: No Status: Acute Since age 16 not currently on medication (4) Spastic neurogenic bladder: Current visit: No Status: Acute From MS. Currently on myrbetriq will continue dose (5) Essential hypertension: Current visit: No Status: Acute thiazide held at this time for MRI with contrast (6) DVT prophylaxis: Current visit: No Status: Acute enoxaparin subcu daily (7) Edema of both lower extremities: Current visit: No Status: Chronic edema to left leg is 3+ today and right leg with +2 (8) Leukocytosis: Current visit: No Status: Acute WBC normalized today continue to monitor. (9) Ambulatory dysfunction: Current visit: No Status: Acute Sitting up in chair with working with PT/OT. (10) Encephalopathy acute: Current visit: No Status: Acute MRI today results showing Cerebral atrophy consistent with the patients age. Hyperintense white matter lesions on the FLAIR and T2 images, particularly in the periventricular region. Demyelinating processes such as MS or small vessel ischemic disease should be considered. There are no priors for comparisons. No enhancing lesions are identified. No evidence of an acute infarct. Unknown if these are acute or chronic findings. Dr. Rowley to see (11) Hypokalemia: Start date: 01/30/19 Start time: 16:17 Current visit: No Status: Acute potassium 2.9 repleted with 40 meq x 2 doses will monitor Subjective Patient reports: feels better Interval history since last seen: Mrs. Ricks is feeling better today, she is sitting up in the chair visiting. She denies, SOB, CP or cough. She does state she feels wonderful today and yesterday she did not feel herself as she was confused and could not think straight. Her leukocytosis has normalized and her lactate is trending down. She is currently on rocephin and azithromycin for questionable pneumonia. Dr. Ferguson to see after MRI. Exam Const General: cooperative and no acute distress HENRI Head: normal to inspection Eyes General: appearance normal, both eyes and all related structures Neck Neck: normal visual inspection Lymphatic: no lymphadenopathy noted and no lymphedema noted Chest Chest: normal inspection of the chest Resp Effort & Inspection: normal respiratory effort and able to speak in complete sentences Auscultation: crackles (fine crackles to bases) bilaterally Cardio Jugular venous pressure: no JVD Rate: regular rate Rhythm: regular rhythm Heart Sounds: S1 normal and S2 normal GI Inspection: normal to inspection Palpation: soft and no hepatosplenomegaly Auscultation: normal bowel sounds Skin General skin exam: no rashes or lesions noted Neuro General: alert, awake and oriented (confused intermittently) Patient Orientation: Person DTR's: Rt Biceps: 4+, Lt Biceps: 4+, Rt Patellar: 4+, Lt Patellar: 4+ and Lt Ankle: 4+ Pupils: Normal pupillary reactivity/response: right and left Extrem General: other Other: +3 to left leg and +2 to right leg. Psych Appearance: grossly normal Objective Objective Clinical Data: Abnormal lab results 01/29/19 01/29/19 01/29/19 Range/Units 10:55 10:55 11:05 WBC 17.38 H (4.4-10.8) k/cumm RBC (4.00-5.20) m/cumm Hgb (12.0-15.5) g/dL Hct (36.0-46.0) % Absolute Neutrophils 15.26 H (1.2-6.7) k/cumm Absolute Lymphocytes 1.11 L (1.2-3.4) k/cumm Absolute Monocytes 0.82 H (0.11-0.7) k/cumm Potassium (3.5-5.1) mmol/L BUN 19 H (7-18) mg/dL Creatinine 1.16 H (0.55-1.02) mg/dL Glucose 125 H (70-100) mg/dL Lactate (0.6-1.4) mmol/l Calcium (8.5-10.1) mg/dL Albumin 3.3 L (3.4-5.0) g/dL Urine Ketones 15 H (Negative) mg/dL Urine Blood Trace-lysed H (Negative) Urine RBC 3-5 H (0-2) 03/09/0901/29/19 01/30/19 Range/Units 11:28 21:52 06:28 WBC (4.4-10.8) k/cumm RBC (4.00-5.20) m/cumm Hgb (12.0-15.5) g/dL Hct (36.0-46.0) % Absolute Neutrophils (1.2-6.7) k/cumm Absolute Lymphocytes (1.2-3.4) k/cumm Absolute Monocytes (0.11-0.7) k/cumm Potassium 2.9 L* (3.5-5.1) mmol/L BUN (7-18) mg/dL Creatinine 1.11 H (0.55-1.02) mg/dL Glucose (70-100) mg/dL Lactate 2.0 H 1.8 H (0.6-1.4) mmol/l Calcium 8.4 L (8.5-10.1) mg/dL Albumin (3.4-5.0) g/dL Urine Ketones (Negative) mg/dL Urine Blood (Negative) Urine RBC (0-2) 01/30/19 Range/Units 06:28 WBC (4.4-10.8) k/cumm RBC 3.90 L (4.00-5.20) m/cumm Hgb 11.3 L (12.0-15.5) g/dL Hct 34.8 L (36.0-46.0) % Absolute Neutrophils 7.39 H (1.2-6.7) k/cumm Absolute Lymphocytes (1.2-3.4) k/cumm Absolute Monocytes 0.76 H (0.11-0.7) k/cumm Potassium (3.5-5.1) mmol/L BUN (7-18) mg/dL Creatinine (0.55-1.02) mg/dL Glucose (70-100) mg/dL Lactate (0.6-1.4) mmol/l Calcium (8.5-10.1) mg/dL Albumin (3.4-5.0) g/dL Urine Ketones (Negative) mg/dL Urine Blood (Negative) Urine RBC (0-2) Vital Signs Temperature 37 C 01/30/19 07:35 Temperature Source Tympanic 01/30/19 07:35 Pulse 87 03/11/19 07:35 Pulse Rhythm Regular 01/29/19 19:54 Pulse 109 H 01/29/19 13:50 Respiratory Rate 16 01/30/19 07:35 Respiratory Effort Non-Labored 01/29/19 19:54 Respiratory Depth Normal 01/29/19 19:54 Respiratory Pattern Normal 01/29/19 19:54 Blood Pressure 146/75 H 01/30/19 07:35 Blood Pressure Mean 73 01/29/19 13:31 Blood Pressure Position Supine 01/29/19 10:11 Pulse Oximetry 94 L 01/30/19 07:35 Oxygen Delivery Method Room Air 01/30/19 07:35 Oxygen Flow Rate 0 01/30/19 07:35 Pain Level 0 01/30/19 07:49 Intake & Output 01/29/19 01/29/19 01/30/19 11:59 23:59 11:59 Intake Total 390 / 390 1360 / 1360 Output Total 500 / 500 850 / 850 Balance -110 / -110 510 / 510 Weight 58.967 kg 64.1 kg Intake: IV 150 / 150 1000 / 1000 Oral 240 / 240 360 / 360 Output: Urine 500 / 500 850 / 850 Other: Urine Color Pale Yellow Brown Urine Appearance Cloudy Urine Odor Normal Voiding Methods Diaper Diaper Incontinent Laboratory Results WBC 10.22 k/cumm (4.4-10.8) D 01/30/19 06:28 RBC 3.90 m/cumm (4.00-5.20) L 01/30/19 06:28 Hgb 11.3 g/dL (12.0-15.5) L 01/30/19 06:28 Hct 34.8 % (36.0-46.0) L 01/30/19 06:28 MCV 89.2 fL (80-95) 01/30/19 06:28 MCH 29.0 pg (27.0-33.0) 01/30/19 06:28 MCHC 32.5 g/dL (32.0-36.0) 01/30/19 06:28 RDW 14.6 % (11.7-14.6) 01/30/19 06:28 Plt Count 266 x1000/uL (130-400) 01/30/19 06:28 MPV 9.6 fL (8.0-11.0) 01/30/19 06:28 Immature Gran % 0.2 01/30/19 06:28 Neutrophils % 72.3 01/30/19 06:28 Lymphocytes % 15.5 01/30/19 06:28 Monocytes % 7.4 01/30/19 06:28 Eosinophils % 4.3 01/30/19 06:28 Basophils % 0.3 01/30/19 06:28 Absolute Neutrophils 7.39 k/cumm (1.2-6.7) H 01/30/19 06:28 Absolute Lymphocytes 1.58 k/cumm (1.2-3.4) 01/30/19 06:28 Absolute Monocytes 0.76 k/cumm (0.11-0.7) H 01/30/19 06:28 Absolute Eosinophils 0.44 k/cumm (0.0-0.7) 01/30/19 06:28 Absolute Basophils 0.03 k/cumm (0.0-0.2) 01/30/19 06:28 Sodium 142 mmol/L (136-145) 01/30/19 06:28 Potassium 2.9 mmol/L (3.5-5.1) L* 01/30/19 06:28 Chloride 107 mmol/L (98-107) 01/30/19 06:28 Carbon Dioxide 25.7 mmol/L (21.0-32.0) 01/30/19 06:28 Anion Gap 9.3 mmol/L (3-11) 01/30/19 06:28 BUN 17 mg/dL (7-18) 01/30/19 06:28 Creatinine 1.11 mg/dL (0.55-1.02) H 01/30/19 06:28 Estimated GFR/1.73 m2 48.46 (mL/min/1.73m2) 01/30/19 06:28 Glucose 88 mg/dL (70-100) 01/30/19 06:28 Lactate 1.8 mmol/l (0.6-1.4) H 01/29/19 21:52 Calcium 8.4 mg/dL (8.5-10.1) L 01/30/19 06:28 Magnesium 1.8 mg/dL (1.8-2.4) 01/30/19 06:28 Total Bilirubin 0.9 mg/dL (0.2-1.0) 01/29/19 10:55 AST 22 U/L (15-37) 01/29/19 10:55 ALT 24 U/L (12-78) 01/29/19 10:55 Alkaline Phosphatase 97 U/L (46-116) 01/29/19 10:55 Total Protein 7.2 g/dL (6.4-8.2) 01/29/19 10:55 Albumin 3.3 g/dL (3.4-5.0) L 01/29/19 10:55 Urine Color Yellow (Yellow) 01/29/19 11:05 Urine Clarity Clear 01/29/19 11:05 Urine pH 5.5 (5-8) 01/29/19 11:05 Ur Specific [place] 1.020 (1.005-1.025) 01/29/19 11:05 Urine Protein Negative mg/dL (Negative) 01/29/19 11:05 Urine Ketones 15 mg/dL (Negative) H 01/29/19 11:05 Urine Blood Trace-lysed (Negative) H 01/29/19 11:05 Urine Nitrite Negative (Negative) 01/29/19 11:05 Urine Bilirubin Negative (Negative) 01/29/19 11:05 Urine Urobilinogen 0.2 EU/dL (Up TO 0.2) 01/29/19 11:05 Ur Leukocyte Esterase Negative (Negative) 01/29/19 11:05 Urine RBC 3-5 (0-2) H 01/29/19 11:05 Urine WBC Negative HPF (0-5) 01/29/19 11:05 Ur Epithelial Cells Many HPF (Negative) 01/29/19 11:05 Urine Crystals Few amorphous HPF (Negative) 01/29/19 11:05 Urine Bacteria Few HPF (Negative) 01/29/19 11:05 Urine Casts Negative LPF (Negative) 01/29/19 11:05 Urine Mucus Moderate (Negative) 01/29/19 11:05 Ur Culture Indicated? No 01/29/19 11:05 Urine Glucose Negative mg/dL (Negative) 01/29/19 11:05
[2019-01-30] MEDS: Normal Saline 1,000 ML 75 ML IV (10:40)
[2019-01-30] MEDS: AZITHROMYCIN 500 MG in Normal Saline 250 ML 83.302 MG IVPB (10:41)
--- NOTE | 2019-01-30 11:35 | OTIE_ITS ---
Occupational Therapy Notes Inpatient Occupational Therapy Evaluation Date: 01/30/19 Referring Doctor:Annmarie Menchaca NP OT Orders: ambulatory dysfunction Precautions: Fall, standard PATIENT PROFILE/ADMITTING DIAGNOSIS: Pt is a 73 year old female who was admitted through the ER on 01/29/19 for generalized weakness and pneumonia. Past Medical History: Spastic neurogenic bladder, Multiple Sclerosis, UTI, essential hypertension, edema (B) LE, proteus mirabilia infection, hypertension, hypokalemia, DVT prophylaxis, sepsis. Social History/Home Situation: Pt reports that she lives in a private home with her and her dog. She reports that she has a ramp to enter her home. She has two floors in her home with a seated chiar lift for her to get to the second floor. She reports that her bathroom has a walk in shower which she uses her mobilized machine to get into the bathroom to her shower. Her previous level of function for ADL routine was that she is able to get dressed (I) on the side of her bed for UE dressing. She then transitions to her toilet where she performs her toileting routine and then puts on her LE dressing garments. She performs her teeth brushing routine sitting at the sink, which she reports she thinks she should be standing. She is able to cook the meals in her kitchen. She reports that her performs the grocery shopping only because he wants to and she doesn't drive. She also reports that anything she can't (I) perform her will (A) her with. Equipment owned/DME: Stair chair lift, mobilized scooter, grab bars, shower bench, hand held shower head, 4WW for transitioning up ramp. SUBJECTIVE: Pt was performing toileting routine when OT arrived. She was agr eeable to OT consult. Her and friend were present in the room at the start of OT session. 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 FUNCTIONAL MOBILITY/ADLS: Transfers Sit-Stand Steady (S) Stand-sit Steady (S), min (A) for stand to sit Toilet-Chair Steady (S) DRESSING Dressing UE NT Dressing LE Sitting in chair with min vc and min (A) OT educated pt on donning and doffing pants which pt reports she has slight difficulty with at home depending on the day. TOILETING On toilet, (I) with steady for transfer. BALANCE: Static sitting Normal Dynamic Sitting Good Static Standing Steady Dynamic Standing steady SPECIAL TESTS: Daily Activity Limitations Standardized Measure [facility] AM -PAC ?6 clicks? Daily Activity Inpatient Short Form: Raw score: 19 Standardized score: 40.22 CMS score: 42.80% INFORMED CONSENT/EDUCATION: Pt instructed in purpose of OT Consult and plan of care. ASSESSMENT: Patient is a 73-year-old female referred to occupational therapy services with diagnosis of generalized weakness and pneumonia. Patient presents with clinical signs and symptoms consistent with dx, as demonstrated by the following impairment level findings and functional limitations: Decreased (I) in LE dressing, decreased strength for functional activities, decreased functional activity tolerance, decreased performance of ADLs at baseline. AMPAC score 19, CMS score 42.80% Patient is assessed as a Moderate 65136 complexity based on the following: History: See Above Examination: See Above Presentation: Evolving Decision Making: AMPAC score 19, CMS score 42.80% GOALS Goals x1 week in hospital setting. 1. Dressing in sitting position (I) with UE/LE. 2. Bathing Sitting at sink (I) 3. Toileting (I) with transferring to toilet and toileting hygiene 4. Eating Sitting in chair (I) 5. Grooming sitting at sink (I) for teeth PLAN OF CARE/TREATMENT PLAN: 1x/day, 5 days/ week x 1week Initiate Occupational Therapy Services for bathing, dressing, grooming, toileting, eating, transfer training. DISCHARGE RECOMMENDATIONS OT recommends that pt return home with family support when medically cleared per MD. TREATMENT TIME/MINUTES/CODES 04754, 25086 (37 minutes) 10:55 Graciela Arciniega OTR/[facility]
[2019-01-30] MEDS: Gadoterate meglumine 20 ML VIAL 6 ML IVP (12:30)
--- NOTE | 2019-01-30 12:40 | DI.MRI_ITS ---
SYMPTOMS/DIAGNOSIS: WEAKNESS AND CONFUSION WITH MS MRI OF THE BRAIN: Pre and post contrast examination was performed. The study was limited due to patient motion artifact. The patient received 6 cc of contrast intravenously. There are no prior MRIs for comparison. Comparison CT scan is 08/26/18. The ventricles and sulci are prominent consistent with the patient's age. There are areas of increased signal seen in the white matter, including several areas in the periventricular white matter region. These areas show hyperintensity on the T2 and FLAIR images. A demyelinating process such as multiple sclerosis should be considered. In addition, small vessel ischemic disease should be considered. Following contrast administration, no enhancing lesions are identified. The diffusion weighted images show no evidence of an acute infarct. No intracranial hemorrhage is present. The ventricles are intact. The basilar cisterns are patent. There is no acute midline shift or mass effect. There is a flow void seen in the [place] of [place]. The pituitary gland appears grossly unremarkable. The visualized paranasal sinuses show mild mucosal thickening in the maxillary sinuses. IMPRESSION: 1. Cerebral atrophy consistent with the patient's age. 2. Hyperintense white matter lesions on the FLAIR and T2 images, particularly in the periventricular region. Demyelinating processes such as MS or small vessel ischemic disease should be considered. There are no priors for comparison. 3. No enhancing lesions are identified. No evidence of an acute infarct.
[2019-01-30] MEDS: Normal Saline Flush 10 ML SYR IVP (13:02)
[2019-01-30 14:40] LABS: Lactate-non-spesis 1.5 mmol/l (0.6-1.4)
--- NOTE | 2019-01-30 15:12 | CHAPLAIN ---
Nguyen was sitting up in her chair when I visited this afternoon. She is very pleasant and easily engages in a conversation. She there is a plan for for Dr. Ríos, Dr. Mei and her neurologist to meet with her this afternoon, all at the same time, and she is very pleased about this. Her has taken some time off recently to care for her, so Nguyen said it's unlikely he'll be able to be at the meeting. Nguyen shared some personal history, telling me about her two adult children who within a year a half of each other, a couple of years ago. She said her granddaughter will likely visit today and this seemed to please her. 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 She tells me that she believes in God, but also that here are many ways to connect to God.
[2019-01-30] MEDS: Enoxaparin 30 MG/0.3 ML SYR SC (15:38)
--- NOTE | 2019-01-30 16:10 | NCONE_ITS ---
Date of service: 01/30/19 Time of Service: 19:20 Assessment and Plan (1) Multiple sclerosis: Current visit: No Status: Acute (2) Encephalopathy acute: Current visit: No Status: Acute (3) Delirium: Current visit: Yes Status: Acute Ms. 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 Cognitively, she has returned back to normal. She remains mildly weakened. I suspect her symptoms were a delirium due to her r ecent UTI and has subsequently improved with adequate treatment. She has had similar symptoms in the past. Her MS has been in a secondary state for 20+ years. It would be unheard of for it to reactivate and cause acute problems at Ms. Ricks's age. The MRI shows chronic changes consistent with her known history of MS. I recommend continued f/up with Urology for neurogenic bladder. She should follow-up in the neurology clinic as previously scheduled. Please call with any questions or concerns. History of Present Illness Chief Complaint: altered mental status Narrative: Handedness: right. Ms. Ricks is a73 year-old woman with a history of secondary progressive MS and neurogenic bladder whom I know well from clinic. I last saw her in September 2018 at which time she was suffering from recurrent UTIs. Unfortunately, not much has changed. She continues to suffer from recurrent UTIs including a Proteus infection for which she consulted with [facility]. Symptom onset of UTI includes urinary incontinence, +/- urine odor changes, +/- weakness/falls, +/- confusion. She has essentially had persistent UTI symptoms for the last 1 month. Most recently, she had recurrent symptoms on 01/23/19 despite a recent treatment with ciprofloxacin (for enterococcus on 01/12). Cultures on 01/25/19 grew E. coli. She was given a single IV infusion of gentamycin on 01/27/19 and then started on Macrobid. Approximately 24 hours, she began developing significant confusion and increased weakness. She was admitted on 01/29/19 for these symptoms. She was started on azithromycin and rocephin for ?HCAP and ?UTI, show UA was unremarkable upon admission. CXR shows bilateral plueral effusions and basilar infiltrates. She has no clinical symptoms suggestive of pneumonia. She also underwent a brain MRI which I was able to view. It shows significant T2 white matter changes, concentrated at the lateral ventricles with a few black wholes and consistent with her known history of MS. There were no acute findings and no enhancing lesions. As for her MS, she has not had an MS attack since the . She is not on disease modifying therapy. I do not know when she last underwent a brain MRI (or where). Consults Requesting physician: Omari Ríos Review of Systems Review of Systems All systems reviewed & are unremarkable except as noted in HPI and below [facility] Medical History Spastic neurogenic bladder (Acute 04/23/15) Multiple sclerosis (Acute 04/10/13) History of recurrent UTI (urinary tract infection) (Acute 06/19/16) Essential hypertension (Acute) Neurogenic bladder (Acute) Multiple sclerosis (Chronic) Edema of both lower extremities (Chronic) UTI (urinary tract infection) (Acute) Hypertension (Chronic) Chronic fatigue (Acute) Hypokalemia (Acute) Neurogenic bladder (Acute) Recurrent falls (Acute) Tobacco abuse (Acute) HTN (hypertension) MS (multiple sclerosis) Urinary incontinence with continuous leakage Surgical History Extraction of cataract (12/17/15) Extraction of cataract (12/31/15) Ligation of fallopian tube Family History Mother Neoplasm Father No problems noted. Sister No problems noted. 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[employer] [place] pets and animals: Yes pets and animals: dog(s) what type of physical activity do you participate in: none Smoking and Tabacco status: Current-Occasional second hand exposure: No substance use type: does not use joseline/hindu: Pentecostalism special joseline needs: No Visit Medication and Allergies Active Medications Generic Name Dose Route Start Last Admin Trade Name Freq PRN Reason Stop Dose Admin Acetaminophen 650 mg 01/29/19 14:14 Tylenol PO Q4H PRN PRN Albuterol Sulfate 2.5 mg 01/29/19 14:09 Proventil Updraft UPD Q2H PRN PRN Cyanocobalamin 1,000 mcg 01/30/19 08:30 01/30/19 08:52 Vitamin B-12 PO 1,000 mcg DAILY SUZANNE Administration Dimethicone/Zinc Oxide 0 gm 01/29/19 14:09 William Protect Cream TP PRN PRN Enoxaparin Sodium 30 mg 01/29/19 16:00 01/30/19 15:38 Lovenox SC 30 mg Q24H SUZANNE Administration Gadoterate Meglumine 6 ml 01/30/19 12:30 01/30/19 12:30 Dotarem IVP 03/01/19 12:30 6 ml DIRECTED SUZANNE Administration Guaifenesin 600 mg 01/29/19 14:49 Mucinex PO BID PRN PRN Cough Hydrochlorothiazide 12.5 mg 01/30/19 08:30 01/30/19 09:03 Hydrodiuril PO Not Given DAILY SUZANNE Sodium Chloride 1,000 mls @ 75 mls/hr 01/29/19 14:15 01/30/19 10:41 Saline 1000ml Bag IV 0 mls/hr INFUSION SUZANNE Infusion Ceftriaxone Sodium/Dextrose 1 gm in 50 mls @ 100 mls/hr 01/30/19 08:00 01/30/19 09:21 Rocephin IVPB Infused Q24H SUZANNE Infusion Azithromycin 500 mg/ Sodium 250 mls @ 83.302 mls/hr 01/30/19 10:00 01/30/19 13:02 Chloride IVPB 83.302 mls/hr Q24H SUZANNE Infusion IV Miscellaneous Supplies 1 each 01/29/19 14:15 IV DIRECTED SUZANNE Loperamide HCl 2 mg 01/29/19 15:26 Imodium PO TID PRN DIARRHEA Melatonin 3 - 6 mg 01/29/19 22:17 PO HS PRN Mirabegron 50 mg 01/30/19 08:30 01/30/19 08:52 Myrbetriq PO 50 mg DAILY SUZANNE Administration Nystatin 0 gm 01/29/19 20:00 01/30/19 08:51 Mycostatin Powder TP 1 applic BID SUZANNE Administration Omeprazole 20 mg 01/29/19 20:00 01/30/19 08:52 Prilosec PO 20 mg BID@07,1999 SUZANNE Administration Pt's Own Vit D3-B6, 1 each 01/30/19 08:30 01/30/19 09:11 Fa,B12 Tablet PO Not Given DAILY SUZANNE Polyethylene Glycol 17 gm 01/29/19 14:14 Miralax PO DAILY PRN PRN Constipation Potassium Chloride 10 meq 01/30/19 08:30 01/30/19 08:52 K-Dur PO 10 meq DAILY SUZANNE Administration Potassium Chloride 40 meq 01/30/19 14:30 K-Dur PO ONCE SUZANNE Sodium Chloride 0 ml 01/29/19 14:09 01/30/19 13:02 Saline Flush 10 Ml Syringe IVP 10 ml PRN PRN Administration Allergies oxybutynin Adverse Reaction (Intermediate, Verified 01/29/19 11:19) severe dry mouth AMPRAH Adverse Reaction (Intermediate, Uncoded 01/29/19 11:19) MADE HER MS WORSE Exam Narrative Exam Narrative: Physical Exam: Constitutional: Patient of apparent stated age, well nourished, well developed, no acute distress Neck: Supple, no meningismus CV: RRR, S1, S2, no murmur Resp: CTAB Abd: Soft, nontender, nondistended Extrem: bilateral LE lymphedema, L>R Neuro: MS/Language/Speech: Alert, orientedx3; current and remote events intact; clear language (fluency and comprehension), no dysarthria CN: PERRL, EOMI, visual upton full, trigeminal sensation intact, no facial asymmetry, hearing intact to whisper, palate elevates symmetrically, tongue protrudes midline, SCM and trap strength intact Motor: Normal bulk. Mild bilateral LE spasticity. FMM intact, no pronator drift. 5/5 strength in bilateral upper and lower extremities except 2/5 R hip f lexor and 1/5 L hip flexor. Able to wiggle toes with 1/5 ankles movements bilaterally. Sensation: Intact to light touch throughout Reflexes: brisk throughout; +Babinski bilaterally; no clonus Coordination: Finger to nose performed without dysmetria Gait: deferred Results Last Vital Signs Temp 37 C 01/30/19 07:35 Pulse 87 01/30/19 07:35 Resp 16 01/30/19 07:35 BP 146/75 H 01/30/19 07:35 Pulse Ox 94 L 01/30/19 07:35 Labs : 01/30/19 06:28 01/30/19 06:28 Laboratory Results - last 24 hr 01/29/19 01/30/19 01/30/19 21:52 06:28 06:28 WBC 10.22 D RBC 3.90 L Hgb 11.3 L Hct 34.8 L MCV 89.2 MCH 29.0 MCHC 32.5 RDW 14.6 Plt Count 266 MPV 9.6 Immature Gran % 0.2 Neutrophils % 72.3 Lymphocytes % 15.5 Monocytes % 7.4 Eosinophils % 4.3 Basophils % 0.3 Absolute Neutrophils 7.39 H Absolute Lymphocytes 1.58 Absolute Monocytes 0.76 H Absolute Eosinophils 0.44 Absolute Basophils 0.03 Sodium 142 Potassium 2.9 L* Chloride 107 Carbon Dioxide 25.7 Anion Gap 9.3 BUN 17 Creatinine 1.11 H Estimated GFR/1.73 m2 48.46 Glucose 88 Lactate 1.8 H Calcium 8.4 L Magnesium 1.8 01/30/19 14:15 WBC RBC Hgb Hct MCV MCH MCHC RDW Plt Count MPV Immature Gran % Neutrophils % Lymphocytes % Monocytes % Eosinophils % Basophils % Absolute Neutrophils Absolute Lymphocytes Absolute Monocytes Absolute Eosinophils Absolute Basophils Sodium Potassium Chloride Carbon Dioxide Anion Gap BUN Creatinine Estimated GFR/1.73 m2 Glucose Lactate 1.5 H Calcium Magnesium
[2019-01-30 16:48] VITALS: BP 136/80; PULSE 104; RESP 19; TEMP 36.9; O2SAT 100
[2019-01-30 19:52] VITALS: BP 134/66; PULSE 92; RESP 18; TEMP 37.1; O2SAT 97
[2019-01-30] MEDS: Melatonin 3 MG TAB PO (21:34)
[2019-01-31 00:51] VITALS: BP 138/66; PULSE 90; RESP 18; TEMP 36.6; O2SAT 98
[2019-01-31] MEDS: Normal Saline 1,000 ML 75 ML IV (03:58)
--- NOTE | 2019-01-31 06:56 | W.UROLOGYCON ---
Date of service: 01/30/19 Time of Service: 16:00 History of Present Illness Chief Complaint: Recurrent urinary tract infections Narrative: This is a 73-year-old woman who has a history of multiple sclerosis. As a result, she has a neurogenic bladder. She has not had a high pressure bladder/hydronephrosis to date but she has had recurrent urinary tract infections. She typically gets symptoms including burning, incontinence and mental status changes. When she presents with urinary tract infections, she will sometimes be retaining urine. When she is asymptomatic in our office, her bladder seems to empty well based on bladder scan. She improves with antibiotics, but with her recurrent infections, we are finding more and more resistant organisms She has a standing urine culture order with our lab. Whenever she feels symptomatic, she provides a urine sample and we start antibiotics as needed. She did experience symptoms toward the end of last week. Her urine culture grew E. coli (although a very low colony count). Since her infections did not clear with Macrodantin in the past, we gave her a single dose of IV gentamicin before she began the Macrodantin. She was then admitted to the hospital with the acute mental status changes. Interestingly, her urine at the time of her presentation was rather unremarkable In the past, I have had her evaluated by the infectious disease service down at [facility] looking for additional recommendations. Our plan based on that evaluation was to treat the infections as they occur, and to arrange for urodynamics to see if this patient would require intermittent catheterization should the infections recur frequently. [facility] Medical History Spastic neurogenic bladder (Acute 04/23/15) Multiple sclerosis (Acute 04/10/13) History of recurrent UTI (urinary tract infection) (Acute 06/19/16) Essential hypertension (Acute) Neurogenic bladder (Acute) Multiple sclerosis (Chronic) Edema of both lower extremities (Chronic) UTI (urinary tract infection) (Acute) Hypertension (Chronic) Chronic fatigue (Acute) Hypokalemia (Acute) Neurogenic bladder (Acute) Recurrent falls (Acute) Tobacco abuse (Acute) HTN (hypertension) MS (multiple sclerosis) Urinary incontinence with continuous leakage Surgical History Extraction of cataract (12/17/15) Extraction of cataract (12/31/15) Ligation of fallopian tube Family History Mother Neoplasm Father No problems noted. Sister No problems noted. 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 She does not appear septic or toxic Her vital signs are documented elsewhere in the chart She is awake and alert Results Last Vital Signs Temp 36.6 C 01/31/19 00:51 Pulse 90 01/31/19 00:51 Resp 18 01/31/19 00:51 BP 138/66 01/31/19 00:51 Pulse Ox 98 01/31/19 00:51 Labs : 01/30/19 06:28 01/30/19 06:28 Laboratory Results - last 24 hr 01/30/19 01/30/19 01/30/19 06:28 06:28 14:15 WBC 10.22 D RBC 3.90 L Hgb 11.3 L Hct 34.8 L MCV 89.2 MCH 29.0 MCHC 32.5 RDW 14.6 Plt Count 266 MPV 9.6 Immature Gran % 0.2 Neutrophils % 72.3 Lymphocytes % 15.5 Monocytes % 7.4 Eosinophils % 4.3 Basophils % 0.3 Absolute Neutrophils 7.39 H Absolute Lymphocytes 1.58 Absolute Monocytes 0.76 H Absolute Eosinophils 0.44 Absolute Basophils 0.03 Sodium 142 Potassium 2.9 L* Chloride 107 Carbon Dioxide 25.7 Anion Gap 9.3 BUN 17 Creatinine 1.11 H Estimated GFR/1.73 m2 48.46 Glucose 88 Lactate 1.5 H Calcium 8.4 L Magnesium 1.8 Assessment and Plan (1) Spastic neurogenic bladder: Current visit: No Status: Acute With her recurrent symptomatic bacteriuria, and with the different organisms being identified, we are probably at a point where we should arrange urodynamics. A chronically poorly emptying bladder can contribute to recurrent infections. A urodynamic study needs to be done as an outpatient in the office with no anesthesia. Based on these results, we may need to implement an intermittent catheterization program. (2) History of recurrent UTI (urinary tract infection): Current visit: No Status: Acute
--- NOTE | 2019-01-31 07:06 | UCONE_ITS ---
Date of service: 01/30/19 Time of Service: 16:00 History of Present Illness Chief Complaint: Recurrent urinary tract infections Narrative: This is a 73-year-old woman who has a history of multiple sclerosis. As a result, she has a neurogenic bladder. She has not had a high pressure bladder/hydronephrosis to date but she has had recurrent urinary tract infections. She typically gets symptoms including burning, incontinence and mental status changes. When she presents with urinary tract infections, she will sometimes be retaining urine. When she is asympt omatic in our office, her bladder seems to empty well based on bladder scan. She improves with antibiotics, but with her recurrent infections, we are finding more and more resistant organisms She has a standing urine culture order with our lab. Whenever she feels symptomatic, she provides a urine sample and we start antibiotics as needed. She did experience symptoms toward the end of last week. Her urine culture grew E. coli (although a very low colony count). Since her infections did not clear with Macrodantin in the past, we gave her a single dose of IV gentamicin before she began the Macrodantin. She was then admitted to the hospital with the acute mental status changes. Interestingly, her urine at the time of her presentation was rather unremarkable In the past, I have had her evaluated by the infectious disease service down at [facility] looking for additional recommendations. Our plan based on that evaluation was to treat the infections as they occur, and to arrange for urodynamics to see if this patient would require intermittent catheterization should the infections recur frequently. [facility] Medical History Spastic neurogenic bladder (Acute 04/23/15) Multiple sclerosis (Acute 04/10/13) History of recurrent UTI (urinary tract infection) (Acute 06/19/16) Essential hypertension (Acute) Neurogenic bladder (Acute) Multiple sclerosis (Chronic) Edema of both lower extremities (Chronic) UTI (urinary tract infection) (Acute) Hypertension (Chronic) Chronic fatigue (Acute) Hypokalemia (Acute) Neurogenic bladder (Acute) Recurrent falls (Acute) Tobacco abuse (Acute) HTN (hypertension) MS (multiple sclerosis) Urinary incontinence with continuous leakage Surgical History Extraction of cataract (12/17/15) Extraction of cataract (12/31/15) Ligation of fallopian tube Family History Mother Neoplasm Father No problems noted. Sister No problems noted. 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 She does not appear septic or toxic Her vital signs are documented elsewhere in the chart She is awake and alert Results Last Vital Signs Temp 36.6 C 01/31/19 00:51 Pulse 90 01/31/19 00:51 Resp 18 01/31/19 00:51 BP 138/66 01/31/19 00:51 Pulse Ox 98 01/31/19 00:51 Labs : 01/30/19 06:28 01/30/19 06:28 Laboratory Results - last 24 hr 01/30/19 01/30/19 01/30/19 06:28 06:28 14:15 WBC 10.22 D RBC 3.90 L Hgb 11.3 L Hct 34.8 L MCV 89.2 MCH 29.0 MCHC 32.5 RDW 14.6 Plt Count 266 MPV 9.6 Immature Gran % 0.2 Neutrophils % 72.3 Lymphocytes % 15.5 Monocytes % 7.4 Eosinophils % 4.3 Basophils % 0.3 Absolute Neutrophils 7.39 H Absolute Lymphocytes 1.58 Absolute Monocytes 0.76 H Absolute Eosinophils 0.44 Absolute Basophils 0.03 Sodium 142 Potassium 2.9 L* Chloride 107 Carbon Dioxide 25.7 Anion Gap 9.3 BUN 17 Creatinine 1.11 H Estimated GFR/1.73 m2 48.46 Glucose 88 Lactate 1.5 H Calcium 8.4 L Magnesium 1.8 Assessment and Plan (1) Spastic neurogenic bladder: Current visit: No Status: Acute With her recurrent symptomatic bacteriuria, and with the different organisms being identified, we are probably at a point where we should arrange urodynamics. A chronically poorly emptying bladder can contribute to recurrent infections. A urodynamic study needs to be done as an outpatient in the office with no anesthesia. Based on these results, we may need to implement an intermittent catheterization program. (2) History of recurrent UTI (urinary tract infection): Current visit: No Status: Acute
[2019-01-31 07:08] LABS: Abs Immature Grans 0.02 k/cumm (0.0-0.09); Absolute Basophil Count 0.04 k/cumm (0.0-0.2); Absolute Eosinophil Count 0.45 k/cumm (0.0-0.7); Absolute Lymphocyte Count 1.71 k/cumm (1.2-3.4); Absolute Monocyte Count 0.78 k/cumm (0.11-0.7); Absolute Neutrophil Count 4.66 k/cumm (1.2-6.7); Basophils % 0.5; Eosinophils % 5.9; HCT 33.8 % (36.0-46.0); Immature Grans % 0.3; Lymphocytes % 22.3; Mean Corp. HGB Concentration 32.5 g/dL (32.0-36.0); Mean Corpuscular Volume 89.2 fL (80-95); Mean Platelet Volume 9.4 fL (8.0-11.0); Monocytes % 10.2; Neutrophils % 60.8; Platelet Count 286 x1000/uL (130-400); RBC 3.79 m/cumm (4.00-5.20); RBC Distribution Width 14.7 % (11.7-14.6); White Blood Cell Count 7.66 k/cumm (4.4-10.8)
[2019-01-31 07:29] LABS: Anion Gap 10.6 mmol/L (3-11); BUN 17 mg/dL (7-18); CO2 24.4 mmol/L (21.0-32.0); CREATININE 0.98 mg/dL (0.55-1.02); Calcium 8.1 mg/dL (8.5-10.1); Chloride 111 mmol/L (98-107); Estimated GFR 55.95 (mL/min/1.73m2); Glucose 103 mg/dL (70-100); Magnesium 1.9 mg/dL (1.8-2.4); Potassium 3.4 mmol/L (3.5-5.1); Sodium 146 mmol/L (136-145)
[2019-01-31 07:30] VITALS: BP 130/71; PULSE 84; RESP 18; TEMP 36.5; O2SAT 96
[2019-01-31] MEDS: Cyanocobalamin 500 MCG TAB 1000 MCG PO (09:08)
[2019-01-31] MEDS: Nystatin POWDER 15 GM JAR TP (09:08)
[2019-01-31] MEDS: Omeprazole 20 MG CAPCR PO (09:08)
[2019-01-31] MEDS: Mirabegron 50 MG TABCR PO (09:08)
--- NOTE | 2019-01-31 09:08 | PT.INTREAT ---
Date of service: 01/30/19 Time of Service: 14:51 PT Notes Inpatient Physical Therapy Treatment Note [facility] Date: 01/30/2019 PRECAUTIONS: Fall. Standard. SUBJECTIVE: Patient report feeling a lot better this afternoon and is agreeable for a second treatment session. OBJECTIVE: Patient is seen resting on chair. IV in the left UE. PAIN: 0/10 Bed Mobility/Transfers: Rolling moderate assist Supine to sit max assist Sit to supine max assist Sit to stand dependent using Stedy machine Stand to sit dependent using Stedy machine Bed to chair dependent using Stedy machine Chair to bed dependent using Stedy machine Gait: Unable Balance: Static Sitting: Fair Dynamic Sitting: Fair Static Standing: Poor, requires Stedy machine Dynamic Standing: Poor, requires Stedy machine THEREX: Patient tolerated BLE active assistive range of motion exercises as listed on exercise flow sheet while reclined on the chair. She was able to complete BUE strengthening exercises focusing on shoulder flexion extension and horizontal abduction and adduction using green Thera-Band. ASSESSMENT: Patient satisfied with exercises done today and looks forward to continuing with same while she is in this facility. She is agreeable to PT POC as established this morning. PLAN: Continue with implementing PT POC formulated/to establish this morning in order to achieve transfer goal. TREATMENT CODE/TIME: [id number] 24 minutes beginning at 14:51 PM.
[2019-01-31] MEDS: Potassium Chloride 20 MEQ TABCR PO (09:23)
[2019-01-31] MEDS: AZITHROMYCIN 500 MG in Normal Saline 250 ML 83.302 MG IVPB (10:24)
[2019-01-31 11:35] VITALS: BP 147/82; PULSE 92; RESP 20; TEMP 36.3; O2SAT 98
--- NOTE | 2019-01-31 11:51 | PDOC.CMPRO ---
- If Service Date Differs Date of service: 01/31/19 Time of Service: 11:52 Care Management Progress Note S/O: Nguyen is sitting up in her chair when CM visits this morning, she is pleasant and receptive to discussion. Nguyen discussed dousing and that she enjoys this, as well as taking care of her cactus plants throughout her home. She reports the bed being uncomfortable at the hospital, and preferring the recliner. No change in DC plan. A: 73 y/o female admitted 01/29/19 for Generalized Weakness, Pneumonia. P: Nguyen will return home with no anticipated services. She will f/u with PCP and plan of care as prescribed. Her will transport when ready.
--- NOTE | 2019-01-31 13:27 | DSE_ITS ---
Date of service: 01/31/19 Time of Service: 13:23 DS: Diagnosis Discharge Diagnosis (1) Spastic neurogenic bladder: Status: Acute (2) History of recurrent UTI (urinary tract infection): Status: Acute Discharge Plan Disposition Patient Disposition: HOME Condition: Improving Discharge Details Reason For Visit: GENERALIZED WEAKNESS, PNEUMONIA Admit Date/Time: 01/29/19 12:44 Admit Provider: Omari Ríos Attending Provider: Omari Ríos Primary Care Provider: Дмитрий Hyatt Hospital Course Hospital Course: Mrs. Ricks is a 73 y.o F with PMH of MS with neurogenic bladder and recurrent urinary tract infections who presented to the ED on 01/29/19 with increased confusion and generalized weakness. She had been treated recently by the Urology clinic for UTI with a cutlure that grew E-coli, 10-50,000 colonies. Her UA on admission was not suspicious for infection. However, she was found to be retaining urine (which is not a new finding for her). She was seen by Dr. Mei, Urology, who follows her chronically. He will follow up with her as an outpatient for urodynamic studies. He is aware that she has been retaining urine with bladder scans up to 600 ml. He did not want her to be discharged with a jacobs catheter and did not recommend straight catheterization as he will follow up with her as an outpatient and he wants her to be at her baseline for testing. She was also noted to have bilateral basilar infiltrates representing pneumonia vs atelectasis. She was initiated on antibiotics due to concern for pneumonia, however, she did not have an elevated WBC count, fever or symptoms of pneumonia. She will be discharged with an incentive spirometer, antibiotics have been disc ontinued. She has a history of MS, she had MRI Brain which noted Hyperintense white matter lesions on the FLAIR and T2 images, particularly in the periventricular region. Demyelinating processes such as MS or small vessel ischemic disease should be considered. There was concern that her altered mental status, generalized weakness and ambulatory dysfunction may be related to MS. She was seen by Dr. Rowley, neurology, who felt that her cognitive status had returned to baseline. Dr. Rowley did not suspect that the acute problems could be explained by activation of her MS. She recommends follow up in the Neurology clinic. Nguyen Ricks is discharged home in improved condition. She will follow up with her PCP. She will follow up with Dr. Mei for urodynamic studies. She will follow up with Neurology as scheduled. She should continue to use IS after discharge home. She will have follow up labs in 3 days to reassess her potassium and white blood count to ensure that it does not become elevated off of antibiotics. Home Meds and New Rx's Prescriptions: Continued Myrbetriq 50 mg tablet extended release 24 hr 50 mg PO DAILY Qty: 90 RF: 3 cyanocobalamin (vitamin B-12) [Vitamin B-12] 1,000 MCG tablet 1,000 mcg PO DAILY RF: 0 Vitamin D3 (calcium cit-phos) 1 EACH tablet 1 ea PO DAILY RF: 0 potassium chloride [K-Tab] 10 mEq tablet extended release 10 meq PO DAILY Qty: 90 RF: 3 hydrochlorothiazide 25 mg tablet 12.5 mg PO DAILY Qty: 90 RF: 4 Kelp (iodine) 150 MCG tablet 150 mcg PO DAILY RF: 0 loperamide 2 mg Capsule 2 mg PO PRN PRN (Reason: DIARRHEA) Qty: 0 RF: 0 nystatin 100,000 unit/gram Powder Topical BID Qty: 0 RF: 0 Discontinued nitrofurantoin monohyd/m-cryst 100 mg capsule 100 mg PO BID Qty: 20 RF: 0 Discharge Instructions Instructions: Chronic Urinary Retention in Women (DC) Stand Alone Forms: Nursing Discharge Form Referrals: Дмитрий Hyatt DO [Primary Care Provider] - 02/08/19 3:40 pm Meño Mei MD [ [facility] STAFF PHYSICIAN] - 02/17/19 2:00 pm Ada Rowley MD [ [facility] STAFF PHYSICIAN] - 03/13/19 1:15 pm Activity:: Activity as Tolerated Equipment/Supplies:: No Equipment Needed Diet:: As Tolerated Discharge Orders Discharge Orders: Discharge Order (Routine); Ordered 01/31/19 Ordered By: Padma Guillaume Other Ambulatory Orders: Basic Metabolic Panel (Routine) Timeframe: 3 Days Facility: [facility] - Location: Laboratory Outpatient Ordered By: Padma Guillaume Complete Blood Count No Diff (Routine) Timeframe: 3 Days Facility: [facility] - Location: Laboratory Outpatient Ordered By: Padma Guillaume Exam Narrative Exam Narrative: General: Awake and alert, sitting up in chair in NAD. HEENT: Normocephalic, atraumatic, pupils equal and round, mucous membranes moist. Neck: Supple, no JVD. Respiratory: Respirations even and unlabored, no coughing, lung sounds with fine rales to bilateral bases, no wheezing. Cardiovascular: Heart has regular rate and rhythm, no murmur appreciated. GI: Abdomen soft, nontender on palpation, normoactive bowel sounds throughout. Extremities: Edema bilaterally. Pedal pulses palpable bilaterally. DS: Data Vitals/I&O Vitals and I&O: Vital Signs Temperature 36.5 C 01/31/19 07:30 Temperature Source Tympanic 01/31/19 07:30 Pulse 84 01/31/19 07:30 Pulse Rhythm Regular 01/31/19 04:10 Pulse 109 H 01/29/19 13:50 Respiratory Rate 18 01/31/19 07:30 Respiratory Effort Non-Labored 01/31/19 04:10 Respiratory Depth Normal 01/31/19 04:10 Respiratory Pattern Normal 01/31/19 04:10 Blood Pressure 130/71 01/31/19 07:30 Blood Pressure Mean 73 01/29/19 13:31 Blood Pressure Position Supine 01/29/19 10:11 Pulse Oximetry 96 01/31/19 07:30 Oxygen Delivery Method Room Air 01/31/19 07:30 Oxygen Flow Rate 0 01/31/19 07:30 Pain Level 0 01/30/19 07:49 Intake & Output 01/30/19 01/31/19 01/31/19 23:59 11:59 23:59 Intake Total 644.203 / 3151.250 1370 / 1370 Output Total 1450 / 2300 2300 / 2300 Balance -805.797 / 851.250 -930 / -930 Intake: IV 164.203 / 2311.250 980 / 980 Oral 480 / 840 390 / 390 Output: Urine 1450 / 2300 1550 / 1550 Post Void Residual 750 / 750 Other: Urine Color Straw Pale Yellow Urine Appearance Clear Clear Urine Odor None Comment Pt. was bladder scanned for an average of 370 mL (297/306/509) of urine. Pt. to be straight catheterized per MD order. RN will reassess as necessary. range 430cc-538cc. The amount of void unknown patient urinated several times during transfers and prior to the bladder scan. Patient also stated that she didnt feel the urge to urinate at this time. Stool Size Large Moderate Stool Characteristics Formed Formed Hard Hard Brown Voiding Methods Diaper Incontinent Completed studies during hospitalization [Text1]: 01/29/19: FRONTAL AND LATERAL CHEST: Comparison is made with 09/28/18. Cardiac silhouette appears stable and within n ormal limits. Pulmonary vasculature is within normal limits. There are bilateral basilar infiltrates. There is blunting of the costophrenic angles bilaterally which may represent small pleural effusions. No pneumothorax is identified. Degenerative changes are seen in the spine. IMPRESSION: Bilateral basilar infiltrates which may represent atelectasis or pneumonia. Findings suggestive of small bilateral pleural effusions. 01/30/19: MRI OF THE BRAIN: Pre and post contrast examination was performed. The study was limited due to patient motion artifact. The patient received 6 cc of contrast intravenously. There are no prior MRIs for comparison. Comparison CT scan is 08/26/18. The ventricles and sulci are prominent consistent with the patient's age. There are areas of increased signal seen in the white matter, including several areas in the periventricular white matter region. These areas show hyperintensity on the T2 and FLAIR images. A demyelinating process such as multiple sclerosis should be considered. In addition, small vessel ischemic disease should be considered. Following contrast administration, no enhancing lesions are identified. The diffusion weighted images show no evidence of an acute infarct. No intracranial hemorrhage is present. The ventricles are intact. The basilar cisterns are patent. There is no acute midline shift or mass effect. There is a flow void seen in the [place] of Ricks. The pituitary gland appears grossly unremarkable. The visualized paranasal sinuses show mild mucosal thickening in the maxillary sinuses. IMPRESSION: 1. Cerebral atrophy consistent with the patient's age. 2. Hyperintense white matter lesions on the FLAIR and T2 images, particularly in the periventricular region. Demyelinating processes such as MS or small vessel ischemic disease should be considered. There are no priors for comparison. 3. No enhancing lesions are identified. No evidence of an acute infarct. Labs on day of discharge: Labs from last 24 hours 01/31/19 01/31/19 01/30/19 06:50 06:50 14:15 WBC 7.66 RBC 3.79 L Hgb 11.0 L Hct 33.8 L MCV 89.2 MCH 29.0 MCHC 32.5 RDW 14.7 H Plt Count 286 MPV 9.4 Immature Gran % 0.3 Neutrophils % 60.8 Lymphocytes % 22.3 Monocytes % 10.2 Eosinophils % 5.9 Basophils % 0.5 Absolute Neutrophils 4.66 Absolute Lymphocytes 1.71 Absolute Monocytes 0.78 H Absolute Eosinophils 0.45 Absolute Basophils 0.04 Sodium 146 H Potassium 3.4 L Chloride 111 H Carbon Dioxide 24.4 Anion Gap 10.6 BUN 17 Creatinine 0.98 Estimated GFR/1.73 m2 55.95 Glucose 103 H Lactate 1.5 H Calcium 8.1 L Magnesium 1.9 PFSH Medical History Spastic neurogenic bladder (Acute 04/23/15) Multiple sclerosis (Acute 04/10/13) History of recurrent UTI (urinary tract infection) (Acute 06/19/16) Essential hypertension (Acute) Neurogenic bladder (Acute) Multiple sclerosis (Chronic) Edema of both lower extremities (Chronic) UTI (urinary tract infection) (Acute) Hypertension (Chronic) Chronic fatigue (Acute) Hypokalemia (Acute) Neurogenic bladder (Acute) Recurrent falls (Acute) Tobacco abuse (Acute) HTN (hypertension) MS (multiple sclerosis) Urinary incontinence with continuous leakage Surgical History Extraction of cataract (12/17/15) Extraction of cataract (12/31/15) Ligation of fallopian tube Family History Mother Neoplasm Father No problems noted. Sister No problems noted. 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
--- NOTE | 2019-02-01 08:26 | OTDS_ITS ---
Date of service: 02/01/19 Time of Service: 08:22 Occupational Therapy Notes Occupational Therapy Inpatient Discharge Summary Dates of Service: 01/30/19-02/01/19 Date: 01/30/19 for 01/31/19 Referring Doctor:Annmarie Menchaca NP OT Orders: ambulatory dysfunction Precautions: Fall, standard PATIENT PROFILE/ADMITTING DIAGNOSIS: Pt is a 73 year old female who was admitted through the ER on 01/29/19 for generalized weakness and pneumonia. Past Medical History: Spastic neurogenic bladder, Multiple Sclerosis, UTI, essential hypertension, edema (B) LE, proteus mirabilia infection, hypertension, hypokalemia, DVT prophylaxis, sepsis. Social History/Home Situation: Pt lives in a private home with her and her dog. She has a ramp to enter her home. She has two floors in her home with a seated chiar lift for her to get to the second floor.Her bathroom has a walk in shower which she uses her mobilized machine to get into the bathroom to her shower. Her previous level of function for ADL routine was that she is able to get dressed (I) on the side of her bed for UE dressing. She then transitions to her toilet where she performs her toileting routine and then puts on her LE dressing garments. She performs her teeth brushing routine sitting at the sink, which she reports she thinks she should be standing. She is able to cook the meals in her kitchen. She reports that her performs the grocery shopping only because he wants to and she doesn't drive. She also reports that anything she can't (I) perform her will (A) her with. Equipment owned/DME: Stair chair lift, mobilized scooter, grab bars, shower bench, hand held shower head, 4WW for transitioning up ramp. THIS DOCUMENT SERVES A SUMMARY OF CARE NO SKILLED OT SERVICES PROVIDED FOR THIS DOCUMENTATION SUBJECTIVE: NT OBJECTIVE: ROM: RUE WFL L UE WFL STRENGTH: RUE Shoulder flexion 4/5, bicep/tricep 4/5, supervisor rose grading is symmetrical. LUE Shoulder flexion 4/5, bicep/tricep 4/5, supervisor rose grading is symmetrical. FUNCTIONAL MOBILITY/ADLS: Transfers Sit-Stand Steady (S) Stand-sit Steady (S), min (A) for stand to sit Toilet-Chair Steady (S) DRESSING Dressing UE NT Dressing LE At initial evaluation Sitting in chair with min vc and min (A) OT educated pt on donning and doffing pants which pt reports she has slight difficulty with at home depending on the day. TOILETING On toilet, (I) with steady for transfer. BALANCE: Static sitting Normal Dynamic Sitting Good Static Standing Steady Dynamic Standing steady ASSESSMENT: Patient is a 73-year-old female referred to occupational therapy services with diagnosis of generalized weakness and pneumonia. Pt was seen for OT consult only. Due to this goals were not obtained. Pt was discharged on 01/31/19 and medically cleared per MD. GOALS- Pt was seen for OT eval only, pt was unable to obtain goals. 1. Dressing in sitting position (I) with UE/LE. 2. Bathing Sitting at sink (I) 3. Toileting (I) with transferring to toilet and toileting hygiene 4. Eating Sitting in chair (I) 5. Grooming sitting at sink (I) for teeth PLAN OF CARE/TREATMENT PLAN: Pt was discharged on 01/31/19 when medically cleared per MD. DISCHARGE RECOMMENDATIONS OT recommends that pt return home with family support when medically cleared per MD. TREATMENT TIME/MINUTES/CODES N/A Graciela Arciniega OTR/L [facility]
--- NOTE | 2019-02-02 13:14 | INDS_ITS ---
Date of service: 02/02/19 PT Notes Inpatient Physical Therapy Discharge Summary Dates: 02/02/2019 Dates of Service: 01/30/19 through 01/31/19 Referring Doctor: Annmarie Menchaca NP PT Orders: PT CONSULT: Ambulatory dysfunction Precautions: Fall. Standard. Non-ambulatory. Patient Profile/Admitting Diagnosis: Orders were received for this 73-year-old female who presented to the ER on 01/29/19 chief complaints of confusion weakness and ambulatory dysfunction. She was diagnosed with community-acquired pneumonia and generalized weakness. Dr. Marie ordered MRI on 01/30/2019 to rule out MS exacerbation/progression.Dr. Marie documented that patient's symptoms are due to delirium following urinary tract infection recurrence. Consultation with urologist clarified that patient grew a low colony of E. coli in her urine. All catheterization was needed while patient was at hospital. 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) Multiple sclerosis (Acute 04/10/13) History of recurrent UTI (urinary tract infection) (Acute 06/19/16) Essential hypertension (Acute) Neurogenic bladder (Acute) Multiple sclerosis (Chronic) Edema of both lower extremities (Chronic) UTI (urinary tract infection) (Acute) Hypertension (Chronic) Chronic fatigue (Acute) Hypokalemia (Acute) Neurogenic bladder (Acute) Recurrent falls (Acute) Tobacco abuse (Acute) HTN (hypertension) MS (multiple sclerosis) Urinary incontinence with continuous leakage Surgical History Extraction of cataract (12/17/15) Extraction of cataract (12/31/15) Ligation of fallopian tube Social History/Home Situation: Patient lives with Mukesh and [place]. provides assistance with cooking and bathing. Prior to admission, patient has been able to do bed<>chair and chair<>motorized whellechair transfers independently using stand pivot technique and bilateral upper extremities for support. Patient states that once seated on motorized wheelchair, she can assist with cooking and kitchen tasks using both upper extremities. For bathing she had been able to stand up while holding onto grab bars onto grab bars and stand pivots onto the shower chair. is able to help with washing her back, otherwise she is able to do everything independently. Patient states that she is also able to dress upper body and lower prior to admission. Equipment Owned/DME: Motorized wheelchair, front wheeled walker, shower chair Subjective: Patient report feeling a lot better this afternoon and is agreeable for a second treatment session/discharge session and reassessment. Objective: General Observation: Patient is seen resting in bed at the time of evaluation, HOB elevated 30 degrees. IV and left UE. Mental Status: Alert and oriented x3. Pain: Denies. ROM: Right Upper Extremity: WFL Left Upper Extremity: WFL Right Lower Extremity: Patient able to slide heel upward to about 45 degrees of knee flexion an in that position, she is able to resist minimally rolling of the knee outward and inward without any pain. She is unable to lift leg nor was she able to dorsiflex foot. She was able to move her toes on command. Left Lower Extremity: Patient was able to slide heel upward to about 20 with but with both hands helping, unable to tolerate any resistance. She is unable to lift leg nor was she able to dorsiflex foot. She was able to move her toes on command. Strength: Right Upper Extremity: WFL Left Upper Extremity: WFL Right Lower Extremity: Hip flexors 3-/5. Knee flexors 3-/5. Knee extensors 2- /5. Ankle dorsiflexors 1/5. Toe extensors 2-/5. Left Lower Extremity: Hip flexors 2-/5. Knee flexors 2-/5. Knee extensors 2- /5. Ankle dorsiflexors 1/5. Toe extensors 2-/5. Bed Mobility/Transfers: Rolling moderate assist Supine to sit max assist Sit to supine max assist Sit to stand dependent using Stedy machine Stand to sit dependent using Stedy machine Bed to chair dependent using Stedy machine Chair to bed dependent using Stedy machine Gait: Unable Balance: Static Sitting: Fair Dynamic Sitting: Fair Static Standing: Poor, requires Stedy machine Dynamic Standing: Poor, requires Stedy machine Special Tests: Patient was able to perform partial sit to stand x 8 reps while holding onto Stedymachine handle Mobility Limitations Standardized Measure [facility] AM-PAC 6 clicks Basic Mobility Inpatient Short Form: Raw Score: 8 CMS Score: 87% deficit Assessment: Patient is a 73 year old female referred to physical therapy services with the diagnosis of community-acquired pneumonia and generalized. An order for an MRI of the brain is requested by neurologist to rule out MS exacerbation/progression. Patient presents with clinical signs and symptoms consistent with mobility decline, balance impairment, and weakness as demonstr ated by the following impairment level findings: 1. Impaired active range of motion both lower extremities 2. Impaired strength to both lower extremities 3. Impaired balance in sitting and standing 4. Reduced activity tolerance Impairments are contributing to the following functional limitations: 1. Increase dependence with bed mobility 2. Reduced independence with transfer skills 3. Decreased safety of mobility ADL 4. Increase completion time mobility ADLs 5. Increase fall risk Goals: Goals X1 week 1. Supine-Sit modified independent NOT MET 2. Sit-Supine modified independent NOT MET 3. Sit-Stand modified independent NOT MET 4. Stand-Sit modified independent NOT MET 5. Bed-Chair modified independent using stand pivot technique NOT MET 6. Chair-Bed modified independent using stand pivot technique NOT MET 7. Independent with home exercise program NOT MET 8. Balance good NOT MET DISCHARGE RECOMMENDATIONS: Return home with as previously. Patient may benefit from a short-term home health PT/OT services once discharged in order to facilitate a smoother transition to home, evaluate home safety, and reduce fall risk. TREATMENT CODE/TIME: [id number] 23 minutes beginning at 11:27 AM. Thank you for this referral. Teagan Jimenez, Pt, DPT, CLT [facility]
== END 2019-01-31 16:55 | disposition home or self-care (01) | DRG 194 ==
LOC: ER 13:03 → MS 14:10
PROVIDERS: Nurse Practitioner Family; Admitting Provider Internal Medicine; Emergency Provider Nurse Practitioner Family; PCP Emergency Medicine; Visit Provider Family Medicine
DX: J18.9 Pneumonia, unspecified organism (principal); J98.11 Atelectasis; G93.40 Encephalopathy, unspecified; R53.1 Weakness; G35 Multiple sclerosis; N31.8 Other neuromuscular dysfunction of bladder; N39.498 Other specified urinary incontinence; R33.8 Other retention of urine; Z87.440 Personal history of urinary (tract) infections; I10 Essential (primary) hypertension; R26.2 Difficulty in walking, not elsewhere classified; R60.0 Localized edema; E87.6 Hypokalemia
CPT/HCPCS: 36415; 51701; 70553; 80048; 80053; 96361; 96365; 96366; 97110; 97162; 97166; 97530; 97535; 99222; 99223; 99233; 99239; 99285; 71046; 81003; 81015; 83605; 83735; 85025; 99284; J0456; J0696; J1650; J1956

== ENCOUNTER → 2019-01-30 08:32 | Outpatient (BNVA) | payer MEDICARE, BC, SELFPAY | PROVIDERS: PCP Emergency Medicine; Visit Provider Psychiatry & Neurology Neurology | DX: R69 Illness, unspecified (principal) ==

== ENCOUNTER 2019-02-03 13:21 | Outpatient (CLI) | payer MEDICARE, BC, SELFPAY ==
[2019-02-03 13:53] LABS: HCT 37.9 % (36.0-46.0); HGB 12.3 g/dL (12.0-15.5); Mean Corp. HGB Concentration 32.5 g/dL (32.0-36.0); Mean Corpuscular Volume 89.4 fL (80-95); Platelet Count 363 x1000/uL (130-400); RBC 4.24 m/cumm (4.00-5.20); RBC Distribution Width 14.6 % (11.7-14.6); White Blood Cell Count 9.72 k/cumm (4.4-10.8)
[2019-02-03 15:20] LABS: Anion Gap 10.7 mmol/L (3-11); BUN 17 mg/dL (7-18); CO2 27.3 mmol/L (21.0-32.0); Calcium 9.2 mg/dL (8.5-10.1); Chloride 106 mmol/L (98-107); Glucose 99 mg/dL (70-100); Potassium 3.8 mmol/L (3.5-5.1); Sodium 144 mmol/L (136-145)
== END 2019-02-03 13:41 ==
PROVIDERS: PCP Emergency Medicine; Visit Provider Nurse Practitioner
DX: J18.9 Pneumonia, unspecified organism (principal); E87.6 Hypokalemia
CPT/HCPCS: 36415; 80048; 85027

== ENCOUNTER 2019-02-03 13:51 | Outpatient (CLI) | payer MEDICARE, BC, SELFPAY | END 2019-02-03 14:11 | PROVIDERS: PCP Emergency Medicine; Visit Provider Urology | DX: N39.0 Urinary tract infection, site not specified (principal); Z87.440 Personal history of urinary (tract) infections | CPT/HCPCS: 87086 ==

== ENCOUNTER → 2019-02-07 14:02 | Outpatient (BNVA) | payer MEDICARE, BC, SELFPAY | PROVIDERS: PCP Emergency Medicine; Visit Provider Urology | DX: N31.9 Neuromuscular dysfunction of bladder, unspecified (principal); G35 Multiple sclerosis; Z87.440 Personal history of urinary (tract) infections | CPT/HCPCS: 51729; 51784; 99212 ==

== ENCOUNTER 2019-02-14 09:00 | Outpatient (REF) | payer MEDICARE, BC, SELFPAY | END 2019-02-14 09:20 | LOC: LBN 09:00 | PROVIDERS: PCP Emergency Medicine; Visit Provider Urology | DX: N39.0 Urinary tract infection, site not specified (principal); N31.9 Neuromuscular dysfunction of bladder, unspecified; Z87.440 Personal history of urinary (tract) infections | CPT/HCPCS: 87077; 87086; 87186 ==

== ENCOUNTER 2019-02-23 13:39 | Outpatient (REF) | payer MEDICARE, BC, SELFPAY | END 2019-02-23 13:59 | LOC: LBN 13:39 | PROVIDERS: PCP Emergency Medicine; Visit Provider Urology | DX: N39.0 Urinary tract infection, site not specified (principal); N31.9 Neuromuscular dysfunction of bladder, unspecified | CPT/HCPCS: 87086 ==

== ENCOUNTER 2019-03-06 10:59 | Outpatient (REF) | payer MEDICARE, BC, SELFPAY | END 2019-03-06 11:19 | LOC: LBN 10:59 | PROVIDERS: PCP Emergency Medicine; Visit Provider Urology | DX: N39.0 Urinary tract infection, site not specified (principal); Z87.440 Personal history of urinary (tract) infections; N39.3 Stress incontinence (female) (male) | CPT/HCPCS: 87077; 87086; 87186 ==

== ENCOUNTER 2019-03-13 09:21 | Outpatient (REF) | payer MEDICARE, BC, SELFPAY | END 2019-03-13 09:41 | LOC: LBN 09:21 | PROVIDERS: PCP Emergency Medicine; Visit Provider Urology | DX: N39.0 Urinary tract infection, site not specified (principal); Z87.440 Personal history of urinary (tract) infections | CPT/HCPCS: 87077; 87086; 87186 ==

== ENCOUNTER → 2019-03-13 13:11 | Outpatient (BNVA) | payer MEDICARE, BC, SELFPAY | PROVIDERS: PCP Emergency Medicine; Visit Provider Psychiatry & Neurology Neurology | DX: G35 Multiple sclerosis (principal); Z87.440 Personal history of urinary (tract) infections; I10 Essential (primary) hypertension | CPT/HCPCS: 99213 ==

== ENCOUNTER → 2019-03-20 09:01 | Outpatient (BNVA) | payer MEDICARE, BC, SELFPAY | PROVIDERS: PCP Emergency Medicine; Visit Provider Urology | DX: N31.9 Neuromuscular dysfunction of bladder, unspecified (principal); Z87.440 Personal history of urinary (tract) infections; G35 Multiple sclerosis; I10 Essential (primary) hypertension | CPT/HCPCS: 99213 ==

== ENCOUNTER 2019-03-27 08:35 | Outpatient (REF) | payer MEDICARE, BC, SELFPAY | END 2019-03-27 08:55 | LOC: LBN 08:35 | PROVIDERS: PCP Emergency Medicine; Visit Provider Urology | DX: N39.0 Urinary tract infection, site not specified (principal); Z87.440 Personal history of urinary (tract) infections | CPT/HCPCS: 87077; 87086; 87186 ==

== ENCOUNTER 2019-04-10 09:06 | Outpatient (REF) | payer MEDICARE, BC, SELFPAY | END 2019-04-10 09:26 | LOC: LBN 09:06 | PROVIDERS: PCP Emergency Medicine; Visit Provider Urology | DX: R82.90 Unspecified abnormal findings in urine (principal); Z87.440 Personal history of urinary (tract) infections; G35 Multiple sclerosis | CPT/HCPCS: 87086 ==

== ENCOUNTER 2019-04-10 19:04 | Emergency (ER) | payer MEDICARE, BC, SELFPAY ==
[2019-04-10 18:41] VITALS: BP 123/65; PULSE 91; RESP 20; TEMP 36.5; O2SAT 95
--- NOTE | 2019-04-10 18:54 | DI.RAD_ITS ---
SYMPTOM/DIAGNOSIS: FELL, RT SHOULDER PAIN RIGHT SHOULDER: The bony structures are normally mineralized. There are degenerative changes involving the glenohumeral and AC joint. There is no evidence of a fracture or dislocation.
--- NOTE | 2019-04-10 19:51 | DI.VRAD_ITS ---
EXAM: XR Right Shoulder EXAM DATE/TIME: 04/10/2019 6:54 PM CLINICAL HISTORY: 73 years old, female; Injury or trauma; Initial encounter; Blunt trauma (contusions or hematomas; Right; Patient HX: Fall, R shoulder pain TECHNIQUE: Imaging protocol: XR Right shoulder. Views: 2 or more views. COMPARISON: No relevant prior studies available. FINDINGS: Bones/joints: No acute fracture or dislocation. Moderate degenerative changes of the right acromioclavicular joint. There is subchondral cyst of the proximal humerus as well as subchondral cystic change of the glenoid. Lungs: There is diffuse coarsening of the interstitial markings within the right lung with streaky right basilar opacity. Soft tissues: Thin, curvilinear 3 mm ossific density is noted adjacent to the right greater tuberosity, favor intratendinous calcification. IMPRESSION: 1. No acute fracture or dislocation. 2. Moderate degenerative changes of the right shoulder. Thin curvilinear likely intratendinous calcification adjacent to the right greater tuberosity, correlate to exclude symptoms of calcific tendinitis. 3. Streaky right basilar opacity, may represent atelectasis, correlate clinically to exclude symptoms to suggest infectious infiltrate. Dictated and Authenticated by: Jesus Marin MD. Ordering:МАРИНА Owens MD
--- NOTE | 2019-04-10 21:07 | ED.GENADUL_ITS ---
Discharge Plan Disposition Patient Disposition: HOME Condition: Good Discharge Details Chief Complaint: Orthopedic Clinical Impression: Sprain of right shoulder Primary Care Provider: Дмитрий Hyatt ED Provider: Roman Harris Home Meds and New Rx's Prescriptions: No Action Myrbetriq 50 mg tablet extended release 24 hr 50 mg PO DAILY Qty: 90 RF: 0 cyanocobalamin (vitamin B-12) [Vitamin B-12] 1,000 MCG tablet 1,000 mcg PO DAILY RF: 0 Vitamin D3 (calcium cit-phos) 1 EACH tablet 1 ea PO DAILY RF: 0 potassium chloride [K-Tab] 10 mEq tablet extended release 10 meq PO DAILY Qty: 90 RF: 3 hydrochlorothiazide 25 mg tablet 12.5 mg PO DAILY Qty: 90 RF: 4 ciprofloxacin HCl 250 mg tablet 250 mg PO BID Qty: 14 RF: 0 Kelp (iodine) 150 MCG tablet 150 mcg PO DAILY RF: 0 loperamide 2 mg Capsule 2 mg PO PRN PRN (Reason: DIARRHEA) Qty: 0 RF: 0 Discharge Instructions Instructions: Shoulder Sprain (ED) Additional Instructions: Please keep the shoulder sling on. Please use Tylenol and Motrin as needed for pain. Please follow-up closely with your family doctor for reassessment. You may have a rotator cuff injury that requires follow-up with orthopedic surgeon. If you notice any worsening of your symptoms, or any new symptoms such as vomiting, diarrhea, fever, chills, shortness of breath, chest pain, numbness, weakness, or fainting , please return immediately to the emergency department for reevaluation. Please follow up with your primary care provider as soon as possible for reassessment and reevaluation. As always, it was a pleasure participating in your medical care today. Referrals: Дмитрий Hyatt, [Primary Care Provider] - Discharge Data Discharge Date/Time-TO BE ENTERED AT DEPARTURE: 04/10/19 21:20 Medical Decision Making This is a pleasant 73-year-old female with a past medical history of multiple sclerosis who regularly uses a power chair, her power chair rolled over on its side when she was going down a hill to look at some garvey. She did hit her right shoulder, but denies hitting her head or having any loss of consciousness or any other traumatic component. Mild pain in the right shoulder with movement. Exam demonstrates mild reproducible tenderness in the posterior aspect of the scapula, in addition to mild tenderness on passive movement of the right shoulder. No signs of yasemin injury, dislocation or significant fracture. X-ray reveals evidence of calcifications but no acute fracture dislocation. Initial virtual radiology report aside for seeing no significant osseous abnormalities described questionable atelectasis, however the patient has no complaints of cough, fever, or chills. We will give the patient a sling, recommend NSAIDs and ice. Recommend close follow-up for further evaluation of conservative management. If she has no improvement we did discuss the potential need for orthopedic evaluation on an outpatient basis. I have extensively reviewed the treatment plan and discharge instructions with the patient and th eir family. I have addressed all patient concerns at this time. The patient and family was made aware of what symptoms to monitor for that would warrant a return to the emergency department. Discussed the plan with the patient and family, they demonstrate verbal understanding and agreement with our assessment and plan at this time. EXAM: XR Right Shoulder EXAM DATE/TIME: 04/10/2019 6:54 PM CLINICAL HISTORY: 73 years old, female; Injury or trauma; Initial encounter; Blunt trauma (contusions or hematomas; Right; Patient HX: Fall, R shoulder pain TECHNIQUE: Imaging protocol: XR Right shoulder. Views: 2 or more views. COMPARISON: No relevant prior studies available. FINDINGS: Bones/joints: No acute fracture or dislocation. Moderate degenerative changes of the right acromioclavicular joint. There is subchondral cyst of the proximal humerus as well as subchondral cystic change of the glenoid. Lungs: There is diffuse coarsening of the interstitial markings within the right lung with streaky right basilar opacity. Soft tissues: Thin, curvilinear 3 mm ossific density is noted adjacent to the right greater tuberosity, favor intratendinous calcification. IMPRESSION: 1. No acute fracture or dislocation. 2. Moderate degenerative changes of the right shoulder. Thin curvilinear likely intratendinous calcification adjacent to the right greater tuberosity, correlate to exclude symptoms of calcific tendinitis. 3. Streaky right basilar opacity, may represent atelectasis, correlate clinically to exclude symptoms to suggest infectious infiltrate. Dictated and Authenticated by: Jesus Marin MD. Ordering:МАРИНА Owens MD HPI General Date/Time Provider Initiated Documentation: 04/10/19 21:05 . HPI Narrative: This is a 73-year-old female with a past medical history of hypertension and multiple sclerosis who regularly uses a power chair at home. She states today she was driving down a hill to look at some garvey, and her power chair tipped over and she hit her right shoulder. She did not hit her head, she had no loss of consciousness. She did have some mild pain in her right shoulder, so she came to the ER for further evaluation. She denies any numbness tingling or weakness. Pain is made worse with movement, which she describes as mild in nature. She denies any chest pain, shortness of breath or other complaints at this time. No additional modifying factors. She denies injury to any other part of her body. Related Data Home Medications Medication Instructions Recorded Confirmed Vitamin D3 (calcium cit-phos) 1 ea PO DAILY 04/11/13 03/13/19 cyanocobalamin (vitamin B-12) 1,000 mcg PO DAILY 04/11/13 03/13/19 [Vitamin B-12] Kelp (iodine) 150 mcg PO DAILY 12/12/15 03/13/19 loperamide 2 mg PO PRN PRN #0 cap 08/02/18 03/13/19 potassium chloride ER 10 mEq 10 meq PO DAILY #90 tab-cap 08/12/18 03/13/19 tablet,extended release hydrochlorothiazide 25 mg tablet 12.5 mg PO DAILY #90 tab 12/06/18 03/13/19 mirabegron ER 50 mg 50 mg PO DAILY #90 tab 02/07/19 03/13/19 tablet,extended release 24 hr ciprofloxacin 250 mg tablet 250 mg PO BID #14 tab 03/10/19 03/13/19 Previous Rx's Medication Instructions Recorded loperamide 2 mg PO PRN PRN #0 cap 08/02/18 potassium chloride ER 10 mEq 10 meq PO DAILY #90 tab-cap 08/12/18 tablet,extended release hydrochlorothiazide 25 mg tablet 12.5 mg PO DAILY #90 tab 12/06/18 mirabegron ER 50 mg 50 mg PO DAILY #90 tab 02/07/19 tablet,extended release 24 hr ciprofloxacin 250 mg tablet 250 mg PO BID #14 tab 03/10/19 Allergies Allergy/AdvReac Type Severity Reaction Status Date / Time oxybutynin AdvReac Intermediate severe dry Verified 03/13/19 13:32 mouth General Stated Complaint: Orthopedic JAVIER: 4 Review of Systems Review of Systems All systems reviewed & are unremarkable except as noted in HPI and below PFSH Medical History Multiple sclerosis (Chronic) 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) Multiple sclerosis (Chronic 04/10/13) History of recurrent UTI (urinary tract infection) (Chronic 06/19/16) Essential hypertension (Chronic) Neurogenic bladder (Chronic) Edema of both lower extremities (Chronic) UTI (urinary tract infection) (Chronic) Hypertension (Chronic) Chronic fatigue (Acute) Hypokalemia (Acute) Neurogenic bladder (Acute) Recurrent falls (Acute) Tobacco abuse (Acute) HTN (hypertension) MS (multiple sclerosis) Urinary incontinence with continuous leakage Surgical History Extraction of cataract (12/17/15) Extraction of cataract (12/31/15) Ligation of fallopian tube Social History Smoking/Tobacco Use Status: Current-Occasional Second Hand Exposure: No Drug use: Never Substance use type: does not use Household members: spouse and other Details: 2 Housing: house 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 3.ENT: Atraumatic external nose and ears. Moist MM. Neck: Symmetric, trachea midline, No thyromegaly. 4.CVS: +S1/S2, No murmurs or gallops. Peripheral pulses 2+ and equal in all extremities. Brisk capillary refill in all extremities. 5.RESP: Unlabored respiratory effort. Clear to auscultation bilaterally. No wheezes rales or rhonchi 6.GI: Soft, Nontender/Nondistended, No hepatosplenomegaly. No guarding or rebound. 7.MSK: Normocephalic/Atraumatic, Extremities w/o deformity. No cyanosis or clubbing, Normal movement of all extremities. Mild palpation tenderness on her right scapula, minimal tenderness over the shoulder joint with movements in all directions. Normal strength and sensation otherwise. Radial pulses +2 bilaterally. Sensation present throughout. Normal movements of the elbow and hand with normal strength. 8.Skin: Warm, Dry. No rashes or lesions. 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 Sensation grossly intact, no focal neurologic deficits. 10.Psych: (AAO) x3. Appropriate mood and affect Course Vital Signs Temperature 36.5 C 04/10/19 18:41 Pulse 91 H 04/10/19 18:41 Respiratory Rate 20 04/10/19 18:41 Blood Pressure 123/65 04/10/19 18:41 Pulse Oximetry 95 04/10/19 18:41 Temperature 36.5 C 04/10/19 18:41 Temperature Source Temporal Artery Scan 04/10/19 18:41 Pulse 91 H 04/10/19 18:41 Respiratory Rate 20 04/10/19 18:41 Respiratory Effort Non-Labored 04/10/19 18:41 Blood Pressure 123/65 04/10/19 18:41 Blood Pressure Position Supine 04/10/19 18:41 Pulse Oximetry 95 04/10/19 18:41 Oxygen Delivery Method Room Air 04/10/19 18:41 Oxygen Flow Rate 0 04/10/19 18:41 Pain Level 3 04/10/19 18:46
== END 2019-04-10 21:20 | disposition home or self-care (01) ==
PROVIDERS: Emergency Provider Student in an Organized Health Care Education/Training Program; PCP Emergency Medicine
DX: S43.401A Unspecified sprain of right shoulder joint, initial encounter (principal); V00.818A Other accident with wheelchair (powered), initial encounter
CPT/HCPCS: 99283; 73030; 99282; L3650

== ENCOUNTER 2019-05-09 11:09 | Outpatient (REF) | payer MEDICARE, BC, SELFPAY | END 2019-05-09 11:29 | LOC: LBN 11:09 | PROVIDERS: PCP Emergency Medicine; Visit Provider Urology | DX: R82.90 Unspecified abnormal findings in urine (principal); Z87.440 Personal history of urinary (tract) infections | CPT/HCPCS: 87077; 87086; 87186 ==

== ENCOUNTER 2019-06-06 09:22 | Outpatient (REF) | payer MEDICARE, BC, SELFPAY | END 2019-06-06 09:42 | LOC: LBN 09:22 | PROVIDERS: Visit Provider Urology | DX: N39.0 Urinary tract infection, site not specified (principal); Z87.440 Personal history of urinary (tract) infections | CPT/HCPCS: 87077; 87086; 87186 ==

== ENCOUNTER 2019-06-23 10:09 | Outpatient (REF) | payer MEDICARE, BC, SELFPAY | END 2019-06-23 10:29 | LOC: LBN 10:09 | PROVIDERS: Visit Provider Urology | DX: N39.0 Urinary tract infection, site not specified (principal); Z87.440 Personal history of urinary (tract) infections; R82.79 Other abnormal findings on microbiological examination of urine | CPT/HCPCS: 87077; 87086; 87186 ==

== ENCOUNTER 2019-08-09 15:58 | Outpatient (REF) | payer MEDICARE, BC, SELFPAY | END 2019-08-09 16:18 | LOC: LBN 15:58 | PROVIDERS: PCP Emergency Medicine; Visit Provider Urology | DX: R82.90 Unspecified abnormal findings in urine (principal); Z87.440 Personal history of urinary (tract) infections | CPT/HCPCS: 87077; 87086; 87186 ==

== ENCOUNTER → 2019-08-17 13:52 | Outpatient (BNVA) | payer MEDICARE, BC, SELFPAY | PROVIDERS: PCP Emergency Medicine; Referring Provider Emergency Medicine; Visit Provider Urology | DX: N31.9 Neuromuscular dysfunction of bladder, unspecified (principal); G35 Multiple sclerosis; Z87.440 Personal history of urinary (tract) infections; I10 Essential (primary) hypertension | CPT/HCPCS: 99213 ==

== ENCOUNTER → 2019-09-11 08:59 | Outpatient (BNVA) | payer MEDICARE, BC, SELFPAY | PROVIDERS: PCP Emergency Medicine; Referring Provider Emergency Medicine; Visit Provider Psychiatry & Neurology Neurology | DX: G35 Multiple sclerosis (principal); N39.0 Urinary tract infection, site not specified; I10 Essential (primary) hypertension | CPT/HCPCS: 99213 ==

== ENCOUNTER 2019-10-09 08:38 | Outpatient (REF) | payer MEDICARE, BC, SELFPAY | END 2019-10-09 08:58 | LOC: LBN 08:38 | PROVIDERS: PCP Emergency Medicine; Visit Provider Urology | DX: N39.0 Urinary tract infection, site not specified (principal) | CPT/HCPCS: 87086 ==

== ENCOUNTER 2019-12-05 13:57 | Outpatient (REF) | payer MEDICARE, SELFPAY | END 2019-12-05 14:17 | LOC: LBN 13:57 | PROVIDERS: PCP Emergency Medicine; Visit Provider Urology | DX: N39.0 Urinary tract infection, site not specified (principal); Z87.440 Personal history of urinary (tract) infections | CPT/HCPCS: 87077; 87086; 87186 ==

== ENCOUNTER 2019-12-19 09:28 | Outpatient (REF) | payer MEDICARE, SELFPAY | END 2019-12-19 09:48 | LOC: LBN 09:28 | PROVIDERS: PCP Emergency Medicine; Visit Provider Urology | DX: N39.0 Urinary tract infection, site not specified (principal); Z87.440 Personal history of urinary (tract) infections | CPT/HCPCS: 87086 ==

== ENCOUNTER → 2020-01-05 14:59 | Outpatient (BNVA) | payer MEDICARE, BC, SELFPAY | PROVIDERS: PCP Emergency Medicine; Referring Provider Emergency Medicine; Visit Provider Urology | DX: N31.9 Neuromuscular dysfunction of bladder, unspecified (principal); G35 Multiple sclerosis; N39.0 Urinary tract infection, site not specified | CPT/HCPCS: 99213 ==

== ENCOUNTER 2020-01-15 08:47 | Day surgery (SDC) | payer MEDICARE, BC, SELFPAY ==
[2020-01-15 09:24] VITALS: BP 132/61; PULSE 87; RESP 16; TEMP 36.3; O2SAT 98
[2020-01-15] MEDS: Lactated Ringers 1,000 ML 80 ML IV (09:45)
--- NOTE | 2020-01-15 10:51 | W.PM.HP.N ---
Date of service: 01/15/20 Time of Service: 10:52 Assessment and Plan Assessment and plan (1) Spastic neurogenic bladder: Status: Chronic Assessment and plan: We will place a suprapubic tube and remove the indwelling urethral catheter (2) Multiple sclerosis: Status: Chronic History of Present Illness History of Present Illness Chief Complaint: Neurogenic bladder Narrative: 1) Spastic neurogenic bladder: (2) Recurrent urinary tract infection: (3) Multiple sclerosis: She is no longer able to manage with intermittent catheterization. She is requiring an indwelling catheter for longer periods of time. It is becoming more difficult to place the catheter as well (as her mobility is more challenged). Even though we prefer not to use indwelling catheters, I think we are at the point where we need to move to a suprapubic tube. The suprapubic tube should be easier to manage. I will only require changing the catheter once a month. Once the suprapubic tract matures, we could even begin clamping the SP tube (although she may have incontinence through her urethra at that point). We talked about placing a suprapubic tube here in the operating room or making a referral for her to go down to see interventional radiology at 1 of the tertiary care centers. She would prefer to have the procedure done locally. I will start her on an antibiotic for about 3 days before the planned procedure. We will give her a dose of gentamicin at the time of the procedure. HPI Chief complaint: Neurogenic bladder This is a 74-year-old woman who has a history of multiple sclerosis. As a result, she has a neurogenic bladder. She has had incontinent for over 50 years now. She has had recurrent episodes of infection as well as some episodes of urosepsis. We began managing her with intermittent catheterization. She has had persistent incontinence between catheterizations. Her mobility has decreased and performing CIC is becoming more more difficult. She has been relying more on indwelling urethral catheters for longer periods of time. She comes in to discuss converting to a suprapubic tube. Review of systems: She has no fever or chills She has no chest pain or palpitations She has no nausea or vomiting Exam Const Other: She is in no current distress. She is cooperative. Her vital signs are documented elsewhere She is in a wheelchair She is awake and alert [facility] Social History Smoking/Tobacco Use Status: Current-Occasional Tobacco Type: cigarettes Second Hand Exposure: No Alcohol Intake: current Alcohol Intake frequency: a few times a week Alcohol type: wine Drug use: Never Substance use type: does not use Details: pt. reports smoking since age 17 years old. 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 Meds Home Medications and Allergies Home Medications Medication Instructions Recorded Confirmed Type Vitamin D3 (calcium cit-phos) 1 ea PO DAILY 04/11/13 01/15/20 History cyanocobalamin (vitamin B-12) 1,000 mcg PO DAILY 04/11/13 01/15/20 History [Vitamin B-12] Kelp (iodine) 150 mcg PO DAILY 12/12/15 01/15/20 History loperamide 2 mg PO PRN PRN #0 cap 08/02/18 01/15/20 Rx potassium chloride 10 mEq 10 meq PO DAILY #90 tab-cap 07/15/19 01/15/20 Rx tablet,extended release hydrochlorothiazide 25 mg tablet 12.5 mg PO DAILY #90 tab 10/27/19 01/15/20 Rx melatonin 10 mg PO HS PRN 01/10/20 01/15/20 History ciprofloxacin HCl 250 mg tablet 250 mg PO BID #6 tab 01/11/20 01/15/20 Rx Allergies Allergy/AdvReac Type Severity Reaction Status Date / Time oxybutynin AdvReac Intermediate severe dry Verified 01/15/20 09:12 mouth Exam Resp Effort & Inspection: normal respiratory effort Auscultation: clear to auscultation bilaterally Cardio Rate: regular rate Rhythm: regular rhythm Results Last Vital Signs Temp 36.3 C L 01/15/20 09:24 Pulse 87 01/15/20 09:24 Resp 16 01/15/20 09:24 BP 132/61 01/15/20 09:24 Pulse Ox 98 01/15/20 09:24
[2020-01-15] MEDS: Lidocaine 2% Jelly 6 ML SYR (11:55)
[2020-01-15] MEDS: Bupivacaine 0.5% Pres-Free 30 ML VIAL (11:55)
--- NOTE | 2020-01-15 12:06 | W.PM.DSUDISC ---
Discharge Plan Disposition Patient Disposition: HOME Condition: Stable Discharge Details Reason For Visit: NEUROGENIC BLADDER Attending Provider: Meño Mei Primary Care Provider: Дмитрий Hyatt Home Meds and New Rx's Prescriptions: No Action cyanocobalamin (vitamin B-12) [Vitamin B-12] 1,000 MCG tablet 1,000 mcg PO DAILY RF: 0 Vitamin D3 (calcium cit-phos) 1 EACH tablet 1 ea PO DAILY RF: 0 potassium chloride [K-Tab] 10 mEq tablet extended release 10 meq PO DAILY Qty: 90 RF: 3 hydrochlorothiazide 25 mg tablet 12.5 mg PO DAILY Qty: 90 RF: 4 ciprofloxacin HCl 250 mg tablet 250 mg PO BID Qty: 6 RF: 0 Kelp (iodine) 150 MCG tablet 150 mcg PO DAILY RF: 0 loperamide 2 mg Capsule 2 mg PO PRN PRN (Reason: DIARRHEA) Qty: 0 RF: 0 melatonin 5 mg Tablet 10 mg PO HS PRNRF: 0 Discharge Instructions Additional Instructions: Suprapubic tube to gravity (large drainage bag) Dry dressing around catheter daily and prn Followup with me 4 to 6 weeks for first catheter change Activity:: Activity as Tolerated Shower/Bathe:: 24 hours Diet:: As Tolerated Discharge Orders Discharge Orders: Discharge Order (Routine); Ordered 01/15/20 Ordered By: Meño Mei DS: Diagnosis Discharge Diagnosis (1) Spastic neurogenic bladder: Status: Chronic (2) Multiple sclerosis: Status: Chronic
[2020-01-15 12:48] VITALS: BP 144/90; PULSE 72; RESP 16; TEMP 36.3; O2SAT 95
--- NOTE | 2020-01-15 16:54 | ROE_ITS ---
DATE OF PROCEDURE: January 15, 2020 PREOPERATIVE DIAGNOSIS: Neurogenic bladder. POSTOPERATIVE DIAGNOSIS: Same. PROCEDURE: Cystoscopy; insertion of suprapubic tube. SURGEON: Meño Mei M.D. ANESTHESIA: General with local. COMPLICATIONS: None. HISTORY: This is a 74-year-old woman who has a history of multiple sclerosis. As a result she has a neurogenic bladder. She has had issues with incontinence for many years. Her symptoms progressed t o the point where we began intermittent catheterization. She has found that she has required an indw elling catheter for longer periods of time. She presents now for placement of a suprapubic tube. OPERATIVE REPORT: The patient was brought to the operating room on 01/15/2020. She was given a dose of preoperative IV antibiotics. After successful induction of general anesthesia, she was placed in the dorsal lithotomy position. H er genitalia was prepped and draped. Her indwelling urethral catheter had been removed prior to the prep. A curved Lowsley retractor was then passed through the urethra into the bladder. The tip of the Lowsley retractor was held up again st the abdominal wall. The abdominal skin was incised over the tip of the Lowsley retractor and the tip was brought through the incision onto the abdominal wall. We then opened the jaws of the Lowsley retractor and used it to grasp the tip of a 16 [place] Jha ca theter. The catheter was withdrawn back through the suprapubic tract and into the bladder. Once the catheter was released from the Lowsley retractor, we performed cystoscopy to ensure the catheter was correctly positioned within the bladder. The catheter balloon was then inflated with 10 cc's of emeli rile water. The catheter was hooked to gravity drainage. The patient tolerated the procedure well with no complications. A dry, sterile dressing was applied to the suprapubic site.
== END 2020-01-15 13:23 | disposition home or self-care (01) ==
PROVIDERS: PCP Emergency Medicine; Visit Provider Urology
PROC: (CPT 51102; principal; 2020-01-15 10:30)
DX: N31.9 Neuromuscular dysfunction of bladder, unspecified (principal); G35 Multiple sclerosis; N39.498 Other specified urinary incontinence
CPT/HCPCS: 51102; NC; J1580; J2001

== ENCOUNTER → 2020-02-20 09:07 | Outpatient (BNVA) | payer MEDICARE, BC, SELFPAY | PROVIDERS: PCP Emergency Medicine; Referring Provider Emergency Medicine; Visit Provider Urology | DX: N31.8 Other neuromuscular dysfunction of bladder (principal); G35 Multiple sclerosis; Z46.6 Encounter for fitting and adjustment of urinary device | CPT/HCPCS: 51702; 99212 ==

== ENCOUNTER 2020-02-28 11:26 | Outpatient (REF) | payer MEDICARE, BC, SELFPAY | END 2020-02-28 11:46 | LOC: LBN 11:26 | PROVIDERS: PCP Emergency Medicine; Visit Provider Urology | DX: R82.998 Other abnormal findings in urine (principal); Z87.440 Personal history of urinary (tract) infections; N39.0 Urinary tract infection, site not specified | CPT/HCPCS: 87077; 87086; 87186 ==

== ENCOUNTER → 2020-03-11 07:41 | Outpatient (BNVA) | payer MEDICARE, BC, SELFPAY | PROVIDERS: PCP Emergency Medicine; Referring Provider Emergency Medicine; Visit Provider Psychiatry & Neurology Neurology | DX: G35 Multiple sclerosis (principal); N31.9 Neuromuscular dysfunction of bladder, unspecified; Z87.440 Personal history of urinary (tract) infections; I10 Essential (primary) hypertension | CPT/HCPCS: 99213; 99443 ==

== ENCOUNTER 2020-06-20 09:02 | Outpatient (REF) | payer MEDICARE, BC, SELFPAY | END 2020-06-20 09:22 | LOC: LBN 09:02 | PROVIDERS: PCP Emergency Medicine; Visit Provider Urology | DX: N39.0 Urinary tract infection, site not specified (principal); Z87.440 Personal history of urinary (tract) infections | CPT/HCPCS: 87077; 87086; 87186 ==

== ENCOUNTER 2020-07-30 14:26 | Outpatient (REF) | payer MEDICARE, BC, SELFPAY | END 2020-07-30 14:46 | LOC: LBN 14:26 | PROVIDERS: PCP Emergency Medicine; Visit Provider Urology | DX: N39.0 Urinary tract infection, site not specified (principal); Z87.440 Personal history of urinary (tract) infections | CPT/HCPCS: 87077; 87086; 87186 ==

== ENCOUNTER 2020-09-07 10:28 | Outpatient (REF) | payer MEDICARE, BC, SELFPAY | END 2020-09-07 10:48 | LOC: LBN 10:28 | PROVIDERS: PCP Emergency Medicine; Visit Provider Urology | DX: N39.0 Urinary tract infection, site not specified (principal); Z87.440 Personal history of urinary (tract) infections; R82.998 Other abnormal findings in urine | CPT/HCPCS: 87077; 87086; 87186 ==

== ENCOUNTER → 2020-09-10 11:09 | Outpatient (BNVA) | payer MEDICARE, BC, SELFPAY | PROVIDERS: PCP Emergency Medicine; Referring Provider Emergency Medicine; Visit Provider Psychiatry & Neurology Neurology | DX: G35 Multiple sclerosis (principal); N39.0 Urinary tract infection, site not specified; N31.9 Neuromuscular dysfunction of bladder, unspecified; K59.00 Constipation, unspecified | CPT/HCPCS: 99214 ==

== ENCOUNTER 2020-09-20 13:23 | Outpatient (REF) | payer MEDICARE, BC, SELFPAY ==
[2020-09-20 14:32] LABS: HCT 39.8 % (36.0-46.0); HGB 12.7 g/dL (11.2-15.7); MCH 29.3 pg (27.0-33.0); MCHC 31.9 % (32.0-36.0); MCV 91.9 fL (80-95); MPV 10.8 fL (8.0-11.0); Platelet Count 345 10^3/uL (130-400); RBC 4.33 10^6/uL (3.93-5.22); RDW 14.1 % (11.7-14.6); RDW-SD 48.2 fL; WBC 9.66 10^3/uL (4.4-10.8)
[2020-09-20 14:34] LABS: BUN 15 mg/dL (7-18); CREATININE 1.04 mg/dL (0.55-1.02); Calcium 9.4 mg/dL (8.5-10.1); Chloride 105 mmol/L (98-107); Estimated GFR 51.94 (mL/min/1.73m2); Glucose 107 mg/dL (74-106); Potassium 3.7 mmol/L (3.5-5.1); Sodium 142 mmol/L (136-145)
== END 2020-09-20 13:43 ==
LOC: LBN 13:23
PROVIDERS: PCP Emergency Medicine; Visit Provider Emergency Medicine
DX: I10 Essential (primary) hypertension (principal); D72.829 Elevated white blood cell count, unspecified; E87.6 Hypokalemia
CPT/HCPCS: 80048; 85027

== ENCOUNTER 2020-10-03 09:47 | Outpatient (REF) | payer MEDICARE, BC, SELFPAY ==
[2020-10-04 10:25] LABS: Bilirubin Negative (Negative); Blood Negative (Negative); Clarity Cloudy (Clear); Glucose Negative (Negative); Ketones Trace mg/dL (Negative); Leukocyte Esterase Trace (Negative); Nitrite Negative (Negative); Specific Gravity 1.025 (1.005-1.025); Urobilinogen 0.2 EU/dL (Up TO 0.2); pH 7.5 (5-8)
[2020-10-04 10:26] LABS: WBC >50 HPF (0-5)
[2020-10-04 10:27] LABS: Bacteria Many HPF (Negative); C & S Indicated? Yes; Crystals Many Triple Phos HPF (Negative)
== END 2020-10-03 10:07 ==
LOC: LBN 09:47
PROVIDERS: Urology; PCP Emergency Medicine; Visit Provider Emergency Medicine
DX: N31.9 Neuromuscular dysfunction of bladder, unspecified (principal); N39.0 Urinary tract infection, site not specified
CPT/HCPCS: 87077; 81003; 81015; 87086; 87186

== ENCOUNTER 2020-10-15 14:13 | Outpatient (REF) | payer MEDICARE, BC, SELFPAY | END 2020-10-15 14:33 | LOC: LBN 14:13 | PROVIDERS: PCP Emergency Medicine; Visit Provider Emergency Medicine | DX: N39.0 Urinary tract infection, site not specified (principal); N31.9 Neuromuscular dysfunction of bladder, unspecified | CPT/HCPCS: 87077; 87086; 87186 ==

== ENCOUNTER 2020-11-19 08:55 | Outpatient (REF) | payer MEDICARE, BC, SELFPAY | END 2020-11-19 09:15 | LOC: LBO 08:55 | PROVIDERS: PCP Emergency Medicine; Visit Provider Urology | DX: R82.998 Other abnormal findings in urine (principal); Z87.440 Personal history of urinary (tract) infections | CPT/HCPCS: 87077; 87086; 87186 ==

== ENCOUNTER → 2021-03-11 11:07 | Outpatient (BNVA) | payer MEDICARE, BC, SELFPAY | PROVIDERS: PCP Emergency Medicine; Visit Provider Psychiatry & Neurology Neurology | DX: G35 Multiple sclerosis (principal); N39.0 Urinary tract infection, site not specified; N31.9 Neuromuscular dysfunction of bladder, unspecified; K59.00 Constipation, unspecified; G82.20 Paraplegia, unspecified | CPT/HCPCS: 99213 ==

== ENCOUNTER → 2021-11-12 10:15 | Outpatient (BNVA) | payer MEDICARE, BC, SELFPAY | PROVIDERS: PCP Emergency Medicine; Referring Provider Emergency Medicine; Visit Provider Psychiatry & Neurology Neurology | DX: G35 Multiple sclerosis (principal); N39.0 Urinary tract infection, site not specified; N31.9 Neuromuscular dysfunction of bladder, unspecified; K59.00 Constipation, unspecified | CPT/HCPCS: 99214 ==

== ENCOUNTER 2021-11-24 01:02 | Outpatient (CLI) | payer MEDICARE, BC, SELFPAY ==
--- NOTE | 2021-11-24 07:30 | DI.MAMMO_ITS ---
Exam(s) MG MAMMO SCREENING 60 MIN DUR EXAM: MG MAMMO SCREENING 60 MIN DUR CLINICAL HISTORY: breast cancer screening,z12.31 TECHNIQUE: Mammograms were interpreted according to the usual protocol including computer analysis w Dispatch CAD system, tomosynthesis and C-view imaging. COMPARISON: 2011 through 2016 FINDINGS: Exam shows somewhat limited positioning due to patient disability. The breasts are composed of scattered fibroglandular densities, Breast Density category B. No suspicious masses or suspicious microcalcifications are seen. No skin thickening or abnormal axillary lymph nodes are seen. There has been no significant change from prior exams. IMPRESSION: BI-RADS Category 1, Negative mammogram Yearly screening mammography is recommended. Breast Density - Category B, scattered fibroglandular densities. A negative radiographic report should not delay biopsy if a dominant or clinically suspicious mass is present. Up to ten percent of cancers are not identified on mammography. A negative report may reinforce clinical impression. Adenosis and dense breasts may obscure an underlying neoplasm. False positive reports average 6 to 10%. Patient will receive a letter notifying them of these results.
== END 2021-11-24 01:22 ==
PROVIDERS: Visit Provider Emergency Medicine
DX: Z12.31 Encounter for screening mammogram for malignant neoplasm of breast (principal); G35 Multiple sclerosis
CPT/HCPCS: 77063; 77067

== ENCOUNTER 2021-11-27 04:14 | Outpatient (CLI) | payer MEDICARE, BC, SELFPAY ==
[2021-11-27 09:19] LABS: Anion Gap 10.2 mmol/L (3-11); BUN 18 mg/dL (7-18); CO2 26.8 mmol/L (21.0-32.0); Calcium 8.9 mg/dL (8.5-10.1); Calculated LDL 150 mg/dL (<100); Chloride 106 mmol/L (98-107); Cholesterol 222 mg/dL (<200); Glucose 96 mg/dL (74-106); HDL Cholesterol 49 mg/dL (40-60); Potassium 3.4 mmol/L (3.5-5.1); Sodium 143 mmol/L (136-145); Triglyceride 116 mg/dL (<150)
== END 2021-11-27 04:15 | disposition home or self-care (01) ==
LOC: LBO 04:16
PROVIDERS: PCP Emergency Medicine; Visit Provider Emergency Medicine
DX: I10 Essential (primary) hypertension (principal)
CPT/HCPCS: 36415; 80048; 80061

== ENCOUNTER → 2021-12-15 09:56 | Outpatient (BNVA) | payer MEDICARE, BC, SELFPAY | PROVIDERS: PCP Family Medicine; Referring Provider Emergency Medicine; Visit Provider Nurse Practitioner Gerontology | DX: N31.9 Neuromuscular dysfunction of bladder, unspecified (principal); G35 Multiple sclerosis; Z96.0 Presence of urogenital implants | CPT/HCPCS: 99442 ==

== ENCOUNTER → 2022-01-07 13:01 | Outpatient (BNVA) | payer MEDICARE, BC, SELFPAY | PROVIDERS: PCP Family Medicine; Referring Provider Family Medicine; Visit Provider Psychiatry & Neurology Neurology | DX: G35 Multiple sclerosis (principal); N31.9 Neuromuscular dysfunction of bladder, unspecified; Z87.440 Personal history of urinary (tract) infections; K59.00 Constipation, unspecified | CPT/HCPCS: 99213 ==

== ENCOUNTER → 2022-05-13 10:36 | Outpatient (BNVA) | payer MEDICARE, BC, SELFPAY | PROVIDERS: PCP Family Medicine; Referring Provider Family Medicine; Visit Provider Psychiatry & Neurology Neurology | DX: N31.8 Other neuromuscular dysfunction of bladder (principal); Z87.440 Personal history of urinary (tract) infections; Z99.3 Dependence on wheelchair; G35 Multiple sclerosis | CPT/HCPCS: 99213 ==

== ENCOUNTER 2022-06-10 16:59 | Outpatient (REF) | payer MEDICARE, BC, SELFPAY ==
[2022-06-10 13:28] LABS: Bilirubin Small (Negative); Blood Small (Negative); Clarity Cloudy (Clear); Glucose Negative (Negative); Ketones Negative (Negative); Leukocyte Esterase Small (Negative); Nitrite Positive (Negative); Urobilinogen 0.2 EU/dL (Up TO 0.2); pH 7.5 (5-8)
[2022-06-10 13:43] LABS: Bacteria Many HPF (Negative); C & S Indicated? No/Sq. Contamination; Casts Negative LPF (Negative); Crystals Few Triple Phos HPF (Negative); Epithelial Cells Many HPF (Negative); Mucus Moderate (Negative)
== END 2022-06-10 17:00 | disposition home or self-care (01) ==
LOC: LBN 16:59
PROVIDERS: Nurse Practitioner Gerontology; PCP Family Medicine; Visit Provider Urology
DX: N39.0 Urinary tract infection, site not specified (principal)
CPT/HCPCS: 81003; 81015; 87086

== ENCOUNTER → 2022-06-15 12:53 | Outpatient (BNVA) | payer MEDICARE, BC, SELFPAY | PROVIDERS: PCP Family Medicine; Referring Provider Family Medicine; Visit Provider Urology | DX: G35 Multiple sclerosis (principal); N31.9 Neuromuscular dysfunction of bladder, unspecified | CPT/HCPCS: 99214 ==

== ENCOUNTER 2022-07-31 17:37 | Outpatient (REF) | payer MEDICARE, BC, SELFPAY ==
[2022-07-31 20:28] LABS: Bilirubin Negative (Negative); Blood Small (Negative); Clarity Cloudy (Clear); Glucose Negative (Negative); Ketones Negative (Negative); Leukocyte Esterase Small (Negative); Nitrite Positive (Negative); Urobilinogen 0.2 EU/dL (Up TO 0.2); pH 7.5 (5-8)
== END 2022-07-31 17:38 | disposition home or self-care (01) ==
LOC: LBN 17:37
PROVIDERS: PCP Family Medicine; Visit Provider Urology
DX: R30.0 Dysuria (principal)
CPT/HCPCS: 81003; 87086

== ENCOUNTER → 2022-08-06 09:17 | Outpatient (CLI) | payer MEDICARE, BC, SELFPAY ==
--- OUTSIDE RECORDS SUMMARY | 2022-08-06 09:27 | XMS_ITS | Encounter Summary ---
:1945 [place] [address] Care Team Providers Name Role Phone Дмитрий Hyatt DO Primary Care Provider Encounter Details Date Type Department Care Team Description 12/15/2018 Notes Only [place] [facility] [place] [facility] [place] [address] INFECTIOUS DISEASE [phone] [place], [place] [address] (Wo rk) Social History Tobacco Use Types Packs/Day Years Used Date Current Some Day Smoker Smokeless Tobacco: Never Used Comments: 2 cigs a week Alcohol Use Standard Drinks/Week Comments No 0 (1 standard drink = 0.6 oz pure alcoho l) Sex Assigned at Date Recorded Not on file documented as of this encounter Progress Notes Fanny Abbott MD - 12/15/2018 3:32 PM EST Follow-up to initial 12/07/2018 referral: I have been in touch with Mrs. Ricks and Dr. Mei this week. Dr. Mei was able to do an office cystoscopy, which showed no plaques, stones, malakoplakia, or other reversible nidus for persistent infection. He did note one small bladder diverticuli. He has been following regular voiding studies in this patient, and notes her pattern of urinary retention matches what would be expected with multiple sclerosis, that is intermittent retention with periods of more complete bladder emptying, depending on disease severity. With the negative CT scan, and unremarkable cystoscopy, we agree that there appears to be no reversible nidus for persistent infection in this patient. Reiterated that long-term antibiotic suppression will likely do more harm than good, selecting for resistant pathogens over time. Recommend an approach to future UTIs as follows: -Dr. Mei will provide an as needed prescription for trimethoprim sulfamethoxazole, 1 double strength tablet twice a day (7 days if she improves rapidly, may go out to 10-14 considering this is complicated UTI). Mrs. Ricks will continue to keep a close eye out for identified early signs/symptoms of U TI, and will fill this prescription if she notes any worrisome symptoms. -With the onset of any worrisome symptoms, she will also presented to her nearest lab for a urinalysis with reflex urine culture -Antibiotics to be adjusted based on current culture data -Given her intermittent retention, voiding studies will be done both on schedule, as well as with the onset of any new problem/UTI. At times when she demonstrates urinary retention, she will start a trial of clean intermittent catheterization, over seen by urology. This may not need to be continued per manently, given the waxing and waning course of her multiple sclerosis and urinary retention. She will continue to follow with Dr. Mei; no need for infectious disease follow-up to be scheduledat this time, although we will remain available should a new concern arise. Fanny Abbott MD Infectious Disease Fellow Personal Pager #[phone] 12/15/2018 documented in this encounter Plan of Treatment Not on filedocumented as of this encounter Visit Diagnoses Not on filedocumented in this encounter Care Teams Preanalytics Team Lead Relationship Specialty Start Date End Date Дмитрий Hyatt DO PCP - General 04/13/[address] [place] [address] documented as of this encounter
--- OUTSIDE RECORDS SUMMARY | 2022-08-06 09:27 | XMS_ITS | Clinical Summary ---
:1945 Author Organization [facility] Address [place] [id number] Care Team Providers Name Role Phone EdmarДмитрий padron Primary Care Provider Allergies No known active allergies Medications Medication Sig Dispensed Refills Start Date End Date Status hydrochlorothiazide Take 12.5 mg by 0 Active (HYDRODIURIL) 12.5 mg mouth daily. tablet CYANOCOBALAMIN, VITAMIN Take 1 tablet by 0 Active B-12, (VITAMIN B-12 ORAL) mouth daily. aspirin 81 mg EC tablet Take 81 mg by 0 Active mouth daily. Cholecalciferol, Vitamin Take 1 capsule 0 Active D3, (VITAMIN D) 1,000 by mouth daily. unit Cap MYRBETRIQ 50 mg Tablet 0 10/16/2018 Active Sustained Release 24 hr potassium chloride 0 09/29/2018 Active (K-DUR/KLOR-CON) 20 mEq Tab Sust.Rel. Particle/Crystal IODINE ORAL Take by mouth 0 Acti ve daily. Iodoral--- Iodine/potasium supplement 12.5 mg daily Active Problems No known active problems Immunizations Name Administration Dates Next Due Influenza Vaccine, Whole 10/11/2006, 09/18/2005 Pneumococcal Polyvalent 23 04/28/2005 Social History Tobacco Use Types Packs/Day Years Used Date Current Some Day Smoker Smokeless Tobacco: Never Used Comments: 2 cigs a week Alcohol Use Standard Drinks/Week Comments No 0 (1 standard drink = 0.6 oz pure alcoho l) Sex Assigned at Date Recorded Not on file Last Filed Vital Signs Vital Sign Reading Time Taken Comments Blood Pressure 134/57 12/07/2018 9:19 AM EST Pulse 80 12/07/2018 9:19 AM EST Temperature 36.3 ??C (97.4 ??F) 12/07/2018 9:19 AM EST Respiratory Rate - - Oxygen Saturation 97% 12/07/2018 9:19 AM EST RA Inhaled Oxygen Concentration - - Weight 63.5 kg (140 lb) 09/18/2013 10:22 AM EDT Height 152.4 cm (5') 09/18/2013 10:22 AM EDT Body Mass Index 27.34 09/18/2013 10:22 AM EDT Plan of Treatment Health Maintenance Due Date Last Done Comments Covid-19 Vaccine (#1) 1952 Hepatitis C Screening 1965 Tdap adult 1966 Tetanus vaccine 1966 Colonoscopy 1992 Zoster vaccine (1 of 2) 1997 Advance Directive 2002 Bone Density Scan 2012 Pneumoccocal Vaccine: 65+ (1 - PCV) 2012 04/28/2005 Influenza (Flu) vaccine (1 of - 07/23/2022 10/11/2006, Influenza standard series) Insurance Payer Benefit Plan / Subscriber ID Effective Phone Address T ype Group Dates MEDICARE MEDICARE PART [id number] 2018-Pre [phone] [place] [address] [employer] BC [id number] 2018-Prese [address] [facility] [facility] [place] [address] [place] [address] Care Teams Printing Sales Representative Relationship Specialty Start Date End Date Дмитрий Hyatt DO PCP - General 04/13/[address] [place], [place] [id number]
--- OUTSIDE RECORDS SUMMARY | 2022-08-06 09:27 | XMS_ITS | Encounter Summary ---
:1945 Author Organization [facility] Address [address] [place] [address] Care Team Providers Name Role Phone Дмитрий Hyatt DO Primary Care Provider Encounter Details Date Type Department Care Team Description 09/15/2013 Abstract Neurology [place] [facility] [place] James MD [facility] [place] [address] NEUROLOGY DEPT. [phone] [place], [place] [address] (Wo rk) Social History Tobacco Use Types Packs/Day Years Used Date Never Assessed Sex Assigned at Date Recorded Not on file documented as of this encounter Plan of Treatment Not on filedocumented as of this encounter Visit Diagnoses Not on filedocumented in this encounter Care Teams Roll Inspector Relationship Specialty Start Date End Date Дмитрий Hyatt DO PCP - General 04/13/[address] [place] [address] documented as of this encounter
--- OUTSIDE RECORDS SUMMARY | 2022-08-06 09:27 | XMS_ITS | Encounter Summary ---
:1945 Author Organization [facility] [place] [address] Care Team Providers Name Role Phone Дмитрий Hyatt DO Primary Care Provider Encounter Details Date Type Department Care Team Description 11/11/2018 Ancillary Procedure Radiology Library at Дмитрий Shannon DO [facility] [place] [id number] [place] [address] (Wo rk) [phone] Social History Tobacco Use Types Packs/Day Years Used Date Current Some Day Smoker Smokeless Tobacco: Never Used Comments: 2 cigs a week Alcohol Use Standard Drinks/Week Comments No 0 (1 standard drink = 0.6 oz pure alcoho l) Sex Assigned at Date Recorded Not on file documented as of this encounter Plan of Treatment Not on filedocumented as of this encounter Procedures Procedure Name Priority Date/Time Associated Diagnosis Comme nts FILM LIBRARY Routine 11/11/2018 12:00 AM Results for this STORAGE ONLY CT EST procedure ar e in ABDOMEN AND PELVIS the resul ts section. documented in this encounter Results Film Library- Storage Only CT Abdomen & Pelvis (11/11/2018 12:00 AM EST) Specimen (Source) Anatomical Location Collection Method / Collectio n Time Received Time / Laterality Volume Narrative PIPE BAHENA - 12/12/2018 6:13 PM EST This exam is for storage only and is aut o-finalizing. Дмитрий Hyatt DO [facility] [place] ORDERABLES Performing Organization Address City/State/ZIP Code Phon e Number [facility] [place] documented in this encounter Visit Diagnoses Not on filedocumented in this encounter Care Teams I O Psychologist Relationship Specialty Start Date End Date Дмитрий Hyatt DO PCP - General 04/13/[address] [place] [address] documented as of this encounter
--- OUTSIDE RECORDS SUMMARY | 2022-08-06 09:27 | XMS_ITS | Encounter Summary ---
:1945 Author Organization [facility] Address [address] [place] [address] Care Team Providers Name Role Phone Дмитрий Hyatt DO Primary Care Provider Reason for Visit Consultation (Routine) - Closed Specialty Diagnoses / Procedures Referred By Contact Refer red To Contact Infectious Diseases Diagnoses Meño Hernandez MD [facility] [facility] [address] [place], [place] [id number] [place] [phone] Fax: Referral ID Status Reason Start Date Expiration Date Visits V isits Requested Authorized [id number] Closed Consult, 11/18/2018 11/18/2019 1 1 [facility] Encounter Details Date Type Department Care Team Description 12/07/2018 Office Visit Infectious Disease at [facility] [place] cystitis without hematuria; [facility] [place] MD Justine Santos (mirabilis) (morganii) as the ca use of diseases classified elsewhere; [facility] Med ication monitoring encounter; Drive Multiple sclerosis [place] [address] [place] [address] Social History Tobacco Use Types Packs/Day Years Used Date Current Some Day Smoker Smokeless Tobacco: Never Used Comments: 2 cigs a week Alcohol Use Standard Drinks/Week Comments No 0 (1 standard drink = 0.6 oz pure alcoho l) Sex Assigned at Date Recorded Not on file documented as of this encounter Last Filed Vital Signs Vital Sign Reading Time Taken Comments Blood Pressure 134/57 12/07/2018 9:19 AM EST Pulse 80 12/07/2018 9:19 AM EST Temperature 36.3 ??C (97.4 ??F) 12/07/2018 9:19 AM EST Respiratory Rate - - Oxygen Saturation 97% 12/07/2018 9:19 AM EST RA Inhaled Oxygen Concentration - - Weight - - Height - - Body Mass Index - - documented in this encounter Progress Notes Fanny Abbott MD - 12/07/2018 9:00 AM EST Subjective: Patient ID: Nguyen Ricks is a 73 y.o. female referred by Meño Mei MD ([place], [place]) for evaluation and management for recurrent UTIs. HPI Mrs. Ricks has a history of multiple sclerosis complicated by neurogenic bladder with recurrent urinary tract infections. She is being seen today in clinic for evaluation and management of recently recurrent Proteus mirabilis UTI infections over the past 4 months. Mrs. Ricks has a long history of urinary tract infections. She has had a neurogenic bladder with urinary retention since she was 20 years old, in fact this was the presenting symptom of her multiple sclerosis. She started developing UTIs in her 40s, when she would get around 1 UTI per year that was ea sily managed with a short course of oral antibiotics. This pattern went on until recent years, when sequencing of UTIs increased slightly to 2-3/year. However these remained easily manageable with oralantibiotics. Brief review of the record indicates sensitive Escherichia coli most recently. She doesnot intermittently straight catheterized herself, although does have intermittent episodes of indwelling Jacobs catheters. She had such an indwelling Jacobs catheter for about a week in July. After this was removed, herproblem with recurrent Proteus mirabilis UTIs began. Her first Proteus UTI was early August, managed with oral antibiotics (10 days cefuroxime 250mg BID, per pharmacy review). See below for susceptibility information. However her infection recurred, and first week in September she again developed UTI requiring hospitalization ([facility]) with the same pathogen. Pertinent evaluation included a urinalysis with pyuria and elevated nitrite, elevated pH, and leukocytosis to 19K. She also had an acute renal injury with a creatinine of 1.35 (no known baseline renal insufficiency per patient). There was also mention of possible aspiration pneumonitis in the right lower lobe onchest film (she had vomited, and notes no preceding chest syndrome, dyspnea, or cough). She rapidly improved with IV antibiotics, and was discharged the following day with 2 weeks of cefuroxime 250 twice daily. Urology was contacted, and advised she be discharged with Jacobs catheter in place with urology follow-up. At the time of urology follow up (10/05/2018) her jacobs was removed, and she was planned for voidingtrial. She was given another script for cefuroxime and instructed to start this if there were any changes to her urine output. Since this time she has had two more positive urine cultures for Proteus mirabilis (10/25/18, 11/07/18), making four over all since August, with similar sensitivity pattern each time. In discussion with her pharmacist, these were both managed with cefuroxime, until 11/08/2018 at which point she was changed to tmp/smx 1 double strength tab once a day for 30 days (she has 2 days left). She notes not having any pain or dysuria associated with any of her UTIs. 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 She has never had any backor flank pain. She notes the onset of a UTI with increased cloudiness of her urine as well as increasing odor, followed by some generalized weakness and malaise. She denies any yasemin septic constitutional symptoms. Review of Systems Constitutional: See details contained in HPI HENT: She has nocturnal dry throat with postnasal drip in the wintertime, she attributes to environmentaldryness. This has been helped significantly with a humidifier. She does have a pellet stove in her home and feels this is the likely culprit of her upper respiratory symptoms. Denies any sore throat, major cough, or viral-like syndrome. Respiratory: Negative for cough, chest tightness and shortness of breath. Cardiovascular: Negative for chest pain, palpitations and leg swelling. Gastrointestinal: Generally, no abdominal pain, nausea, emesis, diarrhea, or constipation. However see HPI; she had abrief episode of nausea with emesis prior to her September UTI. Endocrine: Negative for polydipsia and polyuria. Genitourinary: See details contained in HPI Musculoskeletal: Negative for back pain, myalgias and neck stiffness. Skin: Negative for pallor and rash. Hematological: Negative for adenopathy. Does not bruise/bleed easily. Past Medical History: Multiple Sclerosis, c/b neurogenic bladder Recurrent UTIs Hypertension Medications: Current Outpatient Medications on File Prior to Visit Medication Sig Dispense Refill ??? MYRBETRIQ 50 mg Tablet Sustained Release 24 hr ??? potassium chloride (K-DUR/KLOR-CON) 20 mEq Tab Sust.Rel. Particle/Crystal ??? IODINE ORAL Take by mouth daily. Iodoral--- Iodine/potasium supplement 12.5 mg daily ??? hydrochlorothiazide (HYDRODIURIL) 12.5 mg tablet Take 12.5 mg by mouth daily. ??? CYANOCOBALAMIN, VITAMIN B-12, (VITAMIN B-12 ORAL) Take 1 tablet by mouth daily. ??? aspirin 81 mg EC tablet Take 81 mg by mouth daily. ??? Cholecalciferol, Vitamin D3, (VITAMIN D) 1,000 unit Cap Take 1 capsule by mouth daily. No current facility-administered medications on file prior to visit. Allergies: No Known Allergies Family History: Sister with chonric pain, living in [place] Mom from complications of genital cancer at age 49 Social History: She is to Mukseh. They had 2 adopted children, tragically both who have . One 2 years ago of an acute myocardial infarction, and the other a year and a half ago from complications of substance use disorder. She has adult grandchildren, and stays very active in their lives. 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 She feels very fulfilled by this work. Vitals: 12/07/18 0919 BP: 134/57 Pulse: 80 Temp: 36.3 ??C (97.4 ??F) SpO2: 97% Objective: Physical Exam Constitutional: She is oriented to person, place, and time. She appears well- developed and well-nourished. Arrives in clinic in a wheelchair, although states she is generally able to transfer on her own. Shetries to keep up with physical therapy, even stands/walks on occasion. HENT: Mouth/Throat: Oropharynx is clear and moist. No oropharyngeal exudate. Eyes: Conjunctivae and EOM are normal. Pupils are equal, round, and reactive to light. Right eye exhibits no discharge. Left eye exhibits no discharge. Neck: Normal range of motion. Neck supple. Cardiovascular: Normal rate and regular rhythm. Pulmonary/Chest: No stridor. No respiratory distress. She has no wheezes. She has no rales. She exhibits no tenderness. Abdominal: Soft. Bowel sounds are normal. She exhibits no distension. There is no tenderness. There is no rebound and no guarding. Musculoskeletal: Normal range of motion. She exhibits no edema. Lymphadenopathy: She has no cervical adenopathy. Neurological: She is alert and oriented to person, place, and time. Skin: Skin is warm and dry. No rash noted. Laboratory: 09/28/2018, [facility]: WBC 19.5, Hb 13.5, PLT 352 -88% neutrophils Na 143, K4.2, anion gap 11.6, BUN 27, creatinine 1.35, glucose 143, total bilirubin 1.1 (H), AST 36,ALT 54, ALP 112 UA cloudy yellow, pH 8.5, protein 100, trace blood, positive nitrite, 20-50 WBCs, 0-2 RBCs Microbiology: URINE Cx 08/25/2018: >100K Proteus mirabilis (plus mixed denny) Sn: Amp, Amp-Sul, cefazolin, ceftaz, cfx, cipro, levo, gent, tobra, tmp/smx, pip-tazo, R: nitrofurantoin 09/28/2018: >100K Proteus mirabilis (plus mixed denny) Sn: Amp, Amp-Sul, cefazolin, ceftaz, cfx, cipro, levo, gent, tobra, tmp/smx, pip-tazo, R: nitrofurantoin 10/25/2018: 10-50K Proteus mirabilis (plus mixed denny) Sn: Amp, Amp-Sul, cefazolin, ceftaz, cfx, cipro, levo, gent, tobra, tmp/smx, pip-tazo, R: nitrofurantoin 11/07/2018: 10-50K Proteus mirabilis (plus mixed denny) Sn: Amp, Amp-Sul, cefazolin, ceftaz, cfx, cipro, levo, gent, tobra, tmp/smx, pip-tazo, R: nitrofurantoin Diagnostic Studies: 11/11/2018: Noncontrast CT of her abdomen was done, with no likely radiopaque stones however cannot be completely excluded per over the phone report. I am currently awaiting pushed images and formal read. Assessment and Plan: 73/F with MS complicated by neurogenic bladder referred for evaluation and management of recurrent UTIs with Proteus mirabilis with similar-appearing susceptibility profiles each time. These frequent UTIs are a change from her baseline of typically getting 1-3 simple UTIs per year. She has been managed initially with cephalosporins, most recently was given a month of tmp/smx 1DS daily (11/08/2018, has 2 doses left). While Proteus can be variably resistant to beta lactams, Proteus mirabilis as an indole negative species tends to not produce inducible beta-lactamase. Recurrent susceptibilities of this isolate from August through October show stable beta- lactam susceptibility. That said, tmp/smx is a good agent considering this problem, which appears to be recurrent simple cystitis rather than any a sending pyelonephritis based on history and exam. However, this current dose of trimethoprim works out to be roughly 2-3 mg/kg based on 2014 weight of 63.5 kg (unfortunately we do not have an up-to-date weight). Would recommend she receive double this for therapeutic dosing, 1 double strength tab twice a day. More importantly, this problem will be best managed with more adequate source control and/or hygenicpreventive measures rather than prolonged antibiotics. 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 CT last month did not demonstrate upper tract stones, however I am currently awaiting review of these images myself. If there is any concern for stones afterreview of the CT, more advanced imaging may be indicated. Would also consider a bladder wall plaque or other poorly vascularized tinnitus, which may be best evaluated with cystoscopy. If this study is considered adequate to rule out any urinary stones, would move on to preventive measures considering her vulnerability to urinary stasis. For this purpose, counseled the patient on genital hygiene, including wiping from front to back (she at times reports wiping back to front), as well as frequent and timed voiding to start. If these measures do not work, and no persistent nidus is found, would consider moving to intermittent self-catheterization with optimal technique and hygiene. This multitiered approach discussed in detail with the patient and her , and I will communicate by phone and electronically with her referring urologist, Dr. Mei. PLAN: -For now, continue current tmp/smx to complete the course (ends 12/09/2018) -Will discuss the subtleties of this plan with Dr. Mei; if review of CT and discussion of possibleother imaging studies can be done more immediately, would hold off on further antibiotics after she is finished with the current tmp/smx. However if there is to be a delay, or if suspicion for persistent nidus is high enough, would consider 1 of 2 options in discussion with Dr. Mei: --Either offering a prescription of tmp/smx (1DS BID) to be ready on hand, should she develop any early signs of recurrent UTI --Or continuing a limited course of tmp/smx through workup, if suspicion of stone remains high. -In the meantime, optimize voiding hygiene with wiping front to back at all times, and recommend shestart timed voiding every couple of hours to ensure adequate bladder emptying. -If not already done, Dr. Mei to consider formal voiding studies to quantify degree of retention -Would also consider intermittent clean catheterization, if above measures fail to avoid future UTIsand no nidus is identified. I have left a message with Dr. Raymundo front office, and plan to communicate directly with him on Wednesday (12/12/2018). Fanny Abbott MD Infectious Disease Fellow Personal Pager #[phone] 12/09/2018 Gorge Mora MD - 12/07/2018 9:00 AM EST Attending Addendum: I have seen and examined the patient, reviewed the data and agree with the note by Dr. Abbott. documented in this encounter Plan of Treatment Not on filedocumented as of this encounter Visit Diagnoses Diagnosis Acute cystitis without hematuria Acute cystitis Proteus (mirabilis) (morganii) as the ca use of diseases classified elsewhere Medication monitoring encounter Encounter for therapeutic drug monitorin g Multiple sclerosis documented in this encounter Care Teams Olive Brine Tester Relationship Specialty Start Date End Date Дмитрий Hyatt DO PCP - General 04/13/13 [facility] [address] [place] [address] documented as of this encounter
--- OUTSIDE RECORDS SUMMARY | 2022-08-06 09:27 | XMS_ITS | Encounter Summary ---
:1945 Author Organization [facility] [place] [address] Care Team Providers Name Role Phone Дмитрий Hyatt DO Primary Care Provider Encounter Details Date Type Department Care Team Description 09/18/2013 [place] [facility] [place] James, Multiple sclerosis [facility] (Primary Dx) [place] [address] NEUROLOGY DEPT. [phone] [place], [place] [address] Social History Tobacco Use Types Packs/Day Years Used Date Current Some Day Smoker Smokeless Tobacco: Never Used Comments: 2 cigs a week Alcohol Use Standard Drinks/Week Comments No 0 (1 standard drink = 0.6 oz pure alcoho l) Sex Assigned at Date Recorded Not on file documented as of this encounter Last Filed Vital Signs Vital Sign Reading Time Taken Comments Blood Pressure 143/79 09/18/2013 10:22 AM EDT Pulse 87 09/18/2013 10:22 AM EDT Temperature - - Respiratory Rate - - Oxygen Saturation - - Inhaled Oxygen Concentration - - Weight 63.5 kg (140 lb) 09/18/2013 10:22 AM EDT Height 152.4 cm (5') 09/18/2013 10:22 AM EDT Body Mass Index 27.34 09/18/2013 10:22 AM EDT documented in this encounter Progress Notes Manuel James MD - 09/18/2013 11:50 AM EDT [id number] 45 minutes Accompanied by: her MS Summary Time since first symptom of MS: 49 years EDSS: 6.5 walker dependent; can walk about 25 meters but not more MSSS: cannot be determined for MS this long since the chart stops at 30 years after first symptom; but at 30 years after onset of symptoms an EDSS of 6.5 is associated with an MSSS of 5.61 OCBs: unknown DMD: not on a medication MSIS-29: BMI: weight not recorded Last MRI: unknown Dear , Thank you for asking me to consult on your patient, Nguyen Ricks, for question of therapy of MS. She has had the disease for almost fifty years and it has been progressing very slowly. It is unclear whether she ever has had attacks. She thought she did, but when I explained an attack, she said she has never had one of those. 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 At this point her EDSS is 6.5 since she can walk with the aid of a walker, and can walk 25 ft. An EDSS of 7 is inability to walk even 5 meters even with aid, and she is not that bad. Her arms are fairly strong , although a 9 hole peg test evaluation performed by our medical diagnostic radiographer Nikole Correa showed mild prolongation of time to completion of this upper extremity test in both arms. Recently, she saw who prescribed an MS medication for her, which she felt made her worse and she stopped it. At this point she wants to know whether any medication is indicated. At this point in time it is clear that the patient should not be placed on ANY disease-modifying drug. I do agree with your efforts to decrease the edema in her legs since this will it more difficult for her to get around. I answered all the questions of the patient and her ; they are a nima couple. I did not give her a f/u appointment, since I have little to offer her, but would be happy to see her back if you felt it necessary. At least 30 minutes of this 45 minute face to face visit were spent in discussion of the topics outlined in the note above including diagnosis, therapy, and management issues. Nikole Correa MA - 09/18/2013 10:25 AM EDT 25 Foot Walk Test (With walker) Timed Walk One: 1.01 Timed Walk Two: declined to tired 9 Hole Peg Test Dominant Hand: RIGHT Timed One Test: 26.4 Timed Two Test: 26.2 Non Dominant Hand: LEFT Timed One Test: 29.8 Timed Two Test: 26.4 documented in this encounter Plan of Treatment Not on filedocumented as of this encounter Visit Diagnoses Diagnosis Multiple sclerosis - Primary documented in this encounter Care Teams Screening Specialist Relationship Specialty Start Date End Date Дмитрий Hyatt DO PCP - General 04/13/[address] [place] [address] [address] [place] [address] documented as of this encounter
--- OUTSIDE RECORDS SUMMARY | 2022-08-06 09:29 | XMS_ITS | Clinical Summary ---
:1945 Author Organization [facility] Address [address] [place] [address] Care Team Providers Name Role Phone Unknown, Provider Primary Care Provider Social History Tobacco Use Types Packs/Day Years Used Date Never Assessed Sex Assigned at Date Recorded Not on file Plan of Treatment Health Maintenance Due Date Last Done Comments Fall Risk Screening 2012 Care Teams Meat Hostess Relationship Specialty Start Date End Date Unknown, Provider, PCP - General 09/27/15
--- OUTSIDE RECORDS SUMMARY | 2022-08-06 09:29 | XMS_ITS | Encounter Summary ---
:1945 Author Organization [facility] Address [address] [place] [address] Care Team Providers Name Role Phone Unknown, Provider Primary Care Provider Encounter Details Date Type Department Care Team Description 05/06/2017 Results Only [facility]- Amber Mcdonald MD [phone] [facility] [place] [address] (Wo rk) Social History Tobacco Use Types Packs/Day Years Used Date Never Assessed Sex Assigned at Date Recorded Not on file documented as of this encounter Plan of Treatment Not on filedocumented as of this encounter Procedures Procedure Name Priority Date/Time Associated Diagnosis Comme nts PAP TEST- RESULT Routine 05/06/2017 0:00 EDT Resu lts for this ONLY procedure are i n the results section. documented in this encounter Results PAP TEST- RESULT ONLY (05/06/2017 0:00 EDT) Pathology Report: CYTOPATHOLOGY REPORT [facility] Reports generated via electronic interface contain miguelina ginal data; SERVICES however they are lacking the format of the original re port. Caution should be taken when reading/interpreting unfo rmatted reports. Name: ? NGUYEN RICKS ? Accession #: ? [id number] ? : ? 1945 (Age: 9 0) ??F ?Collect Date: ? 05/06/2017 ? Location: ? [facility] ? Receive Date: ? 05/07/20 17 ? Provider: AMBER GONZALEZ MD Copy to: JAIME CARABALLO DO ? Final Report SPECIMEN ADEQUACY ? Satisfactory for Evaluation - transformation zone component absent GENERAL CATEGORIZATION ? Negative for Intraepithelial Lesion or Malignan cy ?? Hormonal/Contraceptive status: None Other: Additional clinical information: No pap X 9 yea rs Specimen/Source: ??Pap Test, Cervix, ThinPrep Imaging System with manual evaluation Document reviewed and electronically signed by: ? CHRIS Alonso(ASCP) ? Report ??Date: 05/18/2017 13:15 HPV with Pap Test ? Date Ordered: ? 05/18/2017 ? Status: ?? Signed Out ?Date Complete: ? 05/19/2017 ? By: ??Sy stem Interface ? Date Reported: ? 05/19/2017 ? Interpretation RESULT: Negative for HPV. No E6 or E7 mRNA is detected from HPV types 16,18,31,3 3,35, 39,45,51,52,56,58,59,66, and 68 by medical data analyst media shahrzad amplification. Comments Document reviewed and electronically signed by: ? System Interface ? Report date: 05/19/2017 By the signature above, the attending physician certif ies that he/she has personally conducted a gross and/or microscopic examin ation of the described specimens and rendered or confirmed the above diagnosi s. End of Report Specimen Performing Organization Address City/State/ZIP Code Phon e Number [facility] [address] [place] [address] SERVICES documented in this encounter Visit Diagnoses Not on filedocumented in this encounter Care Teams Pre Press Operator Relationship Specialty Start Date End Date Unknown, Provider, PCP - General 09/27/15 documented as of this encounter
--- OUTSIDE RECORDS SUMMARY | 2022-08-06 09:29 | XMS_ITS | Encounter Summary ---
:1945 Author Organization [facility] Address [address] [place] [address] Care Team Providers Name Role Phone Unknown, Provider Primary Care Provider Encounter Details Date Type Department Care Team Description 10/10/2015 Results Only [facility]- Carli Sharpe MD [phone] [address] [facility] [place] [address] Social History Tobacco Use Types Packs/Day Years Used Date Never Assessed Sex Assigned at Date Recorded Not on file documented as of this encounter Plan of Treatment Not on filedocumented as of this encounter Procedures Procedure Name Priority Date/Time Associated Comments Diagnosis ORGANISM IDENTIFICATION Routine 10/10/2015 2:35 R esults for this AND SUSCEPTIBILITY EST procedure are in the results section. ORGANISM IDENTIFICATION Routine 10/10/2015 2:35 R esults for this AND SUSCEPTIBILITY EST procedure are in the results section. ORGANISM IDENTIFICATION Routine 10/10/2015 2:35 R esults for this AND SUSCEPTIBILITY EST procedure are in the results section. documented in this encounter Results ORGANISM IDENTIFICATION AND SUSCEPTIBILITY (10/10/2015 2:35 EST) Pathologist Sig nature Result Anaerobic gram positive bacilli [facility] Unable to identify LABORATORY SERVICES Specimen Urine Performing Organization Address City/State/ZIP Code Phon e Number [facility] [address] [place] [address] SERVICES ORGANISM IDENTIFICATION AND SUSCEPTIBILITY (10/10/2015 2:35 EST) Pathologist Sig nature Result ESCHERICHIA COLI [facility] SERVICES Specimen Urine Organism Antibiotic Method Susceptibility Escherichia coli Ampicillin SUSCEPTIBILITY (DAVID) <=2: Susce ptible Escherichia coli Gentamicin SUSCEPTIBILITY (DAVID) 8: Interme diate Escherichia coli Trimethoprim-Sulfamethoxazo SUSCEPTIBILITY (DAVID ) <=20: Susceptible le Escherichia coli Nitrofurantoin SUSCEPTIBILITY (DAVID) 64: Interm ediate Escherichia coli Tobramycin SUSCEPTIBILITY (DAVID) 8: Interme diate Escherichia coli Amikacin SUSCEPTIBILITY (DAVID) 32: Interm ediate Escherichia coli Ceftriaxone SUSCEPTIBILITY (DAVID) <=1: Susce ptible Escherichia coli Ciprofloxacin SUSCEPTIBILITY (DAVID) <=0.25: Pickard sceptible Escherichia coli Meropenem SUSCEPTIBILITY (DAVID) <=0.25: Pickard sceptible Escherichia coli Ertapenem SUSCEPTIBILITY (DAVID) <=0.5: Catina ceptible Performing Organization Address City/[facility]/ZIP Code Phon e Number [facility] [address] [place] [address] SERVICES ORGANISM IDENTIFICATION AND SUSCEPTIBILITY (10/10/2015 2:35 EST) Pathologist Sig nature Result ESCHERICHIA COLI [facility] SERVICES Specimen Urine Organism Antibiotic Method Susceptibility Escherichia coli Ampicillin SUSCEPTIBILITY (DAVID) <=2: Susce ptible Escherichia coli Gentamicin SUSCEPTIBILITY (DAVID) 8: Interme diate Escherichia coli Trimethoprim-Sulfamethoxazo SUSCEPTIBILITY (DAVID ) <=20: Susceptible le Escherichia coli Nitrofurantoin SUSCEPTIBILITY (DAVID) 64: Interm ediate Escherichia coli Tobramycin SUSCEPTIBILITY (DAVID) 8: Interme diate Escherichia coli Amikacin SUSCEPTIBILITY (DAVID) 32: Interm ediate Escherichia coli Ceftriaxone SUSCEPTIBILITY (DAVID) <=1: Susce ptible Escherichia coli Ciprofloxacin SUSCEPTIBILITY (DAVID) <=0.25: Pickard sceptible Escherichia coli Meropenem SUSCEPTIBILITY (DAVID) <=0.25: Pickard sceptible Escherichia coli Ertapenem SUSCEPTIBILITY (DAVID) <=0.5: Catina ceptible Performing Organization Address City/State/ZIP Code Phon e Number [facility] [address] [place] [address] SERVICES documented in this encounter Visit Diagnoses Not on filedocumented in this encounter Care Teams Front End Developer Relationship Specialty Start Date End Date Unknown, Provider, PCP - General 09/27/15 documented as of this encounter
--- OUTSIDE RECORDS SUMMARY | 2022-08-06 09:29 | XMS_ITS | Encounter Summary ---
:1945 Author Organization [facility] Address [address] [place] [address] Care Team Providers Name Role Phone Unavailable Primary Care Provider Unavailable Encounter Details Date Type Department Care Team Description 10/23/2005 Results Only [facility] - Orville Pardo MD conversion [address] [place] [address] Social History Tobacco Use Types Packs/Day Years Used Date Never Assessed Sex Assigned at Date Recorded Not on file documented as of this encounter Plan of Treatment Not on filedocumented as of this encounter Procedures Procedure Name Priority Date/Time Associated Diagnosis Comme nts CYTOPATHOLOGY Routine 10/23/2005 0:00 EST Results for this procedure are i n the results section . documented in this encounter Results CYTOPATHOLOGY (10/23/2005 0:00 EST) Pathology Report: CYTOPATHOLOGY REPORT [facility] Reports generated via electronic interface contain miguelina ginal data; however they are lacking the format of the original re port. Caution should be taken when reading/interpreting unfo rmatted reports. Name: ? NGUYEN RICKS ? Accession #: ? [id number] : ? 1945 (Age: 60) ??F ?Collect Date: ? 12/2004 Location: ? [facility] ? Receive Date : ? 10/26/2005 Provider: ?ORVILLE REECE MD Copy to: ? Specimen/Source: ? ThinPrep Pap Test, Cervix/Endocervix, processed on [employer] ThinPrep Imaging System, with manual evaluation Last Menstrual Period: ? Other: ? Additional clinical information: atrophic vagina ? SPECIMEN ADEQUACY ? Satisfactory for Evaluation - transformation zone component present GENERAL CATEGORIZATION ? Negative for Intraepithelial Lesion or Malignan cy INTERPRETATION ? Reactive cellular shirley nges associated with inflammation present (includes repair). ? Document reviewed and electronically signed by: ? ZOFIA PARSONS MD ? Report Date: ??10/30/2005 15:25 End of Report Specimen Performing Organization Address City/State/ZIP Code Phon e Number [facility] [address] [place] [phone] SERVICES [facility] [address] [place] [address] documented in this encounter Visit Diagnoses Not on filedocumented in this encounter
--- OUTSIDE RECORDS SUMMARY | 2022-08-06 09:29 | XMS_ITS | Encounter Summary ---
:1945 Author Organization [facility] Address [address] [place] [address] Care Team Providers Name Role Phone Unavailable Primary Care Provider Unavailable Encounter Details Date Type Department Care Team Description 02/15/2001 Results Only [facility] - Orville Pardo MD conversion [address] [place] [address] Social History Tobacco Use Types Packs/Day Years Used Date Never Assessed Sex Assigned at Date Recorded Not on file documented as of this encounter Plan of Treatment Not on filedocumented as of this encounter Procedures Procedure Name Priority Date/Time Associated Diagnosis Comme nts CYTOPATHOLOGY Routine 02/15/2001 0:00 EST Results for this procedure are i n the results section . documented in this encounter Results CYTOPATHOLOGY (02/15/2001 0:00 EST) Pathology Report: CYTOPATHOLOGY REPORT [facility] Reports generated via electronic interface contain miguelina ginal data; however they are lacking the format of the original re port. Caution should be taken when reading/interpreting unfo rmatted reports. Name: ? NGUYEN RICKS ? Accession #: ? [id number] : ? 1945 (Age: 55) ??F ?Collect Date: ? 01/21 Location: ? [facility] ? Receive Date : ? 02/17/2001 Provider: ?ORVILLE REECE MD Copy to: ? Specimen/Source: ?ThinPrep Pap Test, Cervix/ Endocervix Last Menstrual Period: ? 07/23/00 Menstrual/ Status: ? Amenorrhea ? SPECIMEN ADEQUACY ? Satisfactory for evaluation. GENERAL CATEGORIZATION ? Within Normal Limits ? Document reviewed and electronically signed by: ? CHRIS Lang(ASCP) ? Report Date: ??02/18/2001 09:09 End of Report Specimen Performing Organization Address City/State/ZIP Code Phon e Number [facility] [address] [place] [address] SERVICES [facility] [address] [place] [address] documented in this encounter Visit Diagnoses Not on filedocumented in this encounter
--- OUTSIDE RECORDS SUMMARY | 2022-08-06 09:29 | XMS_ITS | Encounter Summary ---
:[address] [facility] Address [address] [place] [address] Care Team Providers Name Role Phone Unavailable Primary Care Provider Unavailable Encounter Details Date Type Department Care Team Description 03/05/2003 Results Only [facility] - Orville Pardo MD conversion [address] [place] [address] Social History Tobacco Use Types Packs/Day Years Used Date Never Assessed Sex Assigned at Date Recorded Not on file documented as of this encounter Plan of Treatment Not on filedocumented as of this encounter Procedures Procedure Name Priority Date/Time Associated Diagnosis Comme nts CYTOPATHOLOGY Routine 03/05/2003 0:00 EDT Results for this procedure are i n the results section . documented in this encounter Results CYTOPATHOLOGY (03/05/2003 0:00 EDT) Pathology Report: CYTOPATHOLOGY REPORT [facility] Reports generated via electronic interface contain miguelina ginal data; however they are lacking the format of the original re port. Caution should be taken when reading/interpreting unfo rmatted reports. Name: ? NGUYEN RICKS ? Accession #: ? [id number] : ? 1945 (Age: 57) ??F ?Collect Date: ? 02/20 Location: ? [facility] ? Receive Date : ? 03/06/2003 Provider: ?ORVILLE REECE MD Copy to: ? Specimen/Source: ?ThinPrep Pap Test, Cervix/ Endocervix Last Menstrual Period: ? Menopause ? SPECIMEN ADEQUACY ? Satisfactory for Evaluation - transformation zone component absent GENERAL CATEGORIZATION ? Negative for Intraepithelial Lesion or Malignan cy ? Document reviewed and electronically signed by: ? CHRIS Vora(ASCP) ? Report Date: ??03/08/2003 12:35 End of Report Specimen Performing Organization Address City/State/ZIP Code Phon e Number [facility] [address] [place] [address] SERVICES [facility] [address] [place] [address] documented in this encounter Visit Diagnoses Not on filedocumented in this encounter
--- NOTE | 2022-08-06 13:33 | DI.RAD_ITS ---
Exam(s) XR CHEST 2V PA LATERAL EXAM: XR CHEST 2V PA LATERAL CLINICAL HISTORY: cough, rales at bases,r05.9 TECHNIQUE: 2D digital imaging was performed of the chest. Three images were obtained. PA and later al views were obtained. COMPARISON: CR XR CHEST 2V PA LATERAL from 01/29/2019 FINDINGS: MEDIASTINUM: Normal. HEART: Normal. PULMONARY VASCULATURE: Normal. LUNGS: Linear atelectasis is seen in the right lung base. No focal consolidating infiltrates are pre sent. PLEURAL SPACE: No pleural effusion or pneumothorax. BONE:Within normal limits for the patient's age. OTHER FINDINGS:Normal. IMPRESSION: No acute pulmonary findings. DATA REPOSITORY: RADIATION DOSE DELIVERED:
== END ==
PROVIDERS: PCP Family Medicine; Visit Provider Physician Assistant
DX: R05.9 Cough, unspecified (principal)
CPT/HCPCS: 71046

== ENCOUNTER → 2022-09-07 12:48 | Outpatient (BNVA) | payer MEDICARE, BC, SELFPAY | PROVIDERS: PCP Family Medicine; Referring Provider Family Medicine; Visit Provider Psychiatry & Neurology Neurology | DX: G35 Multiple sclerosis (principal); N31.9 Neuromuscular dysfunction of bladder, unspecified; Z87.440 Personal history of urinary (tract) infections; K59.00 Constipation, unspecified; G82.20 Paraplegia, unspecified | CPT/HCPCS: 99213 ==

== ENCOUNTER 2022-10-08 14:14 | Outpatient (REF) | payer MEDICARE, BC, SELFPAY ==
[2022-10-08 14:14] LABS: Bilirubin Negative (Negative); Blood Negative (Negative); Clarity Cloudy (Clear); Glucose Negative (Negative); Ketones Trace mg/dL (Negative); Leukocyte Esterase Small (Negative); Nitrite Positive (Negative); Specific Gravity >= 1.030 (1.005-1.025); Urobilinogen 0.2 EU/dL (Up TO 0.2); pH 6.5 (5-8)
[2022-10-08 14:32] LABS: Epithelial Cells Rare HPF (Negative); RBC Negative HPF (0-2)
[2022-10-08 14:33] LABS: Bacteria Moderate HPF (Negative); Other Cells Few Yeast (Negative)
[2022-10-08 14:34] LABS: C & S Indicated? C&S Done As Ordered; Casts Negative LPF (Negative); Crystals Moderate Amorphous HPF (Negative); Mucus Negative (Negative)
== END 2022-10-08 14:15 | disposition home or self-care (01) ==
LOC: LBN 14:14
PROVIDERS: Nurse Practitioner Gerontology; PCP Family Medicine; Visit Provider Urology
DX: N39.0 Urinary tract infection, site not specified (principal); R53.1 Weakness; R33.9 Retention of urine, unspecified
CPT/HCPCS: 81003; 81015; 87086

== ENCOUNTER → 2022-12-14 09:14 | Outpatient (BNVA) | payer MEDICARE, BC, SELFPAY | PROVIDERS: PCP Family Medicine; Referring Provider Family Medicine; Visit Provider Nurse Practitioner Gerontology | DX: N31.9 Neuromuscular dysfunction of bladder, unspecified (principal); G35 Multiple sclerosis | CPT/HCPCS: 99442 ==

== ENCOUNTER 2022-12-29 10:29 | Outpatient (REF) | payer MEDICARE, BC, SELFPAY ==
[2022-12-29 13:38] LABS: Bilirubin Negative (Negative); Blood Large (Negative); Clarity Cloudy (Clear); Glucose Negative (Negative); Ketones Negative (Negative); Leukocyte Esterase Small (Negative); Nitrite Positive (Negative); Specific Gravity >= 1.030 (1.005-1.025); Urobilinogen 0.2 EU/dL (Up TO 0.2); pH 5.5 (5-8)
[2022-12-29 14:15] LABS: Bacteria Few HPF (Negative); Crystals Many Amorphous HPF (Negative); Epithelial Cells Few HPF (Negative)
[2022-12-29 14:16] LABS: C & S Indicated? C&S Done As Ordered; Casts Negative LPF (Negative); Mucus Negative (Negative)
== END 2022-12-29 10:30 | disposition home or self-care (01) ==
LOC: LBN 10:29
PROVIDERS: PCP Family Medicine; Visit Provider Urology
DX: N39.0 Urinary tract infection, site not specified (principal)
CPT/HCPCS: 87077; 81003; 81015; 87086; 87186

== ENCOUNTER → 2023-01-11 09:37 | Outpatient (BNVA) | payer MEDICARE, BC, SELFPAY | PROVIDERS: PCP Family Medicine; Visit Provider Psychiatry & Neurology Neurology | DX: G35 Multiple sclerosis (principal); N31.9 Neuromuscular dysfunction of bladder, unspecified; Z87.440 Personal history of urinary (tract) infections; K59.00 Constipation, unspecified; I10 Essential (primary) hypertension | CPT/HCPCS: 99213 ==

== ENCOUNTER 2023-03-15 14:24 | Outpatient (REF) | payer MEDICARE, BC, SELFPAY ==
[2023-03-15 11:47] LABS: Bilirubin Negative (Negative); Blood Trace-intact (Negative); Clarity Turbid (Clear); Glucose Negative (Negative); Ketones Negative (Negative); Leukocyte Esterase Moderate (Negative); Nitrite Positive (Negative); Specific Gravity 1.015 (1.005-1.025); Urobilinogen 0.2 mg/dL (Up to 0.2); pH 8.5 (5-8)
[2023-03-15 13:11] LABS: Bacteria Many HPF (Negative); Epithelial Cells Many HPF (Negative)
[2023-03-15 13:12] LABS: C & S Indicated? No/Sq. Contamination; Casts Negative LPF (Negative); Crystals Few Calcium Oxalate HPF (Negative); Mucus Moderate (Negative)
== END 2023-03-15 14:25 | disposition home or self-care (01) ==
LOC: LBN 14:24
PROVIDERS: PCP Family Medicine; Visit Provider Urology
DX: N39.0 Urinary tract infection, site not specified (principal); R31.9 Hematuria, unspecified
CPT/HCPCS: 87077; 81003; 81015; 87086; 87186

== ENCOUNTER 2023-04-26 03:32 | Outpatient (CLI) | payer MEDICARE, BC, SELFPAY ==
[2023-04-26 12:23] LABS: Anion Gap 8.9 mmol/L (3-11); BUN 18 mg/dL (7-18); CO2 28.1 mmol/L (21.0-32.0); CREATININE 0.9 mg/dL (0.55-1.02); Calcium 9.2 mg/dL (8.5-10.1); Calculated LDL 54 mg/dL (<100); Chloride 107 mmol/L (98-107); Cholesterol 136 mg/dL (<200); Estimated GFR 66.26 (mL/min/1.73m2); Glucose 102 mg/dL (74-106); HDL Cholesterol 58 mg/dL (40-60); Potassium 3.4 mmol/L (3.5-5.1); Sodium 144 mmol/L (136-145); Triglyceride 120 mg/dL (<150)
== END 2023-04-26 03:33 | disposition home or self-care (01) ==
LOC: LOS 03:32
PROVIDERS: PCP Family Medicine; Visit Provider Family Medicine
DX: I10 Essential (primary) hypertension (principal); Z13.6 Encounter for screening for cardiovascular disorders
CPT/HCPCS: 36415; 80048; 80061

== ENCOUNTER → 2023-05-10 09:34 | Outpatient (BNVA) | payer MEDICARE, BC, SELFPAY | PROVIDERS: PCP Family Medicine; Visit Provider Psychiatry & Neurology Neurology | DX: N31.9 Neuromuscular dysfunction of bladder, unspecified (principal); K59.00 Constipation, unspecified; G35 Multiple sclerosis; I10 Essential (primary) hypertension | CPT/HCPCS: 99213 ==

== ENCOUNTER 2023-07-07 14:25 | Outpatient (REF) | payer MEDICARE, BC, SELFPAY ==
[2023-07-07 13:39] LABS: Bilirubin Negative (Negative); Blood Trace-intact (Negative); Clarity Sl Cloudy (Clear); Glucose Negative (Negative); Ketones Negative (Negative); Leukocyte Esterase Moderate (Negative); Nitrite Positive (Negative); Specific Gravity 1.015 (1.005-1.025); Urobilinogen 0.2 mg/dL (Up to 0.2); pH 7.5 (5-8)
[2023-07-07 13:45] LABS: Bacteria Moderate HPF (Negative); C & S Indicated? C&S Done As Ordered; Casts Negative LPF (Negative); Crystals Many Triple Phos HPF (Negative); Epithelial Cells Few HPF (Negative); Mucus Trace (Negative); RBC 0-2 HPF (0-2)
== END 2023-07-07 14:26 | disposition home or self-care (01) ==
LOC: LBN 14:25
PROVIDERS: PCP Family Medicine; Visit Provider Nurse Practitioner Gerontology
DX: R31.9 Hematuria, unspecified (principal); N39.0 Urinary tract infection, site not specified
CPT/HCPCS: 87077; 81003; 81015; 87086; 87186

== ENCOUNTER 2023-07-15 11:30 | Outpatient (REF) | payer MEDICARE, BC, SELFPAY ==
[2023-07-15 18:17] LABS: Bilirubin Negative (Negative); Blood Moderate (Negative); Clarity Cloudy (Clear); Glucose Negative (Negative); Ketones Negative (Negative); Leukocyte Esterase Small (Negative); Nitrite Negative (Negative); Specific Gravity >= 1.030 (1.005-1.025); Urobilinogen 0.2 mg/dL (Up to 0.2)
[2023-07-15 18:29] LABS: C & S Indicated? Yes; Casts Negative LPF (Negative); Crystals Many Amorphous HPF (Negative); Mucus Negative (Negative)
[2023-07-15 20:54] LABS: Abs Immature Grans 0.02 10^3/uL (0.0-0.06); Absolute Basophil Count 0.08 10^3/uL (0.0-0.2); Absolute Eosinophil Count 0.23 10^3/uL (0.0-0.7); Absolute Lymphocyte Count 3.28 10^3/uL (1.2-3.4); Absolute Monocyte Count 0.55 10^3/uL (0.1-0.8); Absolute Neutrophil Count 3.67 10^3/uL (1.2-6.7); Eosinophils % 2.9; HCT 38.8 % (36.0-46.0); HGB 12.7 g/dL (11.2-15.7); Immature Grans % 0.3; Lymphocytes % 41.9; MCH 29.1 pg (27.0-33.0); MCHC 32.7 % (32.0-36.0); MCV 89 fL (80-95); MPV 10.2 fL (8.0-11.0); Neutrophils % 46.9; Platelet Count 335 10^3/uL (130-400); RBC 4.36 10^6/uL (3.93-5.22); RDW 14.5 % (11.7-14.6); RDW-SD 46.8 fL; WBC 7.83 10^3/uL (4.4-10.8)
[2023-07-15 21:08] LABS: Anion Gap 8.1 mmol/L (3-11); BUN 16 mg/dL (7-18); CO2 27.9 mmol/L (21.0-32.0); CREATININE 0.9 mg/dL (0.55-1.02); Calcium 9.4 mg/dL (8.5-10.1); Chloride 108 mmol/L (98-107); Estimated GFR 66.26 (mL/min/1.73m2); Glucose 100 mg/dL (74-106); Potassium 3.9 mmol/L (3.5-5.1); Sodium 144 mmol/L (136-145)
== END 2023-07-15 11:31 | disposition home or self-care (01) ==
LOC: LBN 11:30
PROVIDERS: PCP Family Medicine; Visit Provider Nurse Practitioner Family
DX: N39.0 Urinary tract infection, site not specified (principal); L60.1 Onycholysis; M79.674 Pain in right toe(s)
CPT/HCPCS: 80048; 81003; 81015; 85025; 87086

== ENCOUNTER → 2023-07-27 12:19 | Outpatient (BNVA) | payer MEDICARE, BC, SELFPAY | PROVIDERS: PCP Family Medicine; Referring Provider Family Medicine; Visit Provider Psychiatry & Neurology Neurology | DX: G35 Multiple sclerosis (principal); N31.9 Neuromuscular dysfunction of bladder, unspecified; Z87.440 Personal history of urinary (tract) infections; K59.00 Constipation, unspecified; G47.00 Insomnia, unspecified; I10 Essential (primary) hypertension | CPT/HCPCS: 99214 ==

== ENCOUNTER 2023-08-19 16:48 | Outpatient (REF) | payer MEDICARE, BC, SELFPAY ==
[2023-08-19 16:04] LABS: Bilirubin Negative (Negative); Blood Moderate (Negative); Clarity Cloudy (Clear); Glucose Negative (Negative); Ketones 40 mg/dL (Negative); Leukocyte Esterase Trace (Negative); Nitrite Positive (Negative)
[2023-08-19 16:33] LABS: Epithelial Cells Many HPF (Negative); Other Cells Rare Transitional (Negative)
[2023-08-19 16:34] LABS: Bacteria Many HPF (Negative); C & S Indicated? C&S Done As Ordered; Crystals Many Amorphous HPF (Negative); Mucus Heavy (Negative)
== END 2023-08-19 16:49 | disposition home or self-care (01) ==
LOC: LBN 16:48
PROVIDERS: PCP Family Medicine; Visit Provider Nurse Practitioner Gerontology
DX: R31.9 Hematuria, unspecified (principal); N39.0 Urinary tract infection, site not specified; N31.9 Neuromuscular dysfunction of bladder, unspecified
CPT/HCPCS: 87077; 81003; 81015; 87086; 87186

== ENCOUNTER 2023-08-21 10:41 | Inpatient (IN) | payer MEDICARE, BC, SELFPAY ==
[2023-08-21] VITALS (55 sets, daily range): BP systolic 88–125; BP diastolic 26–79; PULSE 52–115; RESP 15–24; TEMP 36.8–37.3; O2SAT 88–95
--- NOTE | 2023-08-21 11:00 | DI.RAD_ITS ---
Exam(s) XR CHEST 2V PA LATERAL EXAM: XR CHEST 2V PA LATERAL CLINICAL HISTORY: fatigue, hypoxia. TECHNIQUE: 2D digital imaging was performed. COMPARISON: CR XR CHEST 2V PA LATERAL from 08/06/2022 FINDINGS: 2 views: Heart size is upper normal. The mediastinum is not widened. There increased markings throughout both lung upt[place], more so than previous. On the lateral view the re appears to be probable pleural effusions; less evident on the frontal view. No pneumothorax. No fractures. IMPRESSION: Bilateral interstitial infiltrates. Upper normal heart size. Both infectious etiology and possible element pulmonary edema to be considered. There appears to be some pleural fluid as seen on the lateral view. DATA REPOSITORY: RADIATION DOSE DELIVERED:
--- NOTE | 2023-08-21 11:12 | ED.GENADUL_ITS ---
Discharge Plan Disposition Patient Disposition: Admit to [facility] Condition: Stable Discharge Details Chief Complaint: Urinary Clinical Impression: Pneumonia, Hypoxia, Acute UTI Primary Care Provider: Gina Reeves ED Provider: Boy Hester Home Meds and New Rx's Prescriptions: No Action betamethasone valerate 0.1 % ointment 1 applic topical BID PRN (Reason: skin irritation) Qty: 15 0RF cholecalciferol (vitamin D3) 50 mcg (2,000 unit) capsule 50 mcg PO DAILY multivitamin [Daily Multi-Vitamin] Tablet 1 tab PO DAILY tramadol 50 mg tablet 50 mg PO TID PRN (Reason: pain) Qty: 30 0RF Myrbetriq 50 mg tablet extended release 24 hr 50 mg PO DAILY Qty: 90 4RF Hold Instructions: Home Medication placed on hold at Doctor's office cyanocobalamin (vitamin B-12) [Vitamin B-12] 1,000 mcg tablet 2,500 mcg PO DAILY rosuvastatin [Crestor] 10 mg tablet 10 mg PO DAILY Qty: 90 3RF hydrochlorothiazide 25 mg tablet 12.5 mg PO DAILY Qty: 45 4RF (DME) Rodolfo lift See Rx Instructions .Route .MEDSUPPLY Qty: 1 0RF Rx Instructions: As directed mirtazapine 7.5 mg tablet 7.5 mg PO QHS Qty: 30 3RF ciprofloxacin HCl 250 mg tablet 250 mg PO BID Qty: 14 0RF Rx Instructions: For UTI Medical Decision Making 78-year-old female presents with generalized fatigue, recent UTI, indwelling Jha currently, history of MS, noted be hypoxic to the 80s on room air, no history of COPD per patient although her medical history shows tobacco use, speaking full sentences no respiratory distress does appear dry, no peripheral edema, clear yellow urine in Jha bag. Consider COPD exacerbation versus viral URI versus pneumonia versus persistent UTI lower suspicion for intra-abdominal infection PE or DVT given history and physical. Patient on supplemental oxygen nasal cannula. Will provide dexamethasone albuterol, fluids, basic labs, troponin BNP, chest x-ray, screening COVID RSV flu. Disposition pending reassessment if persistently hypoxic will need admission 20: 34 patient doing much better feeling much better clinically improved on examination, still requiring nasal O2 to remain in the low 90s. Will admit for pneumonia UTI hypokalemia. HPI General Date/Time Provider Initiated Documentation: 08/21/23 11:04 . HPI Narrative: 78-year-old female history of MS, recent UTI, currently with indwelling Jha catheter presents with fatigue, noted to be hypoxic, does not use oxygen at home. Related Data Home Medications Medication Instructions Recorded Confirmed mirabegron 50 mg tablet,extended 50 mg PO DAILY #90 tabs 12/01/21 08/06/23 release 24 hr (Myrbetriq) cyanocobalamin (vitamin B-12) 2,500 mcg PO DAILY 05/13/22 08/06/23 1,000 mcg tablet (Vitamin B-12) cholecalciferol (vitamin D3) 50 50 mcg PO DAILY 09/07/22 08/06/23 mcg (2,000 unit) capsule multivitamin (Daily Multi-Vitamin 1 tab PO DAILY 09/07/22 08/06/23 tablet) tramadol 50 mg tablet 50 mg PO TID PRN pain #30 tabs 12/24/22 08/06/23 rosuvastatin 10 mg tablet (Crestor) 10 mg PO DAILY #90 tabs 02/02/23 08/06/23 betamethasone valerate 0.1 % 1 applic topical BID PRN skin 03/02/23 08/06/23 topical ointment irritation #15 grams hydrochlorothiazide 25 mg tablet 12.5 mg PO DAILY #45 tabs 04/09/23 08/06/23 Rodolfo lift #1 ea 05/13/23 08/06/23 mirtazapine 7.5 mg tablet 7.5 mg PO QHS #30 tabs 08/03/23 08/06/23 ciprofloxacin HCl 250 mg tablet 250 mg PO BID #14 tabs 08/19/23 Previous Rx's Medication Instructions Recorded mirabegron 50 mg tablet,extended 50 mg PO DAILY #90 tabs 12/01/21 release 24 hr (Myrbetriq) tramadol 50 mg tablet 50 mg PO TID PRN pain #30 tabs 12/24/22 rosuvastatin 10 mg tablet (Crestor) 10 mg PO DAILY #90 tabs 02/02/23 betamethasone valerate 0.1 % 1 applic topical BID PRN skin 03/02/23 topical ointment irritation #15 grams hydrochlorothiazide 25 mg tablet 12.5 mg PO DAILY #45 tabs 04/09/23 Rodolfo lift #1 ea 05/13/23 mirtazapine 7.5 mg tablet 7.5 mg PO QHS #30 tabs 08/03/23 ciprofloxacin HCl 250 mg tablet 250 mg PO BID #14 tabs 08/19/23 Allergies Allergy/AdvReac Type Severity Reaction Status Date / Time oxybutynin AdvReac Intermediate severe dry Verified 08/06/23 14:40 mouth General Stated Complaint: Urinary JAVIER: 2 Review of Systems Narrative: Review of Systems Constitutional: Fatigue Eyes: negative ENT: negative Cardiovascular: negative Respiratory: negative Gastrointestinal: negative : negative Musculoskeletal: negative Skin: negative Neurologic: negative Psych: negative PFSH All Active Problems (Updated 08/21/23 @ 20:35 by Boy Hester MD) Hypokalemia (Acute) Recurrent urinary tract infection (Chronic) Edema of both lower extremities (Chronic) Essential hypertension (Chronic) Multiple sclerosis (Chronic 04/10/13) 50 year history of MS relapsing type #2 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 has limited mobility secondary to MS. Vitamin B12 deficiency Surgical History History of bilateral ligation of fallopian tubes S/P cataract extraction Family History Mother , 50 Neoplasm VAGINAL Grandfather Heart disease Grandfather Heart disease Grandmother Heart disease Grandmother Diabetes Son , 45 Stroke Daughter , 40 Substance abuse Paternal Aunt Multiple sclerosis Paternal Aunt Multiple sclerosis Sister , 65 COVID Father , 85 No problems noted. Social History Smoking/Tobacco Use Status: Former Tobacco Use tobacco type: cigarettes Quit Date: 11/22/89 Tobacco: How many years used: 25 Second Hand Exposure: Yes Smoking risk assessment performed?: Yes Alcohol Intake: former Drug use: Never Substance use type: does not use Details: pt. reports smoking since age 17 years old. 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[place] Pets and animals: Yes Pets and animals: dog(s) Sexually active: Yes Do you think of yourself as: straight/heterosexual Current gender identity: female What is your relationship status?: How often do you talk on the phone with friends or family?: three or more times per week How often do you get together with friends or relatives?: twice per week How often do you attend hoahaoism or holiness services?: decline to answer Do you belong to any clubs or organized social groups?: no Panel score (0-1 are the most socially isolated patients): 2 Duration: < 15 minutes/day Frequency: daily Madelyn/Judaism: Taoism Special madelyn needs: No Seatbelt use: always Helmet use: No Drive intox or ride w/intox double bottom driver: No Do you feel safe at home: Yes Do you feel safe in your relationship?: Yes Additional Social history: She had two adopted children (both ). Exam Narrative Exam Narrative: Physical Examination General: alert, awake, cooperative, resting comfortably, no acute distress HEENT: normocephalic, atraumatic; PERRL, EOM intact, conjunctiva normal; no nasal discharge; moist mucous membranes, oral and pharyngeal mucosa normal, tolerating secretions Neck: supple, trachea midline; full ROM Chest: normal to inspection Respiratory: normal respiratory effort, speaking in full sentences, clear to auscultation, no wheezing, rales or rhonchi Cardiac: Tachycardia, regular rhythm, S1S2 intact, no murmurs rubs or gallops GI: abdomen soft, non-tender, non-distended; no palpable mass or hepatosplenomegaly : Clear yellow urine in Jha bag Skin: no lesions, rashes or trauma appreciated; dry Neuro: AAOx3, normal speech, moving all extremities Extremities: Nontender, no peripheral Psych: Appropriate mood and affect Course Vital Signs Vital signs: Vital Signs Pulse 105 H 08/21/23 10:43 Respiratory Rate 18 08/21/23 10:43 Blood Pressure 118/72 09/30/23 10:43 Pulse Oximetry 88 L 08/21/23 10:43 Pulse 105 H 08/21/23 10:43 Respiratory Rate 18 08/21/23 10:43 Respiratory Effort Normal 08/21/23 10:52 Blood Pressure 118/72 08/21/23 10:43 Blood Pressure Position Supine 08/21/23 10:43 Pulse Oximetry 88 L 08/21/23 10:43 Oxygen Delivery Method Room Air 08/21/23 10:43 Oxygen Flow Rate 0 08/21/23 10:43
[2023-08-21] MEDS: Dexamethasone 10 MG/ML VIAL IVP (11:30)
[2023-08-21] MEDS: Albuterol 2.5 MG/3 ML INH SOLN VIAL UPD (11:30)
[2023-08-21] MEDS: Normal Saline 1,000 ML 1000 ML IV (11:30)
[2023-08-21 12:22] LABS: Abs Immature Grans 0.09 10^3/uL (0.0-0.06); Absolute Basophil Count 0.06 10^3/uL (0.0-0.2); Absolute Eosinophil Count 0.41 10^3/uL (0.0-0.7); Absolute Lymphocyte Count 1.82 10^3/uL (1.2-3.4); Basophils % 0.3; Eosinophils % 2.2; HGB 12.6 g/dL (11.2-15.7); Immature Grans % 0.5; Lymphocytes % 9.9; MCH 28.4 pg (27.0-33.0); MCHC 32.3 % (32.0-36.0); MCV 88 fL (80-95); MPV 10.3 fL (8.0-11.0); Monocytes % 7.5; Neutrophils % 79.6; Platelet Count 368 10^3/uL (130-400); RBC 4.43 10^6/uL (3.93-5.22); RDW 14.6 % (11.7-14.6); RDW-SD 46.5 fL; WBC 18.43 10^3/uL (4.4-10.8)
[2023-08-21 12:31] LABS: Absolute Monocyte Count 1.38 10^3/uL (0.1-0.8); Absolute Neutrophil Count 14.67 10^3/uL (1.2-6.7)
[2023-08-21 12:55] LABS: ALT 127 U/L (14-59); AST 113 U/L (15-37); Albumin 2.9 g/dL (3.4-5.0); Alkaline Phosphatase 252 U/L (46-116); BUN 20 mg/dL (7-18); Bilirubin, Total 1.3 mg/dL (0.2-1.0); CREATININE 1.1 mg/dL (0.55-1.02); Calcium 9.1 mg/dL (8.5-10.1); Chloride 101 mmol/L (98-107); Estimated GFR 52.08 (mL/min/1.73m2); Glucose 119 mg/dL (74-106); NT-proBNP 756 pg/mL (<300); Sodium 140 mmol/L (136-145); Total Protein 7.6 g/dL (6.4-8.2); Troponin I < 50 ng/L (<or=60)
[2023-08-21 12:56] LABS: INR 1.2 (0.9-1.1); PTT Activated 27.9 sec (21.5-31.9); Prothrombin Time 12.2 sec (9.3-11.0)
--- NOTE | 2023-08-21 12:57 | DI.VRAD_ITS ---
PROCEDURE INFORMATION: Exam: XR Chest Exam date and time: 08/21/2023 12:43 PM Age: 78 years old Clinical indication: Cough TECHNIQUE: Imaging protocol: Radiologic exam of the chest. Views: 2 views. COMPARISON: CR XR CHEST 2V PA LATERAL 08/06/2022 1:03 PM FINDINGS: Lungs: Opacities in both bases may represent atelectasis or pneumonia.. Pleural spaces: Unremarkable. No pleural effusion. No pneumothorax. Heart/Mediastinum: Cardiomegaly and vascular prominence may represent interstitial edema. Bones/joints: Unremarkable. IMPRESSION: Opacities in both bases may represent atelectasis or pneumonia.. Dictated and Authenticated by: Josh Blandon MD. Ordering:MARISSA Brunson MD
--- NOTE | 2023-08-21 13:00 | DI.CT_ITS ---
Exam(s) CT CHEST/ABD/PEL W EXAM: CT CHEST/ABD/PEL W CLINICAL HISTORY: hypoxia, elevated bili and transaminases. TECHNIQUE: Imaging Protocol: Axial computed tomography images with coronal and sagittal reformatted images were created and reviewed CONTRAST MATERIAL: Intravenous: Omnipaque 350 Contrast volume:100 ml Oral: None CR,XR XR CHEST 2V PA LATERAL from 08/21/2023 FINDINGS: CHEST: LUNGS: There is some infiltrate in both lung bases posterior basal segments both lower lobes. Associ ated atelectasis but no true pleural effusions.. Increased markings throughout both lung [place] prob ably representing element of pulmonary edema. MEDIASTINUM: There is no hilar nor mediastinal adenopathy. Visualized thyroid unremarkable. CARDIAC: Mild cardiomegaly. No pericardial effusion.Caliber of the thoracic aorta is within normal l imits. OSSEOUS: No significant osseous lesions.. ABDOMEN: There is no ascites. LIVER: There are no focal hepatic lesions nor dilatation of intrahepatic ducts. GALLBLADDER/BILIARY: Cholelithiasis. No gross edema the gallbladder nor pericholecystic fluid. CBD is not dilated. PANCREAS: No evidence of pancreatic mass nor dilatation of the pancreatic duct. SPLEEN: Spleen is not enlarged. There are no intrasplenic lesions. There is artifact subjacent to th e spleen related to respiratory motion artifact. ADRENALS: There are no significant adrenal masses. KIDNEYS: No calculi nor hydronephrosis. No solid renal masses. No cysts evident. ABDOMINAL AORTA: Abdominal aorta is not enlarged. LYMPH NODES: There is no retroperitoneal nor paraaortic adenopathy. ABDOMINAL WALL: No evidence of significant anterior abdominal wall nor inguinal hernia. GI: Abundant fecal material noted in the rectum which exhibits diameter 6 cm.Air-filled colon but no true obstruction. PELVIS: LYMPH NODES: There is no intrapelvic nor inguinal adenopathy. GI: No evidence of appendicitis.No evidence of sigmoid diverticulitis. URINARY BLADDER: Suprapubic catheter in the urinary bladder noted. Large calculus in the urinary val dder which measures 1.8 by 1.0 cm. REPRODUCTIVE: Uterus size normal. Appears heterogeneous and there appears to be uterine fibroid ante riorly in the lower uterine segment.. OSSEOUS: No significant osseous lesions. Nonacute L3 compression fracture. No acute fractures. IMPRESSION: 1. Mild cardiomegaly and mild interstitial pulmonary edema. There is also bibasilar infiltrates and/ or atelectasis. No obvious pleural effusions. 2. Suprapubic catheter in the urinary bladder and there is also a 2 cm stone in the decompressed urin luis fernando bladder. 3. Cholelithiasis. No obvious gallbladder wall edema. CBD not dilated. 4. Distended rectum containing fecal material and with mild surrounding edema/probable proctitis. No soft tissue abscess. RADIATION DOSE DELIVERED: 1,015.54mGy.cm Total DLP DATA REPOSITORY: All CT scans at this facility are submitted to the National Radiology Data Registry (NRDR) Dose Index Registry (DIR) with the [employer] (ACR). RADIATION OPTIMIZATION: All CT scans at this facility use at least one of these dose optimization te chniques: automated exposure control; mA and/or kV adjustment per patient size (includes targeted exa ms where dose is matched to clinical indication); or iterative reconstruction.
[2023-08-21 13:03] LABS: Potassium 2.8 mmol/L (3.5-5.1)
[2023-08-21 13:55] LABS: Bilirubin Small (Negative); Blood Moderate (Negative); Clarity Cloudy (Clear); Glucose Negative (Negative); Ketones 15 mg/dL (Negative); Leukocyte Esterase Trace (Negative); Nitrite Positive (Negative); Specific Gravity >= 1.030 (1.005-1.025)
[2023-08-21 14:05] LABS: Bacteria Moderate HPF (Negative); C & S Indicated? No/Sq. Contamination; Casts 0-2 Hyaline LPF (Negative); Crystals Negative HPF (Negative); Epithelial Cells Many HPF (Negative); Mucus Moderate (Negative)
[2023-08-21 14:33] LABS: COVID-19 PCR Negative (Negative); Influenza A PCR Negative (Negative); Influenza B PCR Negative (Negative); RSV PCR Negative (Negative)
[2023-08-21 14:35] LABS: Source Nasopharynx
[2023-08-21] MEDS: POTASSIUM CHLORIDE 10 MEQ/100 ML BAG 100 MEQ IVPB (15:00)
[2023-08-21] MEDS: Potassium Chloride 20 MEQ TABCR PO (15:00)
[2023-08-21] MEDS: Normal Saline - Diluent 50 ML VIAL IJ (17:07)
[2023-08-21] MEDS: Omnipaque 350 MG/ML 100 ML BTL IJ (17:08)
--- NOTE | 2023-08-21 17:54 | DI.VRAD_ITS ---
PROCEDURE INFORMATION: Exam: CT Chest With Contrast; Diagnostic Exam date and time: 08/21/2023 16:58 Age: 78 years old Clinical indication: Other: Hypoxia, elev bili TECHNIQUE: Imaging protocol: Diagnostic computed tomography of the chest with contrast. 3D rendering (Not supervised by radiologist): MIP and/or 3D reconstructed images were created by the technologist. COMPARISON: CR XR CHEST 2V PA LATERAL 08/21/2023 12:43 FINDINGS: Lungs: Moderate airspace disease in both lung bases with scattered air bronchograms in both lower lobes. Mild interlobular septal thickening. Pleural spaces: No pneumothorax. No pleural effusion. Heart: Mild cardiomegaly. Lymph nodes: No enlarged lymph nodes. Vasculature: Central pulmonary artery branches are patent. Bones/joints: No acute fracture or subluxation. Soft tissues: No suspicious lesions. IMPRESSION: 1. Mild cardiomegaly. 2. Moderate bibasilar airspace disease may reflect a combination of pneumonia and or atelectasis depending on the clinical scenario. 3. Mild interstitial pulmonary edema. PROCEDURE INFORMATION: Exam: CT Abdomen And Pelvis With Contrast Exam date and time: 08/21/2023 16:58 Age: 78 years old Clinical indication: Other: Hypoxia, elev bili TECHNIQUE: Imaging protocol: Computed tomography of the abdomen and pelvis with contrast. 3D rendering (Not supervised by radiologist): MIP and/or 3D reconstructed images were created by the technologist. COMPARISON: CT Abdomen^RENAL COLIC (Adult) 11/11/2018 08:11 FINDINGS: Liver: No mass. Gallbladder and bile ducts: Structures within the apex of the gallbladder lumen are likely stones. No definite wall thickening on CT. Could be further worked up with ultrasound. CBD is upper limits of normal for age most likely on CT. Pancreas: No ductal dilation. No masses. Spleen: No splenomegaly or focal lesions. Adrenal glands: No mass. Kidneys and ureters: Benign-appearing renal cysts and probable cysts. Stomach and bowel: Moderately distended rectum containing desiccated stool with mild surrounding edema. No acute pathology in small bowel or colon. Appendix: No evidence of appendicitis. Intraperitoneal space: No free air. No significant fluid collection. Vasculature: Atherosclerosis. No aortic aneurysm. Lymph nodes: No significantly enlarged lymph nodes. Urinary bladder: A likely chronic 2 cm stone in the decompressed urinary bladder. The suprapubic catheter is satisfactory. Reproductive: Probable uterine fibroid or fibroids. This could be worked up with pelvic ultrasound when clinically appropriate. Bones/joints: Chronic bony changes with no acute fracture. Soft tissues: No suspicious lesions. Other findings: Motion artifact in the abdomen. IMPRESSION: 1. Mild stercoral proctitis. 2. A likely chronic 2 cm stone in the decompressed urinary bladder. The suprapubic catheter is satisfactory. 3. Additional findings as described. Dictated and Authenticated by: Lizeth Belle MD. Ordering:PHELEN Brunson MD
[2023-08-21] MEDS: levoFLOXacin 750 MG/150 ML BAG 100 MG IVPB (20:10)
[2023-08-21 20:49] LABS: Lab Add On Test DONE
[2023-08-21 21:06] LABS: Magnesium 2.3 mg/dL (1.8-2.4)
--- NOTE | 2023-08-21 22:58 | HPE_ITS ---
Date of service: 08/21/23 Time of Service: 23:00 Assessment and Plan Assessment and plan (1) Pneumonia: Status: Acute Assessment and plan: Hypoxic upon arrival and now on supplemental O2 Elevated WBC count and cough. Procalcitonin pending. Levaquin 750mg IV administered in the ED. Cont levaquin 750mg daily; continue with po dosing. IS (2) Acute hypoxic respiratory failure: Status: Acute Assessment and plan: No home supplemental O2 use. Previous smoker. Stopped in 1989. Also significant second hand smoke exposure. Questionable COPD Current PNA Supplemental O2 Duonebs. Wean off O2 as able. (3) Recurrent urinary tract infection: Status: Chronic Assessment and plan: Has chronic indwelling jacobs catheter d/t neurogenic bladder that is secondary to MS Preliminary results of urine cx of 08/19/23 showed 2 gram negative rods. Final ID and sesitivities pending. (4) Pulmonary edema: Status: Acute Assessment and plan: Mildly elevated NTProBNP Mild pulmonary edema on CT chest. Lasix 20mg IV now. Evaluate in AM for need of more diuretic or not. (5) Hypokalemia: Status: Acute Assessment and plan: Oral and IV replacement. Monitor. (6) Essential hypertension: Status: Chronic Assessment and plan: On HCTZ; no other antihypertensive meds. Monitor. (7) Multiple sclerosis: Status: Chronic Assessment and plan: No clinical evidence of an acute flare. Continues to follow with neurology, Dr Rowley. (8) Spastic neurogenic bladder: Status: Chronic Assessment and plan: Secondary to MS Chronic indwelling jacobs catheter. (9) Constipation: Status: Chronic Assessment and plan: She did have a BM upon arrival to the med-surg unit Daily miralax. PRN Senna. (10) Discharge planning issues: Status: Acute Assessment and plan: Pt is a DNR/DNI Most likely will not require any home services but will determine this later in the course of her stay. History of Present Illness History of Present Illness Chief Complaint: fatigue, cough Narrative: This is a 78 yo female with a PMH of multiple sclerosis, recent UTI with indwelling jacobs catheter secondary to spastic neurogenic bladder, HTN, constipation. She presented to the ED with c/o generalized fatigue. Recently treated for a UTI. No fever/chills. No shortness of breath. +cough. No N/V/abd pain. Upon initial evaluation her RA O2 saturation was 88%; placed on 2L NC later titrated to 4L. WBC count 18.43. Hgb and platelets normal. Na 140. K 2.8. BUN 20. Creatinine 1.1. Total bili 1.3. AST 113. ALT 127. NTProBNP 756. UA with mod blood, poitive nitrite, Tr leuk est, 5-10 WBC's, many epithelial cells, mod bacteria, mod mucous. CT chest/abd/pelvis: Mild cardiomegaly. 2. ? Moderate bibasilar airspace disease may reflect a combination of pneumonia and or atelectasis depending on the clinical scenario. 3. ? Mild interstitial pulmonary edema. Levaquin initiated in the ED. Review of Systems All systems reviewed & are unremarkable except as noted in HPI and below PFSH All Active Problems (Updated 08/21/23 @ 23:15 by Boy Marcano MD) Pulmonary edema (Acute) Discharge planning issues (Acute) Acute hypoxic respiratory failure (Acute) Hypokalemia (Acute) Recurrent urinary tract infection (Chronic) Edema of both lower extremities (Chronic) Essential hypertension (Chronic) Multiple sclerosis (Chronic 04/10/13) 50 year history of MS relapsing type #2 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 has limited mobility secondary to MS. Vitamin B12 deficiency Surgical History History of bilateral ligation of fallopian tubes S/P cataract extraction Family History Mother , 50 Neoplasm VAGINAL Grandfather Heart disease Grandfather Heart disease Grandmother Heart disease Grandmother Diabetes Son , 45 Stroke Daughter , 40 Substance abuse Paternal Aunt Multiple sclerosis Paternal Aunt Multiple sclerosis Sister , 65 COVID Father , 85 No problems noted. Social History Smoking/Tobacco Use Status: Former Tobacco Use tobacco type: cigarettes Quit Date: 11/22/89 Tobacco: How many years used: 25 Second Hand Exposure: Yes Smoking risk assessment performed?: Yes Alcohol Intake: former Drug use: Never Substance use type: does not use Details: pt. reports smoking since age 17 years old. 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[employer] [place]ARD[place] Pets and animals: Yes Pets and animals: dog(s) Sexually active: Yes Do you think of yourself as: straight/heterosexual Current gender identity: female What is your relationship status?: How often do you talk on the phone with friends or family?: three or more times per week How often do you get together with friends or relatives?: twice per week How often do you attend baptism or temple services?: decline to answer Do you belong to any clubs or organized social groups?: no Panel score (0-1 are the most socially isolated patients): 2 Duration: < 15 minutes/day Frequency: daily Madelyn/Moravian: Christian Special madelyn needs: No Seatbelt use: always Helmet use: No Drive intox 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 Meds Allergies and Home Medications Allergies Allergy/AdvReac Type Severity Reaction Status Date / Time oxybutynin AdvReac Intermediate severe dry Verified 08/21/23 21:40 mouth Home Medications Medication Instructions Recorded Confirmed Type mirabegron 50 mg tablet,extended 50 mg PO DAILY #90 tabs 12/01/21 08/06/23 Rx release 24 hr (Myrbetriq) cyanocobalamin (vitamin B-12) 2,500 mcg PO DAILY 05/13/22 08/21/23 History 1,000 mcg tablet (Vitamin B-12) cholecalciferol (vitamin D3) 50 50 mcg PO DAILY 09/07/22 08/21/23 History mcg (2,000 unit) capsule multivitamin (Daily Multi-Vitamin 1 tab PO DAILY 09/07/22 08/21/23 History tablet) tramadol 50 mg tablet 50 mg PO TID PRN pain #30 tabs 12/24/22 08/06/23 Rx rosuvastatin 10 mg tablet (Crestor) 10 mg PO DAILY #90 tabs 02/02/23 08/21/23 Rx betamethasone valerate 0.1 % 1 applic topical BID PRN skin 03/02/23 08/21/23 Rx topical ointment irritation #15 grams hydrochlorothiazide 25 mg tablet 12.5 mg PO DAILY #45 tabs 04/09/23 08/21/23 Rx Rodolfo lift #1 ea 05/13/23 08/06/23 Rx mirtazapine 7.5 mg tablet 7.5 mg PO QHS #30 tabs 08/03/23 08/21/23 Rx ciprofloxacin HCl 250 mg tablet 250 mg PO BID #14 tabs 08/19/23 08/21/23 Rx Exam Narrative Exam Narrative: General: alert, awake, cooperative and conversant. NAD HEENT: Sclera clear. MMM. Neck: No JVD Respiratory: Clear. Nonlabored breathing. Cardiac: RRR, S1S2, no murmur GI: abdomen soft, non-tender, non-distended : Clear yellow urine in Jacobs bag Skin: no lesions, rashes Neuro: A&Ox3, normal speech, LOPEZ. Extremities:No pitting edema. No calf tenderness. Psych: Appropriate mood and affect Results Labs 08/21/23 11:30 08/21/23 11:30 Labs: Laboratory Results - last 24 hr 08/21/23 08/21/23 08/21/23 11:30 11:30 11:30 WBC 18.43 H RBC 4.43 Hgb 12.6 Hct 39.0 MCV 88 MCH 28.4 MCHC 32.3 RDW 14.6 Plt Count 368 MPV 10.3 Immature Gran % 0.5 Neutrophils % 79.6 Lymphocytes % 9.9 Monocytes % 7.5 Eosinophils % 2.2 Basophils % 0.3 Nucleated RBC % 0.0 Absolute Neutrophils 14.67 H Absolute Lymphocytes 1.82 Absolute Monocytes 1.38 H Absolute Eosinophils 0.41 Absolute Basophils 0.06 PT Cancelled INR Cancelled APTT Cancelled Sodium 140 Potassium 2.8 L* Chloride 101 Carbon Dioxide 27.0 Anion Gap 12.0 H BUN 20 H Creatinine 1.1 H Est GFR (CKD-EPI 2021) 52.08 Glucose 119 H Calcium 9.1 Magnesium Total Bilirubin 1.3 H AST 113 H ALT 127 H Alkaline Phosphatase 252 H Troponin I < 50 NT-Pro-B Natriuret Pep 756 H Total Protein 7.6 Albumin 2.9 L Urine Color Urine Clarity Urine pH Ur Specific [place] Urine Protein Urine Ketones Urine Blood Urine Nitrite Urine Bilirubin Urine Urobilinogen Ur Leukocyte Esterase Urine RBC Urine WBC Ur Epithelial Cells Urine Crystals Urine Bacteria Urine Casts Urine Mucus Ur Culture Indicated? Urine Glucose COVID-19 Source SARS-CoV-2 (PCR) Influenza Type A (PCR) Influenza Type B (PCR) RSV (PCR) Add-On Test Request 08/21/23 08/21/23 08/21/23 11:30 12:32 13:46 WBC RBC Hgb Hct MCV MCH MCHC RDW Plt Count MPV Immature Gran % Neutrophils % Lymphocytes % Monocytes % Eosinophils % Basophils % Nucleated RBC % Absolute Neutrophils Absolute Lymphocytes Absolute Monocytes Absolute Eosinophils Absolute Basophils PT 12.2 H INR 1.2 H APTT 27.9 Sodium Potassium Chloride Carbon Dioxide Anion Gap BUN Creatinine Est GFR (CKD-EPI 2020) Glucose Calcium Magnesium 2.3 Total Bilirubin AST ALT Alkaline Phosphatase Troponin I NT-Pro-B Natriuret Pep Total Protein Albumin Urine Color Urine Clarity Urine pH Ur Specific [place] Urine Protein Urine Ketones Urine Blood Urine Nitrite Urine Bilirubin Urine Urobilinogen Ur Leukocyte Esterase Urine RBC Urine WBC Ur Epithelial Cells Urine Crystals Urine Bacteria Urine Casts Urine Mucus Ur Culture Indicated? Urine Glucose COVID-19 Source Nasopharynx SARS-CoV-2 (PCR) Negative Influenza Type A (PCR) Negative Influenza Type B (PCR) Negative RSV (PCR) Negative Add-On Test Request 08/21/23 08/21/23 13:48 20:48 WBC RBC Hgb Hct MCV MCH MCHC RDW Plt Count MPV Immature Gran % Neutrophils % Lymphocytes % Monocytes % Eosinophils % Basophils % Nucleated RBC % Absolute Neutrophils Absolute Lymphocytes Absolute Monocytes Absolute Eosinophils Absolute Basophils PT INR APTT Sodium Potassium Chloride Carbon Dioxide Anion Gap BUN Creatinine Est GFR (CKD-EPI 2020) Glucose Calcium Magnesium Total Bilirubin AST ALT Alkaline Phosphatase Troponin I NT-Pro-B Natriuret Pep Total Protein Albumin Urine Color Yellow Urine Clarity Cloudy Urine pH 6.0 Ur Specific P[place] >= 1.030 H Urine Protein 100 H Urine Ketones 15 H Urine Blood Moderate H Urine Nitrite Positive H Urine Bilirubin Small H Urine Urobilinogen 1.0 H Ur Leukocyte Esterase Trace H Urine RBC 10-20 H Urine WBC 5-10 Ur Epithelial Cells Many Urine Crystals Negative Urine Bacteria Moderate Urine Casts 0-2 Hyaline Urine Mucus Moderate Ur Culture Indicated? No/Sq. Contamination Urine Glucose Negative COVID-19 Source SARS-CoV-2 (PCR) Influenza Type A (PCR) Influenza Type B (PCR) RSV (PCR) Add-On Test Request DONE Last Vital Signs Temp 36.8 C 08/21/23 12:36 Pulse 88 08/21/23 21:42 Resp 20 08/21/23 21:42 BP 116/46 L 08/21/23 21:42 Pulse Ox 92 08/21/23 21:42 Time Spent Time spent with Patient: 40-54 minutes Time was spent: preparing to see the patient(eg.review tests), obtaining and/or reviewing separately otained hiistory, ordering medications,tests, procedures, referring, communicating with other health day care teacher, indepentently interpreting results, counseling the patient and care coordination
[2023-08-21 23:00] LABS: Lab Add On Test DONE
[2023-08-21 23:53] LABS: Procalcitonin 0.5 ng/mL
[2023-08-22] VITALS (8 sets, daily range): BP systolic 105–115; BP diastolic 62–68; PULSE 52–109; RESP 1–18; TEMP 36.5–37.3; O2SAT 92–95
[2023-08-22] MEDS: Furosemide 20 MG/2 ML VIAL IVP (00:07)
[2023-08-22] MEDS: Mirtazapine 15 MG TAB 7.5 MG PO ×2 (00:08→20:07)
[2023-08-22] MEDS: Enoxaparin 40 MG/0.4 ML SYR SC ×2 (00:08→20:07)
[2023-08-22] MEDS: POTASSIUM CHLORIDE 10 MEQ/100 ML BAG 100 MEQ IVPB ×2 (00:10→01:31)
[2023-08-22 07:48] LABS: Abs Immature Grans 0.13 10^3/uL (0.0-0.06); Absolute Basophil Count 0.04 10^3/uL (0.0-0.2); Absolute Eosinophil Count 0.07 10^3/uL (0.0-0.7); Absolute Monocyte Count 0.92 10^3/uL (0.1-0.8); Basophils % 0.3; Eosinophils % 0.5; HCT 32.3 % (36.0-46.0); HGB 10.7 g/dL (11.2-15.7); Immature Grans % 0.9; Lymphocytes % 12.4; MCH 28.9 pg (27.0-33.0); MCHC 33.1 % (32.0-36.0); MCV 87 fL (80-95); MPV 9.7 fL (8.0-11.0); Monocytes % 6.2; Neutrophils % 79.7; Platelet Count 336 10^3/uL (130-400); RDW 13.7 % (11.7-14.6); RDW-SD 43.8 fL; WBC 14.87 10^3/uL (4.4-10.8)
[2023-08-22 08:02] LABS: Absolute Lymphocyte Count 1.84 10^3/uL (1.2-3.4); Absolute Neutrophil Count 11.85 10^3/uL (1.2-6.7)
[2023-08-22 08:08] LABS: ALT 122 U/L (14-59); AST 95 U/L (15-37); Albumin 2.4 g/dL (3.4-5.0); Alkaline Phosphatase 210 U/L (46-116); Anion Gap 14.5 mmol/L (3-11); BUN 28 mg/dL (7-18); Bilirubin, Total 0.6 mg/dL (0.2-1.0); CO2 20.5 mmol/L (21.0-32.0); Calcium 8.8 mg/dL (8.5-10.1); Chloride 106 mmol/L (98-107); Estimated GFR 58.39 (mL/min/1.73m2); Glucose 124 mg/dL (74-106); Potassium 3.2 mmol/L (3.5-5.1); Sodium 141 mmol/L (136-145); Total Protein 6.5 g/dL (6.4-8.2)
--- NOTE | 2023-08-22 08:29 | INITIAL_ITS ---
Date of service: 08/22/23 Time of Service: 08:29 Care Management Initial Assmt Initial Assessment REASON FOR HOSPITALIZATION:: Exacerbation Chronic Condition, multiple sclerosis PREVIOUS FUNCTIONAL STATUS/SOCIAL/FAMILY SUPPORTS:: Nguyen lives in [facility] with her Mukesh. She has MS and requires assistance with her ADL's. She identifies her Mukesh as being her primary support and mentions that he takes good care of her making note that he can even change a catheter. Nguyen feels very supported at home and reports that she has several close friends and family members that are willing to help if needed. CURRENT FUNCTIONAL STATUS:: Nguyen is lying in bed when CM met with her. She is awake and engages in conversation. She is accompanied by her [id number], since her had to step out. Nguyen feels very well supported at home, and wishes to return home when medically ready. ADVANCE DIRECTIVES:: On file, HCA is Mukesh Ricks, Alt Agent is grand daughter Ambika Deleon Has patient been provided with info about the portal/API?: Yes Did the patient sign up for the portal?: No CODE STATUS:: DNR/DNI INSURANCE COVERAGE / FINANCIAL ISSUES:: /BS of [place] Medicare CURRENT HOME/COMMUNITY SERVICES/EQUIPMENT:: Ramp Motorized Scooter Slide board Indwelling Cath- neurogenic bladder Right foot brace Caregiver(Meli) Wednesday, Wednesday and Wednesday PRIMARY CARE PHYSICIAN:: Gina Reeves POTENTIAL DISCHARGE NEEDS:: Follow up appointments, discharge plan of care PATIENT/FAMILY EDUCATION NEEDS:: Review discharge instructions, limitations, medications and plan to follow up with community providers. Discuss ask me three and goals of self care. ANTICIPATED BARRIERS TO DISCHARGE:: None identified TRANSPORTATION:: Via private vehicle with , may require a lift assist. PLAN:: Anticipate, Nguyen will discharge home with resumption of [facility] PT and community supports when CM met with her. Per pt, she has a caregiver for a few hours on Wednesday, Wednesday and Wednesday. She will transport via private vehicle with and may require a lift assist depending on availability of her family. She is not interested in a SNF at this time. PFSH All Active Problems (Updated 08/22/23 @ 12:26 by Lucas Jerez MD) Sepsis (Acute) Pulmonary edema (Acute) Discharge planning issues (Acute) Acute hypoxic respiratory failure (Acute) Hypokalemia (Acute) Recurrent urinary tract infection (Chronic) Edema of both lower extremities (Chronic) Essential hypertension (Chronic) Multiple sclerosis (Chronic 04/10/13) 50 year history of MS relapsing type #2 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 has limited mobility secondary to MS. Vitamin B12 deficiency Surgical History History of bilateral ligation of fallopian tubes S/P cataract extraction Family History Mother , 50 Neoplasm VAGINAL Grandfather Heart disease Grandfather Heart disease Grandmother Heart disease Grandmother Diabetes Son , 45 Stroke Daughter , 40 Substance abuse Paternal Aunt Multiple sclerosis Paternal Aunt Multiple sclerosis Sister , 65 COVID Father , 85 No problems noted. Social History Smoking/Tobacco Use Status: Former Tobacco Use tobacco type: cigarettes Quit Date: 11/22/89 Tobacco: How many years used: 25 Second Hand Exposure: Yes Smoking risk assessment performed?: Yes Alcohol Intake: former Drug use: Never Substance use type: does not use Details: pt. reports smoking since age 17 years old. 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[place] Pets and animals: Yes Pets and animals: dog(s) Sexually active: Yes Do you think of yourself as: straight/heterosexual Current gender identity: female What is your relationship status?: How often do you talk on the phone with friends or family?: three or more times per week How often do you get together with friends or relatives?: twice per week How often do you attend episcopalian or oriental orthodox services?: decline to answer Do you belong to any clubs or organized social groups?: no Panel score (0-1 are the most socially isolated patients): 2 Duration: < 15 minutes/day Frequency: daily Madelyn/Religious: Confucianism Special madelyn needs: No Seatbelt use: always Helmet use: No Drive intox 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
[2023-08-22] MEDS: Albuterol/Ipratropium 3 ML UPD VIAL UPD ×3 (08:45→20:05)
[2023-08-22] MEDS: Cholecalciferol (Vitamin D3) 1,000 UNIT TAB 2000 UNITS PO (08:52)
[2023-08-22] MEDS: Mirabegron 50 MG TABCR PO (08:53)
[2023-08-22] MEDS: Potassium Chloride 20 MEQ TABCR PO ×2 (08:53→20:07)
[2023-08-22] MEDS: hydroCHLOROthiazide 25 MG TAB 12.5 MG PO (08:54)
[2023-08-22] MEDS: Rosuvastatin 10 MG TAB PO (08:54)
[2023-08-22] MEDS: Polyethylene Glycol 3350 17 GM PACKET PO (08:56)
--- NOTE | 2023-08-22 11:02 | IN_ITS ---
PT Notes Visit Reasons: pneumonia, acute respiratory failure, UTI Physical Therapy Inpatient Initial Evaluation Date: 08/22/23 Referring Doctor: Boy Marcano MD/Lucas Jerez PT Orders: PT CONSULT: Exacerbation Chronic Condition, multiple sclerosis Precautions: Fall. Standard. Activity as tolerated. Non-ambulatory at baseline. Right foot brace with shoes for standing tranfer. Patient Profile/Admitting Diagnosis: Nguyen is a 78 yo female that presented to the ER on 08/21/23 for fatigue and weakness. She was found to have pneumonia and UTI. Spouse reports she was at baseline until this week with medical illness. She has multiple sclerosis with poor LE functioning. PMHX: See EMR Social History/Home Situation: Lives with spouse, has ramp and uses motorized scooter in home. Spouse performs transfers. Indwelling catheter due to neurogenic bladder. She has a brace for right foot and wears shoes typically. Gets home health PT. No oxygen use at baseline. Equipment Owned/DME: Motorized scooter, slide board, brace for right foot Subjective: Cleared by nursing to see patient and patient is agreeable to PT. Patient is resting in bed at time of consult with indwelling catheter. On 4L O2 via NC. Objective: General Observation: Pleasant and alert, coughing. Fearful of falling. Mental Status: A&O x3 Pain: None reported ROM: Right Upper Extremity: Shoulder Flexion impaired. Shoulder abduction WFL. Elbow flexion WFL. Wrist flexion WFL. Opening and closing of hand WFL. Left Upper Extremity: Shoulder Flexion impaired. Shoulder abduction WFL. Elbow flexion WFL. Wrist flexion WFL. Opening and closing of hand WFL. Right Lower Extremity: Hip ER, knee flexion positioning. Lack of DF. Ankle in more eversion. Left Lower Extremity: Hip ER, knee flexion positioning. Lack of DF. Strength: Right Upper Extremity: Shoulder flexors 4/5. Shoulder abductors 4/5. Elbow flexors 5/5. Elbow extensors 5/5. Receiving Barn Custodian strong. Left Upper Extremity: Shoulder flexors 4/5. Shoulder abductors 4/5. Elbow flexors 5/5. Elbow extensors 5/5. Receiving Barn Custodian strong. Right Lower Extremity: Hip flexors 1/5. Knee flexors 2/5. Knee extensors 2/5. Ankle dorsiflexors 1/5. Ankle plantarflexors 1/5. Left Lower Extremity: Hip flexors 1/5. Knee flexors 2/5. Knee extensors 2/5. Ankle dorsiflexors 1/5. Ankle plantarflexors 1/5. Sensation: Intact as to pain and pressure on bilateral lower extremities. Bed Mobility/Transfers: Rolling: Mod A Supine to sit: Max A Sit to supine: 2 person Max A Sit to stand: 2 person Max A Stand to sit: 2 person Max A Gait: Does not ambulate at baseline Balance: Static Sitting: Poor Dynamic Sitting: Poor Static Standing: Unable Dynamic Standing: Unable Special Tests: Mobility Limitations Standardized Measure [facility] AM-PAC 6 clicks Basic Mobility Inpatient Short Form: Raw Score: 7 CMS Score: 92% Informed Consent/Education: Patient instructed in purpose of PT consult and plan of care. Assessment: Nguyen has multiple sclerosis and neurogenic bladder. Worsening function recently with pneumonia and UTI. reports able to care for her at baseline supporting with all transfers. She uses motorized scooter in home. Attempted standing at edge of bed which had very poor control by patient and unable to straighten her legs to keep feet under her. Spouse arrived after who reports she usually has brace for right foot and footwear when doing transfers. He is interested in seeing how the STEDI lift works. Weak in legs with poor function for even AROM. Stronger in arms. When medically cleared and if returns to baseline function she will be safe to go home at time of discharge. Patient presents with clinical signs and symptoms consistent with current/admitting diagnoses that have resulted to mobility limitations, gait instability, generalized weakness, and impairment of motor control as demonstrated by the following impairment level findings: 1. Decreased strength to shoulders and lower extremities 2. Impaired sitting/standing balance 3. Impaired activity tolerance 4. Limitation of joint range of motion in foot/ankle, hips Impairments are contributing to the following functional limitations: 1. Dependent bed mobility skills 2. Dependent with transfers Patient is assessed as a Moderate complexity based on the following: History: 78 year old female with impairment level findings, functional limitations, and past medical history as indicated above Examination: Demonstrable impairment in strength, balance, and mobility level with underlying impairments and functional limitations as documented above Presentation: Evolving Decision Making: Moderate complexity Goals: Goals x1 week 1. Supine-Sit: Min A 2. Sit-Supine: Min A 3. Sit-Stand: Min A 4. Stand-Sit: Min A Plan of Care/Treatment Plan: 1-2x/day, 7 days/week x1 week. Plan of care has been reviewed with the SENIOR APPLICATIONS ANALYST providing the service under Physical Therapy direction. Initiate Physical Therapy intervention for strengthening, bed mobility, transfers, gait, stairs, balance training, and use of assistive device. Discharge Plan DISCHARGE RECOMMENDATIONS: Home with home health services TREATMENT CODE/TIME: 9:58-10:24 (26 minutes), [id number] Thank you for the opportunity to participate in the care of this patient. Francoise Trent, PT, DPT, OCS [facility] [place], [place]
--- NOTE | 2023-08-22 12:23 | W.PM.PROGNOT ---
Date of Service Date of service: 08/22/23 Time of Service: 12: Assessment and Plan Assessment and plan (1) Sepsis: Status: Acute Assessment and plan: -patient met sepsis criteria on admission with WBC 18.4, HR of 115bpm, and source being CAP and UTI -sepsis pathology resolved -WBC down to 14.8 this AM -started on levaquin in ED, will continue -monitor blood and urine culture results (2) Pneumonia: Status: Acute Assessment and plan: -as noted on chest CT -treatment as noted above (3) Recurrent urinary tract infection: Status: Chronic Assessment and plan: -as noted on UA in ED -continue treatment as noted above (4) Acute hypoxic respiratory failure: Status: Acute Assessment and plan: -likely secondary to sepsis and CAP -not normally on supplemental O2 -currently requiring 4L NC -wean O2 as tolerated (5) Hypokalemia: Status: Acute Assessment and plan: -2.8 on admission -3.2 this AM s/p replacement -f/u AM BMP (6) Pulmonary edema: Status: Acute Assessment and plan: -as seen on chest imaging on admission though is mild -consider TTE and possible dieresis on Wednesday if ongoing difficulty with weaning O2 (7) Essential hypertension: Status: Chronic Assessment and plan: -continue home HCTZ (8) Multiple sclerosis: Status: Chronic Subjective Subjective Patient reports: no new complaints Interval history since last seen: Patient states that her breathing is significantly better then when she was admitted yesterday. Exam Narrative Exam Narrative: Elderly female laying in bed in no acute distress, awake, alert oriented to person, and place, knows its the 1st of the month but cannot say the year, NC in place, heart RRR, lungs CTAB, abdomen soft, non-tender, non-distended Objective Last Vital Signs Temp 98.2 F 08/22/23 08:15 Pulse 94 H 08/22/23 08:45 Resp 18 08/22/23 08:15 BP 105/62 08/22/23 08:15 Pulse Ox 92 08/22/23 08:45 Laboratory Results - last 24 hr 08/21/23 08/21/23 08/21/23 11:30 11:30 11:30 WBC 18.43 H RBC 4.43 Hgb 12.6 Hct 39.0 MCV 88 MCH 28.4 MCHC 32.3 RDW 14.6 Plt Count 368 MPV 10.3 Immature Gran % 0.5 Neutrophils % 79.6 Lymphocytes % 9.9 Monocytes % 7.5 Eosinophils % 2.2 Basophils % 0.3 Nucleated RBC % 0.0 Absolute Neutrophils 14.67 H Absolute Lymphocytes 1.82 Absolute Monocytes 1.38 H Absolute Eosinophils 0.41 Absolute Basophils 0.06 PT INR APTT Sodium 140 Potassium 2.8 L* Chloride 101 Carbon Dioxide 27.0 Anion Gap 12.0 H BUN 20 H Creatinine 1.1 H Est GFR (CKD-EPI 2020) 52.08 Glucose 119 H Calcium 9.1 Magnesium 2.3 Total Bilirubin 1.3 H AST 113 H ALT 127 H Alkaline Phosphatase 252 H Troponin I < 50 NT-Pro-B Natriuret Pep 756 H Total Protein 7.6 Albumin 2.9 L Procalcitonin Urine Color Urine Clarity Urine pH Ur Specific [place] Urine Protein Urine Ketones Urine Blood Urine Nitrite Urine Bilirubin Urine Urobilinogen Ur Leukocyte Esterase Urine RBC Urine WBC Ur Epithelial Cells Urine Crystals Urine Bacteria Urine Casts Urine Mucus Ur Culture Indicated? Urine Glucose COVID-19 Source SARS-CoV-2 (PCR) Influenza Type A (PCR) Influenza Type B (PCR) RSV (PCR) Add-On Test Request 08/21/23 08/21/23 08/21/23 11:30 11:30 12:32 WBC RBC Hgb Hct MCV MCH MCHC RDW Plt Count MPV Immature Gran % Neutrophils % Lymphocytes % Monocytes % Eosinophils % Basophils % Nucleated RBC % Absolute Neutrophils Absolute Lymphocytes Absolute Monocytes Absolute Eosinophils Absolute Basophils PT 12.2 H INR 1.2 H APTT 27.9 Sodium Potassium Chloride Carbon Dioxide Anion Gap BUN Creatinine Est GFR (CKD-EPI 2020) Glucose Calcium Magnesium Total Bilirubin AST ALT Alkaline Phosphatase Troponin I NT-Pro-B Natriuret Pep Total Protein Albumin Procalcitonin 0.5 Urine Color Urine Clarity Urine pH Ur Specific [place] Urine Protein Urine Ketones Urine Blood Urine Nitrite Urine Bilirubin Urine Urobilinogen Ur Leukocyte Esterase Urine RBC Urine WBC Ur Epithelial Cells Urine Crystals Urine Bacteria Urine Casts Urine Mucus Ur Culture Indicated? Urine Glucose COVID-19 Source SARS-CoV-2 (PCR) Influenza Type A (PCR) Influenza Type B (PCR) RSV (PCR) Add-On Test Request DONE 08/21/23 08/21/23 08/21/23 13:46 13:48 20:48 WBC RBC Hgb Hct MCV MCH MCHC RDW Plt Count MPV Immature Gran % Neutrophils % Lymphocytes % Monocytes % Eosinophils % Basophils % Nucleated RBC % Absolute Neutrophils Absolute Lymphocytes Absolute Monocytes Absolute Eosinophils Absolute Basophils PT INR APTT Sodium Potassium Chloride Carbon Dioxide Anion Gap BUN Creatinine Est GFR (CKD-EPI 2020) Glucose Calcium Magnesium Total Bilirubin AST ALT Alkaline Phosphatase Troponin I NT-Pro-B Natriuret Pep Total Protein Albumin Procalcitonin Urine Color Yellow Urine Clarity Cloudy Urine pH 6.0 Ur Specific [place] >= 1.030 H Urine Protein 100 H Urine Ketones 15 H Urine Blood Moderate H Urine Nitrite Positive H Urine Bilirubin Small H Urine Urobilinogen 1.0 H Ur Leukocyte Esterase Trace H Urine RBC 10-20 H Urine WBC 5-10 Ur Epithelial Cells Many Urine Crystals Negative Urine Bacteria Moderate Urine Casts 0-2 Hyaline Urine Mucus Moderate Ur Culture Indicated? No/Sq. Contamination Urine Glucose Negative COVID-19 Source Nasopharynx SARS-CoV-2 (PCR) Negative Influenza Type A (PCR) Negative Influenza Type B (PCR) Negative RSV (PCR) Negative Add-On Test Request DONE 08/22/23 08/22/23 07:23 07:23 WBC 14.87 H RBC 3.70 L Hgb 10.7 L Hct 32.3 L MCV 87 MCH 28.9 MCHC 33.1 RDW 13.7 Plt Count 336 MPV 9.7 Immature Gran % 0.9 Neutrophils % 79.7 Lymphocytes % 12.4 Monocytes % 6.2 Eosinophils % 0.5 Basophils % 0.3 Nucleated RBC % 0.0 Absolute Neutrophils 11.85 H Absolute Lymphocytes 1.84 Absolute Monocytes 0.92 H Absolute Eosinophils 0.07 Absolute Basophils 0.04 PT INR APTT Sodium 141 Potassium 3.2 L Chloride 106 Carbon Dioxide 20.5 L Anion Gap 14.5 H BUN 28 H Creatinine 1.0 Est GFR (CKD-EPI 2020) 58.39 Glucose 124 H Calcium 8.8 Magnesium Total Bilirubin 0.6 AST 95 H ALT 122 H Alkaline Phosphatase 210 H Troponin I NT-Pro-B Natriuret Pep Total Protein 6.5 Albumin 2.4 L Procalcitonin Urine Color Urine Clarity Urine pH Ur Specific [place] Urine Protein Urine Ketones Urine Blood Urine Nitrite Urine Bilirubin Urine Urobilinogen Ur Leukocyte Esterase Urine RBC Urine WBC Ur Epithelial Cells Urine Crystals Urine Bacteria Urine Casts Urine Mucus Ur Culture Indicated? Urine Glucose COVID-19 Source SARS-CoV-2 (PCR) Influenza Type A (PCR) Influenza Type B (PCR) RSV (PCR) Add-On Test Request Time Spent with Patient Time Spent with Patient: >50 minutes (55) Time was spent: preparing to see the patient(eg.review tests), obtaining and/or reviewing separately otained hiistory, ordering medications,tests, procedures, referring, communicating with other health healthcare translator, indepentently interpreting results, counseling the patient and care coordination
[2023-08-23 07:06] LABS: HCT 30.3 % (36.0-46.0); MCH 28.9 pg (27.0-33.0); MCV 88 fL (80-95); MPV 9.7 fL (8.0-11.0); Platelet Count 381 10^3/uL (130-400); RBC 3.46 10^6/uL (3.93-5.22); RDW 14.6 % (11.7-14.6); RDW-SD 46.9 fL; WBC 16.46 10^3/uL (4.4-10.8)
[2023-08-23 07:43] LABS: Anion Gap 10.4 mmol/L (3-11); BUN 35 mg/dL (7-18); CO2 22.6 mmol/L (21.0-32.0); CREATININE 1.1 mg/dL (0.55-1.02); Calcium 8.8 mg/dL (8.5-10.1); Chloride 108 mmol/L (98-107); Estimated GFR 52.08 (mL/min/1.73m2); Glucose 113 mg/dL (74-106); Potassium 3.7 mmol/L (3.5-5.1); Sodium 141 mmol/L (136-145)
[2023-08-23 08:15] VITALS: BP 117/66; PULSE 79; RESP 17; TEMP 36.3; O2SAT 93
[2023-08-23] MEDS: Potassium Chloride 20 MEQ TABCR PO (08:16)
[2023-08-23] MEDS: Rosuvastatin 10 MG TAB PO (08:16)
[2023-08-23] MEDS: hydroCHLOROthiazide 25 MG TAB 12.5 MG PO (08:16)
[2023-08-23] MEDS: Polyethylene Glycol 3350 17 GM PACKET PO (08:16)
[2023-08-23] MEDS: Cholecalciferol (Vitamin D3) 1,000 UNIT TAB 2000 UNITS PO (08:16)
[2023-08-23] MEDS: Mirabegron 50 MG TABCR PO (08:16)
[2023-08-23 08:37] LABS: Lab Add On Test DONE
[2023-08-23 09:01] LABS: Procalcitonin 0.1 ng/mL
[2023-08-23 09:14] VITALS: PULSE 100; RESP 1; RESP 22; O2SAT 94
[2023-08-23] MEDS: Albuterol/Ipratropium 3 ML UPD VIAL UPD ×2 (09:14→14:13)
[2023-08-23 09:39] LABS: Bilirubin Negative (Negative); Blood Trace-intact (Negative); Clarity Clear (Clear); Glucose Negative (Negative); Ketones Negative (Negative); Leukocyte Esterase Trace (Negative); Nitrite Negative (Negative); Specific Gravity 1.025 (1.005-1.025); Urobilinogen 0.2 mg/dL (Up to 0.2); pH 6.5 (5-8)
[2023-08-23 09:50] LABS: Bacteria Moderate HPF (Negative); C & S Indicated? No/Sq. Contamination; Crystals Negative HPF (Negative); Epithelial Cells Many HPF (Negative); Mucus Trace (Negative); RBC 0-2 HPF (0-2)
--- NOTE | 2023-08-23 13:19 | DSE_ITS ---
Date of service: 08/23/23 Time of Service: 13:20 DS: Diagnosis Discharge Diagnosis (1) Sepsis: Status: Acute (2) Pneumonia: Status: Acute (3) Recurrent urinary tract infection: Status: Chronic (4) Acute hypoxic respiratory failure: Status: Acute (5) Hypokalemia: Status: Acute (6) Pulmonary edema: Status: Acute (7) Essential hypertension: Status: Chronic (8) Multiple sclerosis: Status: Chronic Discharge Plan Disposition Patient Disposition: Home W/Home Health Services Condition: Stable Discharge Details Reason For Visit: pneumonia, acute respiratory failure, UTI Admit Date/Time: 08/21/23 20:34 Admit Provider: Boy Marcano Attending Provider: Boy Marcano Primary Care Provider: Gina Reeves Hospital Course Hospital Course: This is a 78-year-old female patient significant past medical history including multiple sclerosis with neurogenic bladder chronic indwelling suprapubic catheter who presented to the emergency department for complaints of generalized fatigue cough. She was being treated outpatient for urinary tract infection on ciprofloxacin. She had no fever and was hemodynamically stable but found to have an elevated white count at 18. Found to be hypoxic also with a room air sat in the high 80s. Her work-up in the emergency department did show bibasilar airspace disease most consistent with pneumonia and her urine still was positive for urinary tract infection. She was changed to levofloxacin and admitted to the medical surgical unit. Her urine grew Citrobacter freundii and Klebsiella oxytoca both which were sensitive to the levofloxacin. Her respiratory status i mproved and she was weaned off of oxygen we are following daily labs and her white count initially went from 18-15 but today back up to 16. She has been afebrile and states feeling much improved and is insisting on discharge to home. Pro-Terry today improved from admission from 0.5-0.1. I did discuss her white count which is up slightly and for symptoms to watch for including fever, increasing malaise or fatigue, or other symptoms of infection. will be discharged to home with new home health services including PT/OT and nursing. discharge discussed with DR Nicole Home Meds and New Rx's Prescriptions: New levofloxacin 750 mg Tablet 750 mg PO Q48H Qty: 4 0RF Continued betamethasone valerate 0.1 % ointment 1 applic topical BID PRN (Reason: skin irritation) Qty: 15 0RF cholecalciferol (vitamin D3) 50 mcg (2,000 unit) capsule 50 mcg PO DAILY multivitamin [Daily Multi-Vitamin] Tablet 1 tab PO DAILY cyanocobalamin (vitamin B-12) [Vitamin B-12] 1,000 mcg tablet 2,500 mcg PO DAILY rosuvastatin [Crestor] 10 mg tablet 10 mg PO DAILY Qty: 90 3RF hydrochlorothiazide 25 mg tablet 12.5 mg PO DAILY Qty: 45 4RF (DME) Rodolfo lift See Rx Instructions .Route .MEDSUPPLY Qty: 1 0RF Rx Instructions: As directed mirtazapine 7.5 mg tablet 7.5 mg PO QHS Qty: 30 3RF Discontinued ciprofloxacin HCl 250 mg tablet 250 mg PO BID Qty: 14 0RF Rx Instructions: For UTI No Action tramadol 50 mg tablet 50 mg PO TID PRN (Reason: pain) Qty: 30 0RF Patient Comments: no longer taking 08/21/23 Myrbetriq 50 mg tablet extended release 24 hr 50 mg PO DAILY Qty: 90 4RF Hold Instructions: Home Medication placed on hold at Doctor's office Patient Comments: no longer taking for several months 08/21/23 Discharge Instructions Instructions: Pneumonia (DC), Urinary Tract Infection in Older Adults (DC) Stand Alone Forms: Nursing Discharge Form Referrals: Gina Reeves MD [Primary Care Provider] - 09/08/23 10:00 am Activity:: Activity as Tolerated Equipment/Supplies:: No Equipment Needed Diet:: As Tolerated Discharge Orders Discharge Orders: Discharge Order (Routine); Ordered 08/23/23 Ordered By: Ivana Burrows DS: Summary Time Spent with Patient providing and/or coordinating discharge services: Greater than 30 minutes Status at Discharge Functional status at discharge: bed bound Overall status at discharge: patient is progressing back to baseline Mental Status: mental status grossly normal Speech and Movement: speech and movement normal Mood: congruent mood Affect: normal affect Exam Const General: cooperative, no acute distress, disheveled, frail appearing and ill appearing chronically Nutritional Appearance: average body habitus Orientation: alert, awake and oriented x3 HENMT Head: normal to inspection, normocephalic and atraumatic Mouth: oral mucosae normal Chest Chest: normal inspection of the chest Resp Effort & Inspection: normal respiratory effort Auscultation: diminished lung sounds Cardio Rate: regular rate Rhythm: regular rhythm GI Inspection: normal to inspection and other (suprapubic intact) Palpation: soft Neuro General: patient alert, patient awake and patient oriented x3 Extrem General: other (bed bound) Psych Mental Status: mental status grossly normal Speech and Movement: speech and movement normal Mood: congruent mood Affect: normal affect DS: Data Vitals/I&O Vitals and I&O: Vital Signs Temperature 36.3 C L 08/23/23 08:15 Temperature Source Tympanic 08/23/23 08:15 Pulse 100 H 08/23/23 09:14 Pulse Rhythm Regular 08/23/23 09:55 Pulse 87 08/21/23 21:40 Respiratory Rate 22 08/23/23 09:14 Respiratory Effort Normal, Non-Labored 08/23/23 09:55 Respiratory Depth Shallow 08/23/23 09:55 Respiratory Pattern Normal 08/23/23 09:55 Blood Pressure 117/66 08/23/23 08:15 Blood Pressure Mean 64 08/21/23 21:31 Blood Pressure Position Supine 08/21/23 10:43 Pulse Oximetry 94 08/23/23 09:14 Oxygen Delivery Method Nasal Cannula 08/23/23 09:14 Oxygen Flow Rate 2 08/23/23 09:14 Pain Level 0 08/23/23 08:15 Comment 85% on RA 08/22/23 08:15 Intake & Output 08/22/23 08/23/23 08/23/23 23:59 11:59 23:59 Intake Total 250 / 700 250 / 250 Output Total 650 / 650 Balance 250 / 0 -400 / -400 Intake: Oral 250 / 500 250 / 250 Output: Urine 650 / 650 Other: Urine Color Yellow Urine Appearance Clear Clear Data Completed and Pending Labs on day of discharge: Labs from last 24 hours 08/23/23 08/23/23 08/23/23 Unknown 09:15 06:48 WBC RBC Hgb Hct MCV MCH MCHC RDW Plt Count MPV Sodium Potassium Chloride Carbon Dioxide Anion Gap BUN Creatinine Est GFR (CKD-EPI 2020) Glucose Calcium Procalcitonin 0.1 Urine Color Yellow Urine Clarity Clear Urine pH 6.5 Ur Specific [place] 1.025 Urine Protein 30 H Urine Ketones Negative Urine Blood Trace-intact H Urine Nitrite Negative Urine Bilirubin Negative Urine Urobilinogen 0.2 Ur Leukocyte Esterase Trace H Urine RBC 0-2 Urine WBC 5-10 Ur Epithelial Cells Many Urine Crystals Negative Urine Bacteria Moderate Urine Mucus Trace Ur Culture Indicated? No/Sq. Contamination Urine Glucose Negative Add-On Test Request DONE 08/23/23 08/23/23 06:40 06:40 WBC 16.46 H RBC 3.46 L Hgb 10.0 L Hct 30.3 L MCV 88 MCH 28.9 MCHC 33.0 RDW 14.6 Plt Count 381 MPV 9.7 Sodium 141 Potassium 3.7 Chloride 108 H Carbon Dioxide 22.6 Anion Gap 10.4 BUN 35 H Creatinine 1.1 H Est GFR (CKD-EPI 2020) 52.08 Glucose 113 H Calcium 8.8 Procalcitonin Urine Color Urine Clarity Urine pH Ur Specific [place] Urine Protein Urine Ketones Urine Blood Urine Nitrite Urine Bilirubin Urine Urobilinogen Ur Leukocyte Esterase Urine RBC Urine WBC Ur Epithelial Cells Urine Crystals Urine Bacteria Urine Mucus Ur Culture Indicated? Urine Glucose Add-On Test Request 08/23/23 09:30 Urine - Cath Jha Indwelling Urine Culture - Pending Preliminary micro results at discharge 08/23/23 09:30 Urine Culture - Pending Urine - [facility] All Active Problems (Updated 08/22/23 @ 12:26 by Lucas Jerez MD) Sepsis (Acute) Pulmonary edema (Acute) Discharge planning issues (Acute) Acute hypoxic respiratory failure (Acute) Hypokalemia (Acute) Recurrent urinary tract infection (Chronic) Edema of both lower extremities (Chronic) Essential hypertension (Chronic) Multiple sclerosis (Chronic 04/10/13) 50 year history of MS relapsing type #2 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 has limited mobility secondary to MS. Vitamin B12 deficiency Surgical History History of bilateral ligation of fallopian tubes S/P cataract extraction Family History Mother , 50 Neoplasm VAGINAL Grandfather Heart disease Grandfather Heart disease Grandmother Heart disease Grandmother Diabetes Son , 45 Stroke Daughter , 40 Substance abuse Paternal Aunt Multiple sclerosis Paternal Aunt Multiple sclerosis Sister , 65 COVID Father , 85 No problems noted. Social History Smoking/Tobacco Use Status: Former Tobacco Use tobacco type: cigarettes Quit Date: 11/22/89 Tobacco: How many years used: 25 Second Hand Exposure: Yes Smoking risk assessment performed?: Yes Alcohol Intake: former Drug use: Never Substance use type: does not use Details: pt. reports smoking since age 17 years old. 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[employer] [place] Pets and animals: Yes Pets and animals: dog(s) Sexually active: Yes Do you think of yourself as: straight/heterosexual Current gender identity: female What is your relationship status?: How often do you talk on the phone with friends or family?: three or more times per week How often do you get together with friends or relatives?: twice per week How often do you attend mormonism or advent services?: decline to answer Do you belong to any clubs or organized social groups?: no Panel score (0-1 are the most socially isolated patients): 2 Duration: < 15 minutes/day Frequency: daily Madelyn/Sikhism: Mu-Ism Special madelyn needs: No Seatbelt use: always Helmet use: No Drive intox or ride w/intox patient transportation driver: No Do you feel safe at home: Yes Do you feel safe in your relationship?: Yes Additional Social history: She had two adopted children (both ). Time Spent with Patient Time Spent with Patient: 45-69 minutes Time was spent: preparing to see the patient(eg.review tests), obtaining and/or reviewing separately otained hiistory, ordering medications,tests, procedures, referring, communicating with other health healthcare technician, indepentently interpreting results, counseling the patient and care coordination
[2023-08-23 13:38] VITALS: O2SAT 93
--- NOTE | 2023-08-23 13:41 | PDOC.HHF2F_ITS ---
Home Health Referral Home Health Orders Medical diagnosis necessitation home health referral: UTI, pneumonia, Registered Nurse: Check all that apply Instruct on new or changed medication(s)/assess compliance: Ordered Physical Therapist: Check all that apply Increase strength & endurance for safe mobility at home: Ordered To design/establish home maintenance program: Ordered Occupational Therapist: Evaluate and treat for patient unable to perform ADL/IADL/self-care: Ordered Upper extremity strengthening, range and motion: Ordered Home Bound Status Describe why leaving home would require a considerable and taxing effort: Safety Concerns: describe (bedbound) and Requires alternative accommodations: Encounter Date and Reason: I certify that a FTF encounter for this patient was performed on August 23, 2023 and that such encounter was related to the primary reason the patient requires home health services. The encounter was conducted in the following manner: * By me as the certifying physician, KITCHENHAND, PA or * By an inpatient physician, KITCHENHAND or PA during an inpatient stay who communicated findings to me, Certification And Authentication I certify that I composed the above information based on my clinical judgment relating to this patient's medical condition and, if applicable, clinical findings communicated to me by the NPP or inpatient physician who performed the FTF encounter. Name of Provider that will be monitoring home health services: Gina Reeves
[2023-08-23 14:13] VITALS: PULSE 99; RESP 1; RESP 20; O2SAT 95
--- NOTE | 2023-08-23 14:53 | CMDISCH_ITS ---
Date of service: 08/23/23 Time of Service: 14:53 LACE Index Scoring Tool Questions: Length of Stay (in days): 2 Was the patient admitted via the E.D.?: Yes E.D. Visits: 1 Answers: Total Score: 6 Risk of Readmission: Low Risk Care Management Discharge Plan Reason for Hospitalization: Exacerbation Chronic Condition, multiple sclerosis Discharge Plan: Nguyen is eager to be discharged and is discharged home via private vehicle with family. New [facility] RN/PT/OT services are ordered. She will follow up with her community providers and her discharge plan of care as instructed. Patient/Family Education Needs: Review discharge instructions, limitations, medications and plan to follow up with community providers. Discuss ask me three and goals of self care. Services Needed at Discharge: Home Health Care Services (New [facility] RN/PT/OT, CM notified [facility])
--- NOTE | 2023-08-23 15:15 | RESPIRATORY ---
PT SEEN TO EVALUATE OXYGENATION STATUS WHILE ON ROOM AIR. PT WAS TAKEN OFF 2 LITER NC AND REMAINED ON ROOM AIR WITH SP02 MONITOR APPLIED FOR A PERIOD OF 10 MINUTES. SP02 AT FIRST WAS 94% AND AMARI TO 95% OVER A 10 MINUTE PERIOD AND REMAINED AT 95%. SANJEEV LAWSON WAS NOTIFIED OF THIS BY PHONE.
--- NOTE | 2023-08-23 16:08 | PT.INTREAT ---
Date of service: 08/23/23 Time of Service: 15:40 PT Notes Visit Reasons: pneumonia, acute respiratory failure, UTI Inpatient Physical Therapy Treatment Note [facility] Date: 08/23/23 PRECAUTIONS: Fall, standard, activity as tolerated. Non-ambulatory at baseline. MUST wear right ankle brace and bilateral shoes when standing. SUBJECTIVE: Patient alert and agreeable. OBJECTIVE: Patient supine in bed, present, agreeable to therapy. Eager to see STEDY lift. ? PAIN: none reported. VITALS: monitored by nursing staff. ? Therapeutic Activities ([id number]): Direct one-on-one instruction in dynamic activities to improve functional performance. ? BED MOBILITY/TRANSFERS? Rolling L/R: Min to Mod assist of one to facilitate BLEs Supine-sit: Min assist of one to get feet off edge of bed, mod assist of one via handhold assist to move trunk into upright posture. ?Sit-supine: max assist of one to pivot into bed, controlling trunk and LE's. ? Sit-stand: Mod assist of one with elevated bed to stand into STEDY lift. Patient's upper extremities are strong. ? Stand-sit: Max of one to sit without flopping. ? Bed-Chair: dependent ? Chair-bed: dependent Provided skilled cues and instruction on performance and technique throughout. Provided education to patient and family that Patient should be encouraged to do as much for herself as possible. Provided instruction to patient and on use of the STEDY lift. ? ASSESSMENT:? Patient tolerates therapy well, is eager to get home. Both patient and express that the STEDY lift would work well for multiple purposes in their home and lives. PLAN: Continue global strengthening per plan of care until patient is medically cleared for discharge. TREATMENT CODE/TIME: 25 minutes beginning at 15:40
--- NOTE | 2023-08-24 09:25 | INDS_ITS ---
PT Notes Visit Reasons: pneumonia, acute respiratory failure, UTI Physical Therapy Inpatient Discharge Summary Dates of Service: 08/22/23 - 08/23/23 Date: 08/24/23 Referring Doctor: Boy Marcano MD/Lucas Jerez PT Orders: PT CONSULT: Exacerbation Chronic Condition, multiple sclerosis Precautions: Fall. Standard. Activity as tolerated. Non-ambulatory at baseline. Right foot brace with shoes for standing tranfer. This document serves as a summary of care. No PT services were provided on this date. Patient Profile/Admitting Diagnosis: Nguyen is a 78 yo female that presented to the ER on 08/21/23 for fatigue and weakness. She was found to have pneumonia and UTI. Spouse reports she was at baseline until this week with medical illness. She has multiple sclerosis with poor LE functioning. Patient was seen for 2 sessions of PT intervention over the course of 2 days. They were able to demonstrate safety and mobility sufficient to allow for safe return home with HH PT. PMHX: See EMR Social History/Home Situation: Lives with spouse, has ramp and uses motorized s cooter in home. Spouse performs transfers. Indwelling catheter due to neurogenic bladder. She has a brace for right foot and wears shoes typically. Gets home health PT. No oxygen use at baseline. Equipment Owned/DME: Motorized scooter, slide board, brace for right foot Subjective: none obtained Objective: ROM: Right Upper Extremity: Shoulder Flexion impaired. Shoulder abduction WFL. Elbow flexion WFL. Wrist flexion WFL. Opening and closing of hand WFL. Left Upper Extremity: Shoulder Flexion impaired. Shoulder abduction WFL. Elbow flexion WFL. Wrist flexion WFL. Opening and closing of hand WFL. Right Lower Extremity: Hip ER, knee flexion positioning. Lack of DF. Ankle in more eversion. Left Lower Extremity: Hip ER, knee flexion positioning. Lack of DF. Strength: Right Upper Extremity: Shoulder flexors 4/5. Shoulder abductors 4/5. Elbow flexors 5/5. Elbow extensors 5/5. Industrial Engineering Director strong. Left Upper Extremity: Shoulder flexors 4/5. Shoulder abductors 4/5. Elbow flexors 5/5. Elbow extensors 5/5. Industrial Engineering Director strong. Right Lower Extremity: Hip flexors 1/5. Knee flexors 2/5. Knee extensors 2/5. An kle dorsiflexors 1/5. Ankle plantarflexors 1/5. Left Lower Extremity: Hip flexors 1/5. Knee flexors 2/5. Knee extensors 2/5. Ankle dorsiflexors 1/5. Ankle plantarflexors 1/5. Sensation: Intact as to pain and pressure on bilateral lower extremities. Bed Mobility/Transfers:?Rolling L/R: Min to Mod assist of one to facilitate BLEs ?Supine-sit: Min assist of one to get feet off edge of bed, mod assist of one via handhold assist to move trunk into upright posture. ?Sit-supine: max assist of one to pivot into bed, controlling trunk and LE's. ?Sit-stand: Mod assist of one with elevated bed to stand into STEDY lift. Patient's upper extremities are strong. ?Bed-Chair: dependent?Chair-bed: dependent Balance: Static Sitting: Poor Dynamic Sitting: Poor Static Standing: Unable Dynamic Standing: Unable Assessment: Nguyen has multiple sclerosis with chronic mobility impairments. Patient was seen for 2 sessions of PT intervention over the course of 2 days. They were able to demonstrate safety and mobility sufficient to allow for safe return home with PT. Goals: Goals x1 week 1. Supine-Sit: Min A (Progressing Toward) 2. Sit-Supine: Min A (Progressing Toward) 3. Sit-Stand: Min A (Progressing Toward) 4. Stand-Sit: Min A (Progressing Toward) Plan of Care/Treatment Plan: D/C from PT services in acute care setting Discharge Plan DISCHARGE RECOMMENDATIONS: Home with home health services TREATMENT CODE/TIME: none Thank you for the opportunity to participate in the care of this patient. Nguyen Aragon, PT, DPT [facility] [place], [place]
== END 2023-08-23 16:40 | disposition home health service (06) | DRG 871 ==
LOC: ER 21:18 → MS 21:39
PROVIDERS: Family Medicine; Internal Medicine; Admitting Provider Family Medicine; Emergency Provider Emergency Medicine; PCP Family Medicine; Visit Provider Family Medicine
DX: A41.9 Sepsis, unspecified organism (principal); J18.9 Pneumonia, unspecified organism; J81.0 Acute pulmonary edema; J96.01 Acute respiratory failure with hypoxia; N39.0 Urinary tract infection, site not specified; I10 Essential (primary) hypertension; E87.6 Hypokalemia; N31.9 Neuromuscular dysfunction of bladder, unspecified; G35 Multiple sclerosis; K59.00 Constipation, unspecified; Z66 Do not resuscitate; Z93.51 Cutaneous-vesicostomy status; B96.1 Klebsiella pneumoniae [K. pneumoniae] as the cause of diseases classified elsewhere; B96.89 Other specified bacterial agents as the cause of diseases classified elsewhere
CPT/HCPCS: 36415; 74177; 80048; 80053; 84145; 85027; 87637; 94640; 96365; 96367; 96376; 97162; 97530; 99285; J1650; 71046; 71260; 81003; 81015; 83735; 83880; 84484; 85025; 85610; 85730; 87086; 99223; 99233; 99239; J1100; J1941; J1956; J3480; J3490; J7613; J7620

== ENCOUNTER → 2023-09-06 10:25 | Outpatient (BNVA) | payer MEDICARE, BC, SELFPAY | PROVIDERS: PCP Family Medicine; Referring Provider Family Medicine; Visit Provider Psychiatry & Neurology Neurology | DX: G35 Multiple sclerosis (principal); N31.9 Neuromuscular dysfunction of bladder, unspecified; Z87.440 Personal history of urinary (tract) infections; K59.00 Constipation, unspecified; G47.00 Insomnia, unspecified; I10 Essential (primary) hypertension | CPT/HCPCS: 99214 ==

== ENCOUNTER 2023-09-23 15:45 | Outpatient (REF) | payer MEDICARE, BC, SELFPAY ==
[2023-09-23 13:23] LABS: Bilirubin Negative (Negative); Blood Large (Negative); Clarity Cloudy (Clear); Glucose Negative (Negative); Ketones Negative (Negative); Leukocyte Esterase Moderate (Negative); Nitrite Negative (Negative); Specific Gravity 1.025 (1.005-1.025); Urobilinogen 0.2 mg/dL (Up to 0.2); pH 5.5 (5-8)
[2023-09-23 13:32] LABS: WBC 20-50 HPF (0-5)
[2023-09-23 13:33] LABS: Bacteria Moderate HPF (Negative); C & S Indicated? No/Sq. Contamination; Casts 0-2 Hyaline LPF (Negative); Crystals Few Calcium Oxalate HPF (Negative); Epithelial Cells Many HPF (Negative); Mucus Negative (Negative); RBC >50 HPF (0-2)
== END 2023-09-23 15:46 | disposition home or self-care (01) ==
LOC: LBN 15:45
PROVIDERS: PCP Family Medicine; Visit Provider Family Medicine
DX: N39.0 Urinary tract infection, site not specified
CPT/HCPCS: 81003; 81015

== ENCOUNTER 2023-09-26 10:55 | Outpatient (REF) | payer MEDICARE, BC, SELFPAY ==
[2023-09-26 11:18] LABS: Bilirubin Negative (Negative); Blood Small (Negative); Clarity Sl Cloudy (Clear); Glucose Negative (Negative); Ketones Negative (Negative); Leukocyte Esterase Moderate (Negative); Nitrite Negative (Negative); Specific Gravity 1.025 (1.005-1.025); Urobilinogen 0.2 mg/dL (Up to 0.2); pH 5.5 (5-8)
[2023-09-26 11:27] LABS: Bacteria Moderate HPF (Negative); C & S Indicated? C&S Done As Ordered; Casts Negative LPF (Negative); Crystals Negative HPF (Negative); Epithelial Cells Many HPF (Negative); Mucus Heavy (Negative); Other Cells Rare Yeast (Negative)
== END 2023-09-26 10:56 | disposition home or self-care (01) ==
LOC: LBN 10:55
PROVIDERS: PCP Family Medicine; Visit Provider Psychiatry & Neurology Neurology
DX: N39.0 Urinary tract infection, site not specified (principal)
CPT/HCPCS: 87077; 87186; 81003; 81015; 87086

== ENCOUNTER → 2023-12-07 11:14 | Outpatient (BNVA) | payer MEDICARE, BC, SELFPAY | PROVIDERS: PCP Family Medicine; Referring Provider Family Medicine; Visit Provider Psychiatry & Neurology Neurology | DX: G35 Multiple sclerosis (principal); N39.0 Urinary tract infection, site not specified; N31.9 Neuromuscular dysfunction of bladder, unspecified; K59.00 Constipation, unspecified; G47.00 Insomnia, unspecified | CPT/HCPCS: 99215 ==

== ENCOUNTER → 2023-12-21 08:20 | Outpatient (BNVA) | payer MEDICARE, BC, SELFPAY | PROVIDERS: PCP Family Medicine; Visit Provider Nurse Practitioner Gerontology | DX: N31.9 Neuromuscular dysfunction of bladder, unspecified (principal); G35 Multiple sclerosis | CPT/HCPCS: 99442 ==

== ENCOUNTER 2023-12-27 16:07 | Outpatient (REF) | payer MEDICARE, BC, SELFPAY ==
[2023-12-27 16:39] LABS: Bilirubin Negative (Negative); Blood Negative (Negative); Clarity Clear (Clear); Glucose Negative (Negative); Ketones Negative (Negative); Leukocyte Esterase Large (Negative); Nitrite Positive (Negative); Specific Gravity 1.015 (1.005-1.025); Urobilinogen 0.2 mg/dL (Up to 0.2)
[2023-12-27 17:12] LABS: RBC 0-2 HPF (0-2)
[2023-12-27 17:13] LABS: Bacteria Few HPF (Negative); C & S Indicated? C&S Done As Ordered; Casts Negative LPF (Negative); Crystals Negative HPF (Negative); Epithelial Cells Moderate HPF (Negative); Mucus Negative (Negative)
== END 2023-12-27 16:08 | disposition home or self-care (01) ==
LOC: LBN 16:07
PROVIDERS: PCP Family Medicine; Visit Provider Nurse Practitioner Gerontology
DX: N39.0 Urinary tract infection, site not specified (principal); R82.998 Other abnormal findings in urine; N31.9 Neuromuscular dysfunction of bladder, unspecified
CPT/HCPCS: 87077; 81003; 81015; 87086; 87186

== ENCOUNTER 2024-01-26 18:16 | Outpatient (REF) | payer MEDICARE, BC, SELFPAY ==
[2024-01-26 19:36] LABS: Bilirubin Negative (Negative); Blood Trace-intact (Negative); Clarity Clear (Clear); Glucose Negative (Negative); Ketones Negative (Negative); Leukocyte Esterase Small (Negative); Nitrite Negative (Negative); Specific Gravity 1.025 (1.005-1.025); Urobilinogen 0.2 mg/dL (Up to 0.2)
[2024-01-26 19:43] LABS: Bacteria Few HPF (Negative); C & S Indicated? C&S Done As Ordered; Casts Negative LPF (Negative); Crystals Few Amorphous HPF (Negative); Epithelial Cells Few HPF (Negative); Mucus Trace (Negative); RBC 0-2 HPF (0-2)
== END 2024-01-26 18:17 | disposition home or self-care (01) ==
LOC: LBN 18:16
PROVIDERS: PCP Family Medicine; Visit Provider Urology
DX: N39.0 Urinary tract infection, site not specified (principal)
CPT/HCPCS: 87077; 81003; 81015; 87086; 87186

== ENCOUNTER → 2024-02-03 12:47 | Outpatient (BNVA) | payer MEDICARE, BC, SELFPAY | PROVIDERS: PCP Family Medicine; Referring Provider Family Medicine; Visit Provider Psychiatry & Neurology Neurology | DX: G35 Multiple sclerosis (principal); N39.0 Urinary tract infection, site not specified; N31.9 Neuromuscular dysfunction of bladder, unspecified; K59.00 Constipation, unspecified; G47.00 Insomnia, unspecified | CPT/HCPCS: 99443 ==

== ENCOUNTER → 2024-02-07 04:48 | Outpatient (CLI) | payer MEDICARE, BC, SELFPAY ==
--- NOTE | 2024-02-07 07:30 | DI.CT_ITS ---
Exam(s) CT ABDOMEN PELVIS WO EXAM: CT ABDOMEN PELVIS WO CLINICAL HISTORY: ? bladder stones,recurrent utis,spastic neurogenic dysfunction of bladder. TECHNIQUE: Imaging Protocol: Axial computed tomography images with coronal and sagittal reformatted images were created and reviewed CONTRAST MATERIAL: Intravenous: none Oral: None COMPARISON: CT CT CHEST/ABD/PEL W from 08/21/2023 FINDINGS: VISUALIZED LUNG BASES: Previously present infiltrates in the lung bases have mostly resolved.. There are no pleural effusions. ABDOMEN: There is no ascites. LIVER: There are no obvious focal hepatic lesions evident of this noninfused study. GALLBLADDER/BILIARY: Cholelithiasis again noted. No gallbladder wall edema. CBD is not dilated. PANCREAS: No evidence of pancreatic mass nor dilatation of the pancreatic duct. SPLEEN: Spleen is not enlarged. No obvious intrasplenic lesions. ADRENALS: There are no significant adrenal masses. KIDNEYS:Parapelvic cysts again noted in both kidneys. No solid renal masses. No radiopaque calculi in the kidneys. No hydronephrosis nor hydroureter. No solid renal masses. Urinary bladder: There is again noted suprapubic catheter in place in the bladder is mostly collapsed but there is again noted to be a prominent calculus in the bladder lumen which presently measures 2. 2 cm wide by 1.1 cm AP by 1.6 cm craniocaudal. To the left of this large bladder stone is a smaller calculus in the bladder measuring 5 x 4 mm. There also 2 adjacent calculi in the lateral right floor of the bladder both measuring approximately 7-8 mm size. ABDOMINAL AORTA: Calcified but not enlarged. LYMPH NODES: There is no retroperitoneal nor paraaortic adenopathy. ABDOMINAL WALL: No evidence of significant anterior abdominal wall nor inguinal hernia. GI: Abundant fecal material is again noted in the rectum. Also throughout most of the the colon. PELVIS: LYMPH NODES: There is no intrapelvic nor inguinal adenopathy. GI: No evidence of appendicitis.No evidence of sigmoid diverticulitis. URINARY BLADDER: See above REPRODUCTIVE: Uterus size is normal. No adnexal masses. No free fluid. OSSEOUS: No significant osseous lesions. Nonacute mild compression fracture of L3 is unchanged. IMPRESSION: 1. Compared to the prior CT scan of 08/22/2023 there is cholelithiasis again noted without evidence o f gallbladder wall edema nor dilatation of the biliary tree. 2. There is a suprapubic catheter in the urinary bladder again noted and there are multiple calculi i n the urinary bladder with the dominant calculus again noted which measures slightly larger than prev ious, now measuring 2.2 cm wide by 1.1 cm x 1.6 cm. There is no hydronephrosis nor hydroureter. 3. There are no radiopaque calculi evident in the kidneys. Parapelvic cysts are again noted in the k idneys. 4. Abundant fecal material noted throughout the colon and rectum. No evidence of appendicitis nor d iverticulitis. RADIATION DOSE DELIVERED: Total DLP DATA REPOSITORY: All CT scans at this facility are submitted to the National Radiology Data Registry (NRDR) Dose Index Registry (DIR) with the [employer] (A[employer]). RADIATION OPTIMIZATION: All CT scans at this facility use at least one of these dose optimization te chniques: automated exposure control; mA and/or kV adjustment per patient size (includes targeted exa ms where dose is matched to clinical indication); or iterative reconstruction.
== END ==
PROVIDERS: PCP Family Medicine; Visit Provider Urology
DX: N21.0 Calculus in bladder (principal); N39.0 Urinary tract infection, site not specified; N31.9 Neuromuscular dysfunction of bladder, unspecified; K80.20 Calculus of gallbladder without cholecystitis without obstruction
CPT/HCPCS: 74176

== ENCOUNTER → 2024-02-15 09:20 | Outpatient (BNVA) | payer MEDICARE, BC, SELFPAY | PROVIDERS: PCP Family Medicine; Referring Provider Family Medicine; Visit Provider Urology | DX: N21.0 Calculus in bladder (principal) | CPT/HCPCS: 99443 ==

== ENCOUNTER 2024-02-18 12:39 | Outpatient (REF) | payer MEDICARE, BC, SELFPAY ==
[2024-02-18 13:40] LABS: Bilirubin Negative (Negative); Blood Trace-intact (Negative); Clarity Sl Cloudy (Clear); Glucose Negative (Negative); Ketones Negative (Negative); Leukocyte Esterase Large (Negative); Nitrite Positive (Negative); Specific Gravity >= 1.030 (1.005-1.025); Urobilinogen 0.2 mg/dL (Up to 0.2); pH 5.5 (5-8)
[2024-02-18 13:56] LABS: Bacteria Few HPF (Negative); C & S Indicated? C&S Done As Ordered; Casts Negative LPF (Negative); Crystals Negative HPF (Negative); Epithelial Cells Few HPF (Negative); Mucus Negative (Negative); RBC 0-2 HPF (0-2); WBC 20-50 HPF (0-5)
== END 2024-02-18 12:40 | disposition home or self-care (01) ==
LOC: LBN 12:39
PROVIDERS: PCP Family Medicine; Visit Provider Urology
DX: Z93.59 Other cystostomy status (principal); N21.0 Calculus in bladder; N39.0 Urinary tract infection, site not specified
CPT/HCPCS: 87077; 81003; 81015; 87086; 87186

== ENCOUNTER → 2024-04-05 08:37 | Outpatient (BNVA) | payer MEDICARE, BC, SELFPAY | PROVIDERS: PCP Family Medicine; Visit Provider Psychiatry & Neurology Neurology | DX: G35 Multiple sclerosis (principal); N39.0 Urinary tract infection, site not specified; N31.9 Neuromuscular dysfunction of bladder, unspecified; K59.00 Constipation, unspecified; G47.00 Insomnia, unspecified | CPT/HCPCS: 99442 ==

== ENCOUNTER 2024-05-18 14:59 | Outpatient (REF) | payer MEDICARE, BC, SELFPAY | END 2024-05-18 15:00 | disposition home or self-care (01) | LOC: LBN 14:59 | PROVIDERS: PCP Family Medicine; Visit Provider Urology | DX: N39.0 Urinary tract infection, site not specified (principal); B96.1 Klebsiella pneumoniae [K. pneumoniae] as the cause of diseases classified elsewhere; N21.0 Calculus in bladder; Z93.59 Other cystostomy status | CPT/HCPCS: 87077; 87086; 87186 ==

== ENCOUNTER → 2024-06-07 06:33 | Outpatient (BNVA) | payer MEDICARE, BC, SELFPAY | PROVIDERS: PCP Family Medicine; Referring Provider Family Medicine; Visit Provider Psychiatry & Neurology Neurology | DX: G35 Multiple sclerosis (principal); N39.0 Urinary tract infection, site not specified; N31.9 Neuromuscular dysfunction of bladder, unspecified; K59.00 Constipation, unspecified; G47.00 Insomnia, unspecified | CPT/HCPCS: 99213 ==

== ENCOUNTER 2024-07-31 18:34 | Outpatient (REF) | payer MEDICARE, BC, SELFPAY ==
[2024-07-31 20:34] LABS: Bilirubin Negative (Negative); Blood Large (Negative); Clarity Sl Cloudy (Clear); Glucose Negative (Negative); Ketones Negative (Negative); Leukocyte Esterase Moderate (Negative); Nitrite Positive (Negative); Urobilinogen 0.2 mg/dL (Up to 0.2)
[2024-07-31 20:40] LABS: Bacteria Many HPF (Negative); C & S Indicated? C&S Done As Ordered; Casts Negative LPF (Negative); Crystals Negative HPF (Negative); Epithelial Cells Few HPF (Negative); Mucus Moderate (Negative); WBC >50 HPF (0-5)
== END 2024-07-31 18:35 | disposition home or self-care (01) ==
LOC: LBN 18:34
PROVIDERS: PCP Family Medicine; Visit Provider Nurse Practitioner Gerontology
DX: R82.90 Unspecified abnormal findings in urine (principal)
CPT/HCPCS: 81003; 81015; 87086

== ENCOUNTER → 2024-08-09 07:35 | Outpatient (BNVA) | payer MEDICARE, BC, SELFPAY | PROVIDERS: PCP Family Medicine; Visit Provider Psychiatry & Neurology Neurology | DX: G35 Multiple sclerosis (principal); N31.9 Neuromuscular dysfunction of bladder, unspecified | CPT/HCPCS: 99213 ==

== ENCOUNTER 2024-08-09 20:57 | Outpatient (REF) | payer MEDICARE, BC, SELFPAY ==
[2024-08-09 22:31] LABS: Bilirubin Negative (Negative); Blood Negative (Negative); Clarity Sl Cloudy (Clear); Glucose Negative (Negative); Ketones Negative (Negative); Leukocyte Esterase Small (Negative); Nitrite Positive (Negative); Urobilinogen 0.2 mg/dL (Up to 0.2); pH 7.5 (5-8)
[2024-08-09 22:38] LABS: Bacteria Few HPF (Negative); C & S Indicated? C&S Done As Ordered; Crystals Many Triple Phos HPF (Negative); Epithelial Cells Few HPF (Negative); Mucus Trace (Negative); RBC Negative HPF (0-2); WBC 20-50 HPF (0-5)
== END 2024-08-09 20:58 | disposition home or self-care (01) ==
LOC: LBN 20:57
PROVIDERS: PCP Family Medicine; Visit Provider Nurse Practitioner Gerontology
DX: N39.0 Urinary tract infection, site not specified (principal)
CPT/HCPCS: 87077; 81003; 81015; 87086; 87186

== ENCOUNTER 2024-09-30 11:23 | Outpatient (REF) | payer MEDICARE, BC, SELFPAY ==
[2024-09-30 11:39] LABS: Bilirubin Negative (Negative); Blood Small (Negative); Clarity Cloudy (Clear); Glucose Negative (Negative); Ketones Trace mg/dL (Negative); Leukocyte Esterase Moderate (Negative); Nitrite Positive (Negative); Urobilinogen 0.2 mg/dL (Up to 0.2); pH 8.5 (5-8)
[2024-09-30 11:49] LABS: Bacteria Many HPF (Negative); Casts Negative LPF (Negative); Crystals Few Calcium Oxalate HPF (Negative); Epithelial Cells Many HPF (Negative); Mucus Negative (Negative); WBC >50 HPF (0-5)
[2024-09-30 11:50] LABS: C & S Indicated? C&S Done As Ordered
== END 2024-09-30 11:24 | disposition home or self-care (01) ==
LOC: LBN 11:23
PROVIDERS: PCP Family Medicine; Visit Provider Urology
DX: N39.0 Urinary tract infection, site not specified (principal); R82.89 Other abnormal findings on cytological and histological examination of urine
CPT/HCPCS: 87077; 81003; 81015; 87086; 87186

== ENCOUNTER 2024-10-24 17:12 | Outpatient (REF) | payer MEDICARE, BC, SELFPAY | END 2024-10-24 17:13 | disposition home or self-care (01) | LOC: LBN 17:12 | PROVIDERS: PCP Family Medicine; Visit Provider Family Medicine | DX: R30.0 Dysuria (principal) | CPT/HCPCS: 87480; 87510; 87660 ==

== ENCOUNTER 2024-11-21 15:37 | Outpatient (REF) | payer MEDICARE, BC, SELFPAY ==
[2024-11-21 20:19] LABS: Bilirubin Negative (Negative); Blood Moderate (Negative); Clarity Sl Cloudy (Clear); Glucose Negative (Negative); Ketones Negative (Negative); Leukocyte Esterase Small (Negative); Nitrite Positive (Negative); Specific Gravity 1.025 (1.005-1.025); Urobilinogen 0.2 mg/dL (Up to 0.2)
[2024-11-21 20:28] LABS: Bacteria Few HPF (Negative); C & S Indicated? C&S Done As Ordered; Casts Negative LPF (Negative); Crystals Few Calcium Oxalate HPF (Negative); Epithelial Cells Few HPF (Negative); Mucus Trace (Negative)
== END 2024-11-21 15:38 | disposition home or self-care (01) ==
LOC: LBN 15:37
PROVIDERS: PCP Family Medicine; Visit Provider Urology
DX: N31.9 Neuromuscular dysfunction of bladder, unspecified (principal); N39.0 Urinary tract infection, site not specified
CPT/HCPCS: 87077; 81003; 81015; 87086; 87186

== ENCOUNTER → 2024-12-21 08:43 | Outpatient (BNVA) | payer MEDICARE, BC, SELFPAY | PROVIDERS: PCP Family Medicine; Visit Provider Nurse Practitioner Gerontology | DX: N31.9 Neuromuscular dysfunction of bladder, unspecified (principal) | CPT/HCPCS: 99213 ==

== ENCOUNTER 2024-12-27 16:34 | Outpatient (REF) | payer MEDICARE, BC, SELFPAY ==
[2024-12-27 15:53] LABS: Bilirubin Negative (Negative); Blood Trace-intact (Negative); Clarity Turbid (Clear); Glucose Negative (Negative); Ketones Negative (Negative); Leukocyte Esterase Large (Negative); Nitrite Positive (Negative); Specific Gravity 1.025 (1.005-1.025); Urobilinogen 0.2 mg/dL (Up to 0.2)
[2024-12-27 16:06] LABS: Bacteria Many HPF (Negative); Crystals Many Amorphous HPF (Negative); Epithelial Cells Many HPF (Negative); WBC 20-50 HPF (0-5)
[2024-12-27 16:07] LABS: C & S Indicated? C&S Done As Ordered; Mucus Negative (Negative)
== END 2024-12-27 16:35 | disposition home or self-care (01) ==
LOC: LBN 16:34
PROVIDERS: PCP Family Medicine; Visit Provider Urology
DX: N21.0 Calculus in bladder (principal); Z93.59 Other cystostomy status; N31.9 Neuromuscular dysfunction of bladder, unspecified; R41.0 Disorientation, unspecified; G35 Multiple sclerosis
CPT/HCPCS: 87077; 81003; 81015; 87086; 87186

== ENCOUNTER → 2025-01-11 09:13 | Outpatient (BNVA) | payer MEDICARE, BC, SELFPAY | PROVIDERS: PCP Family Medicine; Visit Provider Psychiatry & Neurology Neurology | DX: G35 Multiple sclerosis (principal); G47.00 Insomnia, unspecified | CPT/HCPCS: 99213 ==

== ENCOUNTER 2025-01-18 15:06 | Outpatient (REF) | payer MEDICARE, BC, SELFPAY ==
[2025-01-18 16:03] LABS: Bilirubin Negative (Negative); Blood Negative (Negative); Clarity Clear (Clear); Glucose Negative (Negative); Ketones Negative (Negative); Leukocyte Esterase Small (Negative); Nitrite Positive (Negative); Urobilinogen 0.2 mg/dL (Up to 0.2)
[2025-01-18 16:14] LABS: Bacteria Moderate HPF (Negative); Casts 0-2 Hyaline LPF (Negative); Crystals Negative HPF (Negative); Epithelial Cells Moderate HPF (Negative); Mucus Trace (Negative); Other Cells Rare Transitional (Negative); RBC Negative HPF (0-2); WBC 20-50 HPF (0-5)
[2025-01-18 16:15] LABS: C & S Indicated? C&S Done As Ordered
== END 2025-01-18 15:07 | disposition home or self-care (01) ==
LOC: LBN 15:06
PROVIDERS: PCP Family Medicine; Visit Provider Urology
DX: N31.9 Neuromuscular dysfunction of bladder, unspecified (principal); R82.89 Other abnormal findings on cytological and histological examination of urine; R41.82 Altered mental status, unspecified
CPT/HCPCS: 87077; 81003; 81015; 87086; 87186

== ENCOUNTER → 2025-01-23 15:03 | Outpatient (BNVA) | payer MEDICARE, BC, SELFPAY | PROVIDERS: PCP Family Medicine; Referring Provider Family Medicine; Visit Provider Urology | DX: N21.0 Calculus in bladder (principal); N31.9 Neuromuscular dysfunction of bladder, unspecified; Z93.59 Other cystostomy status; N39.0 Urinary tract infection, site not specified | CPT/HCPCS: 99214 ==

== ENCOUNTER 2025-02-06 15:58 | Outpatient (REF) | payer MEDICARE, BC, SELFPAY | END 2025-02-06 15:59 | disposition home or self-care (01) | LOC: LBN 15:58 | PROVIDERS: PCP Family Medicine; Visit Provider Urology | DX: N39.0 Urinary tract infection, site not specified (principal) | CPT/HCPCS: 87077; 87086; 87186 ==

== ENCOUNTER 2025-03-12 17:12 | Outpatient (REF) | payer MEDICARE, BC, SELFPAY ==
[2025-03-12 17:32] LABS: Bilirubin Negative (Negative); Blood Trace-intact (Negative); Clarity Clear (Clear); Glucose Negative (Negative); Ketones Negative (Negative); Leukocyte Esterase Small (Negative); Nitrite Positive (Negative); Urobilinogen 0.2 mg/dL (Up to 0.2)
[2025-03-12 17:57] LABS: Epithelial Cells Few HPF (Negative); RBC >50 HPF (0-2); WBC >50 HPF (0-5)
[2025-03-12 17:58] LABS: Bacteria Packed HPF (Negative); C & S Indicated? C&S Done As Ordered; Crystals Many Calcium Oxalate HPF (Negative); Mucus Negative (Negative)
== END 2025-03-12 17:13 | disposition home or self-care (01) ==
LOC: LBN 17:12
PROVIDERS: PCP Family Medicine; Visit Provider Urology
DX: N39.0 Urinary tract infection, site not specified (principal); R82.89 Other abnormal findings on cytological and histological examination of urine
CPT/HCPCS: 87077; 81003; 81015; 87086; 87186

== ENCOUNTER 2025-04-19 09:01 | Outpatient (REF) | payer MEDICARE, BC, SELFPAY ==
[2025-04-20 09:54] LABS: Bilirubin Negative (Negative); Blood Negative (Negative); Clarity Sl Cloudy (Clear); Glucose Negative (Negative); Ketones Negative (Negative); Leukocyte Esterase Large (Negative); Nitrite Positive (Negative); Urobilinogen 0.2 mg/dL (Up to 0.2)
[2025-04-20 10:11] LABS: Bacteria Many HPF (Negative); C & S Indicated? C&S Done As Ordered; Casts Negative LPF (Negative); Crystals Negative HPF (Negative); Epithelial Cells Moderate HPF (Negative); Mucus Negative (Negative); RBC 0-2 HPF (0-2); WBC 20-50 HPF (0-5)
== END 2025-04-19 09:02 | disposition home or self-care (01) ==
LOC: LBN 09:01
PROVIDERS: PCP Family Medicine; Visit Provider Urology
DX: N31.9 Neuromuscular dysfunction of bladder, unspecified (principal); N39.0 Urinary tract infection, site not specified; Z93.59 Other cystostomy status
CPT/HCPCS: 81003; 81015; 87086

== ENCOUNTER 2025-05-16 13:50 | Outpatient (REF) | payer MEDICARE, BC, SELFPAY ==
[2025-05-16 13:41] LABS: Bilirubin Negative (Negative); Blood Trace-intact (Negative); Clarity Sl Cloudy (Clear); Glucose Negative (Negative); Ketones Negative (Negative); Leukocyte Esterase Small (Negative); Nitrite Positive (Negative); Specific Gravity 1.025 (1.005-1.025); Urobilinogen 0.2 mg/dL (Up to 0.2)
[2025-05-16 13:59] LABS: Bacteria Moderate HPF (Negative); Crystals Negative HPF (Negative); Epithelial Cells Moderate HPF (Negative); Mucus Negative (Negative); RBC 0-2 HPF (0-2)
[2025-05-16 14:00] LABS: Casts Negative LPF (Negative)
[2025-05-16 14:02] LABS: C & S Indicated? C&S Done As Ordered
== END 2025-05-16 13:51 | disposition home or self-care (01) ==
LOC: LBN 13:50
PROVIDERS: PCP Family Medicine; Visit Provider Urology
DX: R39.9 Unspecified symptoms and signs involving the genitourinary system (principal)
CPT/HCPCS: 87077; 81003; 81015; 87086; 87186

== ENCOUNTER → 2025-06-07 10:32 | Outpatient (BNVA) | payer MEDICARE, BC, SELFPAY | PROVIDERS: PCP Family Medicine; Referring Provider Family Medicine; Visit Provider Psychiatry & Neurology Neurology | DX: G35 Multiple sclerosis (principal); N39.0 Urinary tract infection, site not specified; N31.9 Neuromuscular dysfunction of bladder, unspecified; K59.00 Constipation, unspecified; G47.00 Insomnia, unspecified; I10 Essential (primary) hypertension | CPT/HCPCS: 99214 ==

== ENCOUNTER 2025-06-07 13:44 | Outpatient (REF) | payer MEDICARE, BC, SELFPAY ==
[2025-06-07 15:27] LABS: Glucose Negative (Negative)
[2025-06-07 15:49] LABS: RBC 0-2 HPF (0-2)
[2025-06-07 15:50] LABS: C & S Indicated? Yes
== END 2025-06-07 13:45 | disposition home or self-care (01) ==
LOC: LBN 13:44
PROVIDERS: PCP Family Medicine; Visit Provider Urology
DX: N39.0 Urinary tract infection, site not specified (principal)
CPT/HCPCS: 81003; 81015; 87086

== ENCOUNTER 2025-07-03 17:57 | Outpatient (REF) | payer MEDICARE, BC, SELFPAY ==
[2025-07-03 17:48] LABS: ALT 44 U/L (14-59); AST 34 U/L (15-37); Albumin 3.3 g/dL (3.4-5.0); Alkaline Phosphatase 101 U/L (46-116); Anion Gap 11.8 mmol/L (3-11); BUN 16 mg/dL (7-18); Bilirubin, Total 0.6 mg/dL (0.2-1.0); CO2 26.2 mmol/L (21.0-32.0); Calcium 9.1 mg/dL (8.5-10.1); Chloride 109 mmol/L (98-107); Estimated GFR 65.44 (mL/min/1.73m2); Glucose 106 mg/dL (74-106); Potassium 3.3 mmol/L (3.5-5.1); Sodium 147 mmol/L (136-145); Total Protein 6.1 g/dL (6.4-8.2)
== END 2025-07-03 17:58 | disposition home or self-care (01) ==
LOC: LBN 17:57
PROVIDERS: PCP Family Medicine; Visit Provider Family Medicine
DX: I10 Essential (primary) hypertension (principal)
CPT/HCPCS: 80053

== ENCOUNTER 2025-07-26 14:12 | Outpatient (REF) | payer MEDICARE, BC, SELFPAY ==
[2025-07-26 12:04] LABS: Glucose Negative (Negative)
[2025-07-26 12:13] LABS: RBC 20-50 HPF (0-2)
== END 2025-07-26 14:13 | disposition home or self-care (01) ==
LOC: LBN 14:12
PROVIDERS: PCP Family Medicine; Visit Provider Urology
DX: Z93.59 Other cystostomy status (principal); N39.0 Urinary tract infection, site not specified; R82.90 Unspecified abnormal findings in urine
CPT/HCPCS: 81003; 81015; 87086

== ENCOUNTER → 2025-07-31 12:12 | Outpatient (BNVA) | payer MEDICARE, BC, SELFPAY | PROVIDERS: PCP Family Medicine; Referring Provider Family Medicine; Visit Provider Urology | DX: N39.0 Urinary tract infection, site not specified (principal); N31.9 Neuromuscular dysfunction of bladder, unspecified; Z93.59 Other cystostomy status; N21.0 Calculus in bladder | CPT/HCPCS: 99213 ==

== ENCOUNTER → 2025-09-12 11:03 | Outpatient (BNVA) | payer MEDICARE, BC, SELFPAY | PROVIDERS: PCP Family Medicine; Referring Provider Family Medicine; Visit Provider Psychiatry & Neurology Neurology | DX: G35.D Multiple sclerosis, unspecified (principal); N39.0 Urinary tract infection, site not specified; N31.9 Neuromuscular dysfunction of bladder, unspecified; K59.00 Constipation, unspecified; G47.00 Insomnia, unspecified | CPT/HCPCS: 99214 ==

== ENCOUNTER 2025-09-24 13:36 | Outpatient (REF) | payer MEDICARE, BC, SELFPAY ==
[2025-09-24 16:59] LABS: Glucose Negative (Negative)
[2025-09-24 17:11] LABS: RBC 20-50 HPF (0-2); WBC >50 HPF (0-5)
== END 2025-09-24 13:37 | disposition home or self-care (01) ==
LOC: LBN 13:36
PROVIDERS: PCP Family Medicine; Visit Provider Urology
DX: N31.9 Neuromuscular dysfunction of bladder, unspecified (principal); N13.9 Obstructive and reflux uropathy, unspecified
CPT/HCPCS: 87077; 81003; 81015; 87086; 87186

== ENCOUNTER 2025-10-09 19:25 | Outpatient (REF) | payer MEDICARE, BC, SELFPAY ==
[2025-10-09 18:05] LABS: Glucose Negative (Negative)
[2025-10-09 18:12] LABS: RBC >50 HPF (0-2)
== END 2025-10-09 19:26 | disposition home or self-care (01) ==
LOC: LBN 19:25
PROVIDERS: Urology; PCP Family Medicine; Visit Provider Family Medicine
DX: N31.9 Neuromuscular dysfunction of bladder, unspecified (principal); N39.0 Urinary tract infection, site not specified; N39.45 Continuous leakage
CPT/HCPCS: 81003; 81015; 87086